=== PATIENT | male | born 1960 | race Caucasian/White ===

== ENCOUNTER 2019-10-18 09:02 | Outpatient (CLI) | payer MEDICARE, BC, SELFPAY ==
[2019-10-18 09:33] LABS: Basophils # 0.1 10^3/uL (0.0-0.1); Basophils % 0.7 %; Eosinophils # 0.3 10^3/uL (0.0-0.8); Eosinophils % 4.2 %; Hematocrit 39.6 % (42.0-52.0); Hemoglobin 14.1 g/dL (11.7-16.6); Lymphocytes # 0.6 10^3/uL (0.8-4.8); Lymphocytes % 7.7 %; Mean Corpuscular HGB Conc 35.6 g/dL (30.0-36.0); Mean Corpuscular Hemoglobin 33.3 pg (28.0-34.0); Mean Corpuscular Volume 93.4 fL (80-94); Mean Platelet Volume 9.1 fL (7.4-10.4); Monocytes # 0.7 10^3/uL (0.2-0.9); Monocytes % 9.8 %; Neutrophils # 5.6 10^3/uL (1.8-7.7); Neutrophils % 75.6 %; Nucleated Red Blood Cells % 0 %; Platelet Count 181 10^3/cmm (130-400); Red Blood Count 4.24 10^6/uL (4.1-5.3); Red Cell Distribution Width 12.2 % (12.1-15.1); White Blood Count 7.4 10^3/uL (4.0-10.0)
[2019-10-18 09:53] LABS: Alanine Aminotransferase 20 U/L (0-41); Albumin Level 4.4 g/dL (3.5-5.2); Alkaline Phosphatase 133 IU/L (40-130); Anion Gap 15.7 (5-19); Aspartate Amino Transferase 19 U/L (0-40); Blood Urea Nitrogen 35 mg/dL (6-20); Calcium 9.7 mg/Dl (8.6-10.0); Carbon Dioxide 23 mmol/L (22-29); Chloride 104 mmol/L (98-107); Globulin 2.3 g/dL (1.3-4.6); Glomerular Filtration Rate 30.8 mL/min (90-130); Glucose 120 mg/dL (74-109); Lactate Dehydrogenase 177 U/L (135-225); Potassium 4.7 mmol/L (3.5-5.1); Sodium 138 mmol/L (136-145); Total Bilirubin 0.5 mg/dL (0.15-1.2); Total Protein 6.7 g/dL (6.6-8.7)
[2019-10-18] MEDS: acetaminophen 325 mg Tablet 650 MG PO (11:13)
[2019-10-18] MEDS: sodium chloride 0.9% 500 ML 999 ML IV (11:58)
--- NOTE | 2019-10-22 13:00 | ONC FU_ITS ---
Dr. Suarez Patient Follow-Up Note Patient: Jl Rivera Unit #: [id number]: 1960 Dicatated By: Charlie Suarez M.D.Date of Visit:Oct 18, 2019 Onc Med Follow-up/Prog Note Chief Complaint: Lymphoma. 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 He was admitted to [facility] on 07/29/2018 with acute renal failure. He had presented with encephalopathy and severe edema. In addition to the acute renal failure, he had moderately severe anemia and mild thrombocytopenia with his baseline platelet count reportedly in the range of 100,000. CT pulmonary angiogram showed axillary and mediastinal lymphadenopathy, moderate sized bilateral pleural effusions, and cardiomegaly. His abdomen/pelvis CT showed marked lymphadenopathy within the abdomen and pelvis and splenomegaly. 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 He also was started on hemodialysis. Left axillary lymph node biopsy on 07/31/2018 showed malignant lymphoma, favoring low-grade follicular lymphoma. The neoplastic cells were noted to be positive for BCL 6, CD10, and CD23. There was weak positivity for BCL 2. The cells were negative for cyclin D1, MUM1, and SOX 11. On 07/31/2018 he began chemotherapy with bendamustine/Rituxan. The bendamustine dosage was reduced by 50% for the renal function. His day 2 bendamustine was held due to an acute drop in his platelet count to 30,000. It subsequently did recover, but there was a delay of close to 3 months prior to starting his second cycle of chemotherapy. I had seen him initially on 11/15/2018. His 3rd cycle of chemotherpy had been scheduled to be given the following week, and he was to have restaging CT scans prior to that treatment. His further evaluation was delayed pending his Medicare eligibility. He then had a restaging PET/CT on 01/08/2019. It showed extensive hypermetabolic lymphadenopathy for the level of the head and neck to the level of the pelvis. There was diffusely metabolic splenomegaly. As he appeared to have had very little response to the bendamustine/Rituxan regimen, I opted to proceed with a course of R-CHOP chemotherapy. His baseline echocardiogram showed estimated left ventricular ejection fraction of 55%. There was grade I/IVdiastolic dysfunction. His other medical illnesses include hypothyroidism, degenerative arthritis, and gout. He has a history of smoking 1 pack of cigarettes daily for 40 years, but he has cut down. INTERIM HISTORY: He began cycle 1 of R-CHOP on 02/23/2019. He was given first cycle prophylaxis with Neulasta. He tolerated it with acceptable toxicity, and he continued with cycle 2 on 03/16/2019 and with cycle 3 on 04/13/2019. During this time he required additional thoracentesis procedures on 03/09, 03/17, and 04/01/2019. A flow cytometry study on his pleural fluid did show a monotypic B-cell population consistent with involvement by malignant lymphoma. Restaging PET/CT on 05/07/2019 showed overall improvement but not complete resolution of the extensive adenopathy. Hypermetabolic splenomegaly appeared to have normalized. He then continued with cycle 4 of R-CHOP on 05/11/2019, with cycle 5 on 06/01/2019, and with cycle 6 on 06/22/2019. Restaging PET/CT on 07/16/2019 showed subcentimeter size lymph nodes in the head and neck bilaterally, FDG negative. Similar improvement was noted in mediastinal, left internal mammary, and bilateral axillary lymph nodes. Portal nodes demonstrated only minimal FDG uptake and scattered retroperitoneal nodes measuring up to 1 cm in size showed FDG activity no greater than that of mediastinal background. A right external iliac lymph node measuring 1.8 x 1.5 cm had mild FDG uptake with SUV 3.4. The left pleural effusion was noted be significantly decreased in volume. Left lower lobe round atelectasis was noted to be FDG negative. In the setting of a low-grade follicular lymphoma with very good partial response to chemotherapy, I recommended that he continue with maintenance rituximab. He returned on 08/18/2019 to begin cycle 1 of 12 planned cycles of treatment at 2-month intervals. He is seen for a followup visit. He has been feeling pretty good generally, though he still gets tired. His ECOG score is 1. He has good appetite. He has gained weight. He has not had fever or night sweats, but he sometimes feels warm at night. He indicates that he is needing to have some dental work done. He does not complain of shortness of breath or cough. He is still smoking 1/2 pack of cigarettes daily. He has not been having chest pain since he stopped dialysis. He has a little bit of heartburn. He has no other GI or complaints. He has pain in his knees. He has numbness/tingling in his fingertips. Medications: Levo-T 1 Tablet (of 50 mcg) Oral daily, LORazepam 0.5 - 2 Tablet (of 1 mg) Oral daily PRN, Nitroglycerin 1 Tablet (of 0.4 mg) Tablet, sublingual Sublingual PRN, Prochlorperazine Maleate 1 Tablet (of 10 mg) Oral q 4 hours, Protonix 1 Tablet (of 20 mg) Tablet, enteric coated Oral daily PRN Allergies: No Known Allergies. Review of Systems: Constitutional - He feels pretty good generally. He does get tired at times, but he is able to do all of his housework. He also walks some throughout the week. His appetite is good and his weight is up almost 15 pounds since his last visit. No fever, chills, hot flashes, or night sweats. ECOG score is 1, ENMT - No sinus congestion/drainage. No mouth sores. No sore throat or difficulty swallowing, Hematologic/Lymphatic - No abnormal bruising or bleeding, Respiratory - No shortness of breath. No cough. No pleuritic pain or hemoptysis, Cardiovascular - No angina pain. No palpitations, Gastrointestinal - No nausea or vomiting. He has some heartburn. No diarrhea or constipation. No blood in the stool or black stools, Genitourinary (M) - No dysuria or hematuria. No urinary frequency. No urgency or incontinence, Musculoskeletal - He gets pain and stiffness in his knees after sitting too long, Integumentary - No skin complications, Neurologic - No headache or dizziness. He has numbness and tingling in his fingertips, Psychiatric - No anxiety. He does occasionally get down sometimes. No insomnia. Vital Signs: Performed on Oct 18, 2019 10:22 Height - 71.00 in Weight - 208.8 lbs (HIGH) BSA - 2.15 sq.m BMI - 29.12 Temperature - 98.4 F Pulse - 90 /min Respiration - 24 /min BP - 165/82 mm(hg) (HIGH) O2 Sat - 100 % Pain - 0 Physical Examination: Constitutional - He looks pretty good generally, Eyes - Sclerae nonicteric. Conjunctivae clear, ENMT - No lesions noted in the oral cavity, Hematologic/Lymphatic - No cervical, clavicular, or axillary adenopathy noted, Respiratory - Lungs still show slightly diminished breath sounds at the left base, Cardiovascular - Heart rhythm is regular. There is a II/ systolic murmur. There is no gallop or rub noted, Abdomen - Soft. Liver is not enlarged. I am not able to palpate the spleen. There is no abdominal mass or ascites noted. There are small inguinal lymph nodes bilaterally, Extremities - No edema, Neurologic - No focal neurologic deficits noted. Lab/Imaging: Test performed on Oct 18, 2019 09:31 Glucose 120 mg/dL BUN 35 mg/dL Creatinine 2.2 mg/dL Cr Clearance (Est) 45.09 mL/min Sodium 138 mmol/L Potassium 4.7 mmol/L Chloride 104 mmol/L CO2 23 mmol/L Calcium 9.7 mg/dL Protein, Total 6.7 g/dL Albumin 4.4 g/dL Globulin 2.3 g/dL Bilirubin, Total 0.5 mg/dL Alkaline Phosphatase 133 IU/L AST (SGOT) 19 IU/L ALT (SGPT) 20 IU/L WBC 7.4 10^9/L RBC 4.24 10^12/L HGB 14.1 g/dL HCT 39.6 % MCV 93.4 fl MCH 33.3 pg MCHC 35.6 g/dL RDW 12.2 % Platelet Count 181 10^9/L MPV 9.1 fL Neutrophils (Gran) 5.6 10^9/L Lymphocytes 0.6 10^9/L Monocytes 0.7 10^9/L Eosinophils 0.3 10^9/L Basophils 0.1 10^9/L Manual Segs 75.6 % Manual Lymphocytes 7.7 % Manual Monocytes 9.8 % Manual Eosinophils 4.2 % Manual Basophils 0.7 % NRBCs 0 /100 WBC Test performed on Oct 18, 2019 09:20 LDH, Total 177 IU/L Impression: 1. Patient with grade 1 follicular lymphoma, stage at least IIIS, diagnosed by left axillary lymph node biopsy on 07/31/2018. 2. His initial treatment included 2 cycles of bendamustine/Rituxan. With the first cycle the bendamustine was administered at a 50% dosage due to renal function and he received day 1 treatment only due to acute thrombocytopenia. Cycle 2 was delayed to 10/21/2018, and the bendamustine dosage remained at 50%. 3. He had presented with acute renal failure due to membranoproliferative glomerulonephritis, confirmed by renal biopsy on 07/30/2018. He has been on hemodialysis. 4. He was anemic at presentation, and he subsequently did require PRBC transfusion. 5. He also had laboratory evidence of hypothyroidism. 6. He has degenerative joint disease related to previous injuries. 7. He has a prior history of gout. He completed 2 cycles of bendamustine/Rituxan, though with significant delay prior to starting cycle 2. His restaging PET/CT on 01/08/2019 still showed diffuse FDG avid lymphadenopathy from the head/neck to the pelvis and diffusely metabolic splenomegaly. On comparison to his pretreatment CT scans, he did not appear to be showing significant response to the bendamustine/Rituxan regimen. As such, I opted to proceed with a course of R-CHOP chemotherapy. He began cycle 1 of R-CHOP on 02/23/2019. He was given first cycle prophylaxis with Neulasta. He tolerated it with acceptable toxicity, and he continued with cycle 2 on 03/16/2019 and with cycle 3 on 04/13/2019. During this time he required additional thoracentesis procedures, and a flow cytometry study on his pleural fluid did show a monotypic B-cell population consistent with involvement by malignant lymphoma. Restaging PET/CT on 05/07/2019 showed overall improvement but not complete resolution of the extensive adenopathy. Hypermetabolic splenomegaly appeared to have normalized. Overall, he appeared to have a very good response to the chemotherapy. He then continued treatment at 3-week intervals. He began his 6th cycle of R-CHOP on 06/22/2019. His restaging PET/CT on 07/16/2019 showed very significant response, though with possible residual involvement in a right external iliac lymph node and with evidence of some residual left pleural effusion. During that time he had significant improvement in his performance status, and he also was able to maintain adequate renal function after stopping dialysis. In the setting of low-grade lymphoma with very good partial response to chemotherapy, he was recommended to continue with maintenance rituximab. He began cycle 1 on 08/18/2019. He has since then continued to show gradual improvement in his clinical status. Plan: He will continue with cycle 2 of maintenance rituximab at 375 mg/m??? by IV infusion. He will be scheduled for a follow-up visit in 2 months. In the meantime, he will be given a prescription for amoxicillin to cover him for his dental work. I also will try and get nicotine patches for him. Signed By: Charlie Suarez M.D. <<Signature on File>>
== END 2019-10-18 09:03 | disposition home or self-care (01) ==
LOC: ONCMED 09:06
PROVIDERS: Visit Provider Internal Medicine Medical Oncology
DX: Z51.12 Encounter for antineoplastic immunotherapy (principal); C82.08 Follicular lymphoma grade I, lymph nodes of multiple sites; E03.9 Hypothyroidism, unspecified; M19.90 Unspecified osteoarthritis, unspecified site; M10.9 Gout, unspecified; F17.210 Nicotine dependence, cigarettes, uncomplicated
CPT/HCPCS: 80053; 83615; 85025; 96367; 96413; 96415; 99214; J1200; J7040; J9312

== ENCOUNTER 2019-11-18 13:03 | Outpatient (CLI) | payer MEDICARE, BC, SELFPAY | END 2019-11-18 13:04 | disposition home or self-care (01) | LOC: ONCMED 13:06 | PROVIDERS: Visit Provider Internal Medicine Medical Oncology | DX: Z45.2 Encounter for adjustment and management of vascular access device (principal) | CPT/HCPCS: 96523 ==

== ENCOUNTER 2019-12-13 13:34 | Outpatient (CLI) | payer MEDICARE, BC, SELFPAY ==
[2019-12-13 14:09] LABS: Basophils # 0.1 10^3/uL (0.0-0.1); Basophils % 1.1 %; Eosinophils # 0.3 10^3/uL (0.0-0.8); Eosinophils % 7.3 %; Hematocrit 37.2 % (42.0-52.0); Hemoglobin 13.2 g/dL (11.7-16.6); Lymphocytes # 0.6 10^3/uL (0.8-4.8); Lymphocytes % 11.9 %; Mean Corpuscular HGB Conc 35.5 g/dL (30.0-36.0); Mean Corpuscular Hemoglobin 32.8 pg (28.0-34.0); Mean Corpuscular Volume 92.3 fL (80-94); Mean Platelet Volume 9.8 fL (7.4-10.4); Monocytes # 0.8 10^3/uL (0.2-0.9); Monocytes % 17.9 %; Neutrophils # 2.8 10^3/uL (1.8-7.7); Neutrophils % 60.3 %; Nucleated Red Blood Cells % 0 %; Platelet Count 182 10^3/cmm (130-400); Red Blood Count 4.03 10^6/uL (4.1-5.3); Red Cell Distribution Width 13.2 % (12.1-15.1); White Blood Count 4.6 10^3/uL (4.0-10.0)
[2019-12-13 14:25] LABS: Alanine Aminotransferase 37 U/L (0-41); Albumin Level 4.2 g/dL (3.5-5.2); Alkaline Phosphatase 143 IU/L (40-130); Anion Gap 17.4 (5-19); Aspartate Amino Transferase 24 U/L (0-40); Blood Urea Nitrogen 35 mg/dL (8-23); Calcium 9.5 mg/dL (8.5-10.5); Carbon Dioxide 21 mmol/L (22-29); Chloride 103 mmol/L (98-107); Free T4 Free Thyroxine 1.01 ng/dL (0.82-1.77); Globulin 2.3 g/dL (1.3-4.6); Glomerular Filtration Rate 34.3 mL/min (90-130); Glucose 100 mg/dL (65-115); Lactate Dehydrogenase 226 U/L (135-225); Osmolality Calculated 281 mOsm/kg (285-295); Potassium 4.4 mmol/L (3.5-5.1); Sodium 137 mmol/L (136-145); Total Bilirubin 0.8 mg/dL (0.15-1.2); Total Protein 6.5 g/dL (6.6-8.7)
--- NOTE | 2019-12-17 15:11 | ONC FU_ITS ---
Dr. Suarez Patient Follow-Up Note Patient: Jl Rivera Unit #: [id number]: 1960 Dicatated By: Charlie Suarez M.D.Date of Visit:Dec 13, 2019 Onc Med Follow-up/Prog Note Chief Complaint: Lymphoma. 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 He was admitted to [facility] on 07/29/2018 with acute renal failure. He had presented with encephalopathy and severe edema. In addition to the acute renal failure, he had moderately severe anemia and mild thrombocytopenia with his baseline platelet count reportedly in the range of 100,000. CT pulmonary angiogram showed axillary and mediastinal lymphadenopathy, moderate sized bilateral pleural effusions, and cardiomegaly. His abdomen/pelvis CT showed marked lymphadenopathy within the abdomen and pelvis and splenomegaly. 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 He also was started on hemodialysis. Left axillary lymph node biopsy on 07/31/2018 showed malignant lymphoma, favoring low-grade follicular lymphoma. The neoplastic cells were noted to be positive for BCL 6, CD10, and CD23. There was weak positivity for BCL 2. The cells were negative for cyclin D1, MUM1, and SOX 11. On 07/31/2018 he began chemotherapy with bendamustine/Rituxan. The bendamustine dosage was reduced by 50% for the renal function. His day 2 bendamustine was held due to an acute drop in his platelet count to 30,000. It subsequently did recover, but there was a delay of close to 3 months prior to starting his second cycle of chemotherapy. I had seen him initially on 11/15/2018. His 3rd cycle of chemotherpy had been scheduled to be given the following week, and he was to have restaging CT scans prior to that treatment. His further evaluation was delayed pending his Medicare eligibility. He then had a restaging PET/CT on 01/08/2019. It showed extensive hypermetabolic lymphadenopathy for the level of the head and neck to the level of the pelvis. There was diffusely metabolic splenomegaly. As he appeared to have had very little response to the bendamustine/Rituxan regimen, I opted to proceed with a course of R-CHOP chemotherapy. His baseline echocardiogram showed estimated left ventricular ejection fraction of 55%. There was grade I/IVdiastolic dysfunction. His other medical illnesses include hypothyroidism, degenerative arthritis, and gout. He has a history of smoking 1 pack of cigarettes daily for 40 years, but he has cut down. INTERIM HISTORY: He began cycle 1 of R-CHOP on 02/23/2019. He was given first cycle prophylaxis with Neulasta. He tolerated it with acceptable toxicity, and he continued with cycle 2 on 03/16/2019 and with cycle 3 on 04/13/2019. During this time he required additional thoracentesis procedures on 03/09, 03/17, and 04/01/2019. A flow cytometry study on his pleural fluid did show a monotypic B-cell population consistent with involvement by malignant lymphoma. Restaging PET/CT on 05/07/2019 showed overall improvement but not complete resolution of the extensive adenopathy. Hypermetabolic splenomegaly appeared to have normalized. He then continued with cycle 4 of R-CHOP on 05/11/2019, with cycle 5 on 06/01/2019, and with cycle 6 on 06/22/2019. Restaging PET/CT on 07/16/2019 showed subcentimeter size lymph nodes in the head and neck bilaterally, FDG negative. Similar improvement was noted in mediastinal, left internal mammary, and bilateral axillary lymph nodes. Portal nodes demonstrated only minimal FDG uptake and scattered retroperitoneal nodes measuring up to 1 cm in size showed FDG activity no greater than that of mediastinal background. A right external iliac lymph node measuring 1.8 x 1.5 cm had mild FDG uptake with SUV 3.4. The left pleural effusion was noted be significantly decreased in volume. Left lower lobe round atelectasis was noted to be FDG negative. In the setting of a low-grade follicular lymphoma with very good partial response to chemotherapy, I recommended that he continue with maintenance rituximab. He then returned on 08/18/2019 to begin cycle 1 of 12 planned cycles of treatment at 2-month intervals. He tolerated it well, and he continued with cycle 2 on 10/18/2019. He is seen for a followup visit. He required him aware of a new lump in the right side of his neck within the past 10 days or so. He has been feeling a little tired. He is still doing light work. ECOG score is 1. He has good appetite. His weight is up another 4 pounds. He has not had fever or night sweats. He has not been having shortness of breath or cough. He has had no further chest pain since he stopped dialysis. He has no GI/ complaints other than rare episodes of heartburn. He has his usual lower back pain. He still has numbness/tingling on the tips of his fingers. Medications: LORazepam 0.5 - 2 Tablet (of 1 mg) Oral daily PRN, Nitroglycerin 1 Tablet (of 0.4 mg) Tablet, sublingual Sublingual PRN Allergies: No Known Allergies. Review of Systems: Constitutional - He still feels a little tired. He is able to do light work. His appetite is good and his weight is up another 4 pounds since his last visit. No fever, chills, hot flashes, or night sweats. ECOG score is 1, ENMT - No sinus congestion/drainage. No mouth sores. No sore throat or difficulty swallowing, Hematologic/Lymphatic - No abnormal bruising or bleeding, Respiratory - No shortness of breath. No cough. No pleuritic pain or hemoptysis, Cardiovascular - No angina pain. No palpitations, Gastrointestinal - No nausea or vomiting. He has just rare heartburn. No diarrhea or constipation. No blood in the stool or black stools, Genitourinary (M) - No dysuria or hematuria. No urinary frequency. No urgency or incontinence, Musculoskeletal - He has his usual lower back pain, Integumentary - No skin complications, Neurologic - No headache or dizziness. He still has numbness/tingling in his fingertips, Psychiatric - No anxiety or depression. He usually sleeps OK. Vital Signs: Performed on Dec 13, 2019 12:57 Height - 71.00 in Weight - 212.0 lbs (HIGH) BSA - 2.16 sq.m BMI - 29.57 Temperature - 98.1 F (LOW) Pulse - 80 /min Respiration - 20 /min BP - 151/82 mm(hg) (HIGH) O2 Sat - 99 % Pain - 5 Physical Examination: Constitutional - He looks pretty good generally, Eyes - Sclerae nonicteric. Conjunctivae clear, ENMT - No lesions noted in the oral cavity, Neck - There is a nodule in the lower medial right neck which I think is a thyroid nodule, Hematologic/Lymphatic - There is no other cervical, clavicular, or axillary adenopathy noted, Respiratory - Lungs sound clear with diminished breath sounds at the left base, Cardiovascular - Heart rhythm is regular. There is a II/ systolic murmur. There is no gallop or rub noted, Abdomen - Soft. Liver is not enlarged. I am not able to palpate the spleen. There is no abdominal mass or ascites noted. There is no inguinal adenopathy noted, Extremities - No edema. Pedal pulses are palpable bilaterally, Neurologic - No focal neurologic deficits noted. Impression: 1. Patient with grade 1 follicular lymphoma, stage at least IIIS, diagnosed by left axillary lymph node biopsy on 07/31/2018. 2. His initial treatment included 2 cycles of bendamustine/Rituxan. With the first cycle the bendamustine was administered at a 50% dosage due to renal function and he received day 1 treatment only due to acute thrombocytopenia. Cycle 2 was delayed to 10/21/2018, and the bendamustine dosage remained at 50%. 3. He had presented with acute renal failure due to membranoproliferative glomerulonephritis, confirmed by renal biopsy on 07/30/2018. He has been on hemodialysis. 4. He was anemic at presentation, and he subsequently did require PRBC transfusion. 5. He also had laboratory evidence of hypothyroidism. 6. He has degenerative joint disease related to previous injuries. 7. He has a prior history of gout. He completed 2 cycles of bendamustine/Rituxan, though with significant delay prior to starting cycle 2. His restaging PET/CT on 01/08/2019 still showed diffuse FDG avid lymphadenopathy from the head/neck to the pelvis and diffusely metabolic splenomegaly. On comparison to his pretreatment CT scans, he did not appear to be showing significant response to the bendamustine/Rituxan regimen. As such, I opted to proceed with a course of R-CHOP chemotherapy. He began cycle 1 of R-CHOP on 02/23/2019. He was given first cycle prophylaxis with Neulasta. He tolerated it with acceptable toxicity, and he continued with cycle 2 on 03/16/2019 and with cycle 3 on 04/13/2019. During this time he required additional thoracentesis procedures, and a flow cytometry study on his pleural fluid did show a monotypic B-cell population consistent with involvement by malignant lymphoma. Restaging PET/CT on 05/07/2019 showed overall improvement but not complete resolution of the extensive adenopathy. Hypermetabolic splenomegaly appeared to have normalized. Overall, he appeared to have a very good response to the chemotherapy. He then continued treatment at 3-week intervals. He began his 6th cycle of R-CHOP on 06/22/2019. His restaging PET/CT on 07/16/2019 showed very significant response, though with possible residual involvement in a right external iliac lymph node and with evidence of some residual left pleural effusion. During that time he had significant improvement in his performance status, and he also was able to maintain adequate renal function after stopping dialysis. In the setting of low-grade lymphoma with very good partial response to chemotherapy, he was recommended to continue with maintenance rituximab. He began cycle 1 on 08/18/2019. He tolerated it well and continue with cycle 2 on 10/18/2019. Overall, he has been showing gradual improvement in his performance status, and his renal function has remained adequate off dialysis. However, he has been recently become aware of a new nodule in the right side of the neck. By exam, this may be of thyroid origin. Plan: He will be scheduled for restaging labs and CT scans. He left further evaluation as indicated. If there has been any significant progression of the lymphoma, I will recommend referral to [facility] for a second opinion evaluation. Signed By: Charlie Suarez M.D. <<Signature on File>>
== END 2019-12-13 13:35 | disposition home or self-care (01) ==
PROVIDERS: Visit Provider Internal Medicine Medical Oncology
DX: C82.08 Follicular lymphoma grade I, lymph nodes of multiple sites (principal); D64.9 Anemia, unspecified; E03.9 Hypothyroidism, unspecified; M19.90 Unspecified osteoarthritis, unspecified site; M10.9 Gout, unspecified; F17.210 Nicotine dependence, cigarettes, uncomplicated; M54.5 Low back pain; Z79.899 Other long term (current) drug therapy; Z92.21 Personal history of antineoplastic chemotherapy
CPT/HCPCS: 36591; 80053; 83615; 84439; 84443; 85025; 99214

== ENCOUNTER 2019-12-19 05:47 | Outpatient (RCR) | payer MEDICARE, BC, SELFPAY ==
--- NOTE | 2019-12-15 09:05 | CT_ITS ---
WS: [id number] CT NECK TECHNIQUE: Noncontrast CT of the neck with coronal and sagittal reformatted images. CLINICAL INFORMATION: LYMPHOMA/?THYROID NODULE COMPARISON: PET/CT July 16, 2019 DLP: 769.[address] scans at [facility] use at least one of these dose optimization techniques: automat ed exposure control; mA and/or kV adjustment per patient size (includes targeted exams where dose is matched to clinical indication); or iterative reconstruction. FINDINGS: Parotid glands are normal in appearance. Normal submandibular glands. Tongue base appears normal. Nor mal parapharyngeal fat. No evidence of supraglottic or glottic mass considering lack of IV contrast. No visualized thyroid nodules. Prominent left submandibular lymph node measuring 11 mm in short axis dimension. Prominent level 2 an d level 3 cervical lymph nodes upper limits of normal but not pathologically enlarged. Shotty appeari ng posterior triangle lymph nodes the largest measuring 7 mm in short axis dimension. Enlarged supraclavicular lymph nodes with partially visualized numerous enlarged lymph nodes at the t horacic inlet and retropectoral. Largest supra clavicular lymph nodes measure approximately 10 mm in short axis dimension. These appear progressed since the prior PET/CT. Prior postoperative changes cervical spine with ACDF C3-C4 and C5-C7. Straightening of the normal cer vical lordosis. Mastoid air cells are well aerated. Paranasal sinuses are well aerated. CT/CT neck wo con [id number] IMPRESSION: 1. Salivary glands are normal in appearance. 2. No evidence of supraglottic or glottic mass considering lack of IV contrast . 3. Enlarged left submandibular lymph node measuring 11 mm. 4. Numerous but normal sized level 2 and level 3 cervical lymph nodes. 5. Numerous and enlarged supraclavicular lymph nodes and partially visualized thoracic inlet and retropectoral lymph nodes. Largest supraclavicular lymph nod es measure approximately 10 mm in short axis dimension. 6. Thyroid gland appears normal. 7. Overall lymph nodes appear progressed since the prior PET/CT.
--- NOTE | 2019-12-15 09:05 | CT_ITS ---
WS: [id number] CT CHEST, ABDOMEN, AND PELVIS TECHNIQUE: Noncontrast CT of the chest, abdomen, and pelvis with coronal and sagittal reformatted shea ges. CLINICAL INFORMATION: LYMPHOMA COMPARISON: PET/CT July 16, [address] chest March 30, [address] abdomen July 29, 2018 DLP: 1852.[address] scans at [facility] use at least one of these dose optimization techniques: automat ed exposure control; mA and/or kV adjustment per patient size (includes targeted exams where dose is matched to clinical indication); or iterative reconstruction. CT CHEST: Mild chronic emphysematous changes. Small left pleural effusion. Round atelectasis left lung base vita suring 5.6 x 2.3 cm is unchanged. Pleural effusion has increased slightly from previous. Extensive progressed thoracic inlet, supra clavicular, internal mammary, left greater than right axil maria antonia lymphadenopathy. This is progressed since the prior PET/CT. No significant hilar or paratracheal lymphadenopathy. 5 mm noncalcified pulmonary nodule in the left upper lobe is stable. Fibrosis right lung base. CT ABDOMEN AND PELVIS: Noncontrast liver is normal. Normal noncontrast spleen. Normal caliber abdominal aorta. Enlarged lymph nodes in the upper abdomen along the celiac axis and abdiaziz hepatis. Enlarged periaorti c and retroperitoneal lymph nodes with surrounding induration. Upper abdominal lymph nodes appear sta ble to slightly improved compared to previous. Periaortic lymph nodes not significantly changed. However, significant overall progression of the iliac chain lymphadenopathy with enlarged pelvic side wall and obturator lymph nodes. These have progressed since the prior examination. Progressed inguina l lymphadenopathy. Renal cortical atrophy. Adrenal glands are normal. Normal caliber abdominal aorta. Incidental fat-con taining umbilical hernia. CT/CT chest abd pel wo con IMPRESSION: 1. Significant interval progression involving the supraclavicular, thoracic in let, internal mammary, and axillary lymphadenopathy. Largest left axillary lymp h node measures 2.5 cm laterally. 2. Stable small left pleural effusion with round atelectasis left lung base. 3. Lymphadenopathy in the upper abdomen, abdiaziz hepatis, and periaortic regions is stable. 4. However there is significant progression of the pelvic and iliac chain lymp hadenopathy as well as the inguinal lymphadenopathy. 5. Stable noncalcified 6 mm nodule left upper lobe.
[2019-12-15] MEDS: iohexol 300 mg/mL 50 mL Btl PO (09:22)
[2019-12-19 09:43] LABS: Basophils # 0.1 10^3/uL (0.0-0.1); Basophils % 1.5 %; Eosinophils # 0.3 10^3/uL (0.0-0.8); Eosinophils % 6.8 %; Hematocrit 37.4 % (42.0-52.0); Hemoglobin 13.5 g/dL (11.7-16.6); Lymphocytes # 0.5 10^3/uL (0.8-4.8); Lymphocytes % 12.8 %; Mean Corpuscular HGB Conc 36.1 g/dL (30.0-36.0); Mean Corpuscular Hemoglobin 33.8 pg (28.0-34.0); Mean Corpuscular Volume 93.7 fL (80-94); Mean Platelet Volume 9.6 fL (7.4-10.4); Monocytes # 0.7 10^3/uL (0.2-0.9); Monocytes % 18.5 %; Neutrophils # 2.3 10^3/uL (1.8-7.7); Neutrophils % 57.1 %; Nucleated Red Blood Cells % 0 %; Platelet Count 192 10^3/cmm (130-400); Red Blood Count 3.99 10^6/uL (4.1-5.3); Red Cell Distribution Width 12.9 % (12.1-15.1)
[2019-12-19 09:48] LABS: Alanine Aminotransferase 34 U/L (0-41); Albumin Level 4.2 g/dL (3.5-5.2); Alkaline Phosphatase 183 IU/L (40-130); Anion Gap 17.8 (5-19); Aspartate Amino Transferase 25 U/L (0-40); Blood Urea Nitrogen 38 mg/dL (8-23); Calcium 9.6 mg/dL (8.5-10.5); Carbon Dioxide 23 mmol/L (22-29); Chloride 103 mmol/L (98-107); Globulin 2.3 g/dL (1.3-4.6); Glomerular Filtration Rate 32.4 mL/min (90-130); Glucose 128 mg/dL (65-115); Lactate Dehydrogenase 216 U/L (135-225); Osmolality Calculated 287 mOsm/kg (285-295); Potassium 4.8 mmol/L (3.5-5.1); Sodium 139 mmol/L (136-145); Total Bilirubin 0.7 mg/dL (0.15-1.2); Total Protein 6.5 g/dL (6.6-8.7)
--- NOTE | 2019-12-19 10:33 | ONC FU_ITS ---
[facility] Patient Note Patient: Jl Rivera Unit #: [id number]: 1960 Dictated By: Gaurav LimDate of Visit: Dec 19, 2019 Onc MED Follow-Up/Prog Note Chief Complaint: Lymphoma. 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 He was admitted to [facility] on 07/29/2018 with acute renal failure. He had presented with encephalopathy and severe edema. In addition to the acute renal failure, he had moderately severe anemia and mild thrombocytopenia with his baseline platelet count reportedly in the range of 100,000. CT pulmonary angiogram showed axillary and mediastinal lymphadenopathy, moderate sized bilateral pleural effusions, and cardiomegaly. His abdomen/pelvis CT showed marked lymphadenopathy within the abdomen and pelvis and splenomegaly. 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 He also was started on hemodialysis. Left axillary lymph node biopsy on 07/31/2018 showed malignant lymphoma, favoring low-grade follicular lymphoma. The neoplastic cells were noted to be positive for BCL 6, CD10, and CD23. There was weak positivity for BCL 2. The cells were negative for cyclin D1, MUM1, and SOX 11. On 07/31/2018 he began chemotherapy with bendamustine/Rituxan. The bendamustine dosage was reduced by 50% for the renal function. His day 2 bendamustine was held due to an acute drop in his platelet count to 30,000. It subsequently did recover, but there was a delay of close to 3 months prior to starting his second cycle of chemotherapy. Dr Suarez had seen him initially on 11/15/2018. His 3rd cycle of chemotherpy had been scheduled to be given the following week, and he was to have restaging CT scans prior to that treatment. His further evaluation was delayed pending his Medicare eligibility. He then had a restaging PET/CT on 01/08/2019. It showed extensive hypermetabolic lymphadenopathy for the level of the head and neck to the level of the pelvis. There was diffusely metabolic splenomegaly. As he appeared to have had very little response to the bendamustine/Rituxan regimen, it was opted to proceed with a course of R-CHOP chemotherapy. His baseline echocardiogram showed estimated left ventricular ejection fraction of 55%. There was grade I/IVdiastolic dysfunction. His other medical illnesses include hypothyroidism, degenerative arthritis, and gout. He has a history of smoking 1 pack of cigarettes daily for 40 years, but he has cut down. INTERIM HISTORY: He began cycle 1 of R-CHOP on 02/23/2019. He was given first cycle prophylaxis with Neulasta. He tolerated it with acceptable toxicity, and he continued with cycle 2 on 03/16/2019 and with cycle 3 on 04/13/2019. During this time he required additional thoracentesis procedures on 03/09, 03/17, and 04/01/2019. A flow cytometry study on his pleural fluid did show a monotypic B-cell population consistent with involvement by malignant lymphoma. Restaging PET/CT on 05/07/2019 showed overall improvement but not complete resolution of the extensive adenopathy. Hypermetabolic splenomegaly appeared to have normalized. He then continued with cycle 4 of R-CHOP on 05/11/2019, with cycle 5 on 06/01/2019, and with cycle 6 on 06/22/2019. Restaging PET/CT on 07/16/2019 showed subcentimeter size lymph nodes in the head and neck bilaterally, FDG negative. Similar improvement was noted in mediastinal, left internal mammary, and bilateral axillary lymph nodes. Portal nodes demonstrated only minimal FDG uptake and scattered retroperitoneal nodes measuring up to 1 cm in size showed FDG activity no greater than that of mediastinal background. A right external iliac lymph node measuring 1.8 x 1.5 cm had mild FDG uptake with SUV 3.4. The left pleural effusion was noted be significantly decreased in volume. Left lower lobe round atelectasis was noted to be FDG negative. In the setting of a low-grade follicular lymphoma with very good partial response to chemotherapy, Dr Suarez recommended that he continue with maintenance rituximab. He then returned on 08/18/2019 to begin cycle 1 of 12 planned cycles of treatment at 2-month intervals. He tolerated it well, and he continued with cycle 2 on 10/18/2019. Followup imaging obtained on 12/15/2019 [address]contrast CTs of the neck chest, abdomen and pelvis. There was a prominent left submandibular lymph node measuring 11 mm in short axis dimension. Prominent level 2 and level 3 cervical lymph nodes upper limits of normal but not pathologically enlarged. Shotty appearing posterior triangle lymph nodes the largest measuring 7 mm in short axis dimension. Enlarged supraclavicular lymph nodes with partially visualized numerous enlarged lymph nodes at the thoracic inlet and retro-pectoral. Largest supraclavicular lymph nodes measures approximately 10 mm in short axis dimension. These appear to have progressed since her prior PET CT from July 16, 2019. Was noted that he did have a small left pleural effusion rounded atelectasis left lung base measuring 5.6 x 2.3 cm is unchanged. Extensive progressed thoracic inlet, supraclavicular, internal mammary, left greater than right axillary lymphadenopathy. This is progressed since the prior PET CT. No significant hilar or paratracheal lymphadenopathy. A 5 mm noncalcified pulmonary nodule in the left upper lobe is stable. The spleen is normal. There were enlarged lymph nodes in the upper abdomen along the celiac axis and abdiaziz hepatis. Enlarged periaortic and retroperitoneal lymph nodes with surrounding induration. Upper abdominal lymph nodes appear to be stable or slightly improved compared to previous. Periaortic lymph nodes are not significantly changed. However significant overall progression of the iliac chain lymphadenopathy enlarged pelvic sidewall and over the lymph nodes. These progressed since the prior exam. Progressive inguinal lymphadenopathy. Mr Rivera is here today for followup. He has no new concerns today. He denies any fever or chills. He has not had a cough. He remains active for him and tolerates it well. He denies any diarrhea or constipation. His numbness in his fingers/toes is the same. He denies any fatigue. He states he is had no hair loss. He denies any brittle nails. We reviewed the above CT findings in detail. His ECOG is 1. Past Medical History: Anemia Degenerative joint disease Gout Hypothyroidism Past Surgical History: Placement of AV fistula for dialysis Placement of left subclavian dialysis catheter Rotator cuff repair bilaterally Left axillary lymph node biopsy and placement of Port-A-Cath venous access device in 2019 Ct renal biopsy in 2018 Cervical spine fusion with vertebral cadaver bone in 2005 Allergies: No Known Allergies. Medications: LORazepam 0.5 - 2 Tablet (of 1 mg) Oral daily PRN Nitroglycerin 1 Tablet (of 0.4 mg) Tablet, sublingual Sublingual PRN Family History: Mr. Rivera's mother is alive. Mr. Rivera's father is . Mr. Rivera has 4 brothers: 4 alive. He has 1 sister who is alive. His mother is still living and in good health at age 81. Father with multiple myeloma at age 80. He also had prostate cancer. The patient's paternal grandfather had prostate cancer as well. Five siblings are in good health. Social History: Mr. Rivera is and he is unemployed. He is a daily smoker who has smoked 0.5 packs/day for 40 years. He drinks occasionally. He has a history of smoking for 40 years, previously in the range of 1 pack of cigarettes daily. He is now smoking < 1/2 pack per day. He has a history of heavy alcohol use in the past. He had quit drinking for a period of 7 years. He now drinks alcohol socially . Review Of Symptoms: Constitutional Denies fevers, chills, night sweats, excessive fatigue or weight loss. Allergic/Immunologic No reactions. Eyes Denies significant visual changes. No diplopia. No amaurosis. ENMT Denies changes in hearing, sore throat, mouth sores, difficulty or changes in swallowing ability, and/or sinus drainage. Endocrine No diabetes, thyroid disease or hormone replacement. Denies hot flashes or night sweats. Hematologic/Lymphatic Denies easy bruising or bleeding. The patient denies any tender or palpable lymph nodes. Respiratory Denies dyspnea on exertion, chest pain, cough or hemoptysis. Denies orthopnea. Cardiovascular Denies anginal chest pain, palpitations or orthopnea. Gastrointestinal Denies nausea, vomiting, diarrhea, GI bleeding, or constipation. Denies change in bowel habits and/or stool color, or early satiety. Genitourinary (M) Denies hematuria, dysuria, increased frequency, urgency, hesitancy or incontinence. Musculoskeletal Denies joint pain, swelling or redness. No decreased range of motion. Integumentary Denies rash. Neurologic Denies headache, blurred vision, and no areas of focal weakness or numbness. Normal gait. No sensory problems. Psychiatric Denies insomnia, depression, claus or mood swings. Vital Signs: Performed on Dec 19, 2019 09:47 Height - 71.00 in Weight - 211.6 lbs (LOW) BSA - 2.16 sq.m BMI - 29.51 Temperature - 98.9 F (HIGH) Pulse - 82 /min Respiration - 16 /min BP - 151/79 mm(hg) (HIGH) O2 Sat - 98 % Pain - 3 Fatigue - 5,1 - No physically strenuous activity, but ambulatory and able to carry out light or sedentary work (e.g. office work, light house work). (ECOG) Physical Examination: Constitutional Alert, oriented, no acute distress. Skin pink, warm and dry. Head Normocephalic; atraumatic. Eyes Conjunctivae and sclerae are clear and without icterus. Pupils are reactive and equal. Neck No jugular venous distension. No palpable adenopathy. Hematologic/Lymphatic No tender or palpable lymph nodes in the cervical or supraclavicular areas. Respiratory Lungs are diminished on the left but clear on the right with no wheezing noted. Cardiovascular Regular rate and rhythm of heart without murmurs,clicks, gallops or rubs. Chest Chest is symmetric without chest wall deformities. Right chest wall venous access device is unremarkable. Breasts Back/Spine Non-tender to palpation. Extremities No visible deformities, no cyanosis, clubbing or edema. Musculoskeletal No tenderness or swelling, normal range of motion without obvious weakness. Integumentary No rashes or lesions. Neurologic No sensory or motor deficits, normal cerebellar function, normal gait. Psychiatric Alert and oriented times three. Coherent speech. Verbalizes understanding of our discussions today. Laboratory:Test performed on Dec 19, 2019 09:12 LDH (Total) 216 U/L Sodium 139 mmol/L Potassium 4.8 mmol/L Chloride 103 mmol/L CO2 23 mmol/L Anion Gap 17.8 BUN 38 mg/dL Creatinine 2.1 mg/dL Cr Clearance (Est) 46.6600 mL/min eGFR 32.4 mL/min Glucose 128 mg/dL Calcium 9.6 mg/dL Protein, Total 6.5 g/dL Albumin 4.2 g/dL Globulin 2.3 g/dL Bilirubin, Total 0.7 mg/dL ALT (SGPT) 34 U/L AST (SGOT) 25 U/L Alkaline Phosphatase 183 IU/L WBC 4.0 10 3/uL RBC 3.99 10 6/uL HGB 13.5 g/dL HCT 37.4 % MCV 93.7 fL MCH 33.8 pg MCHC 36.1 g/dL RDW 12.9 % Platelet Count 192 10 3/cmm MPV 9.6 fL Neutrophils 2.3 10 3/uL Lymphocytes 0.5 10 3/uL Monocytes 0.7 10 3/uL Eosinophils 0.3 10 3/uL Basophils 0.1 10 3/uL Neutrophil % 57.1 % Lymphocyte % 12.8 % Monocyte % 18.5 % Eosinophil % 6.8 % Basophils % 1.5 % Test performed on Dec 13, 2019 13:42 T4, Free 1.01 ng/dL TSH 5.00 uIU/mL Impression: 1. Patient with grade 1 follicular lymphoma, stage at least IIIS, diagnosed by left axillary lymph node biopsy on 07/31/2018. 2. His initial treatment included 2 cycles of bendamustine/Rituxan. With the first cycle the bendamustine was administered at a 50% dosage due to renal function and he received day 1 treatment only due to acute thrombocytopenia. Cycle 2 was delayed to 10/21/2018, and the bendamustine dosage remained at 50%. 3. He had presented with acute renal failure due to membranoproliferative glomerulonephritis, confirmed by renal biopsy on 07/30/2018. He has been on hemodialysis. 4. He was anemic at presentation, and he subsequently did require PRBC transfusion. 5. He also had laboratory evidence of hypothyroidism. 6. He has degenerative joint disease related to previous injuries. 7. He has a prior history of gout. He completed 2 cycles of bendamustine/Rituxan, though with significant delay prior to starting cycle 2. His restaging PET/CT on 01/08/2019 still showed diffuse FDG avid lymphadenopathy from the head/neck to the pelvis and diffusely metabolic splenomegaly. On comparison to his pretreatment CT scans, he did not appear to be showing significant response to the bendamustine/Rituxan regimen. As such, Dr Suarez opted to proceed with a course of R-CHOP chemotherapy. He began cycle 1 of R-CHOP on 02/23/2019. He was given first cycle prophylaxis with Neulasta. He tolerated it with acceptable toxicity, and he continued with cycle 2 on 03/16/2019 and with cycle 3 on 04/13/2019. During this time he required additional thoracentesis procedures, and a flow cytometry study on his pleural fluid did show a monotypic B-cell population consistent with involvement by malignant lymphoma. Restaging PET/CT on 05/07/2019 showed overall improvement but not complete resolution of the extensive adenopathy. Hypermetabolic splenomegaly appeared to have normalized. Overall, he appeared to have a very good response to the chemotherapy. He then continued treatment at 3-week intervals. He began his 6th cycle of R-CHOP on 06/22/2019. His restaging PET/CT on 07/16/2019 showed very significant response, though with possible residual involvement in a right external iliac lymph node and with evidence of some residual left pleural effusion. During that time he had significant improvement in his performance status, and he also was able to maintain adequate renal function after stopping dialysis. In the setting of low-grade lymphoma with very good partial response to chemotherapy, he was recommended to continue with maintenance rituximab. He began cycle 1 on 08/18/2019. He tolerated it well and continue with cycle 2 on 10/18/2019. Overall, he has been showing gradual improvement in his performance status, and his renal function has remained adequate off dialysis. However, he had been become aware of a new nodule in the right side of the neck. By exam, this may be of thyroid origin. Followup imaging obtained on 12/15/2019 [address]s of the neck chest, abdomen and pelvis. There was a prominent left submandibular lymph node measuring 11 mm in short axis dimension. Prominent level 2 and level 3 cervical lymph nodes upper limits of normal but not pathologically enlarged. Shotty appearing posterior triangle lymph nodes the largest measuring 7 mm in short axis dimension. Enlarged supraclavicular lymph nodes with partially visualized numerous enlarged lymph nodes at the thoracic inlet and retro-pectoral. Largest supraclavicular lymph nodes measures approximately 10 mm in short axis dimension. These appear to have progressed since her prior PET CT from July 16, 2019. Was noted that he did have a small left pleural effusion rounded atelectasis left lung base measuring 5.6 x 2.3 cm is unchanged. Extensive progressed thoracic inlet, supraclavicular, internal mammary, left greater than right axillary lymphadenopathy. This is progressed since the prior PET CT. No significant hilar or paratracheal lymphadenopathy. A 5 mm noncalcified pulmonary nodule in the left upper lobe is stable. The spleen is normal. There were enlarged lymph nodes in the upper abdomen along the celiac axis and abdiaziz hepatis. Enlarged periaortic and retroperitoneal lymph nodes with surrounding induration. Upper abdominal lymph nodes appear to be stable or slightly improved compared to previous. Periaortic lymph nodes are not significantly changed. However significant overall progression of the iliac chain lymphadenopathy enlarged pelvic sidewall and over the lymph nodes. These progressed since the prior exam. Progressive inguinal lymphadenopathy. Plan: 1. Stop treatment with planned maintenance Rituxan. 2. Referral to lymphoma specialist at [facility] for progressive disease. 3. Labs from 12/13/2019 and today were reviewed in detail and discussed with Mr Rivera and a copy was given to him. LAbs from 12/19/2019 were WBC 4.0, hemoglobin 13.5, platelets 192,000, ANC is 2300. Creatinine 2.1 total bilirubin 0.7 ALT is 34 AST is 25 alk phos is 183 LDH is normal at 216. His potassium was 4.8 calcium 9.6. 4. We discussed the CT of the neck, chest abdomen and pelvis in detail and copies were given to him. We discussed that there has been widespread lymphadenopathy which shows some progression since the PET CT in July 2019. None of his bulky in the spleen is normal. Dr. Suarez does request that Mr. Rivera consider going to [facility] to the lymphoma specialist for further treatment options. He is agreeable. We will make this referral and have him contact him to set up his visit. He states that they are unable to get him on his cell phone as he has limited coverage at home sometimes to call his brother, Jeremías, at [phone]. 5. I have made Mr. Rivera a 1 month follow-up with CBC CMP LDH and TSH with free T4. His TSH on 12/13/2019 was 5.0. He is currently not taking any thyroid medications. He had stopped it sometime back after he ran out. He is not symptomatic and therefore we will continue to watch him for now. However if he starts feeling any symptoms, which we did review, he was instructed to call us and we will check it and resume his levothyroxine at that time if needed. His Free T4 was normal on . 6. Mr. Rivera was instructed to contact us in the interim should questions or problems arise. Signed By: Gaurav Lim-, AOCNP Charlie Suarez MD <<Signature on File>>
== END 2020-01-03 23:59 | disposition home or self-care (01) ==
LOC: ONCMED 05:47
PROVIDERS: Visit Provider Nurse Practitioner
DX: C82.08 Follicular lymphoma grade I, lymph nodes of multiple sites (principal); E03.9 Hypothyroidism, unspecified; M19.90 Unspecified osteoarthritis, unspecified site; M10.9 Gout, unspecified; F17.210 Nicotine dependence, cigarettes, uncomplicated; G62.0 Drug-induced polyneuropathy; T45.1X5A Adverse effect of antineoplastic and immunosuppressive drugs, initial encounter; Z98.1 Arthrodesis status; F10.21 Alcohol dependence, in remission; Z79.899 Other long term (current) drug therapy
CPT/HCPCS: 36591; 70490; 71250; 74176; 80053; 83615; 85025; 99214; Q9967

== ENCOUNTER 2020-01-10 08:20 | Outpatient (RCR) | payer MEDICARE, BC, SELFPAY | END 2020-02-02 23:59 | disposition home or self-care (01) | LOC: ONCMED 08:20 | PROVIDERS: Visit Provider Internal Medicine Medical Oncology | DX: Z53.9 Procedure and treatment not carried out, unspecified reason (principal) ==

== ENCOUNTER 2020-01-26 07:38 | Day surgery (SDC) | payer MEDICARE, BC, SELFPAY ==
[2020-01-25 15:10] VITALS: BMI 29.5
--- NOTE | 2020-01-26 | US_ITS ---
WS: [id number] ULTRASOUND-GUIDED RIGHT GROIN LYMPH NODE BIOPSY CLINICAL INFORMATION: LYMPHOMA COMPARISON: None. FINDINGS: The procedure including, benefits, and complications were discussed with the patient who agreed to pr oceed. Using sterile technique patient was prepped and draped in the usual sterile fashion. After 1% lidocaine utilizing real-time ultrasound guidance numerous 18-gauge cores were obtained of the enlarg ed right groin lymph node. Initial samples obtained in the transverse plane with fragmented cores. Odom bsequently, longitudinal approach was used with improved core samples and multiple samples obtained. Pathology demonstrates Lymph node, right inguinal area, excision: 1. Follicular Lymphoma, Grade 1-2 of 3 Comment: A panel of IHC stains was performed and results are as follows: Cyclin D1 negative, CD 21 FD C meshworks positive, CD20 positive, CD10 positive, CD5 positive, CD3 positive, BCL6 positive, BCL2 pos itive, MUM1 negative. The Ki 67 stain demonstrated low mitotic activity, from 10% up to 30%. US/US biopsy lymph node [id number] IMPRESSION: 1. Uncomplicated ultrasound-guided right groin lymph node biopsy 2. The pathology demonstrates follicular lymphoma grade 1-2 of 3. See addition al commentary above.
[2020-01-26] MEDS: sodium chloride 0.9% 1,000 ML 30 ML IV (08:05)
[2020-01-26 08:35] LABS: INR 0.92 (0.8-1.2)
[2020-01-26 10:35] VITALS: BP 126/73; PULSE 85; RESP 18; TEMP 36.9; O2SAT 96
[2020-01-26 10:48] VITALS: BP 128/78; PULSE 81; RESP 18; TEMP 36.6; O2SAT 96
[2020-01-26 10:56] VITALS: BP 133/70; PULSE 83; RESP 18; O2SAT 96
[2020-04-04 16:01] LABS: Miscellaneous Test See Scanned Lab Rpt
== END 2020-01-26 11:00 | disposition home or self-care (01) ==
PROVIDERS: Visit Provider Internal Medicine Medical Oncology
DX: C85.90 Non-Hodgkin lymphoma, unspecified, unspecified site (principal)
CPT/HCPCS: 38505; 76942; 85610; 87070; 87176; 87205; 88184; 88185; 88271; 88275; 88305; J1642; J2001; J7030

== ENCOUNTER 2020-02-28 13:47 | Outpatient (RCR) | payer MEDICARE, BC, SELFPAY ==
[2020-02-28 15:53] LABS: Basophils # 0.1 10^3/uL (0.0-0.1); Basophils % 0.9 %; Eosinophils # 0.4 10^3/uL (0.0-0.8); Eosinophils % 4.1 %; Hematocrit 41.6 % (42.0-52.0); Hemoglobin 14.6 g/dL (11.7-16.6); Lymphocytes # 0.5 10^3/uL (0.8-4.8); Lymphocytes % 5.6 %; Mean Corpuscular HGB Conc 35.1 g/dL (30.0-36.0); Mean Corpuscular Hemoglobin 33.3 pg (28.0-34.0); Mean Corpuscular Volume 94.8 fL (80-94); Mean Platelet Volume 9.8 fL (7.4-10.4); Monocytes % 11.1 %; Nucleated Red Blood Cells % 0 %; Platelet Count 157 10^3/cmm (130-400); Red Blood Count 4.39 10^6/uL (4.1-5.3); Red Cell Distribution Width 13.2 % (12.1-15.1); White Blood Count 9.1 10^3/uL (4.0-10.0)
[2020-02-28 16:21] LABS: Alanine Aminotransferase 24 U/L (0-41); Albumin Level 4.4 g/dL (3.5-5.2); Alkaline Phosphatase 132 IU/L (40-130); Anion Gap 16.8 (5-19); Aspartate Amino Transferase 20 U/L (0-40); Blood Urea Nitrogen 33 mg/dL (8-23); Calcium 9.2 mg/dL (8.5-10.5); Carbon Dioxide 22 mmol/L (22-29); Chloride 103 mmol/L (98-107); Globulin 2.1 g/dL (1.3-4.6); Glomerular Filtration Rate 38.7 mL/min (90-130); Glucose 104 mg/dL (65-115); Lactate Dehydrogenase 211 U/L (135-225); Osmolality Calculated 282 mOsm/kg (285-295); Potassium 4.8 mmol/L (3.5-5.1); Sodium 137 mmol/L (136-145); Total Bilirubin 0.6 mg/dL (0.15-1.2); Total Protein 6.5 g/dL (6.6-8.7)
--- NOTE | 2020-03-04 21:14 | ONC FU_ITS ---
[facility] Patient Note Patient: Jl Rivera Unit #: [id number]: 1960 Dictated By: Gaurav LimDate of Visit: February 28, 2020 Onc MED Follow-Up/Prog Note Chief Complaint: Lymphoma. 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 He was admitted to [facility] on 07/29/2018 with acute renal failure. He had presented with encephalopathy and severe edema. In addition to the acute renal failure, he had moderately severe anemia and mild thrombocytopenia with his baseline platelet count reportedly in the range of 100,000. CT pulmonary angiogram showed axillary and mediastinal lymphadenopathy, moderate sized bilateral pleural effusions, and cardiomegaly. His abdomen/pelvis CT showed marked lymphadenopathy within the abdomen and pelvis and splenomegaly. 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 He also was started on hemodialysis. Left axillary lymph node biopsy on 07/31/2018 showed malignant lymphoma, favoring low-grade follicular lymphoma. The neoplastic cells were noted to be positive for BCL 6, CD10, and CD23. There was weak positivity for BCL 2. The cells were negative for cyclin D1, MUM1, and SOX 11. On 07/31/2018 he began chemotherapy with bendamustine/Rituxan. The bendamustine dosage was reduced by 50% for the renal function. His day 2 bendamustine was held due to an acute drop in his platelet count to 30,000. It subsequently did recover, but there was a delay of close to 3 months prior to starting his second cycle of chemotherapy. Dr Suarez had seen him initially on 11/15/2018. His 3rd cycle of chemotherpy had been scheduled to be given the following week, and he was to have restaging CT scans prior to that treatment. His further evaluation was delayed pending his Medicare eligibility. He then had a restaging PET/CT on 01/08/2019. It showed extensive hypermetabolic lymphadenopathy for the level of the head and neck to the level of the pelvis. There was diffusely metabolic splenomegaly. As he appeared to have had very little response to the bendamustine/Rituxan regimen, it was opted to proceed with a course of R-CHOP chemotherapy. His baseline echocardiogram showed estimated left ventricular ejection fraction of 55%. There was grade I/IVdiastolic dysfunction. His other medical illnesses include hypothyroidism, degenerative arthritis, and gout. He has a history of smoking 1 pack of cigarettes daily for 40 years, but he has cut down. INTERIM HISTORY: He began cycle 1 of R-CHOP on 02/23/2019. He was given first cycle prophylaxis with Neulasta. He tolerated it with acceptable toxicity, and he continued with cycle 2 on 03/16/2019 and with cycle 3 on 04/13/2019. During this time he required additional thoracentesis procedures on 03/09, 03/17, and 04/01/2019. A flow cytometry study on his pleural fluid did show a monotypic B-cell population consistent with involvement by malignant lymphoma. Restaging PET/CT on 05/07/2019 showed overall improvement but not complete resolution of the extensive adenopathy. Hypermetabolic splenomegaly appeared to have normalized. He then continued with cycle 4 of R-CHOP on 05/11/2019, with cycle 5 on 06/01/2019, and with cycle 6 on 06/22/2019. Restaging PET/CT on 07/16/2019 showed subcentimeter size lymph nodes in the head and neck bilaterally, FDG negative. Similar improvement was noted in mediastinal, left internal mammary, and bilateral axillary lymph nodes. Portal nodes demonstrated only minimal FDG uptake and scattered retroperitoneal nodes measuring up to 1 cm in size showed FDG activity no greater than that of mediastinal background. A right external iliac lymph node measuring 1.8 x 1.5 cm had mild FDG uptake with SUV 3.4. The left pleural effusion was noted be significantly decreased in volume. Left lower lobe round atelectasis was noted to be FDG negative. In the setting of a low-grade follicular lymphoma with very good partial response to chemotherapy, Dr Suarez recommended that he continue with maintenance rituximab. He then returned on 08/18/2019 to begin cycle 1 of 12 planned cycles of treatment at 2-month intervals. He tolerated it well, and he continued with cycle 2 on 10/18/2019. Followup imaging obtained on 12/15/2019 [address]s of the neck chest, abdomen and pelvis. There was a prominent left submandibular lymph node measuring 11 mm in short axis dimension. Prominent level 2 and level 3 cervical lymph nodes upper limits of normal but not pathologically enlarged. Shotty appearing posterior triangle lymph nodes the largest measuring 7 mm in short axis dimension. Enlarged supraclavicular lymph nodes with partially visualized numerous enlarged lymph nodes at the thoracic inlet and retro-pectoral. Largest supraclavicular lymph nodes measures approximately 10 mm in short axis dimension. These appear to have progressed since her prior PET CT from July 16, 2019. Was noted that he did have a small left pleural effusion rounded atelectasis left lung base measuring 5.6 x 2.3 cm is unchanged. Extensive progressed thoracic inlet, supraclavicular, internal mammary, left greater than right axillary lymphadenopathy. This is progressed since the prior PET CT. No significant hilar or paratracheal lymphadenopathy. A 5 mm noncalcified pulmonary nodule in the left upper lobe is stable. The spleen is normal. There were enlarged lymph nodes in the upper abdomen along the celiac axis and abdiaziz hepatis. Enlarged periaortic and retroperitoneal lymph nodes with surrounding induration. Upper abdominal lymph nodes appear to be stable or slightly improved compared to previous. Periaortic lymph nodes are not significantly changed. However significant overall progression of the iliac chain lymphadenopathy enlarged pelvic sidewall and over the lymph nodes. These progressed since the prior exam. Progressive inguinal lymphadenopathy. PET CT from 01/14/2020 reports recurrent lymphoma from the level of the head and neck to the level of pelvis with sparing of the mediastinum. There is no evidence of extranodal disease. Rounded atelectasis in the left lower lobe with ongoing resolution of left pleural effusion. Cervical nodes were found to be the most prominent in the posterior triangle and bilateral abnormality axillary uptake is most prominent on the left with nodes measuring up to 2.7 cm with SUV of 8.1. A right index deep inguinal node measures 4.6 x 2.5 cm with an SUV of 13.6. There are FDG positive recurrent abdominal nodes in the portal, precaval, retrocaval, bilateral periaortic and preaortic territories. Also FDG positive nodes noted in the pelvis, bilateral common iliac, external iliac, superficial and deep inguinal and femoral nodes. Mr. Rivera was evaluated by Dr. Solo at [facility] in [place]. Given his PET/CT. The recommendation was for him to attempt a trial of idelalsib. Mr Rivera is here today for followup. He has received t he idelalsib and is ready to start treatment. He has no new concerns today. He states he is eating good and his energy is fair at present. He denies any pain. He has had no nausea or vomiting. He denies any diarrhea or constipation. He denies any fever, chills or signs of infection for at least the last 72 hours. His ECOG is 2. Past Medical History: Anemia Degenerative joint disease Gout Hypothyroidism Past Surgical History: Placement of AV fistula for dialysis Placement of left subclavian dialysis catheter Rotator cuff repair bilaterally Left axillary lymph node biopsy and placement of Port-A-Cath venous access device in 2019 Ct renal biopsy in 2018 Cervical spine fusion with vertebral cadaver bone in 2005 Allergies: No Known Allergies. Medications: Idelalisib 1 Tablet (of 150 mg) Oral b.i.d. LORazepam 0.5 - 2 Tablet (of 1 mg) Oral daily PRN Nitroglycerin 1 Tablet (of 0.4 mg) Tablet, sublingual Sublingual PRN Family History: Mr. Rivera's mother is alive. Mr. Rivera's father is . Mr. Rivera has 4 brothers: 4 alive. He has 1 sister who is alive. His mother is still living and in good health at age 81. Father with multiple myeloma at age 80. He also had prostate cancer. The patient's paternal grandfather had prostate cancer as well. Five siblings are in good health. Social History: Mr. Rivera is and he is unemployed. He is a daily smoker who has smoked 0.5 packs/day for 40 years. He drinks occasionally. He has a history of smoking for 40 years, previously in the range of 1 pack of cigarettes daily. He is now smoking < 1/2 pack per day. He has a history of heavy alcohol use in the past. He had quit drinking for a period of 7 years. He now drinks alcohol socially . Review Of Symptoms: Constitutional Denies fevers, chills, night sweats, excessive fatigue or weight loss. Allergic/Immunologic No reactions. Eyes Denies significant visual changes. No diplopia. No amaurosis. ENMT Denies changes in hearing, sore throat, mouth sores, difficulty or changes in swallowing ability, and/or sinus drainage. Endocrine No diabetes, thyroid disease or hormone replacement. Denies hot flashes or night sweats. Hematologic/Lymphatic Denies easy bruising or bleeding. The patient denies any tender or palpable lymph nodes. Respiratory Denies dyspnea on exertion, chest pain, cough or hemoptysis. Denies orthopnea. Cardiovascular Denies anginal chest pain, palpitations or orthopnea. Gastrointestinal Denies nausea, vomiting, diarrhea, GI bleeding, or constipation. Denies change in bowel habits and/or stool color, or early satiety. Genitourinary (M) Denies hematuria, dysuria, increased frequency, urgency, hesitancy or incontinence. Musculoskeletal Denies joint pain, swelling or redness. No decreased range of motion. Integumentary Denies rash. Neurologic Denies headache, blurred vision, and no areas of focal weakness or numbness. Normal gait. No sensory problems. Psychiatric Denies insomnia, depression, claus or mood swings. Vital Signs: Performed on February 28, 2020 15:04 Height - 71.00 in Weight - 215.4 lbs (HIGH) BSA - 2.18 sq.m BMI - 30.04 (HIGH) Temperature - 97.7 F (LOW) Pulse - 83 /min Respiration - 22 /min BP - 140/74 mm(hg) O2 Sat - 98 % Pain - 4,1 - No physically strenuous activity, but ambulatory and able to carry out light or sedentary work (e.g. office work, light house work). (ECOG) Physical Examination: Constitutional Alert, oriented, no acute distress. Skin pink, warm and dry. Head Normocephalic; atraumatic. Eyes Conjunctivae and sclerae are clear and without icterus. Pupils are reactive and equal. ENMT No oral exudates, ulcers, masses, thrush or mucositis. Oropharynx clear. Tongue normal. Neck No jugular venous distension. No palpable adenopathy. Hematologic/Lymphatic No tender or palpable lymph nodes in the cervical or supraclavicular areas. Respiratory Lungs are diminished on the left but clear on the right with no wheezing noted. Cardiovascular Regular rate and rhythm of heart without murmurs,clicks, gallops or rubs. Chest Chest is symmetric without chest wall deformities. Right chest wall venous access device is unremarkable. Breasts Abdomen Non-tender, non-distended, no masses, ascites. No guarding or rebound tenderness. No pulsatile masses. Back/Spine Non-tender to palpation. Extremities No visible deformities, no cyanosis, clubbing or edema. Musculoskeletal No tenderness or swelling, normal range of motion without obvious weakness. Integumentary No rashes or lesions. Neurologic No sensory or motor deficits, normal cerebellar function, normal gait. Psychiatric Alert and oriented times three. Coherent speech. Verbalizes understanding of our discussions today. Laboratory:Test performed on February 28, 2020 15:30 LDH (Total) 211 U/L Sodium 137 mmol/L TSH 3.90 uIU/mL Potassium 4.8 mmol/L Chloride 103 mmol/L CO2 22 mmol/L Anion Gap 16.8 BUN 33 mg/dL Creatinine 1.8 mg/dL Cr Clearance (Est) 60.3100 mL/min eGFR 38.7 mL/min Glucose 104 mg/dL Calcium 9.2 mg/dL Protein, Total 6.5 g/dL Albumin 4.4 g/dL Globulin 2.1 g/dL Bilirubin, Total 0.6 mg/dL ALT (SGPT) 24 U/L AST (SGOT) 20 U/L Alkaline Phosphatase 132 IU/L WBC 9.1 10 3/uL RBC 4.39 10 6/uL HGB 14.6 g/dL HCT 41.6 % MCV 94.8 fL MCH 33.3 pg MCHC 35.1 g/dL RDW 13.2 % Platelet Count 157 10 3/cmm MPV 9.8 fL Neutrophils 7.0 10 3/uL Lymphocytes 0.5 10 3/uL Monocytes 1.0 10 3/uL Eosinophils 0.4 10 3/uL Basophils 0.1 10 3/uL Neutrophil % 77.0 % Lymphocyte % 5.6 % Monocyte % 11.1 % Eosinophil % 4.1 % Basophils % 0.9 % Test performed on Dec 13, 2019 13:42 T4, Free 1.01 ng/dL Test performed on Oct 18, 2019 09:31 Manual Segs 75.6 % Manual Lymphocytes 7.7 % Manual Monocytes 9.8 % Manual Eosinophils 4.2 % Manual Basophils 0.7 % NRBCs 0 /100 WBC Impression: 1. Patient with grade 1 follicular lymphoma, stage at least IIIS, diagnosed by left axillary lymph node biopsy on 07/31/2018. 2. His initial treatment included 2 cycles of bendamustine/Rituxan. With the first cycle the bendamustine was administered at a 50% dosage due to renal function and he received day 1 treatment only due to acute thrombocytopenia. Cycle 2 was delayed to 10/21/2018, and the bendamustine dosage remained at 50%. 3. He had presented with acute renal failure due to membranoproliferative glomerulonephritis, confirmed by renal biopsy on 07/30/2018. He has been on hemodialysis. 4. He was anemic at presentation, and he subsequently did require PRBC transfusion. 5. He also had laboratory evidence of hypothyroidism. 6. He has degenerative joint disease related to previous injuries. 7. He has a prior history of gout. He completed 2 cycles of bendamustine/Rituxan, though with significant delay prior to starting cycle 2. His restaging PET/CT on 01/08/2019 still showed diffuse FDG avid lymphadenopathy from the head/neck to the pelvis and diffusely metabolic splenomegaly. On comparison to his pretreatment CT scans, he did not appear to be showing significant response to the bendamustine/Rituxan regimen. As such, Dr Suarez opted to proceed with a course of R-CHOP chemotherapy. He began cycle 1 of R-CHOP on 02/23/2019. He was given first cycle prophylaxis with Neulasta. He tolerated it with acceptable toxicity, and he continued with cycle 2 on 03/16/2019 and with cycle 3 on 04/13/2019. During this time he required additional thoracentesis procedures, and a flow cytometry study on his pleural fluid did show a monotypic B-cell population consistent with involvement by malignant lymphoma. Restaging PET/CT on 05/07/2019 showed overall improvement but not complete resolution of the extensive adenopathy. Hypermetabolic splenomegaly appeared to have normalized. Overall, he appeared to have a very good response to the chemotherapy. He then continued treatment at 3-week intervals. He began his 6th cycle of R-CHOP on 06/22/2019. His restaging PET/CT on 07/16/2019 showed very significant response, though with possible residual involvement in a right external iliac lymph node and with evidence of some residual left pleural effusion. During that time he had significant improvement in his performance status, and he also was able to maintain adequate renal function after stopping dialysis. In the setting of low-grade lymphoma with very good partial response to chemotherapy, he was recommended to continue with maintenance rituximab. He began cycle 1 on 08/18/2019. He tolerated it well and continue with cycle 2 on 10/18/2019. Overall, he has been showing gradual improvement in his performance status, and his renal function has remained adequate off dialysis. However, he had been become aware of a new nodule in the right side of the neck. By exam, this may be of thyroid origin. Followup imaging obtained on 12/15/2019 [address]s of the neck chest, abdomen and pelvis. There was a prominent left submandibular lymph node measuring 11 mm in short axis dimension. Prominent level 2 and level 3 cervical lymph nodes upper limits of normal but not pathologically enlarged. Shotty appearing posterior triangle lymph nodes the largest measuring 7 mm in short axis dimension. Enlarged supraclavicular lymph nodes with partially visualized numerous enlarged lymph nodes at the thoracic inlet and retro-pectoral. Largest supraclavicular lymph nodes measures approximately 10 mm in short axis dimension. These appear to have progressed since her prior PET CT from July 16, 2019. Was noted that he did have a small left pleural effusion rounded atelectasis left lung base measuring 5.6 x 2.3 cm is unchanged. Extensive progressed thoracic inlet, supraclavicular, internal mammary, left greater than right axillary lymphadenopathy. This is progressed since the prior PET CT. No significant hilar or paratracheal lymphadenopathy. A 5 mm noncalcified pulmonary nodule in the left upper lobe is stable. The spleen is normal. There were enlarged lymph nodes in the upper abdomen along the celiac axis and abdiaziz hepatis. Enlarged periaortic and retroperitoneal lymph nodes with surrounding induration. Upper abdominal lymph nodes appear to be stable or slightly improved compared to previous. Periaortic lymph nodes are not significantly changed. However significant overall progression of the iliac chain lymphadenopathy enlarged pelvic sidewall and over the lymph nodes. These progressed since the prior exam. Progressive inguinal lymphadenopathy. PET CT from 01/14/2020 reports recurrent lymphoma from the level of the head and neck to the level of pelvis with sparing of the mediastinum. There is no evidence of extranodal disease. Rounded atelectasis in the left lower lobe with ongoing resolution of left pleural effusion. Cervical nodes were found to be the most prominent in the posterior triangle and bilateral abnormality axillary uptake is most prominent on the left with nodes measuring up to 2.7 cm with SUV of 8.1. A right index deep inguinal node measures 4.6 x 2.5 cm with an SUV of 13.6. There are FDG positive recurrent abdominal nodes in the portal, precaval, retrocaval, bilateral periaortic and preaortic territories. Also FDG positive nodes noted in the pelvis, bilateral common iliac, external iliac, superficial and deep inguinal and femoral nodes. Mr. Rivera was advised to see a lymphoma specialist and referred to/evaluated by Dr. Solo at [facility] in [place]. Given his PET/CT results, it was recommended that he pursue further treatment. Dr. Solo expressed concerns with utilizing lenalidomide in combination with rituximab given that Mr. Rivera has been rituximab refractory. He was concerned that Mr. Rivera would not get the expected results. Therefore the recommendation was for him to attempt a trial of a PI3 kinase inhibitor- idelalisib. Plan: 1. Start idelalasib 150mg po BID 2. May use Compazine and Ativan prn antiemetics at home as needed. 3. I did request baseline CBC, CMP, LDH & TSH for today. 4. weekly CBC, CMP and followup in 2 weeks for new medication monitoring 5. AVOID GRAPEFRUIT WITH IDELALSIB ([email or web address]). 6. Mr. Rivera was instructed to contact us in the interim should questions or problems arise. Signed By: Gaurav Lim-, AOP Charlie Suarez MD <<Signature on File>>
== END 2020-03-04 23:59 | disposition home or self-care (01) ==
LOC: ONCMED 13:47
PROVIDERS: PCP Internal Medicine Medical Oncology; Visit Provider Nurse Practitioner
DX: C82.08 Follicular lymphoma grade I, lymph nodes of multiple sites (principal); E03.9 Hypothyroidism, unspecified; Z51.81 Encounter for therapeutic drug level monitoring; Z79.899 Other long term (current) drug therapy; N05.5 Unspecified nephritic syndrome with diffuse mesangiocapillary glomerulonephritis; N17.9 Acute kidney failure, unspecified; Z99.2 Dependence on renal dialysis; M19.90 Unspecified osteoarthritis, unspecified site
CPT/HCPCS: 36591; 80053; 83615; 84443; 85025; 99214

== ENCOUNTER 2020-04-03 06:48 | Outpatient (RCR) | payer MEDICARE, BC, SELFPAY ==
[2020-03-06 13:13] LABS: Basophils # 0.1 10^3/uL (0.0-0.1); Basophils % 0.9 %; Eosinophils # 0.3 10^3/uL (0.0-0.8); Eosinophils % 3.5 %; Hemoglobin 14.8 g/dL (11.7-16.6); Lymphocytes % 13.2 %; Mean Corpuscular HGB Conc 35.2 g/dL (30.0-36.0); Mean Corpuscular Hemoglobin 33.8 pg (28.0-34.0); Mean Corpuscular Volume 95.9 fL (80-94); Mean Platelet Volume 9.5 fL (7.4-10.4); Monocytes # 0.7 10^3/uL (0.2-0.9); Monocytes % 8.8 %; Neutrophils # 5.6 10^3/uL (1.8-7.7); Neutrophils % 72.8 %; Nucleated Red Blood Cells % 0 %; Platelet Count 172 10^3/cmm (130-400); Red Blood Count 4.38 10^6/uL (4.1-5.3); Red Cell Distribution Width 13.2 % (12.1-15.1); White Blood Count 7.7 10^3/uL (4.0-10.0)
[2020-03-06 13:48] LABS: Alanine Aminotransferase 18 U/L (0-41); Albumin Level 4.3 g/dL (3.5-5.2); Alkaline Phosphatase 114 IU/L (40-130); Anion Gap 14.7 (5-19); Aspartate Amino Transferase 18 U/L (0-40); Blood Urea Nitrogen 21 mg/dL (8-23); Calcium 9.5 mg/dL (8.5-10.5); Carbon Dioxide 23 mmol/L (22-29); Chloride 104 mmol/L (98-107); Globulin 2.2 g/dL (1.3-4.6); Glomerular Filtration Rate 32.4 mL/min (90-130); Glucose 107 mg/dL (65-115); Osmolality Calculated 281 mOsm/kg (285-295); Potassium 4.7 mmol/L (3.5-5.1); Sodium 137 mmol/L (136-145); Total Bilirubin 0.4 mg/dL (0.15-1.2); Total Protein 6.5 g/dL (6.6-8.7)
[2020-03-13 13:32] LABS: Basophils # 0.1 10^3/uL (0.0-0.1); Basophils % 0.9 %; Eosinophils # 0.3 10^3/uL (0.0-0.8); Eosinophils % 3.8 %; Hematocrit 41.9 % (42.0-52.0); Hemoglobin 14.6 g/dL (11.7-16.6); Lymphocytes # 0.7 10^3/uL (0.8-4.8); Lymphocytes % 11.2 %; Mean Corpuscular HGB Conc 34.8 g/dL (30.0-36.0); Mean Corpuscular Hemoglobin 33.6 pg (28.0-34.0); Mean Corpuscular Volume 96.5 fL (80-94); Mean Platelet Volume 9.5 fL (7.4-10.4); Monocytes # 0.7 10^3/uL (0.2-0.9); Neutrophils # 4.9 10^3/uL (1.8-7.7); Neutrophils % 73.6 %; Nucleated Red Blood Cells % 0 %; Platelet Count 151 10^3/cmm (130-400); Red Blood Count 4.34 10^6/uL (4.1-5.3); Red Cell Distribution Width 13.1 % (12.1-15.1); White Blood Count 6.6 10^3/uL (4.0-10.0)
[2020-03-13 13:55] LABS: Alanine Aminotransferase 17 U/L (0-41); Albumin Level 4.4 g/dL (3.5-5.2); Alkaline Phosphatase 106 IU/L (40-130); Anion Gap 16.7 (5-19); Aspartate Amino Transferase 19 U/L (0-40); Blood Urea Nitrogen 29 mg/dL (8-23); Calcium 9.2 mg/dL (8.5-10.5); Carbon Dioxide 22 mmol/L (22-29); Chloride 104 mmol/L (98-107); Globulin 1.9 g/dL (1.3-4.6); Glomerular Filtration Rate 29.2 mL/min (90-130); Glucose 101 mg/dL (65-115); Lactate Dehydrogenase 186 U/L (135-225); Osmolality Calculated 283 mOsm/kg (285-295); Potassium 4.7 mmol/L (3.5-5.1); Sodium 138 mmol/L (136-145); Thyroid Stimulating Hormone 3.43 uIU/mL (0.27-4.20); Total Bilirubin 0.5 mg/dL (0.15-1.2); Total Protein 6.3 g/dL (6.6-8.7)
--- NOTE | 2020-03-17 15:10 | ONC FU_ITS ---
[facility] Patient Note Patient: Jl Rivera Unit #: [id number]: 1960 Dictated By: Gaurav LimDate of Visit: Mar 13, 2020 Onc MED Follow-Up/Prog Note Chief Complaint: Lymphoma. 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 He was admitted to [facility] on 07/29/2018 with acute renal failure. He had presented with encephalopathy and severe edema. In addition to the acute renal failure, he had moderately severe anemia and mild thrombocytopenia with his baseline platelet count reportedly in the range of 100,000. CT pulmonary angiogram showed axillary and mediastinal lymphadenopathy, moderate sized bilateral pleural effusions, and cardiomegaly. His abdomen/pelvis CT showed marked lymphadenopathy within the abdomen and pelvis and splenomegaly. 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 He also was started on hemodialysis. Left axillary lymph node biopsy on 07/31/2018 showed malignant lymphoma, favoring low-grade follicular lymphoma. The neoplastic cells were noted to be positive for BCL 6, CD10, and CD23. There was weak positivity for BCL 2. The cells were negative for cyclin D1, MUM1, and SOX 11. On 07/31/2018 he began chemotherapy with bendamustine/Rituxan. The bendamustine dosage was reduced by 50% for the renal function. His day 2 bendamustine was held due to an acute drop in his platelet count to 30,000. It subsequently did recover, but there was a delay of close to 3 months prior to starting his second cycle of chemotherapy. Dr Suarez had seen him initially on 11/15/2018. His 3rd cycle of chemotherpy had been scheduled to be given the following week, and he was to have restaging CT scans prior to that treatment. His further evaluation was delayed pending his Medicare eligibility. He then had a restaging PET/CT on 01/08/2019. It showed extensive hypermetabolic lymphadenopathy for the level of the head and neck to the level of the pelvis. There was diffusely metabolic splenomegaly. As he appeared to have had very little response to the bendamustine/Rituxan regimen, it was opted to proceed with a course of R-CHOP chemotherapy. His baseline echocardiogram showed estimated left ventricular ejection fraction of 55%. There was grade I/IVdiastolic dysfunction. His other medical illnesses include hypothyroidism, degenerative arthritis, and gout. He has a history of smoking 1 pack of cigarettes daily for 40 years, but he has cut down. INTERIM HISTORY: He began cycle 1 of R-CHOP on 02/23/2019. He was given first cycle prophylaxis with Neulasta. He tolerated it with acceptable toxicity, and he continued with cycle 2 on 03/16/2019 and with cycle 3 on 04/13/2019. During this time he required additional thoracentesis procedures on 03/09, 03/17, and 04/01/2019. A flow cytometry study on his pleural fluid did show a monotypic B-cell population consistent with involvement by malignant lymphoma. Restaging PET/CT on 05/07/2019 showed overall improvement but not complete resolution of the extensive adenopathy. Hypermetabolic splenomegaly appeared to have normalized. He then continued with cycle 4 of R-CHOP on 05/11/2019, with cycle 5 on 06/01/2019, and with cycle 6 on 06/22/2019. Restaging PET/CT on 07/16/2019 showed subcentimeter size lymph nodes in the head and neck bilaterally, FDG negative. Similar improvement was noted in mediastinal, left internal mammary, and bilateral axillary lymph nodes. Portal nodes demonstrated only minimal FDG uptake and scattered retroperitoneal nodes measuring up to 1 cm in size showed FDG activity no greater than that of mediastinal background. A right external iliac lymph node measuring 1.8 x 1.5 cm had mild FDG uptake with SUV 3.4. The left pleural effusion was noted be significantly decreased in volume. Left lower lobe round atelectasis was noted to be FDG negative. In the setting of a low-grade follicular lymphoma with very good partial response to chemotherapy, Dr Suarez recommended that he continue with maintenance rituximab. He then returned on 08/18/2019 to begin cycle 1 of 12 planned cycles of treatment at 2-month intervals. He tolerated it well, and he continued with cycle 2 on 10/18/2019. Followup imaging obtained on 12/15/2019 [address] CTs of the neck chest, abdomen and pelvis. There was a prominent left submandibular lymph node measuring 11 mm in short axis dimension. Prominent level 2 and level 3 cervical lymph nodes upper limits of normal but not pathologically enlarged. Shotty appearing posterior triangle lymph nodes the largest measuring 7 mm in short axis dimension. Enlarged supraclavicular lymph nodes with partially visualized numerous enlarged lymph nodes at the thoracic inlet and retro-pectoral. Largest supraclavicular lymph nodes measures approximately 10 mm in short axis dimension. These appear to have progressed since her prior PET CT from July 16, 2019. Was noted that he did have a small left pleural effusion rounded atelectasis left lung base measuring 5.6 x 2.3 cm is unchanged. Extensive progressed thoracic inlet, supraclavicular, internal mammary, left greater than right axillary lymphadenopathy. This is progressed since the prior PET CT. No significant hilar or paratracheal lymphadenopathy. A 5 mm noncalcified pulmonary nodule in the left upper lobe is stable. The spleen is normal. There were enlarged lymph nodes in the upper abdomen along the celiac axis and abdiaziz hepatis. Enlarged periaortic and retroperitoneal lymph nodes with surrounding induration. Upper abdominal lymph nodes appear to be stable or slightly improved compared to previous. Periaortic lymph nodes are not significantly changed. However significant overall progression of the iliac chain lymphadenopathy enlarged pelvic sidewall and over the lymph nodes. These progressed since the prior exam. Progressive inguinal lymphadenopathy. PET CT from 01/14/2020 reports recurrent lymphoma from the level of the head and neck to the level of pelvis with sparing of the mediastinum. There is no evidence of extranodal disease. Rounded atelectasis in the left lower lobe with ongoing resolution of left pleural effusion. Cervical nodes were found to be the most prominent in the posterior triangle and bilateral abnormality axillary uptake is most prominent on the left with nodes measuring up to 2.7 cm with SUV of 8.1. A right index deep inguinal node measures 4.6 x 2.5 cm with an SUV of 13.6. There are FDG positive recurrent abdominal nodes in the portal, precaval, retrocaval, bilateral periaortic and preaortic territories. Also FDG positive nodes noted in the pelvis, bilateral common iliac, external iliac, superficial and deep inguinal and femoral nodes. Mr. Rivera was evaluated by Dr. Solo at [facility] in [place]. Given his PET/CT. The recommendation was for him to attempt a trial of idelalsib. Mr Rivera is here today for followup. He started the idelalsib on 02/29/2020. He is tolerating it well thus far. He states he really cannot tell that he is taking it. He has had intermittent insomnia and slight nausea. States the nausea has not been significant. Insomnia states he just cannot go to sleep at times. He has had Lorazepam in the past and this is worked well for him. He denies any fever or chills. He denies any shortness of breath orthopnea. He denies any cough. He denies any chest pain or palpitations. He has had no diarrhea or constipation. He states his bowels are normal. He denies any urinary concerns. He denies any pain. He has had no lower extremity edema. He states his energy is fair. He is able to do all of his ADLs without assistance. His ECOG is 1. Past Medical History: Anemia Degenerative joint disease Gout Hypothyroidism Past Surgical History: Placement of AV fistula for dialysis Placement of left subclavian dialysis catheter Rotator cuff repair bilaterally Left axillary lymph node biopsy and placement of Port-A-Cath venous access device in 2018 Ct renal biopsy in 2018 Cervical spine fusion with vertebral cadaver bone in 2005 Allergies: No Known Allergies. Medications: Idelalisib 1 Tablet (of 150 mg) Oral b.i.d. LORazepam 0.5 - 2 Tablet (of 1 mg) Oral daily PRN Nitroglycerin 1 Tablet (of 0.4 mg) Tablet, sublingual Sublingual PRN Family History: Mr. Rivera's mother is alive. Mr. Rivera's father is . Mr. Rivera has 4 brothers: 4 alive. He has 1 sister who is alive. His mother is still living and in good health at age 81. Father with multiple myeloma at age 80. He also had prostate cancer. The patient's paternal grandfather had prostate cancer as well. Five siblings are in good health. Social History: Mr. Rivera is and he is unemployed. He is a daily smoker who has smoked 0.5 packs/day for 40 years. He drinks occasionally. He has a history of smoking for 40 years, previously in the range of 1 pack of cigarettes daily. He is now smoking < 1/2 pack per day. He has a history of heavy alcohol use in the past. He had quit drinking for a period of 7 years. He now drinks alcohol socially . Review Of Symptoms: Constitutional Denies fevers, chills, night sweats, excessive fatigue or weight loss. Allergic/Immunologic No reactions. Eyes Denies significant visual changes. No diplopia. No amaurosis. ENMT Denies changes in hearing, sore throat, mouth sores, difficulty or changes in swallowing ability, and/or sinus drainage. Endocrine No diabetes, thyroid disease or hormone replacement. Denies hot flashes or night sweats. Hematologic/Lymphatic Denies easy bruising or bleeding. The patient denies any tender or palpable lymph nodes. Respiratory Denies dyspnea on exertion, chest pain, cough or hemoptysis. Denies orthopnea. Cardiovascular Denies anginal chest pain, palpitations or orthopnea. Gastrointestinal Denies nausea, vomiting, diarrhea, GI bleeding, or constipation. Denies change in bowel habits and/or stool color, or early satiety. Genitourinary (M) Denies hematuria, dysuria, increased frequency, urgency, hesitancy or incontinence. Musculoskeletal Denies joint pain, swelling or redness. No decreased range of motion. Integumentary Denies rash. Neurologic Denies headache, blurred vision, and no areas of focal weakness or numbness. Normal gait. No sensory problems. Psychiatric Denies depression, claus or mood swings. Has had some intermittent insomnia. Lorazepam works well when he takes it. Vital Signs: Performed on Mar 13, 2020 14:26 Height - 71.00 in Weight - 217.2 lbs (HIGH) BSA - 2.18 sq.m BMI - 30.29 (HIGH) Temperature - 98.1 F (LOW) Pulse - 81 /min Respiration - 17 /min BP - 128/81 mm(hg) O2 Sat - 98 % Pain - 0,1 - No physically strenuous activity, but ambulatory and able to carry out light or sedentary work (e.g. office work, light house work). (ECOG) Physical Examination: Constitutional Alert, oriented, no acute distress. Skin pink, warm and dry. Head Normocephalic; atraumatic. Eyes Conjunctivae and sclerae are clear and without icterus. Pupils are reactive and equal. Hematologic/Lymphatic No tender or palpable lymph nodes in the cervical or supraclavicular areas. Respiratory Lungs are diminished on the left but clear on the right with no wheezing noted. Cardiovascular Regular rate and rhythm of heart without murmurs,clicks, gallops or rubs. Chest Chest is symmetric without chest wall deformities. Right chest wall venous access device is unremarkable. Abdomen Non-tender, non-distended, no masses, ascites. No guarding or rebound tenderness. No pulsatile masses. Back/Spine Non-tender to palpation. Extremities No visible deformities, no cyanosis, clubbing or edema. Musculoskeletal No tenderness or swelling, normal range of motion without obvious weakness. Integumentary No rashes or lesions. Neurologic No sensory or motor deficits, normal cerebellar function, normal gait. Psychiatric Alert and oriented times three. Coherent speech. Verbalizes understanding of our discussions today. Laboratory:Test performed on Mar 13, 2020 13:10 LDH (Total) 186 U/L Sodium 138 mmol/L TSH 3.43 uIU/mL Potassium 4.7 mmol/L Chloride 104 mmol/L CO2 22 mmol/L Anion Gap 16.7 BUN 29 mg/dL Creatinine 2.3 mg/dL Cr Clearance (Est) 47.60 mL/min eGFR 29.2 mL/min Glucose 101 mg/dL Calcium 9.2 mg/dL Protein, Total 6.3 g/dL Albumin 4.4 g/dL Globulin 1.9 g/dL Bilirubin, Total 0.5 mg/dL ALT (SGPT) 17 U/L AST (SGOT) 19 U/L Alkaline Phosphatase 106 IU/L WBC 6.6 10 3/uL RBC 4.34 10 6/uL HGB 14.6 g/dL HCT 41.9 % MCV 96.5 fL MCH 33.6 pg MCHC 34.8 g/dL RDW 13.1 % Platelet Count 151 10 3/cmm MPV 9.5 fL Neutrophils 4.9 10 3/uL Lymphocytes 0.7 10 3/uL Monocytes 0.7 10 3/uL Eosinophils 0.3 10 3/uL Basophils 0.1 10 3/uL Neutrophil % 73.6 % Lymphocyte % 11.2 % Monocyte % 10.0 % Eosinophil % 3.8 % Basophils % 0.9 % NRBC % 0 % Impression: 1. Patient with grade 1 follicular lymphoma, stage at least IIIS, diagnosed by left axillary lymph node biopsy on 07/31/2018. 2. His initial treatment included 2 cycles of bendamustine/Rituxan. With the first cycle the bendamustine was administered at a 50% dosage due to renal function and he received day 1 treatment only due to acute thrombocytopenia. Cycle 2 was delayed to 10/21/2018, and the bendamustine dosage remained at 50%. 3. He had presented with acute renal failure due to membranoproliferative glomerulonephritis, confirmed by renal biopsy on 07/30/2018. He has been on hemodialysis. 4. He was anemic at presentation, and he subsequently did require PRBC transfusion. 5. He also had laboratory evidence of hypothyroidism. 6. He has degenerative joint disease related to previous injuries. 7. He has a prior history of gout. He completed 2 cycles of bendamustine/Rituxan, though with significant delay prior to starting cycle 2. His restaging PET/CT on 01/08/2019 still showed diffuse FDG avid lymphadenopathy from the head/neck to the pelvis and diffusely metabolic splenomegaly. On comparison to his pretreatment CT scans, he did not appear to be showing significant response to the bendamustine/Rituxan regimen. As such, Dr Suarez opted to proceed with a course of R-CHOP chemotherapy. He began cycle 1 of R-CHOP on 02/23/2019. He was given first cycle prophylaxis with Neulasta. He tolerated it with acceptable toxicity, and he continued with cycle 2 on 03/16/2019 and with cycle 3 on 04/13/2019. During this time he required additional thoracentesis procedures, and a flow cytometry study on his pleural fluid did show a monotypic B-cell population consistent with involvement by malignant lymphoma. Restaging PET/CT on 05/07/2019 showed overall improvement but not complete resolution of the extensive adenopathy. Hypermetabolic splenomegaly appeared to have normalized. Overall, he appeared to have a very good response to the chemotherapy. He then continued treatment at 3-week intervals. He began his 6th cycle of R-CHOP on 06/22/2019. His restaging PET/CT on 07/16/2019 showed very significant response, though with possible residual involvement in a right external iliac lymph node and with evidence of some residual left pleural effusion. During that time he had significant improvement in his performance status, and he also was able to maintain adequate renal function after stopping dialysis. In the setting of low-grade lymphoma with very good partial response to chemotherapy, he was recommended to continue with maintenance rituximab. He began cycle 1 on 08/18/2019. He tolerated it well and continue with cycle 2 on 10/18/2019. Overall, he has been showing gradual improvement in his performance status, and his renal function has remained adequate off dialysis. However, he had been become aware of a new nodule in the right side of the neck. By exam, this may be of thyroid origin. Followup imaging obtained on 12/15/2019 included [address] CTs of the neck chest, abdomen and pelvis. There was a prominent left submandibular lymph node measuring 11 mm in short axis dimension. Prominent level 2 and level 3 cervical lymph nodes upper limits of normal but not pathologically enlarged. Shotty appearing posterior triangle lymph nodes the largest measuring 7 mm in short axis dimension. Enlarged supraclavicular lymph nodes with partially visualized numerous enlarged lymph nodes at the thoracic inlet and retro-pectoral. Largest supraclavicular lymph nodes measures approximately 10 mm in short axis dimension. These appear to have progressed since her prior PET CT from July 16, 2019. Was noted that he did have a small left pleural effusion rounded atelectasis left lung base measuring 5.6 x 2.3 cm is unchanged. Extensive progressed thoracic inlet, supraclavicular, internal mammary, left greater than right axillary lymphadenopathy. This is progressed since the prior PET CT. No significant hilar or paratracheal lymphadenopathy. A 5 mm noncalcified pulmonary nodule in the left upper lobe is stable. The spleen is normal. There were enlarged lymph nodes in the upper abdomen along the celiac axis and abdiaziz hepatis. Enlarged periaortic and retroperitoneal lymph nodes with surrounding induration. Upper abdominal lymph nodes appear to be stable or slightly improved compared to previous. Periaortic lymph nodes are not significantly changed. However significant overall progression of the iliac chain lymphadenopathy enlarged pelvic sidewall and over the lymph nodes. These progressed since the prior exam. Progressive inguinal lymphadenopathy. PET CT from 01/14/2020 reports recurrent lymphoma from the level of the head and neck to the level of pelvis with sparing of the mediastinum. There is no evidence of extranodal disease. Rounded atelectasis in the left lower lobe with ongoing resolution of left pleural effusion. Cervical nodes were found to be the most prominent in the posterior triangle and bilateral abnormality axillary uptake is most prominent on the left with nodes measuring up to 2.7 cm with SUV of 8.1. A right index deep inguinal node measures 4.6 x 2.5 cm with an SUV of 13.6. There are FDG positive recurrent abdominal nodes in the portal, precaval, retrocaval, bilateral periaortic and preaortic territories. Also FDG positive nodes noted in the pelvis, bilateral common iliac, external iliac, superficial and deep inguinal and femoral nodes. Mr. Rivera was advised to see a lymphoma specialist and referred to/evaluated by Dr. Solo at [facility] in [place]. Given his PET/CT results, it was recommended that he pursue further treatment. Dr. Solo expressed concerns with utilizing lenalidomide in combination with rituximab given that Mr. Rivera has been rituximab refractory. He was concerned that Mr. Rivera would not get the expected results. Therefore the recommendation was for him to attempt a trial of a PI3 kinase inhibitor- idelalisib. Mr. Rivera began idelalasib 150 mg p.o. twice daily on February 29, 2020. He is tolerating that well thus far. Plan: 1. Continue idelalasib 150mg po BID-this is day 14. 2. May use Compazine and Ativan prn antiemetics at home as needed. I did request a refill be sent [facility] in [place] on the lorazepam 1 mg tablets. 3. Today's labs reviewed in detail and discussed with Mr. Rivera and a copy was given to him. WBC 6.6, hemoglobin 14.6, platelets 151,000 ANC is 4900. Creatinine 2.3. Potassium 4.7. BUN is 29. His LFTs and LDH are normal. TSH is 3.43. 4. CBC, CMP and followup in 2 weeks for new medication monitoring 5. AVOID GRAPEFRUIT WITH IDELALSIB ([email or web address]). 6. Mr. Rivera was instructed to contact us in the interim should questions or problems arise. Signed By: Gaurav Lim-, [facility] Charlie Suarez MD <<Signature on File>>
[2020-04-03 10:34] LABS: Basophils # 0.1 10^3/uL (0.0-0.1); Basophils % 0.7 %; Eosinophils # 0.3 10^3/uL (0.0-0.8); Eosinophils % 4.2 %; Hematocrit 41.6 % (42.0-52.0); Hemoglobin 14.8 g/dL (11.7-16.6); Lymphocytes # 0.4 10^3/uL (0.8-4.8); Lymphocytes % 5.1 %; Mean Corpuscular HGB Conc 35.6 g/dL (30.0-36.0); Mean Corpuscular Hemoglobin 33.6 pg (28.0-34.0); Mean Corpuscular Volume 94.5 fL (80-94); Monocytes # 1.2 10^3/uL (0.2-0.9); Monocytes % 14.4 %; Neutrophils % 74.6 %; Nucleated Red Blood Cells % 0 %; Platelet Count 117 10^3/cmm (130-400); Red Cell Distribution Width 12.8 % (12.1-15.1); White Blood Count 8.1 10^3/uL (4.0-10.0)
[2020-04-03 10:59] LABS: Albumin Level 4.3 g/dL (3.5-5.2); Alkaline Phosphatase 125 IU/L (40-130); Anion Gap 17.7 (5-19); Blood Urea Nitrogen 38 mg/dL (8-23); Calcium 9.3 mg/dL (8.5-10.5); Carbon Dioxide 22 mmol/L (22-29); Chloride 101 mmol/L (98-107); Globulin 2.2 g/dL (1.3-4.6); Glomerular Filtration Rate 27.8 mL/min (90-130); Glucose 117 mg/dL (65-115); Osmolality Calculated 281 mOsm/kg (285-295); Potassium 4.7 mmol/L (3.5-5.1); Sodium 136 mmol/L (136-145); Thyroid Stimulating Hormone 3.32 uIU/mL (0.27-4.20); Total Bilirubin 1.1 mg/dL (0.15-1.2); Total Protein 6.5 g/dL (6.6-8.7)
[2020-04-03 11:11] LABS: Alanine Aminotransferase 2716 U/L (0-41)
[2020-04-03 11:12] LABS: Aspartate Amino Transferase 1532 U/L (0-40)
[2020-04-03 14:45] LABS: Hepatitis A Antibody IgM Non-Reactive (Nonreactive); Hepatitis B Core AB, Total Non-Reactive (Nonreactive); Hepatitis B Surface AB 3.5 (0-8.5); Hepatitis B Surface Antigen Non-Reactive (Nonreactive)
[2020-04-03 15:39] LABS: Hepatitis C Virus Antibody Reactive (Nonreactive)
--- NOTE | 2020-04-03 19:52 | ONC FU_ITS ---
Dr. Suarez Patient Follow-Up Note Patient: Jl Rivera Unit #: [id number]: 1960 Dicatated By: Charlie Suarez M.D.Date of Visit:Apr 03, 2020 Onc Med Follow-up/Prog Note Chief Complaint: Lymphoma. 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 He was admitted to [facility] on 07/29/2018 with acute renal failure. He had presented with encephalopathy and severe edema. In addition to the acute renal failure, he had moderately severe anemia and mild thrombocytopenia with his baseline platelet count reportedly in the range of 100,000. CT pulmonary angiogram showed axillary and mediastinal lymphadenopathy, moderate sized bilateral pleural effusions, and cardiomegaly. His abdomen/pelvis CT showed marked lymphadenopathy within the abdomen and pelvis and splenomegaly. 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 He also was started on hemodialysis. Left axillary lymph node biopsy on 07/31/2018 showed malignant lymphoma, favoring low-grade follicular lymphoma. The neoplastic cells were noted to be positive for BCL 6, CD10, and CD23. There was weak positivity for BCL 2. The cells were negative for cyclin D1, MUM1, and SOX 11. On 07/31/2018 he began chemotherapy with bendamustine/Rituxan. The bendamustine dosage was reduced by 50% for the renal function. His day 2 bendamustine was held due to an acute drop in his platelet count to 30,000. It subsequently did recover, but there was a delay of close to 3 months prior to starting his second cycle of chemotherapy. I had seen him initially on 11/15/2018. His 3rd cycle of chemotherpy had been scheduled to be given the following week, and he was to have restaging CT scans prior to that treatment. His further evaluation was delayed pending his Medicare eligibility. He then had a restaging PET/CT on 01/08/2019. It showed extensive hypermetabolic lymphadenopathy for the level of the head and neck to the level of the pelvis. There was diffusely metabolic splenomegaly. As he appeared to have had very little response to the bendamustine/Rituxan regimen, I opted to proceed with a course of R-CHOP chemotherapy. His baseline echocardiogram showed estimated left ventricular ejection fraction of 55%. There was grade I/IVdiastolic dysfunction. His other medical illnesses include hypothyroidism, degenerative arthritis, and gout. He has a history of smoking 1 pack of cigarettes daily for 40 years, but he has cut down. INTERIM HISTORY: He began cycle 1 of R-CHOP on 02/23/2019. He was given first cycle prophylaxis with Neulasta. He tolerated it with acceptable toxicity, and he continued with cycle 2 on 03/16/2019 and with cycle 3 on 04/13/2019. During this time he required additional thoracentesis procedures on 03/09, 03/17, and 04/01/2019. A flow cytometry study on his pleural fluid did show a monotypic B-cell population consistent with involvement by malignant lymphoma. Restaging PET/CT on 05/07/2019 showed overall improvement but not complete resolution of the extensive adenopathy. Hypermetabolic splenomegaly appeared to have normalized. He then continued with cycle 4 of R-CHOP on 05/11/2019, with cycle 5 on 06/01/2019, and with cycle 6 on 06/22/2019. Restaging PET/CT on 07/16/2019 showed subcentimeter size lymph nodes in the head and neck bilaterally, FDG negative. Similar improvement was noted in mediastinal, left internal mammary, and bilateral axillary lymph nodes. Portal nodes demonstrated only minimal FDG uptake and scattered retroperitoneal nodes measuring up to 1 cm in size showed FDG activity no greater than that of mediastinal background. A right external iliac lymph node measuring 1.8 x 1.5 cm had mild FDG uptake with SUV 3.4. The left pleural effusion was noted be significantly decreased in volume. Left lower lobe round atelectasis was noted to be FDG negative. In the setting of a low-grade follicular lymphoma with very good partial response to chemotherapy, I recommended that he continue with maintenance rituximab. He then returned on 08/18/2019 to begin cycle 1 of 12 planned cycles of treatment at 2-month intervals. He tolerated it well, and he continued with cycle 2 on 10/18/2019. At his follow-up visit on 12/13/2019 he had become aware of a new nodule on the right side of his neck. I had suspected that it was of thyroid origin. However, his neck CT on 12/15/2019 showed enlarged left submandibular lymph node measuring 11 mm, numerous but normal sized level 2 and level 3 cervical lymph nodes, and numerous and enlarged supraclavicular lymph nodes and retropectoral lymph nodes. The largest supraclavicular lymph node measured [address] scans of the chest, abdomen, and pelvis showed significant interval progression involving supraclavicular, thoracic inlet, internal mammary, and axillary lymphadenopathy. The largest left axillary lymph node measured 2.5 cm. Lymphadenopathy in the upper abdomen, abdiaziz hepatis, and periaortic regions was noted to be stable, but there was significant progression of pelvic and iliac chain lymphadenopathy as well as inguinal lymphadenopathy. A 6 mm noncalcified left upper lobe pulmonary nodule appeared stable. With those findings, he was referred to [facility] for a second opinion evaluation. He was seen there on 01/09/[address] Terell Solo. At his recommendation, Mr. Rivera had a repeat PET/CT on 01/14/2020. It showed multiple areas of abnormal uptake, consistent with recurrent lymphoma, but with the maximum SUV of 13.6 involving a right deep inguinal lymph node measuring 4.6 x 2.5 cm. Based on the degree of SUV activity, he then underwent CT directed core needle biopsy on 01/26/2020. Pathology was again consistent with grade 1-2 follicular lymphoma. In the setting of resistant follicular lymphoma, he was recommended to undergo trial of therapy with a P13 kinase inhibitor. He then began treatment with idelalisib 150 mg twice daily on 02/28/2020. He was seen for a follow-up visit on 03/13/2020 at day 14 of his treatment. He appeared to be tolerating it well. His blood counts were normal, and his liver function tests were also normal. He continued idelalisib 150 mg twice daily. He is seen for a follow-up visit. He has not been feeling as good. He reports having nausea and pain in his upper abdominal area. He has had no vomiting. He has been managing the nausea with ondansetron and lorazepam. He complains that his energy is low, but he is doing some light work. Appetite is not good. He has not had fever or night sweats. He did have chills last night. He has had no mouth sores. He has no shortness of breath, cough, or chest pain. He has occasional heartburn. Bowel and bladder function have been okay. He has generalized joint aching. He also has pain in the right shoulder associated with a torn rotator cuff. He recently has had a headache. He has no focal neurologic symptoms. He had previously reported an eczematous type skin eruption, that has resolved now. Medications: Aleve 1 Tablet (of 220 mg) Oral daily PRN, Idelalisib 1 Tablet (of 150 mg) Oral b.i.d., LORazepam 0.5 - 2 Tablet (of 1 mg) Oral daily PRN, Nitroglycerin 1 Tablet (of 0.4 mg) Tablet, sublingual Sublingual PRN, Ondansetron HCl 1 Tablet (of 4 mg) Oral daily Allergies: No Known Allergies. Review of Systems: Constitutional - His energy is low. He is still able to do some light work. Appetite also is poor. He has not had fever or night sweats, but he did have chills last night. ECOG score is 1, ENMT - No sinus congestion/drainage. No mouth sores. No sore throat or difficulty swallowing, Hematologic/Lymphatic - No abnormal bruising or bleeding, Respiratory - No shortness of breath. No cough. No pleuritic pain or hemoptysis, Cardiovascular - No angina pain. No palpitations, Gastrointestinal - He has been having nausea, but no vomiting. He is having occasional heartburn. He has pain in his upper mid abdominal area. No diarrhea or constipation. No blood in the stool or black stools, Genitourinary (M) - No dysuria or hematuria. No urinary frequency. No urgency or incontinence, Musculoskeletal - He has generalized aching. He has pain in his right shoulder associated with a torn rotator cuff, Integumentary - His skin eruption has improved, Neurologic - He recently has had headache. No dizziness. No numbness or tingling. No other focal neurologic symptoms, Psychiatric - No anxiety or depression. He is sleeping better. Vital Signs: Performed on Apr 03, 2020 11:29 Height - 71.00 in Weight - 214.4 lbs (LOW) BSA - 2.17 sq.m BMI - 29.90 Temperature - 99.8 F (HIGH) Pulse - 110 /min (HIGH) Respiration - 18 /min BP - 149/78 mm(hg) (HIGH) O2 Sat - 97 % Pain - 5 Physical Examination: Constitutional - He does not appear acutely ill, Eyes - Sclerae nonicteric. Conjunctivae clear, ENMT - No lesions noted in the oral cavity, Hematologic/Lymphatic - There are small cervical nodes on the right and a small axillary node on the left, Respiratory - Lungs sound clear, Cardiovascular - Heart rhythm is regular. There is a II/ systolic murmur. There is no gallop or rub noted, Abdomen - Mildly distended Liver is not enlarged or tender. Spleen is not palpable. There is no abdominal mass or ascites noted. There is no inguinal adenopathy noted, Extremities - No edema, Integumentary - No skin eruption, Neurologic - No focal neurologic deficits noted. Lab/Imaging: Test performed on Apr 03, 2020 10:00 Sodium 136 mmol/L TSH 3.32 uIU/mL Potassium 4.7 mmol/L Chloride 101 mmol/L CO2 22 mmol/L Anion Gap 17.7 BUN 38 mg/dL Creatinine 2.4 mg/dL Cr Clearance (Est) 45.02 mL/min eGFR 27.8 mL/min Glucose 117 mg/dL Calcium 9.3 mg/dL Protein, Total 6.5 g/dL Albumin 4.3 g/dL Globulin 2.2 g/dL Bilirubin, Total 1.1 mg/dL ALT (SGPT) 2716 U/L AST (SGOT) 1532 U/L Alkaline Phosphatase 125 IU/L WBC 8.1 10 3/uL RBC 4.40 10 6/uL HGB 14.8 g/dL HCT 41.6 % MCV 94.5 fL MCH 33.6 pg MCHC 35.6 g/dL RDW 12.8 % Platelet Count 117 10 3/cmm MPV 10.0 fL Neutrophils 6.0 10 3/uL Lymphocytes 0.4 10 3/uL Monocytes 1.2 10 3/uL Eosinophils 0.3 10 3/uL Basophils 0.1 10 3/uL Neutrophil % 74.6 % Lymphocyte % 5.1 % Monocyte % 14.4 % Eosinophil % 4.2 % Basophils % 0.7 % NRBC % 0 % Impression: 1. Patient with grade 1 follicular lymphoma, stage at least IIIS, diagnosed by left axillary lymph node biopsy on 07/31/2018. 2. His initial treatment included 2 cycles of bendamustine/Rituxan. With the first cycle the bendamustine was administered at a 50% dosage due to renal function and he received day 1 treatment only due to acute thrombocytopenia. Cycle 2 was delayed to 10/21/2018, and the bendamustine dosage remained at 50%. 3. He had presented with acute renal failure due to membranoproliferative glomerulonephritis, confirmed by renal biopsy on 07/30/2018. He has been on hemodialysis. 4. He was anemic at presentation, and he subsequently did require PRBC transfusion. 5. He also had laboratory evidence of hypothyroidism. 6. He has degenerative joint disease related to previous injuries. 7. He has a prior history of gout. He completed 2 cycles of bendamustine/Rituxan, though with significant delay prior to starting cycle 2. His restaging PET/CT on 01/08/2019 still showed diffuse FDG avid lymphadenopathy from the head/neck to the pelvis and diffusely metabolic splenomegaly. On comparison to his pretreatment CT scans, he did not appear to be showing significant response to the bendamustine/Rituxan regimen. As such, I opted to proceed with a course of R-CHOP chemotherapy. He began cycle 1 of R-CHOP on 02/23/2019. He was given first cycle prophylaxis with Neulasta. He tolerated it with acceptable toxicity, and he continued with cycle 2 on 03/16/2019 and with cycle 3 on 04/13/2019. During this time he required additional thoracentesis procedures, and a flow cytometry study on his pleural fluid did show a monotypic B-cell population consistent with involvement by malignant lymphoma. Restaging PET/CT on 05/07/2019 showed overall improvement but not complete resolution of the extensive adenopathy. Hypermetabolic splenomegaly appeared to have normalized. Overall, he appeared to have a very good response to the chemotherapy. He then continued treatment at 3-week intervals. He began his 6th cycle of R-CHOP on 06/22/2019. His restaging PET/CT on 07/16/2019 showed very significant response, though with possible residual involvement in a right external iliac lymph node and with evidence of some residual left pleural effusion. During that time he had significant improvement in his performance status, and he also was able to maintain adequate renal function after stopping dialysis. In the setting of low-grade lymphoma with very good partial response to chemotherapy, he was recommended to continue with maintenance rituximab. He began cycle 1 on 08/18/2019. He tolerated it well and continue with cycle 2 on 10/18/2019. However, at his follow-up visit on 12/13/2019 he had new adenopathy on the left side of the neck. Restaging CT scans showed disease progression in multiple areas, though not bulky. He was then seen for a second opinion evaluation at [facility] by Dr. Terell Solo. His restaging PET/CT also confirmed progression and multiple areas, but with a maximum SUV of 13.6 involving the right deep inguinal lymph node measuring 4.6 x 2.5 cm. Needle core biopsy of the lymph node again showed grade 1-2 follicular lymphoma. With that finding, he began treatment with idelalisib 150 mg twice daily on 02/28/2020. At his follow-up visit on 03/13/2020 he appeared to be tolerating it well. He had normal blood counts and normal LFTs. He presents now with complaints of nausea and pain in the upper abdominal area. He has had some decline in his activity tolerance. His liver enzymes have become markedly elevated with SGOT 1532/40 U/L and SGPT 2716/41 U/L. Bilirubin is just slightly elevated at 1.1 mg/dL with alkaline phosphatase in normal range at 125 IU/L. This is presumed to be treatment related. Plan: He will stop treatment now. As a precaution, I will check an acute viral hepatitis profile and a PCR for CMV, but this is almost certainly treatment related. He will be scheduled for a follow-up visit in 1 week. In the meantime, he is to call us or report to the emergency room if he develops jaundice and/or worsening symptoms. Signed By: Charlie Suarez M.D. <<Signature on File>>
[2020-04-08 06:50] LABS: CMV DNA By PCR <200 IU/mL; CMV DNA, QN PCR <2.30 Log IU/mL; SOURCE WHOLE BLOOD
== END 2020-04-03 23:59 | disposition home or self-care (01) ==
LOC: ONCMED 06:48
PROVIDERS: Nurse Practitioner; PCP Internal Medicine Medical Oncology; Visit Provider Internal Medicine Medical Oncology
DX: C82.98 Follicular lymphoma, unspecified, lymph nodes of multiple sites (principal); Z11.59 Encounter for screening for other viral diseases; R11.0 Nausea; R10.10 Upper abdominal pain, unspecified; E03.9 Hypothyroidism, unspecified; F17.210 Nicotine dependence, cigarettes, uncomplicated; M19.90 Unspecified osteoarthritis, unspecified site; Z79.899 Other long term (current) drug therapy
CPT/HCPCS: 36591; 80053; 83615; 84443; 85025; 86705; 86706; 86709; 86803; 87340; 87496; 99214

== ENCOUNTER 2020-05-02 06:42 | Outpatient (RCR) | payer MEDICARE, SELFPAY ==
[2020-04-10 10:40] LABS: Basophils # 0.1 10^3/uL (0.0-0.1); Basophils % 1.8 %; Eosinophils # 0.8 10^3/uL (0.0-0.8); Eosinophils % 9.8 %; Hematocrit 42.2 % (42.0-52.0); Hemoglobin 14.5 g/dL (11.7-16.6); Lymphocytes # 0.8 10^3/uL (0.8-4.8); Mean Corpuscular HGB Conc 34.4 g/dL (30.0-36.0); Mean Corpuscular Hemoglobin 32.8 pg (28.0-34.0); Mean Corpuscular Volume 95.5 fL (80-94); Mean Platelet Volume 10.6 fL (7.4-10.4); Monocytes # 1.2 10^3/uL (0.2-0.9); Monocytes % 15.5 %; Neutrophils # 4.7 10^3/uL (1.8-7.7); Neutrophils % 61.5 %; Nucleated Red Blood Cells % 0 %; Platelet Count 149 10^3/cmm (130-400); Red Blood Count 4.42 10^6/uL (4.1-5.3); White Blood Count 7.6 10^3/uL (4.0-10.0)
[2020-04-10 11:01] LABS: Alkaline Phosphatase 217 IU/L (40-130); Anion Gap 15.8 (5-19); Aspartate Amino Transferase 375 U/L (0-40); Blood Urea Nitrogen 31 mg/dL (8-23); Carbon Dioxide 21 mmol/L (22-29); Chloride 105 mmol/L (98-107); Globulin 2.1 g/dL (1.3-4.6); Glomerular Filtration Rate 34.3 mL/min (90-130); Glucose 123 mg/dL (65-115); Osmolality Calculated 283 mOsm/kg (285-295); Potassium 4.8 mmol/L (3.5-5.1); Sodium 137 mmol/L (136-145); Total Bilirubin 1.5 mg/dL (0.15-1.2); Total Protein 6.1 g/dL (6.6-8.7)
[2020-04-10 11:12] LABS: Alanine Aminotransferase 1537 U/L (0-41)
[2020-04-13 17:20] LABS: HEP C RNA Viral Load Quant <1.18 NOT DETECTED Log IU/mL (NOT DETECTED); HEP C RNA Viral Load Quant <15 NOT DETECTED IU/mL (NOT DETECTED)
--- NOTE | 2020-04-15 21:36 | ONC FU_ITS ---
[facility] Patient Note Patient: Jl Rivera Unit #: [id number]: 1960 Dictated By: Gaurav LimDate of Visit: Apr 10, 2020 Onc MED Follow-Up/Prog Note Chief Complaint: Lymphoma. 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 He was admitted to [facility] on 07/29/2018 with acute renal failure. He had presented with encephalopathy and severe edema. In addition to the acute renal failure, he had moderately severe anemia and mild thrombocytopenia with his baseline platelet count reportedly in the range of 100,000. CT pulmonary angiogram showed axillary and mediastinal lymphadenopathy, moderate sized bilateral pleural effusions, and cardiomegaly. His abdomen/pelvis CT showed marked lymphadenopathy within the abdomen and pelvis and splenomegaly. 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 He also was started on hemodialysis. Left axillary lymph node biopsy on 07/31/2018 showed malignant lymphoma, favoring low-grade follicular lymphoma. The neoplastic cells were noted to be positive for BCL 6, CD10, and CD23. There was weak positivity for BCL 2. The cells were negative for cyclin D1, MUM1, and SOX 11. On 07/31/2018 he began chemotherapy with bendamustine/Rituxan. The bendamustine dosage was reduced by 50% for the renal function. His day 2 bendamustine was held due to an acute drop in his platelet count to 30,000. It subsequently did recover, but there was a delay of close to 3 months prior to starting his second cycle of chemotherapy. Dr Suarez had seen him initially on 11/15/2018. His 3rd cycle of chemotherpy had been scheduled to be given the following week, and he was to have restaging CT scans prior to that treatment. His further evaluation was delayed pending his Medicare eligibility. He then had a restaging PET/CT on 01/08/2019. It showed extensive hypermetabolic lymphadenopathy for the level of the head and neck to the level of the pelvis. There was diffusely metabolic splenomegaly. As he appeared to have had very little response to the bendamustine/Rituxan regimen, Dr Suarez opted to proceed with a course of R-CHOP chemotherapy. His baseline echocardiogram showed estimated left ventricular ejection fraction of 55%. There was grade I/IVdiastolic dysfunction. His other medical illnesses include hypothyroidism, degenerative arthritis, and gout. He has a history of smoking 1 pack of cigarettes daily for 40 years, but he has cut down. INTERIM HISTORY: He began cycle 1 of R-CHOP on 02/23/2019. He was given first cycle prophylaxis with Neulasta. He tolerated it with acceptable toxicity, and he continued with cycle 2 on 03/16/2019 and with cycle 3 on 04/13/2019. During this time he required additional thoracentesis procedures on 03/09, 03/17, and 04/01/2019. A flow cytometry study on his pleural fluid did show a monotypic B-cell population consistent with involvement by malignant lymphoma. Restaging PET/CT on 05/07/2019 showed overall improvement but not complete resolution of the extensive adenopathy. Hypermetabolic splenomegaly appeared to have normalized. He then continued with cycle 4 of R-CHOP on 05/11/2019, with cycle 5 on 06/01/2019, and with cycle 6 on 06/22/2019. Restaging PET/CT on 07/16/2019 showed subcentimeter size lymph nodes in the head and neck bilaterally, FDG negative. Similar improvement was noted in mediastinal, left internal mammary, and bilateral axillary lymph nodes. Portal nodes demonstrated only minimal FDG uptake and scattered retroperitoneal nodes measuring up to 1 cm in size showed FDG activity no greater than that of mediastinal background. A right external iliac lymph node measuring 1.8 x 1.5 cm had mild FDG uptake with SUV 3.4. The left pleural effusion was noted be significantly decreased in volume. Left lower lobe round atelectasis was noted to be FDG negative. In the setting of a low-grade follicular lymphoma with very good partial response to chemotherapy, it was recommended that he continue with maintenance rituximab. He then returned on 08/18/2019 to begin cycle 1 of 12 planned cycles of treatment at 2-month intervals. He tolerated it well, and he continued with cycle 2 on 10/18/2019. At his follow-up visit on 12/13/2019 he had become aware of a new nodule on the right side of his neck. Dr Suarez had suspected that it was of thyroid origin. However, his neck CT on 12/15/2019 showed enlarged left submandibular lymph node measuring 11 mm, numerous but normal sized level 2 and level 3 cervical lymph nodes, and numerous and enlarged supraclavicular lymph nodes and retropectoral lymph nodes. The largest supraclavicular lymph node measured [address] scans of the chest, abdomen, and pelvis showed significant interval progression involving supraclavicular, thoracic inlet, internal mammary, and axillary lymphadenopathy. The largest left axillary lymph node measured 2.5 cm. Lymphadenopathy in the upper abdomen, abdiaziz hepatis, and periaortic regions was noted to be stable, but there was significant progression of pelvic and iliac chain lymphadenopathy as well as inguinal lymphadenopathy. A 6 mm noncalcified left upper lobe pulmonary nodule appeared stable. With those findings, he was referred to [facility] for a second opinion evaluation. He was seen there on 01/09/[address] Terell Solo. At his recommendation, Mr. Rivera had a repeat PET/CT on 01/14/2020. It showed multiple areas of abnormal uptake, consistent with recurrent lymphoma, but with the maximum SUV of 13.6 involving a right deep inguinal lymph node measuring 4.6 x 2.5 cm. Based on the degree of SUV activity, he then underwent CT directed core needle biopsy on 01/26/2020. Pathology was again consistent with grade 1-2 follicular lymphoma. In the setting of resistant follicular lymphoma, he was recommended to undergo trial of therapy with a P13 kinase inhibitor. He then began treatment with idelalisib 150 mg twice daily on 02/28/2020. He was seen for a follow-up visit on 03/13/2020 at day 14 of his treatment. He appeared to be tolerating it well. His blood counts were normal, and his liver function tests were also normal. He continued idelalisib 150 mg twice daily. Mr. Rivera presents today for follow-up. His idelalisib is currently on hold due to significantly elevated LFTs. Last week he presented for follow-up with a total bilirubin of 1.1 ALT was 2716 AST was 1532, alk phos 125. TSH 3.32. His oral chemo was placed on hold. Mr Rivera is here today for follow-up of his elevated LFTs. Overall he states he feels good. He states he is eating pretty good and denies any new concerns. He denies any abdominal pain. He denies any diarrhea or constipation. He has had no nausea or vomiting. He denies any vision changes, headaches or discoloration of the sclera. He denies any trouble swallowing. He states overall he feels fine. His ECOG is 1. Past Medical History: Anemia Degenerative joint disease Gout Hypothyroidism Past Surgical History: Placement of AV fistula for dialysis Placement of left subclavian dialysis catheter Rotator cuff repair bilaterally Left axillary lymph node biopsy and placement of Port-A-Cath venous access device in 2018 Ct renal biopsy in 2017 Cervical spine fusion with vertebral cadaver bone in 2005 Allergies: No Known Allergies. Medications: Aleve 1 Tablet (of 220 mg) Oral daily PRN LORazepam 0.5 - 2 Tablet (of 1 mg) Oral daily PRN Nitroglycerin 1 Tablet (of 0.4 mg) Tablet, sublingual Sublingual PRN Ondansetron HCl 1 Tablet (of 4 mg) Oral daily Family History: Mr. Rivera's mother is alive. Mr. Rivera's father is . Mr. Rivera has 4 brothers: 4 alive. He has 1 sister who is alive. His mother is still living and in good health at age 81. Father with multiple myeloma at age 80. He also had prostate cancer. The patient's paternal grandfather had prostate cancer as well. Five siblings are in good health. Social History: Mr. Rivera is and he is unemployed. He is a daily smoker who has smoked 0.5 packs/day for 40 years. He drinks occasionally. Review Of Symptoms: Constitutional Denies fevers, chills, night sweats, excessive fatigue or weight loss. Allergic/Immunologic No reactions. Eyes Denies significant visual changes. No diplopia. No amaurosis. ENMT Denies changes in hearing, sore throat, mouth sores, difficulty or changes in swallowing ability, and/or sinus drainage. Endocrine No diabetes, thyroid disease or hormone replacement. Denies hot flashes or night sweats. Hematologic/Lymphatic Denies easy bruising or bleeding. The patient denies any tender or palpable lymph nodes. Respiratory Denies dyspnea on exertion, chest pain, cough or hemoptysis. Denies orthopnea. Cardiovascular Denies anginal chest pain, palpitations or orthopnea. Gastrointestinal Denies nausea, vomiting, diarrhea, GI bleeding, or constipation. Denies change in bowel habits and/or stool color, or early satiety. Genitourinary (M) Denies hematuria, dysuria, increased frequency, urgency, hesitancy or incontinence. Musculoskeletal Denies joint pain, swelling or redness. No decreased range of motion. Integumentary Denies rash. Neurologic Denies headache, blurred vision, and no areas of focal weakness or numbness. Normal gait. No sensory problems. Psychiatric Denies depression, claus or mood swings. Has had some intermittent insomnia. Lorazepam works well when he takes it. Vital Signs: Performed on Apr 10, 2020 11:13 Height - 71.00 in Weight - 211.2 lbs (LOW) BSA - 2.16 sq.m BMI - 29.46 Temperature - 98.5 F Pulse - 80 /min Respiration - 18 /min BP - 134/74 mm(hg) O2 Sat - 92 % (LOW) Pain - 0,1 - No physically strenuous activity, but ambulatory and able to carry out light or sedentary work (e.g. office work, light house work). (ECOG) Physical Examination: Constitutional Alert, oriented, no acute distress. Skin pink, warm and dry. Head Normocephalic; atraumatic. Eyes Conjunctivae and sclerae are clear and without icterus. Pupils are reactive and equal. Neck No jugular venous distension. No palpable adenopathy. Hematologic/Lymphatic No tender or palpable lymph nodes in the cervical or supraclavicular areas. Respiratory Lungs are clear to auscultation without rhonchi or wheezing. Cardiovascular Regular rate and rhythm of heart without murmurs,clicks, gallops or rubs. Chest Chest is symmetric without chest wall deformities. Right chest wall venous access device is unremarkable. Back/Spine Non-tender to palpation. Extremities No visible deformities, no cyanosis, clubbing or edema. Musculoskeletal No tenderness or swelling, normal range of motion without obvious weakness. Integumentary No rashes or lesions. Neurologic No sensory or motor deficits, normal cerebellar function, normal gait. Psychiatric Alert and oriented times three. Coherent speech. Verbalizes understanding of our discussions today. Laboratory:Test performed on Apr 10, 2020 10:20 Sodium 137 mmol/L Potassium 4.8 mmol/L Chloride 105 mmol/L CO2 21 mmol/L Anion Gap 15.8 BUN 31 mg/dL Creatinine 2.0 mg/dL Cr Clearance (Est) 53.22 mL/min eGFR 34.3 mL/min Glucose 123 mg/dL Calcium 9.0 mg/dL Protein, Total 6.1 g/dL Albumin 4.0 g/dL Globulin 2.1 g/dL Bilirubin, Total 1.5 mg/dL ALT (SGPT) 1537 U/L AST (SGOT) 375 U/L Alkaline Phosphatase 217 IU/L WBC 7.6 10 3/uL RBC 4.42 10 6/uL HGB 14.5 g/dL HCT 42.2 % MCV 95.5 fL MCH 32.8 pg MCHC 34.4 g/dL RDW 13.0 % Platelet Count 149 10 3/cmm MPV 10.6 fL Neutrophils 4.7 10 3/uL Lymphocytes 0.8 10 3/uL Monocytes 1.2 10 3/uL Eosinophils 0.8 10 3/uL Basophils 0.1 10 3/uL Neutrophil % 61.5 % Lymphocyte % 10.0 % Monocyte % 15.5 % Eosinophil % 9.8 % Basophils % 1.8 % NRBC % 0 % Test performed on Apr 03, 2020 10:00 TSH 3.32 uIU/mL Test performed on Mar 13, 2020 13:10 LDH (Total) 186 U/L Test performed on Dec 13, 2019 13:42 T4, Free 1.01 ng/dL Test performed on Oct 18, 2019 09:31 Manual Segs 75.6 % Manual Lymphocytes 7.7 % Manual Monocytes 9.8 % Manual Eosinophils 4.2 % Manual Basophils 0.7 % NRBCs 0 /100 WBC Impression: 1. Patient with grade 1 follicular lymphoma, stage at least IIIS, diagnosed by left axillary lymph node biopsy on 07/31/2018. 2. His initial treatment included 2 cycles of bendamustine/Rituxan. With the first cycle the bendamustine was administered at a 50% dosage due to renal function and he received day 1 treatment only due to acute thrombocytopenia. Cycle 2 was delayed to 10/21/2018, and the bendamustine dosage remained at 50%. 3. He had presented with acute renal failure due to membranoproliferative glomerulonephritis, confirmed by renal biopsy on 07/30/2018. He has been on hemodialysis. 4. He was anemic at presentation, and he subsequently did require PRBC transfusion. 5. He also had laboratory evidence of hypothyroidism. 6. He has degenerative joint disease related to previous injuries. 7. He has a prior history of gout. He completed 2 cycles of bendamustine/Rituxan, though with significant delay prior to starting cycle 2. His restaging PET/CT on 01/08/2019 still showed diffuse FDG avid lymphadenopathy from the head/neck to the pelvis and diffusely metabolic splenomegaly. On comparison to his pretreatment CT scans, he did not appear to be showing significant response to the bendamustine/Rituxan regimen. As such, Dr Suarez opted to proceed with a course of R-CHOP chemotherapy. He began cycle 1 of R-CHOP on 02/23/2019. He was given first cycle prophylaxis with Neulasta. He tolerated it with acceptable toxicity, and he continued with cycle 2 on 03/16/2019 and with cycle 3 on 04/13/2019. During this time he required additional thoracentesis procedures, and a flow cytometry study on his pleural fluid did show a monotypic B-cell population consistent with involvement by malignant lymphoma. Restaging PET/CT on 05/07/2019 showed overall improvement but not complete resolution of the extensive adenopathy. Hypermetabolic splenomegaly appeared to have normalized. Overall, he appeared to have a very good response to the chemotherapy. He then continued treatment at 3-week intervals. He began his 6th cycle of R-CHOP on 06/22/2019. His restaging PET/CT on 07/16/2019 showed very significant response, though with possible residual involvement in a right external iliac lymph node and with evidence of some residual left pleural effusion. During that time he had significant improvement in his performance status, and he also was able to maintain adequate renal function after stopping dialysis. In the setting of low-grade lymphoma with very good partial response to chemotherapy, he was recommended to continue with maintenance rituximab. He began cycle 1 on 08/18/2019. He tolerated it well and continue with cycle 2 on 10/18/2019. However, at his follow-up visit on 12/13/2019 he had new adenopathy on the left side of the neck. Restaging CT scans showed disease progression in multiple areas, though not bulky. He was then seen for a second opinion evaluation at [facility] by Dr. Terell Solo. His restaging PET/CT also confirmed progression and multiple areas, but with a maximum SUV of 13.6 involving the right deep inguinal lymph node measuring 4.6 x 2.5 cm. Needle core biopsy of the lymph node again showed grade 1-2 follicular lymphoma. With that finding, he began treatment with idelalisib 150 mg twice daily on 02/28/2020. At his follow-up visit on 03/13/2020 he appeared to be tolerating it well. He had normal blood counts and normal LFTs. He presents now with complaints of nausea and pain in the upper abdominal area. He has had some decline in his activity tolerance. His liver enzymes have become markedly elevated with SGOT 1532/40 U/L and SGPT 2716/41 U/L. Bilirubin is just slightly elevated at 1.1 mg/dL with alkaline phosphatase in normal range at 125 IU/L. This is presumed to be treatment related. Plan: 1. Continue to hold idelalisib due to significantly elevated LFT's. 2. Supportive care as needed-thus far he has not needed any. 3. Labs from April 10, 2020 were reviewed in detail and discussed with Mr. Rivera and a copy was given to him. WBC 7.6, hemoglobin 14.5, platelets 149,000 ANC is 4700 potassium 4.8 random glucose 123 creatinine 2.0 (improved from last week of 2.4) albumin 4.0 total bilirubin 1.5 ALT 1537 AST 375 alk phos 217. His hepatitis profile from 04/03/2020 reported hep B surface antigen nonreactive; HEPAIGM nonreactive; hep BC total nonreactive; hep C AB reactive and was verified by repeat exam. Mr. Rivera states that he was told in the past that he had had hepatitis C but then again was retested later and told that he did not. At this point we will will investigate further with Hep C PCR analysis. 4. We will plan to see him back in 1 week with CBC CMP and repeat labs. I have asked for a Hep C viral load quantitative PCR and a Hep C genotype. 5. Mr. Rivera was directed to contact us in the interim should questions or problems arise. Signed By: Gaurav Lim-, AOCNP Charlie Suarez MD <<Signature on File>>
[2020-04-17 01:46] LABS: Hepatitis C Genotype RNA NOT DETECTED
[2020-04-18 12:54] LABS: Basophils # 0.1 10^3/uL (0.0-0.1); Basophils % 1.6 %; Eosinophils # 0.5 10^3/uL (0.0-0.8); Eosinophils % 6.4 %; Hematocrit 42.9 % (42.0-52.0); Hemoglobin 14.8 g/dL (11.7-16.6); Lymphocytes # 0.7 10^3/uL (0.8-4.8); Lymphocytes % 8.4 %; Mean Corpuscular HGB Conc 34.5 g/dL (30.0-36.0); Mean Corpuscular Hemoglobin 32.7 pg (28.0-34.0); Mean Corpuscular Volume 94.7 fL (80-94); Mean Platelet Volume 10.2 fL (7.4-10.4); Monocytes % 12.4 %; Neutrophils # 5.64 10^3/uL (1.8-7.7); Neutrophils % 69.8 %; Nucleated Red Blood Cells % 0 %; Platelet Count 152 10^3/cmm (130-400); Red Blood Count 4.53 10^6/uL (4.1-5.3); White Blood Count 8.1 10^3/uL (4.0-10.0)
[2020-04-18 13:21] LABS: Alanine Aminotransferase 183 U/L (0-41); Albumin Level 4.2 g/dL (3.5-5.2); Alkaline Phosphatase 196 IU/L (40-130); Anion Gap 15.4 (5-19); Aspartate Amino Transferase 37 U/L (0-40); Blood Urea Nitrogen 29 mg/dL (8-23); Calcium 9.1 mg/dL (8.5-10.5); Carbon Dioxide 22 mmol/L (22-29); Chloride 102 mmol/L (98-107); Globulin 1.9 g/dL (1.3-4.6); Glomerular Filtration Rate 36.3 mL/min (90-130); Glucose 102 mg/dL (65-115); Osmolality Calculated 277 mOsm/kg (285-295); Potassium 4.4 mmol/L (3.5-5.1); Sodium 135 mmol/L (136-145); Total Bilirubin 0.9 mg/dL (0.15-1.2); Total Protein 6.1 g/dL (6.6-8.7)
--- NOTE | 2020-04-22 11:57 | ONC FU_ITS ---
oTmmy [facility]arias Patient Note Patient: Jl Rivera Unit #: [id number]: 1960 Dictated By: Gaurav LimDate of Visit: Apr 18, 2020 Onc MED Follow-Up/Prog Note Chief Complaint: Lymphoma. 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 He was admitted to [facility] on 07/29/2018 with acute renal failure. He had presented with encephalopathy and severe edema. In addition to the acute renal failure, he had moderately severe anemia and mild thrombocytopenia with his baseline platelet count reportedly in the range of 100,000. CT pulmonary angiogram showed axillary and mediastinal lymphadenopathy, moderate sized bilateral pleural effusions, and cardiomegaly. His abdomen/pelvis CT showed marked lymphadenopathy within the abdomen and pelvis and splenomegaly. 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 He also was started on hemodialysis. Left axillary lymph node biopsy on 07/31/2018 showed malignant lymphoma, favoring low-grade follicular lymphoma. The neoplastic cells were noted to be positive for BCL 6, CD10, and CD23. There was weak positivity for BCL 2. The cells were negative for cyclin D1, MUM1, and SOX 11. On 07/31/2018 he began chemotherapy with bendamustine/Rituxan. The bendamustine dosage was reduced by 50% for the renal function. His day 2 bendamustine was held due to an acute drop in his platelet count to 30,000. It subsequently did recover, but there was a delay of close to 3 months prior to starting his second cycle of chemotherapy. Dr Suarez had seen him initially on 11/15/2018. His 3rd cycle of chemotherpy had been scheduled to be given the following week, and he was to have restaging CT scans prior to that treatment. His further evaluation was delayed pending his Medicare eligibility. He then had a restaging PET/CT on 01/08/2019. It showed extensive hypermetabolic lymphadenopathy for the level of the head and neck to the level of the pelvis. There was diffusely metabolic splenomegaly. As he appeared to have had very little response to the bendamustine/Rituxan regimen, Dr Suarez opted to proceed with a course of R-CHOP chemotherapy. His baseline echocardiogram showed estimated left ventricular ejection fraction of 55%. There was grade I/IVdiastolic dysfunction. His other medical illnesses include hypothyroidism, degenerative arthritis, and gout. He has a history of smoking 1 pack of cigarettes daily for 40 years, but he has cut down. INTERIM HISTORY: He began cycle 1 of R-CHOP on 02/23/2019. He was given first cycle prophylaxis with Neulasta. He tolerated it with acceptable toxicity, and he continued with cycle 2 on 03/16/2019 and with cycle 3 on 04/13/2019. During this time he required additional thoracentesis procedures on 03/09, 03/17, and 04/01/2019. A flow cytometry study on his pleural fluid did show a monotypic B-cell population consistent with involvement by malignant lymphoma. Restaging PET/CT on 05/07/2019 showed overall improvement but not complete resolution of the extensive adenopathy. Hypermetabolic splenomegaly appeared to have normalized. He then continued with cycle 4 of R-CHOP on 05/11/2019, with cycle 5 on 06/01/2019, and with cycle 6 on 06/22/2019. Restaging PET/CT on 07/16/2019 showed subcentimeter size lymph nodes in the head and neck bilaterally, FDG negative. Similar improvement was noted in mediastinal, left internal mammary, and bilateral axillary lymph nodes. Portal nodes demonstrated only minimal FDG uptake and scattered retroperitoneal nodes measuring up to 1 cm in size showed FDG activity no greater than that of mediastinal background. A right external iliac lymph node measuring 1.8 x 1.5 cm had mild FDG uptake with SUV 3.4. The left pleural effusion was noted be significantly decreased in volume. Left lower lobe round atelectasis was noted to be FDG negative. In the setting of a low-grade follicular lymphoma with very good partial response to chemotherapy, it was recommended that he continue with maintenance rituximab. He then returned on 08/18/2019 to begin cycle 1 of 12 planned cycles of treatment at 2-month intervals. He tolerated it well, and he continued with cycle 2 on 10/18/2019. At his follow-up visit on 12/13/2019 he had become aware of a new nodule on the right side of his neck. Dr Suarez had suspected that it was of thyroid origin. However, his neck CT on 12/15/2019 showed enlarged left submandibular lymph node measuring 11 mm, numerous but normal sized level 2 and level 3 cervical lymph nodes, and numerous and enlarged supraclavicular lymph nodes and retropectoral lymph nodes. The largest supraclavicular lymph node measured [address] scans of the chest, abdomen, and pelvis showed significant interval progression involving supraclavicular, thoracic inlet, internal mammary, and axillary lymphadenopathy. The largest left axillary lymph node measured 2.5 cm. Lymphadenopathy in the upper abdomen, abdiaziz hepatis, and periaortic regions was noted to be stable, but there was significant progression of pelvic and iliac chain lymphadenopathy as well as inguinal lymphadenopathy. A 6 mm noncalcified left upper lobe pulmonary nodule appeared stable. With those findings, he was referred to [facility] for a second opinion evaluation. He was seen there on 01/09/[address] Terell Solo. At his recommendation, Mr. Rivera had a repeat PET/CT on 01/14/2020. It showed multiple areas of abnormal uptake, consistent with recurrent lymphoma, but with the maximum SUV of 13.6 involving a right deep inguinal lymph node measuring 4.6 x 2.5 cm. Based on the degree of SUV activity, he then underwent CT directed core needle biopsy on 01/26/2020. Pathology was again consistent with grade 1-2 follicular lymphoma. In the setting of resistant follicular lymphoma, he was recommended to undergo trial of therapy with a P13 kinase inhibitor. He then began treatment with idelalisib 150 mg twice daily on 02/28/2020. He was seen for a follow-up visit on 03/13/2020 at day 14 of his treatment. He appeared to be tolerating it well. His blood counts were normal, and his liver function tests were also normal. He continued idelalisib 150 mg twice daily. Mr. Rivera presents today for follow-up. His idelalisib is currently on hold due to significantly elevated LFTs. Last week he presented for follow-up with a total bilirubin of 1.1 ALT was 2716 AST was 1532, alk phos 125. TSH 3.32. His oral chemo was placed on hold. Mr Rivera is here today for follow-up of his elevated LFTs. Overall he states he feels good. He states he is eating pretty good and denies any new concerns. He denies any abdominal pain. He denies any diarrhea or constipation. He has had no nausea or vomiting. He denies any vision changes, headaches or discoloration of the sclera. He denies any trouble swallowing. He states overall he feels fine. He has increased his activity around the house and has tolerated this well. His ECOG is 1. Past Medical History: Anemia Degenerative joint disease Gout Hypothyroidism Past Surgical History: Placement of AV fistula for dialysis Placement of left subclavian dialysis catheter Rotator cuff repair bilaterally Left axillary lymph node biopsy and placement of Port-A-Cath venous access device in 2019 Ct renal biopsy in 2018 Cervical spine fusion with vertebral cadaver bone in 2005 Allergies: No Known Allergies. Medications: Aleve 1 Tablet (of 220 mg) Oral daily PRN LORazepam 0.5 - 2 Tablet (of 1 mg) Oral daily PRN Nitroglycerin 1 Tablet (of 0.4 mg) Tablet, sublingual Sublingual PRN Ondansetron HCl 1 Tablet (of 4 mg) Oral daily Family History: Mr. Rivera's mother is alive. Mr. Rivera's father is . Mr. Rivera has 4 brothers: 4 alive. He has 1 sister who is alive. His mother is still living and in good health at age 81. Father with multiple myeloma at age 80. He also had prostate cancer. The patient's paternal grandfather had prostate cancer as well. Five siblings are in good health. Social History: Mr. Rivera is and he is unemployed. He is a daily smoker who has smoked 0.5 packs/day for 40 years. He drinks occasionally. Review Of Symptoms: Constitutional Denies fevers, chills, night sweats, excessive fatigue or weight loss. Allergic/Immunologic No reactions. Eyes Denies significant visual changes. No diplopia. No amaurosis. ENMT Denies changes in hearing, sore throat, mouth sores, difficulty or changes in swallowing ability, and/or sinus drainage. Endocrine No diabetes, thyroid disease or hormone replacement. Denies hot flashes or night sweats. Hematologic/Lymphatic Denies easy bruising or bleeding. The patient denies any tender or palpable lymph nodes. Respiratory Denies dyspnea on exertion, chest pain, cough or hemoptysis. Denies orthopnea. Cardiovascular Denies anginal chest pain, palpitations or orthopnea. Gastrointestinal Denies nausea, vomiting, diarrhea, GI bleeding, or constipation. Denies change in bowel habits and/or stool color, or early satiety. Genitourinary (M) Denies hematuria, dysuria, increased frequency, urgency, hesitancy or incontinence. Musculoskeletal Denies joint pain, swelling or redness. No decreased range of motion. Integumentary Denies rash. Neurologic Denies headache, blurred vision, and no areas of focal weakness or numbness. Normal gait. No sensory problems. Psychiatric Denies depression, claus or mood swings. Has had some intermittent insomnia. Lorazepam works well when he takes it. Vital Signs: Performed on Apr 18, 2020 14:36 Height - 71.00 in Weight - 209.8 lbs (LOW) BSA - 2.15 sq.m BMI - 29.26 Temperature - 97.9 F (LOW) Pulse - 80 /min Respiration - 20 /min BP - 111/74 mm(hg) O2 Sat - 96 % Pain - 0,1 - No physically strenuous activity, but ambulatory and able to carry out light or sedentary work (e.g. office work, light house work). (ECOG) Physical Examination: Constitutional Alert, oriented, no acute distress. Skin pink, warm and dry. Head Normocephalic; atraumatic. Eyes Conjunctivae and sclerae are clear and without icterus. Pupils are reactive and equal. Neck No jugular venous distension. No palpable adenopathy. Hematologic/Lymphatic No tender or palpable lymph nodes in the cervical or supraclavicular areas. Respiratory Lungs are clear to auscultation without rhonchi or wheezing. Cardiovascular Regular rate and rhythm of heart without murmurs,clicks, gallops or rubs. Chest Chest is symmetric without chest wall deformities. Right chest wall venous access device is unremarkable. Abdomen Non-tender, non-distended, no masses, ascites. Back/Spine Non-tender to palpation. Extremities No visible deformities, no cyanosis, clubbing or edema. Musculoskeletal No tenderness or swelling, normal range of motion without obvious weakness. Integumentary No rashes or lesions. Neurologic No sensory or motor deficits, normal cerebellar function, normal gait. Psychiatric Alert and oriented times three. Coherent speech. Verbalizes understanding of our discussions today. Laboratory:Test performed on Apr 18, 2020 12:31 Sodium 135 mmol/L Potassium 4.4 mmol/L Chloride 102 mmol/L CO2 22 mmol/L Anion Gap 15.4 BUN 29 mg/dL Creatinine 1.9 mg/dL Cr Clearance (Est) 55.65 mL/min eGFR 36.3 mL/min Glucose 102 mg/dL Calcium 9.1 mg/dL Protein, Total 6.1 g/dL Albumin 4.2 g/dL Globulin 1.9 g/dL Bilirubin, Total 0.9 mg/dL ALT (SGPT) 183 U/L AST (SGOT) 37 U/L Alkaline Phosphatase 196 IU/L WBC 8.1 10 3/uL RBC 4.53 10 6/uL HGB 14.8 g/dL HCT 42.9 % MCV 94.7 fL MCH 32.7 pg MCHC 34.5 g/dL RDW 13.0 % Platelet Count 152 10 3/cmm MPV 10.2 fL Neutrophils 5.64 10 3/uL Lymphocytes 0.7 10 3/uL Monocytes 1.0 10 3/uL Eosinophils 0.5 10 3/uL Basophils 0.1 10 3/uL Neutrophil % 69.8 % Lymphocyte % 8.4 % Monocyte % 12.4 % Eosinophil % 6.4 % Basophils % 1.6 % NRBC % 0 % Test performed on Apr 03, 2020 10:00 TSH 3.32 uIU/mL Test performed on Mar 13, 2020 13:10 LDH (Total) 186 U/L Test performed on Dec 13, 2019 13:42 T4, Free 1.01 ng/dL Impression: 1. Patient with grade 1 follicular lymphoma, stage at least IIIS, diagnosed by left axillary lymph node biopsy on 07/31/2018. 2. His initial treatment included 2 cycles of bendamustine/Rituxan. With the first cycle the bendamustine was administered at a 50% dosage due to renal function and he received day 1 treatment only due to acute thrombocytopenia. Cycle 2 was delayed to 10/21/2018, and the bendamustine dosage remained at 50%. 3. He had presented with acute renal failure due to membranoproliferative glomerulonephritis, confirmed by renal biopsy on 07/30/2018. He has been on hemodialysis. 4. He was anemic at presentation, and he subsequently did require PRBC transfusion. 5. He also had laboratory evidence of hypothyroidism. 6. He has degenerative joint disease related to previous injuries. 7. He has a prior history of gout. He completed 2 cycles of bendamustine/Rituxan, though with significant delay prior to starting cycle 2. His restaging PET/CT on 01/08/2019 still showed diffuse FDG avid lymphadenopathy from the head/neck to the pelvis and diffusely metabolic splenomegaly. On comparison to his pretreatment CT scans, he did not appear to be showing significant response to the bendamustine/Rituxan regimen. As such, Dr Suarez opted to proceed with a course of R-CHOP chemotherapy. He began cycle 1 of R-CHOP on 02/23/2019. He was given first cycle prophylaxis with Neulasta. He tolerated it with acceptable toxicity, and he continued with cycle 2 on 03/16/2019 and with cycle 3 on 04/13/2019. During this time he required additional thoracentesis procedures, and a flow cytometry study on his pleural fluid did show a monotypic B-cell population consistent with involvement by malignant lymphoma. Restaging PET/CT on 05/07/2019 showed overall improvement but not complete resolution of the extensive adenopathy. Hypermetabolic splenomegaly appeared to have normalized. Overall, he appeared to have a very good response to the chemotherapy. He then continued treatment at 3-week intervals. He began his 6th cycle of R-CHOP on 06/22/2019. His restaging PET/CT on 07/16/2019 showed very significant response, though with possible residual involvement in a right external iliac lymph node and with evidence of some residual left pleural effusion. During that time he had significant improvement in his performance status, and he also was able to maintain adequate renal function after stopping dialysis. In the setting of low-grade lymphoma with very good partial response to chemotherapy, he was recommended to continue with maintenance rituximab. He began cycle 1 on 08/18/2019. He tolerated it well and continue with cycle 2 on 10/18/2019. However, at his follow-up visit on 12/13/2019 he had new adenopathy on the left side of the neck. Restaging CT scans showed disease progression in multiple areas, though not bulky. He was then seen for a second opinion evaluation at [facility] by Dr. Terell Solo. His restaging PET/CT also confirmed progression and multiple areas, but with a maximum SUV of 13.6 involving the right deep inguinal lymph node measuring 4.6 x 2.5 cm. Needle core biopsy of the lymph node again showed grade 1-2 follicular lymphoma. With that finding, he began treatment with idelalisib 150 mg twice daily on 02/28/2020. At his follow-up visit on 03/13/2020 he appeared to be tolerating it well. He had normal blood counts and normal LFTs. He presents now with complaints of nausea and pain in the upper abdominal area. He has had some decline in his activity tolerance. His liver enzymes have become markedly elevated with SGOT 1532/40 U/L and SGPT 2716/41 U/L. Bilirubin is just slightly elevated at 1.1 mg/dL with alkaline phosphatase in normal range at 125 IU/L. This is presumed to be treatment related. His LFT's are now recovering well. Plan: 1. Continue to hold idelalisib due to significantly elevated LFT's. The LFT' are recovering well. 2. Supportive care as needed-thus far he has not needed any. 3. Labs from April 18, 2020 were reviewed in detail and discussed with Mr. Rivera and a copy was given to him. WBC 8.1, hemoglobin 14.8, platelets 152,000 ANC is 5600 potassium 4.4 random glucose 102 creatinine 1.9 (improved from 2.4 on April 03, 2020) albumin 4.2 total bilirubin 0.9 ALT 183 (1537 on 04/10/2020) AST37 (375 on 04/10/2020) and alk phos 192 (217 on 04/10/2020). His hepatitis profile from 04/03/2020 reported hep B surface antigen nonreactive; HEPAIGM nonreactive; hep BC total nonreactive; hep C AB reactive and was verified by repeat exam. He did have follow-up hep C RNA quantitative which was reported as less than 15 nondetected and less than 1.18 nondetected on 04/10/2020. 4. We will plan to see him back in 2 weeks with CBC CMP. We will plan on discussing any treatment option at that time. It is noted on the idelaslisib package insert that if the ALT/AST elevates greater than 20 times normal, this warrants permanently discontinuation the drug. Mr. Rivera's ALT on April 03, 2020 was 2716 with normal ranges being 0-41; his AST was 1532 with normal range 0-40. 5. Mr. Rivera was directed to contact us in the interim should questions or problems arise. Signed By: Gaurav Lim-, AOCNP Charlie Suarez MD <<Signature on File>>
[2020-05-02 14:18] LABS: Basophils # 0.1 10^3/uL (0.0-0.1); Eosinophils # 0.5 10^3/uL (0.0-0.8); Eosinophils % 7.3 %; Hematocrit 42.8 % (42.0-52.0); Lymphocytes # 0.6 10^3/uL (0.8-4.8); Lymphocytes % 8.7 %; Mean Corpuscular Hemoglobin 33.2 pg (28.0-34.0); Mean Corpuscular Volume 94.7 fL (80-94); Monocytes # 0.9 10^3/uL (0.2-0.9); Monocytes % 12.9 %; Neutrophils # 4.75 10^3/uL (1.8-7.7); Neutrophils % 69.1 %; Nucleated Red Blood Cells % 0 %; Platelet Count 142 10^3/cmm (130-400); Red Blood Count 4.52 10^6/uL (4.1-5.3); Red Cell Distribution Width 13.3 % (12.1-15.1); White Blood Count 6.9 10^3/uL (4.0-10.0)
[2020-05-02 14:49] LABS: Alanine Aminotransferase 17 U/L (0-41); Albumin Level 4.3 g/dL (3.5-5.2); Alkaline Phosphatase 150 IU/L (40-130); Anion Gap 16.6 (5-19); Aspartate Amino Transferase 19 U/L (0-40); Blood Urea Nitrogen 30 mg/dL (8-23); Calcium 9.4 mg/dL (8.5-10.5); Carbon Dioxide 23 mmol/L (22-29); Chloride 101 mmol/L (98-107); Glomerular Filtration Rate 32.4 mL/min (90-130); Glucose 90 mg/dL (65-115); Lactate Dehydrogenase 255 U/L (135-225); Osmolality Calculated 279 mOsm/kg (285-295); Potassium 4.6 mmol/L (3.5-5.1); Sodium 136 mmol/L (136-145); Thyroid Stimulating Hormone 4.61 uIU/mL (0.27-4.20); Total Bilirubin 1.1 mg/dL (0.15-1.2); Total Protein 6.3 g/dL (6.6-8.7)
--- NOTE | 2020-05-06 17:48 | ONC FU_ITS ---
[facility] Patient Note Patient: Jl Rivera Unit #: [id number]: 1960 Dictated By: Gaurav LimDate of Visit: May 02, 2020 Onc MED Follow-Up/Prog Note Chief Complaint: Lymphoma. 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 He was admitted to [facility] on 07/29/2018 with acute renal failure. He had presented with encephalopathy and severe edema. In addition to the acute renal failure, he had moderately severe anemia and mild thrombocytopenia with his baseline platelet count reportedly in the range of 100,000. CT pulmonary angiogram showed axillary and mediastinal lymphadenopathy, moderate sized bilateral pleural effusions, and cardiomegaly. His abdomen/pelvis CT showed marked lymphadenopathy within the abdomen and pelvis and splenomegaly. 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 He also was started on hemodialysis. Left axillary lymph node biopsy on 07/31/2018 showed malignant lymphoma, favoring low-grade follicular lymphoma. The neoplastic cells were noted to be positive for BCL 6, CD10, and CD23. There was weak positivity for BCL 2. The cells were negative for cyclin D1, MUM1, and SOX 11. On 07/31/2018 he began chemotherapy with bendamustine/Rituxan. The bendamustine dosage was reduced by 50% for the renal function. His day 2 bendamustine was held due to an acute drop in his platelet count to 30,000. It subsequently did recover, but there was a delay of close to 3 months prior to starting his second cycle of chemotherapy. Dr Sparks had seen him initially on 11/15/2018. His 3rd cycle of chemotherpy had been scheduled to be given the following week, and he was to have restaging CT scans prior to that treatment. His further evaluation was delayed pending his Medicare eligibility. He then had a restaging PET/CT on 01/08/2019. It showed extensive hypermetabolic lymphadenopathy for the level of the head and neck to the level of the pelvis. There was diffusely metabolic splenomegaly. As he appeared to have had very little response to the bendamustine/Rituxan regimen, Dr Sparks opted to proceed with a course of R-CHOP chemotherapy. His baseline echocardiogram showed estimated left ventricular ejection fraction of 55%. There was grade I/IVdiastolic dysfunction. His other medical illnesses include hypothyroidism, degenerative arthritis, and gout. He has a history of smoking 1 pack of cigarettes daily for 40 years, but he has cut down. INTERIM HISTORY: He began cycle 1 of R-CHOP on 02/23/2019. He was given first cycle prophylaxis with Neulasta. He tolerated it with acceptable toxicity, and he continued with cycle 2 on 03/16/2019 and with cycle 3 on 04/13/2019. During this time he required additional thoracentesis procedures on 03/09, 03/17, and 04/01/2019. A flow cytometry study on his pleural fluid did show a monotypic B-cell population consistent with involvement by malignant lymphoma. Restaging PET/CT on 05/07/2019 showed overall improvement but not complete resolution of the extensive adenopathy. Hypermetabolic splenomegaly appeared to have normalized. He then continued with cycle 4 of R-CHOP on 05/11/2019, with cycle 5 on 06/01/2019, and with cycle 6 on 06/22/2019. Restaging PET/CT on 07/16/2019 showed subcentimeter size lymph nodes in the head and neck bilaterally, FDG negative. Similar improvement was noted in mediastinal, left internal mammary, and bilateral axillary lymph nodes. Portal nodes demonstrated only minimal FDG uptake and scattered retroperitoneal nodes measuring up to 1 cm in size showed FDG activity no greater than that of mediastinal background. A right external iliac lymph node measuring 1.8 x 1.5 cm had mild FDG uptake with SUV 3.4. The left pleural effusion was noted be significantly decreased in volume. Left lower lobe round atelectasis was noted to be FDG negative. In the setting of a low-grade follicular lymphoma with very good partial response to chemotherapy, it was recommended that he continue with maintenance rituximab. He then returned on 08/18/2019 to begin cycle 1 of 12 planned cycles of treatment at 2-month intervals. He tolerated it well, and he continued with cycle 2 on 10/18/2019. At his follow-up visit on 12/13/2019 he had become aware of a new nodule on the right side of his neck. Dr Sparks had suspected that it was of thyroid origin. However, his neck CT on 12/15/2019 showed enlarged left submandibular lymph node measuring 11 mm, numerous but normal sized level 2 and level 3 cervical lymph nodes, and numerous and enlarged supraclavicular lymph nodes and retropectoral lymph nodes. The largest supraclavicular lymph node measured [address] scans of the chest, abdomen, and pelvis showed significant interval progression involving supraclavicular, thoracic inlet, internal mammary, and axillary lymphadenopathy. The largest left axillary lymph node measured 2.5 cm. Lymphadenopathy in the upper abdomen, abdiaziz hepatis, and periaortic regions was noted to be stable, but there was significant progression of pelvic and iliac chain lymphadenopathy as well as inguinal lymphadenopathy. A 6 mm noncalcified left upper lobe pulmonary nodule appeared stable. With those findings, he was referred to [facility] for a second opinion evaluation. He was seen there on 01/09/[address] Terell Solo. At his recommendation, Mr. Rivera had a repeat PET/CT on 01/14/2020. It showed multiple areas of abnormal uptake, consistent with recurrent lymphoma, but with the maximum SUV of 13.6 involving a right deep inguinal lymph node measuring 4.6 x 2.5 cm. Based on the degree of SUV activity, he then underwent CT directed core needle biopsy on 01/26/2020. Pathology was again consistent with grade 1-2 follicular lymphoma. In the setting of resistant follicular lymphoma, he was recommended to undergo trial of therapy with a P13 kinase inhibitor. He then began treatment with idelalisib 150 mg twice daily on 02/28/2020. He was seen for a follow-up visit on 03/13/2020 at day 14 of his treatment. He appeared to be tolerating it well. His blood counts were normal, and his liver function tests were also normal. He continued idelalisib 150 mg twice daily. Mr. Rivera presents today for follow-up. His idelalisib is currently on hold due to significantly elevated LFTs. Last week he presented for follow-up with a total bilirubin of 1.1 ALT was 2716 AST was 1532, alk phos 125. TSH 3.32. His oral chemo was placed on hold. Mr Rivera is here today for follow-up of his recent elevated LFTs. Overall he states he feels good. He states he is eating pretty good and denies any new concerns. He denies any abdominal pain. He denies any diarrhea or constipation. He has had no nausea or vomiting. He denies any vision changes, headaches or discoloration of the sclera. He denies any trouble swallowing. He states overall he feels fine. He has increased his activity around the house and has tolerated this well. His ECOG is 0. We did discuss Dr Sparks's recommendation of starting another therapy for his follicular lymphoma. The new plan of care will be lenalidomide and obintuzumab if approved by his insurance. Past Medical History: Anemia Degenerative joint disease Gout Hypothyroidism Past Surgical History: Placement of AV fistula for dialysis Placement of left subclavian dialysis catheter Rotator cuff repair bilaterally Left axillary lymph node biopsy and placement of Port-A-Cath venous access device in 2019 Ct renal biopsy in 2018 Cervical spine fusion with vertebral cadaver bone in 2005 Allergies: No Known Allergies. Medications: Family History: Mr. Rivera's mother is alive. Mr. Rivera's father is . Mr. Rivera has 4 brothers: 4 alive. He has 1 sister who is alive. His mother is still living and in good health at age 81. Father with multiple myeloma at age 80. He also had prostate cancer. The patient's paternal grandfather had prostate cancer as well. Five siblings are in good health. Social History: Mr. Rivera is and he is unemployed. He is a daily smoker who has smoked 0.5 packs/day for 40 years. He drinks occasionally. Review Of Symptoms: Constitutional Denies fevers, chills, night sweats, excessive fatigue or weight loss. Allergic/Immunologic No reactions. Eyes Denies significant visual changes. No diplopia. No amaurosis. ENMT Denies changes in hearing, sore throat, mouth sores, difficulty or changes in swallowing ability, and/or sinus drainage. Endocrine No diabetes, thyroid disease or hormone replacement. Denies hot flashes or night sweats. Hematologic/Lymphatic Denies easy bruising or bleeding. The patient denies any tender or palpable lymph nodes. Respiratory Denies dyspnea on exertion, chest pain, cough or hemoptysis. Denies orthopnea. Cardiovascular Denies anginal chest pain, palpitations or orthopnea. Gastrointestinal Denies nausea, vomiting, diarrhea, GI bleeding, or constipation. Denies change in bowel habits and/or stool color, or early satiety. Genitourinary (M) Denies hematuria, dysuria, increased frequency, urgency, hesitancy or incontinence. Musculoskeletal Denies joint pain, swelling or redness. No decreased range of motion. Integumentary Denies rash. Neurologic Denies headache, blurred vision, and no areas of focal weakness or numbness. Normal gait. No sensory problems. Psychiatric Denies depression, claus or mood swings. Has had some intermittent insomnia. Lorazepam works well when he takes it. Vital Signs: Performed on May 02, 2020 15:12 Height - 71.00 in Weight - 209.2 lbs (LOW) BSA - 2.15 sq.m BMI - 29.18 Temperature - 98.4 F Pulse - 84 /min Respiration - 16 /min BP - 101/80 mm(hg) O2 Sat - 98 % Pain - 0,0 - Fully active, able to carry on all predisease activities without restrictions. (ECOG) Physical Examination: Constitutional Alert, oriented, no acute distress. Skin pink, warm and dry. Head Normocephalic; atraumatic. Eyes Conjunctivae and sclerae are clear and without icterus. Pupils are reactive and equal. Neck No jugular venous distension. No palpable adenopathy. Hematologic/Lymphatic No tender or palpable lymph nodes in the cervical or supraclavicular areas. Respiratory Lungs are clear to auscultation without rhonchi or wheezing. Cardiovascular Regular rate and rhythm of heart without murmurs,clicks, gallops or rubs. Chest Chest is symmetric without chest wall deformities. Right chest wall venous access device is unremarkable. Abdomen Non-tender, non-distended, no masses, ascites. Back/Spine Non-tender to palpation. Extremities No visible deformities, no cyanosis, clubbing or edema. Musculoskeletal No tenderness or swelling, normal range of motion without obvious weakness. Integumentary No rashes or lesions. Neurologic No sensory or motor deficits, normal cerebellar function, normal gait. Psychiatric Alert and oriented times three. Coherent speech. Verbalizes understanding of our discussions today. Laboratory:Test performed on May 02, 2020 13:35 LDH (Total) 255 U/L Sodium 136 mmol/L TSH 4.61 uIU/mL Potassium 4.6 mmol/L Chloride 101 mmol/L CO2 23 mmol/L Anion Gap 16.6 BUN 30 mg/dL Creatinine 2.1 mg/dL Cr Clearance (Est) 50.21 mL/min eGFR 32.4 mL/min Glucose 90 mg/dL Calcium 9.4 mg/dL Protein, Total 6.3 g/dL Albumin 4.3 g/dL Globulin 2.0 g/dL Bilirubin, Total 1.1 mg/dL ALT (SGPT) 17 U/L AST (SGOT) 19 U/L Alkaline Phosphatase 150 IU/L WBC 6.9 10 3/uL RBC 4.52 10 6/uL HGB 15.0 g/dL HCT 42.8 % MCV 94.7 fL MCH 33.2 pg MCHC 35.0 g/dL RDW 13.3 % Platelet Count 142 10 3/cmm MPV 10.0 fL Neutrophils 4.75 10 3/uL Lymphocytes 0.6 10 3/uL Monocytes 0.9 10 3/uL Eosinophils 0.5 10 3/uL Basophils 0.1 10 3/uL Neutrophil % 69.1 % Lymphocyte % 8.7 % Monocyte % 12.9 % Eosinophil % 7.3 % Basophils % 1.0 % NRBC % 0 % Test performed on Dec 13, 2019 13:42 T4, Free 1.01 ng/dL Impression: 1. Patient with grade 1 follicular lymphoma, stage at least IIIS, diagnosed by left axillary lymph node biopsy on 07/31/2018. 2. His initial treatment included 2 cycles of bendamustine/Rituxan. With the first cycle the bendamustine was administered at a 50% dosage due to renal function and he received day 1 treatment only due to acute thrombocytopenia. Cycle 2 was delayed to 10/21/2018, and the bendamustine dosage remained at 50%. 3. He had presented with acute renal failure due to membranoproliferative glomerulonephritis, confirmed by renal biopsy on 07/30/2018. He has been on hemodialysis. 4. He was anemic at presentation, and he subsequently did require PRBC transfusion. 5. He also had laboratory evidence of hypothyroidism. 6. He has degenerative joint disease related to previous injuries. 7. He has a prior history of gout. He completed 2 cycles of bendamustine/Rituxan, though with significant delay prior to starting cycle 2. His restaging PET/CT on 01/08/2019 still showed diffuse FDG avid lymphadenopathy from the head/neck to the pelvis and diffusely metabolic splenomegaly. On comparison to his pretreatment CT scans, he did not appear to be showing significant response to the bendamustine/Rituxan regimen. As such, Dr Sparks opted to proceed with a course of R-CHOP chemotherapy. He began cycle 1 of R-CHOP on 02/23/2019. He was given first cycle prophylaxis with Neulasta. He tolerated it with acceptable toxicity, and he continued with cycle 2 on 03/16/2019 and with cycle 3 on 04/13/2019. During this time he required additional thoracentesis procedures, and a flow cytometry study on his pleural fluid did show a monotypic B-cell population consistent with involvement by malignant lymphoma. Restaging PET/CT on 05/07/2019 showed overall improvement but not complete resolution of the extensive adenopathy. Hypermetabolic splenomegaly appeared to have normalized. Overall, he appeared to have a very good response to the chemotherapy. He then continued treatment at 3-week intervals. He began his 6th cycle of R-CHOP on 06/22/2019. His restaging PET/CT on 07/16/2019 showed very significant response, though with possible residual involvement in a right external iliac lymph node and with evidence of some residual left pleural effusion. During that time he had significant improvement in his performance status, and he also was able to maintain adequate renal function after stopping dialysis. In the setting of low-grade lymphoma with very good partial response to chemotherapy, he was recommended to continue with maintenance rituximab. He began cycle 1 on 08/18/2019. He tolerated it well and continue with cycle 2 on 10/18/2019. However, at his follow-up visit on 12/13/2019 he had new adenopathy on the left side of the neck. Restaging CT scans showed disease progression in multiple areas, though not bulky. He was then seen for a second opinion evaluation at [facility] by Dr. Terell Solo. His restaging PET/CT also confirmed progression and multiple areas, but with a maximum SUV of 13.6 involving the right deep inguinal lymph node measuring 4.6 x 2.5 cm. Needle core biopsy of the lymph node again showed grade 1-2 follicular lymphoma. With that finding, he began treatment with idelalisib 150 mg twice daily on 02/28/2020. At his follow-up visit on 03/13/2020 he appeared to be tolerating it well. He had normal blood counts and normal LFTs. He presented with complaints of nausea and pain in the upper abdominal area. He had had some decline in his activity tolerance. His liver enzymes had become markedly elevated with SGOT 1532/40 U/L and SGPT 2716/41 U/L. Bilirubin was just slightly elevated at 1.1 mg/dL with alkaline phosphatase in normal range at 125 IU/L. This is presumed to be treatment related. His LFT's are now recovering well. Plan: 1. Continue to hold idelalisib due to significantly elevated LFT's. The LFT' are recovering well. 2. Supportive care as needed-thus far he has not needed any. 3. Labs from May 02, 2020 were reviewed in detail and discussed with Mr. Rivera and a copy was given to him. WBC 6.9, hemoglobin 15.0, platelets 142,000 ANC is 4800 potassium 4.6 random glucose 90 creatinine 2.1 (improved from 2.4 on April 03, 2020) albumin 4.3 total bilirubin 1.1. ALT 17 (1537 on 04/10/2020) AST 19 (375 on 04/10/2020) and alk phos 150 (217 on 04/10/2020). His hepatitis profile from 04/03/2020 reported hep B surface antigen nonreactive; HEPAIGM nonreactive; hep BC total nonreactive; hep C AB reactive and was verified by repeat exam. He did have follow-up hep C RNA quantitative which was reported as less than 15 nondetected and less than 1.18 nondetected on 04/10/2020. 4. We will plan to see him back in the next 1-2 weeks with CBC CMP. We will plan on changing his treatment plan to lenalidomide and obinutuzumamb pending approval from his insurance. It is noted on the idelaslisib package insert that if the ALT/AST elevates greater than 20 times normal, this warrants permanently discontinuation the drug. Mr. Rivera's ALT on April 03, 2020 was 2716 with normal ranges being 0-41; his AST was 1532 with normal range 0-40. 5. Mr. Rivera was directed to contact us in the interim should questions or problems arise. Signed By: Gaurav Lim-, AOCNP Charlie Sparks MD <<Signature on File>>
== END 2020-05-04 23:59 | disposition home or self-care (01) ==
LOC: ONCMED 06:42
PROVIDERS: Visit Provider Nurse Practitioner
DX: C82.08 Follicular lymphoma grade I, lymph nodes of multiple sites (principal); E03.9 Hypothyroidism, unspecified; R79.89 Other specified abnormal findings of blood chemistry; M19.90 Unspecified osteoarthritis, unspecified site; M10.9 Gout, unspecified; F17.210 Nicotine dependence, cigarettes, uncomplicated; Z79.899 Other long term (current) drug therapy; Z98.1 Arthrodesis status; Z92.25 Personal history of immunosuppression therapy
CPT/HCPCS: 36591; 80053; 83615; 84443; 85025; 87522; 87902; 99214

== ENCOUNTER 2020-07-04 05:34 | Outpatient (RCR) | payer MEDICARE, SELFPAY ==
[2020-06-13 09:31] LABS: Basophils % 0.8 %; Eosinophils # 0.2 10^3/uL (0.0-0.8); Eosinophils % 3.7 %; Lymphocytes # 0.5 10^3/uL (0.8-4.8); Lymphocytes % 9.3 %; Mean Corpuscular HGB Conc 34.9 g/dL (30.0-36.0); Mean Corpuscular Hemoglobin 33.8 pg (28.0-34.0); Mean Corpuscular Volume 96.8 fL (80-94); Mean Platelet Volume 10.1 fL (7.4-10.4); Monocytes # 0.6 10^3/uL (0.2-0.9); Monocytes % 12.3 %; Neutrophils # 3.52 10^3/uL (1.8-7.7); Neutrophils % 72.5 %; Nucleated Red Blood Cells % 0 %; Platelet Count 84 10^3/cmm (130-400); Red Blood Count 4.44 10^6/uL (4.1-5.3); Red Cell Distribution Width 13.2 % (12.1-15.1); White Blood Count 4.9 10^3/uL (4.0-10.0)
[2020-06-13 09:50] LABS: Alanine Aminotransferase 16 U/L (0-41); Alkaline Phosphatase 197 IU/L (40-130); Anion Gap 16.5 (5-19); Aspartate Amino Transferase 23 U/L (0-40); Blood Urea Nitrogen 26 mg/dL (8-23); Calcium 9.3 mg/dL (8.5-10.5); Carbon Dioxide 22 mmol/L (22-29); Chloride 101 mmol/L (98-107); Globulin 2.3 g/dL (1.3-4.6); Glomerular Filtration Rate 34.3 mL/min (90-130); Glucose 112 mg/dL (65-115); Lactate Dehydrogenase 287 U/L (135-225); Osmolality Calculated 278 mOsm/kg (285-295); Potassium 4.5 mmol/L (3.5-5.1); Sodium 135 mmol/L (136-145); Total Bilirubin 0.8 mg/dL (0.15-1.2); Total Protein 6.3 g/dL (6.6-8.7)
[2020-06-20 10:01] LABS: Basophils % 0.6 %; Eosinophils # 0.2 10^3/uL (0.0-0.8); Eosinophils % 3.4 %; Hematocrit 37.5 % (42.0-52.0); Hemoglobin 12.9 g/dL (11.7-16.6); Lymphocytes # 0.8 10^3/uL (0.8-4.8); Lymphocytes % 17.2 %; Mean Corpuscular HGB Conc 34.4 g/dL (30.0-36.0); Mean Corpuscular Hemoglobin 33.2 pg (28.0-34.0); Mean Corpuscular Volume 96.6 fL (80-94); Mean Platelet Volume 13.3 fL (7.4-10.4); Monocytes # 0.4 10^3/uL (0.2-0.9); Monocytes % 8.7 %; Neutrophils # 3.22 10^3/uL (1.8-7.7); Neutrophils % 68.6 %; Nucleated Red Blood Cells % 0 %; Red Blood Count 3.88 10^6/uL (4.1-5.3); Red Cell Distribution Width 13.3 % (12.1-15.1); White Blood Count 4.7 10^3/uL (4.0-10.0)
[2020-06-20 10:22] LABS: Alanine Aminotransferase 15 U/L (0-41); Albumin Level 3.5 g/dL (3.5-5.2); Alkaline Phosphatase 182 IU/L (40-130); Anion Gap 18.2 (5-19); Aspartate Amino Transferase 22 U/L (0-40); Blood Urea Nitrogen 25 mg/dL (8-23); Calcium 9.9 mg/dL (8.5-10.5); Carbon Dioxide 21 mmol/L (22-29); Chloride 101 mmol/L (98-107); Globulin 2.1 g/dL (1.3-4.6); Glomerular Filtration Rate 34.3 mL/min (90-130); Glucose 129 mg/dL (65-115); Osmolality Calculated 281 mOsm/kg (285-295); Potassium 4.2 mmol/L (3.5-5.1); Sodium 136 mmol/L (136-145); Total Bilirubin 1.2 mg/dL (0.15-1.2); Total Protein 5.6 g/dL (6.6-8.7)
[2020-06-20 10:37] LABS: Platelet Count 28 10^3/cmm (130-400); Slide Review Slide Review Perform
--- NOTE | 2020-06-24 17:34 | ONC FU_ITS ---
[facility] Patient Note Patient: Jl Rivera Unit #: [id number]: 1960 Dictated By: Gaurav LimDate of Visit: Jun 20, 2020 Onc MED Follow-Up/Prog Note Chief Complaint: Lymphoma. 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 He was admitted to [facility] on 07/29/2018 with acute renal failure. He had presented with encephalopathy and severe edema. In addition to the acute renal failure, he had moderately severe anemia and mild thrombocytopenia with his baseline platelet count reportedly in the range of 100,000. CT pulmonary angiogram showed axillary and mediastinal lymphadenopathy, moderate sized bilateral pleural effusions, and cardiomegaly. His abdomen/pelvis CT showed marked lymphadenopathy within the abdomen and pelvis and splenomegaly. 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 He also was started on hemodialysis. Left axillary lymph node biopsy on 07/31/2018 showed malignant lymphoma, favoring low-grade follicular lymphoma. The neoplastic cells were noted to be positive for BCL 6, CD10, and CD23. There was weak positivity for BCL 2. The cells were negative for cyclin D1, MUM1, and SOX 11. On 07/31/2018 he began chemotherapy with bendamustine/Rituxan. The bendamustine dosage was reduced by 50% for the renal function. His day 2 bendamustine was held due to an acute drop in his platelet count to 30,000. It subsequently did recover, but there was a delay of close to 3 months prior to starting his second cycle of chemotherapy. Dr Suarez had seen him initially on 11/15/2018. His 3rd cycle of chemotherpy had been scheduled to be given the following week, and he was to have restaging CT scans prior to that treatment. His further evaluation was delayed pending his Medicare eligibility. He then had a restaging PET/CT on 01/08/2019. It showed extensive hypermetabolic lymphadenopathy for the level of the head and neck to the level of the pelvis. There was diffusely metabolic splenomegaly. As he appeared to have had very little response to the bendamustine/Rituxan regimen, Dr Suarez opted to proceed with a course of R-CHOP chemotherapy. His baseline echocardiogram showed estimated left ventricular ejection fraction of 55%. There was grade I/IVdiastolic dysfunction. His other medical illnesses include hypothyroidism, degenerative arthritis, and gout. He has a history of smoking 1 pack of cigarettes daily for 40 years, but he has cut down. INTERIM HISTORY: He began cycle 1 of R-CHOP on 02/23/2019. He was given first cycle prophylaxis with Neulasta. He tolerated it with acceptable toxicity, and he continued with cycle 2 on 03/16/2019 and with cycle 3 on 04/13/2019. During this time he required additional thoracentesis procedures on 03/09, 03/17, and 04/01/2019. A flow cytometry study on his pleural fluid did show a monotypic B-cell population consistent with involvement by malignant lymphoma. Restaging PET/CT on 05/07/2019 showed overall improvement but not complete resolution of the extensive adenopathy. Hypermetabolic splenomegaly appeared to have normalized. He then continued with cycle 4 of R-CHOP on 05/11/2019, with cycle 5 on 06/01/2019, and with cycle 6 on 06/22/2019. Restaging PET/CT on 07/16/2019 showed subcentimeter size lymph nodes in the head and neck bilaterally, FDG negative. Similar improvement was noted in mediastinal, left internal mammary, and bilateral axillary lymph nodes. Portal nodes demonstrated only minimal FDG uptake and scattered retroperitoneal nodes measuring up to 1 cm in size showed FDG activity no greater than that of mediastinal background. A right external iliac lymph node measuring 1.8 x 1.5 cm had mild FDG uptake with SUV 3.4. The left pleural effusion was noted be significantly decreased in volume. Left lower lobe round atelectasis was noted to be FDG negative. In the setting of a low-grade follicular lymphoma with very good partial response to chemotherapy, it was recommended that he continue with maintenance rituximab. He then returned on 08/18/2019 to begin cycle 1 of 12 planned cycles of treatment at 2-month intervals. He tolerated it well, and he continued with cycle 2 on 10/18/2019. At his follow-up visit on 12/13/2019 he had become aware of a new nodule on the right side of his neck. Dr Suarez had suspected that it was of thyroid origin. However, his neck CT on 12/15/2019 showed enlarged left submandibular lymph node measuring 11 mm, numerous but normal sized level 2 and level 3 cervical lymph nodes, and numerous and enlarged supraclavicular lymph nodes and retropectoral lymph nodes. The largest supraclavicular lymph node measured [address] scans of the chest, abdomen, and pelvis showed significant interval progression involving supraclavicular, thoracic inlet, internal mammary, and axillary lymphadenopathy. The largest left axillary lymph node measured 2.5 cm. Lymphadenopathy in the upper abdomen, abdiaziz hepatis, and periaortic regions was noted to be stable, but there was significant progression of pelvic and iliac chain lymphadenopathy as well as inguinal lymphadenopathy. A 6 mm noncalcified left upper lobe pulmonary nodule appeared stable. With those findings, he was referred to [facility] for a second opinion evaluation. He was seen there on 01/09/[address] Terell Solo. At his recommendation, Mr. Rivera had a repeat PET/CT on 01/14/2020. It showed multiple areas of abnormal uptake, consistent with recurrent lymphoma, but with the maximum SUV of 13.6 involving a right deep inguinal lymph node measuring 4.6 x 2.5 cm. Based on the degree of SUV activity, he then underwent CT directed core needle biopsy on 01/26/2020. Pathology was again consistent with grade 1-2 follicular lymphoma. In the setting of resistant follicular lymphoma, he was recommended to undergo trial of therapy with a P13 kinase inhibitor. He then began treatment with idelalisib 150 mg twice daily on 02/28/2020. He was seen for a follow-up visit on 03/13/2020 at day 14 of his treatment. He appeared to be tolerating it well. His blood counts were normal, and his liver function tests were also normal. He continued idelalisib 150 mg twice daily. Mr. Rivera presents today for follow-up. His idelalisib is currently on hold due to significantly elevated LFTs. Last week he presented for follow-up with a total bilirubin of 1.1 ALT was 2716 AST was 1532, alk phos 125. TSH 3.32. His oral chemo was placed on hold. Mr Rivera is here today for consideration of inititation of obintuzumab. He began the lenolidamide 1 week ago. He has developed a skin rash that doesn't look like a rash but the skin is rough feeling and itching . He states it has been on his scalp, shoulder blades and some on his chest. He is using lotion and a type of dandriff shampoo and that is helping some. He denies any other concerns. He states he is eating good. His energy is good. He denies any bruising or bleeding. He denies any fever or chills. He has had no mouth sores, sore throat or difficulty swallowing. He denies any new shortness of breath orthopnea. He denies chest pain or palpitations. He states he has not had nausea or vomiting. He has had no neuropathy symptoms. He denies cough. He denies any lower extremity edema. His ECOG is 1. Past Medical History: Anemia Degenerative joint disease Gout Hypothyroidism Past Surgical History: Placement of AV fistula for dialysis Placement of left subclavian dialysis catheter Rotator cuff repair bilaterally Left axillary lymph node biopsy and placement of Port-A-Cath venous access device in 2019 Ct renal biopsy in 2018 Cervical spine fusion with vertebral cadaver bone in 2005 Allergies: No Known Allergies. Medications: Family History: Mr. Rivera's mother is alive. Mr. Rivera's father is . Mr. Rivera has 4 brothers: 4 alive. He has 1 sister who is alive. His mother is still living and in good health at age 81. Father with multiple myeloma at age 80. He also had prostate cancer. The patient's paternal grandfather had prostate cancer as well. Five siblings are in good health. Social History: Mr. Rivera is and he is unemployed. He is an occasional smoker who has smoked 0.5 packs/day for 40 years. He drinks occasionally. Drinks very rarely. Review Of Symptoms: Constitutional Denies fevers, chills, night sweats, excessive fatigue or weight loss. Allergic/Immunologic No reactions. Eyes Denies significant visual changes. No diplopia. No amaurosis. ENMT Denies changes in hearing, sore throat, mouth sores, difficulty or changes in swallowing ability, and/or sinus drainage. Endocrine No diabetes, thyroid disease or hormone replacement. Denies hot flashes or night sweats. Hematologic/Lymphatic Denies easy bruising or bleeding. The patient denies any tender or palpable lymph nodes. Respiratory Denies dyspnea on exertion, chest pain, cough or hemoptysis. Denies orthopnea. Cardiovascular Denies anginal chest pain, palpitations or orthopnea. Gastrointestinal Denies nausea, vomiting, diarrhea, GI bleeding, or constipation. Denies change in bowel habits and/or stool color, or early satiety. Genitourinary (M) Denies hematuria, dysuria, increased frequency, urgency, hesitancy or incontinence. Musculoskeletal Denies joint pain, swelling or redness. No decreased range of motion. Integumentary Concerns of rash/rough feeling skin???see above Neurologic Denies headache, blurred vision, and no areas of focal weakness or numbness. Normal gait. No sensory problems. Psychiatric Denies depression, claus or mood swings. Has had some intermittent insomnia. Lorazepam works well when he takes it. Vital Signs: Performed on Jun 20, 2020 11:08 Height - 71.00 in Weight - 214.2 lbs (HIGH) BSA - 2.17 sq.m BMI - 29.88 Temperature - 98.7 F Pulse - 110 /min (HIGH) Respiration - 16 /min BP - 130/71 mm(hg) O2 Sat - 98 % Pain - 0,1 - No physically strenuous activity, but ambulatory and able to carry out light or sedentary work (e.g. office work, light house work). (ECOG) Physical Examination: Constitutional Alert, oriented, no acute distress. Skin pink, warm and dry. Head Normocephalic; atraumatic. Eyes Conjunctivae and sclerae are clear and without icterus. Pupils are reactive and equal. Neck No jugular venous distension. No palpable adenopathy. Hematologic/Lymphatic No tender or palpable lymph nodes in the cervical or supraclavicular areas. Respiratory Lungs are clear to auscultation without rhonchi or wheezing. Cardiovascular Regular rate and rhythm of heart without murmurs,clicks, gallops or rubs. Chest Chest is symmetric without chest wall deformities. Right chest wall venous access device is unremarkable. Abdomen Non-tender, non-distended, no masses, ascites. Back/Spine Non-tender to palpation. Extremities No visible deformities, no cyanosis, clubbing or edema. Musculoskeletal No tenderness or swelling, normal range of motion without obvious weakness. Integumentary No rashes or lesions. No actual skin rash noted but evidence of scratching noted Neurologic No sensory or motor deficits, normal cerebellar function, normal gait. Psychiatric Alert and oriented times three. Coherent speech. Verbalizes understanding of our discussions today. Laboratory:Test performed on Jun 20, 2020 09:43 Sodium 136 mmol/L Potassium 4.2 mmol/L Chloride 101 mmol/L CO2 21 mmol/L Anion Gap 18.2 BUN 25 mg/dL Creatinine 2.0 mg/dL Cr Clearance (Est) 53.98 mL/min eGFR 34.3 mL/min Glucose 129 mg/dL Osmolality - Calculated 281 mOsm/kg Calcium 9.9 mg/dL Protein, Total 5.6 g/dL Albumin 3.5 g/dL Globulin 2.1 g/dL Bilirubin, Total 1.2 mg/dL ALT (SGPT) 15 U/L AST (SGOT) 22 U/L Alkaline Phosphatase 182 IU/L WBC 4.7 10 3/uL RBC 3.88 10 6/uL HGB 12.9 g/dL HCT 37.5 % MCV 96.6 fL MCH 33.2 pg MCHC 34.4 g/dL RDW 13.3 % Platelet Count 28 10 3/cmm MPV 13.3 fL Neutrophils 3.22 10 3/uL Lymphocytes 0.8 10 3/uL Monocytes 0.4 10 3/uL Eosinophils 0.2 10 3/uL Basophils 0.0 10 3/uL Neutrophil % 68.6 % Lymphocyte % 17.2 % Monocyte % 8.7 % Eosinophil % 3.4 % Basophils % 0.6 % NRBC % 0 % CBC Slide Review Slide Review Perform SLIDE REVIEW AGREES WITH AUTOMATED RESULTS ST Impression: 1. Patient with grade 1 follicular lymphoma, stage at least IIIS, diagnosed by left axillary lymph node biopsy on 07/31/2018. 2. His initial treatment included 2 cycles of bendamustine/Rituxan. With the first cycle the bendamustine was administered at a 50% dosage due to renal function and he received day 1 treatment only due to acute thrombocytopenia. Cycle 2 was delayed to 10/21/2018, and the bendamustine dosage remained at 50%. 3. He had presented with acute renal failure due to membranoproliferative glomerulonephritis, confirmed by renal biopsy on 07/30/2018. He has been on hemodialysis. 4. He was anemic at presentation, and he subsequently did require PRBC transfusion. 5. He also had laboratory evidence of hypothyroidism. 6. He has degenerative joint disease related to previous injuries. 7. He has a prior history of gout. He completed 2 cycles of bendamustine/Rituxan, though with significant delay prior to starting cycle 2. His restaging PET/CT on 01/08/2019 still showed diffuse FDG avid lymphadenopathy from the head/neck to the pelvis and diffusely metabolic splenomegaly. On comparison to his pretreatment CT scans, he did not appear to be showing significant response to the bendamustine/Rituxan regimen. As such, Dr Suarez opted to proceed with a course of R-CHOP chemotherapy. He began cycle 1 of R-CHOP on 02/23/2019. He was given first cycle prophylaxis with Neulasta. He tolerated it with acceptable toxicity, and he continued with cycle 2 on 03/16/2019 and with cycle 3 on 04/13/2019. During this time he required additional thoracentesis procedures, and a flow cytometry study on his pleural fluid did show a monotypic B-cell population consistent with involvement by malignant lymphoma. Restaging PET/CT on 05/07/2019 showed overall improvement but not complete resolution of the extensive adenopathy. Hypermetabolic splenomegaly appeared to have normalized. Overall, he appeared to have a very good response to the chemotherapy. He then continued treatment at 3-week intervals. He began his 6th cycle of R-CHOP on 06/22/2019. His restaging PET/CT on 07/16/2019 showed very significant response, though with possible residual involvement in a right external iliac lymph node and with evidence of some residual left pleural effusion. During that time he had significant improvement in his performance status, and he also was able to maintain adequate renal function after stopping dialysis. In the setting of low-grade lymphoma with very good partial response to chemotherapy, he was recommended to continue with maintenance rituximab. He began cycle 1 on 08/18/2019. He tolerated it well and continue with cycle 2 on 10/18/2019. However, at his follow-up visit on 12/13/2019 he had new adenopathy on the left side of the neck. Restaging CT scans showed disease progression in multiple areas, though not bulky. He was then seen for a second opinion evaluation at [facility] by Dr. Terell Solo. His restaging PET/CT also confirmed progression and multiple areas, but with a maximum SUV of 13.6 involving the right deep inguinal lymph node measuring 4.6 x 2.5 cm. Needle core biopsy of the lymph node again showed grade 1-2 follicular lymphoma. With that finding, he began treatment with idelalisib 150 mg twice daily on 02/28/2020. At his follow-up visit on 03/13/2020 he appeared to be tolerating it well. He had normal blood counts and normal LFTs. He presented with complaints of nausea and pain in the upper abdominal area. He had had some decline in his activity tolerance. His liver enzymes had become markedly elevated with SGOT 1532/40 U/L and SGPT 2716/41 U/L. Bilirubin was just slightly elevated at 1.1 mg/dL with alkaline phosphatase in normal range at 125 IU/L. This is presumed to be treatment related. The idelalisib has been stopped. His LFTs have recovered. His new treatment plan will consist of obinutuzumab and lenalidomide. He did start the lenalidomide about a week ago. Plan: 1. Stop the lenalidomide- Due to rash and platelet count of 28,000. 2. we will delay the initiation of the obinutuzumab until his blood counts recover. 3. We can send in a Cleverbug Dosepak if he feels he would benefit from that. He states he thinks the lotion is working well. 4. Labs from today were reviewed in detail and discussed with Mr. Rivera and a copy was given to him. WBC 4.7, hemoglobin 12.9, platelets 28,000 ANC is 3220. Random glucose 124 potassium 4.2 creatinine stable at 2.0 LFTs are normal alk phos was 182 which is improved from 197 on June 13, 2020. 5. We will plan to see him back in 2 weeks with CBC CMP. I did offer to recheck labs next week if he feels that he needs them. However if he is not having any bruising or feeling weak or tired we will let him rest next week and does check his labs in 2 weeks. 6. Mr Rivera was instructed to contact us in the interim should questions or problems arise. Signed By: Gaurav Lim-, AOCNP Charlie Suarez MD <<Signature on File>>
[2020-07-04 08:37] LABS: Basophils # 0.1 10^3/uL (0.0-0.1); Basophils % 1.7 %; Eosinophils # 0.3 10^3/uL (0.0-0.8); Eosinophils % 7.6 %; Hematocrit 37.5 % (42.0-52.0); Hemoglobin 13.1 g/dL (11.7-16.6); Lymphocytes # 0.5 10^3/uL (0.8-4.8); Lymphocytes % 13.9 %; Mean Corpuscular HGB Conc 34.9 g/dL (30.0-36.0); Mean Corpuscular Hemoglobin 33.3 pg (28.0-34.0); Mean Corpuscular Volume 95.4 fL (80-94); Mean Platelet Volume 9.6 fL (7.4-10.4); Monocytes # 0.4 10^3/uL (0.2-0.9); Monocytes % 12.2 %; Neutrophils # 2.25 10^3/uL (1.8-7.7); Neutrophils % 63.8 %; Nucleated Red Blood Cells % 0 %; Platelet Count 115 10^3/cmm (130-400); Red Blood Count 3.93 10^6/uL (4.1-5.3); Red Cell Distribution Width 13.6 % (12.1-15.1); White Blood Count 3.5 10^3/uL (4.0-10.0)
[2020-07-04 09:00] LABS: Alanine Aminotransferase 26 U/L (0-41); Albumin Level 4.1 g/dL (3.5-5.2); Alkaline Phosphatase 132 IU/L (40-130); Anion Gap 17.1 (5-19); Aspartate Amino Transferase 26 U/L (0-40); Blood Urea Nitrogen 37 mg/dL (8-23); Calcium 9.2 mg/dL (8.5-10.5); Carbon Dioxide 21 mmol/L (22-29); Chloride 102 mmol/L (98-107); Globulin 2.1 g/dL (1.3-4.6); Glomerular Filtration Rate 38.7 mL/min (90-130); Glucose 118 mg/dL (65-115); Osmolality Calculated 292 mOsm/kg (285-295); Potassium 4.1 mmol/L (3.5-5.1); Sodium 136 mmol/L (136-145); Total Bilirubin 0.8 mg/dL (0.15-1.2); Total Protein 6.2 g/dL (6.6-8.7)
--- NOTE | 2020-07-07 19:46 | ONC FU_ITS ---
Dr. Suarez Patient Follow-Up Note Patient: Jl Rivera Unit #: [id number]: 1960 Dicatated By: Charlie Suarez M.D.Date of Visit:Jul 04, 2020 Onc Med Follow-up/Prog Note Chief Complaint: Lymphoma. 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 He was admitted to [facility] on 07/29/2018 with acute renal failure. He had presented with encephalopathy and severe edema. In addition to the acute renal failure, he had moderately severe anemia and mild thrombocytopenia with his baseline platelet count reportedly in the range of 100,000. CT pulmonary angiogram showed axillary and mediastinal lymphadenopathy, moderate sized bilateral pleural effusions, and cardiomegaly. His abdomen/pelvis CT showed marked lymphadenopathy within the abdomen and pelvis and splenomegaly. 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 He also was started on hemodialysis. Left axillary lymph node biopsy on 07/31/2018 showed malignant lymphoma, favoring low-grade follicular lymphoma. The neoplastic cells were noted to be positive for BCL 6, CD10, and CD23. There was weak positivity for BCL 2. The cells were negative for cyclin D1, MUM1, and SOX 11. On 07/31/2018 he began chemotherapy with bendamustine/Rituxan. The bendamustine dosage was reduced by 50% for the renal function. His day 2 bendamustine was held due to an acute drop in his platelet count to 30,000. It subsequently did recover, but there was a delay of close to 3 months prior to starting his second cycle of chemotherapy. I had seen him initially on 11/15/2018. His 3rd cycle of chemotherpy had been scheduled to be given the following week, and he was to have restaging CT scans prior to that treatment. His further evaluation was delayed pending his Medicare eligibility. He then had a restaging PET/CT on 01/08/2019. It showed extensive hypermetabolic lymphadenopathy for the level of the head and neck to the level of the pelvis. There was diffusely metabolic splenomegaly. As he appeared to have had very little response to the bendamustine/Rituxan regimen, I opted to proceed with a course of R-CHOP chemotherapy. His baseline echocardiogram showed estimated left ventricular ejection fraction of 55%. There was grade I/IVdiastolic dysfunction. He began cycle 1 of R-CHOP on 02/23/2019. He was given first cycle prophylaxis with Neulasta. He tolerated it with acceptable toxicity, and he continued with cycle 2 on 03/16/2019 and with cycle 3 on 04/13/2019. During this time he required additional thoracentesis procedures on 03/09, 03/17, and 04/01/2019. A flow cytometry study on his pleural fluid did show a monotypic B-cell population consistent with involvement by malignant lymphoma. Restaging PET/CT on 05/07/2019 showed overall improvement but not complete resolution of the extensive adenopathy. Hypermetabolic splenomegaly appeared to have normalized. He then continued with cycle 4 of R-CHOP on 05/11/2019, with cycle 5 on 06/01/2019, and with cycle 6 on 06/22/2019. Restaging PET/CT on 07/16/2019 showed subcentimeter size lymph nodes in the head and neck bilaterally, FDG negative. Similar improvement was noted in mediastinal, left internal mammary, and bilateral axillary lymph nodes. Portal nodes demonstrated only minimal FDG uptake and scattered retroperitoneal nodes measuring up to 1 cm in size showed FDG activity no greater than that of mediastinal background. A right external iliac lymph node measuring 1.8 x 1.5 cm had mild FDG uptake with SUV 3.4. The left pleural effusion was noted be significantly decreased in volume. Left lower lobe round atelectasis was noted to be FDG negative. In the setting of a low-grade follicular lymphoma with very good partial response to chemotherapy, I recommended that he continue with maintenance rituximab. He then returned on 08/18/2019 to begin cycle 1 of 12 planned cycles of treatment at 2-month intervals. He tolerated it well, and he continued with cycle 2 on 10/18/2019. At his follow-up visit on 12/13/2019 he had become aware of a new nodule on the right side of his neck. I had suspected that it was of thyroid origin. However, his neck CT on 12/15/2019 showed enlarged left submandibular lymph node measuring 11 mm, numerous but normal sized level 2 and level 3 cervical lymph nodes, and numerous and enlarged supraclavicular lymph nodes and retropectoral lymph nodes. The largest supraclavicular lymph node measured [address] scans of the chest, abdomen, and pelvis showed significant interval progression involving supraclavicular, thoracic inlet, internal mammary, and axillary lymphadenopathy. The largest left axillary lymph node measured 2.5 cm. Lymphadenopathy in the upper abdomen, abdiaziz hepatis, and periaortic regions was noted to be stable, but there was significant progression of pelvic and iliac chain lymphadenopathy as well as inguinal lymphadenopathy. A 6 mm noncalcified left upper lobe pulmonary nodule appeared stable. With those findings, he was referred to [facility] for a second opinion evaluation. He was seen there on 01/09/[address] Terell Solo. At his recommendation, Mr. Rivera had a repeat PET/CT on 01/14/2020. It showed multiple areas of abnormal uptake, consistent with recurrent lymphoma, but with the maximum SUV of 13.6 involving a right deep inguinal lymph node measuring 4.6 x 2.5 cm. Based on the degree of SUV activity, he then underwent CT directed core needle biopsy on 01/26/2020. Pathology was again consistent with grade 1-2 follicular lymphoma. In the setting of resistant follicular lymphoma, he was recommended to undergo trial of therapy with a P13 kinase inhibitor. He then began treatment with idelalisib 150 mg twice daily on 02/28/2020. He was seen for a follow-up visit on 03/13/2020 at day 14 of his treatment. He appeared to be tolerating it well. His blood counts were normal, and his liver function tests were also normal. He continued idelalisib 150 mg twice daily. As of 04/03/2020 the idelalisib was put on hold due to a dramatic increase in his liver enzymes with SGOT increased to 1532 U/L and SGPT 2716 U/L. The bilirubin was just slightly elevated at 1.1 mg/dL. As of 05/02/2020 the SGOT and SGPT were both back to normal. His other medical illnesses include hypothyroidism, degenerative arthritis, and gout. He has a history of smoking 1 pack of cigarettes daily for 40 years, but he has cut down. INTERIM HISTORY: After complete recovery from idelalisib hepatotoxicity, his treatment was transitioned to lenalidomide in combination with obinutuzumab. He began lenalidomide on 06/13/2020 at 20 mg daily. As of 06/20/2020 his treatment was put on hold due to thrombocytopenia, platelet count decreasing to 28,000, and skin rash. He is seen for a follow-up visit. He has been feeling pretty good generally. His skin eruption is completely resolved. Since he has been off the Revlimid he also has had a little energy. He is able to do some light work. ECOG score is 1. Appetite is somewhat inconsistent, but okay. His weight is down 9 pounds, though. He does not have fever. He had one episode of mild night sweating. He said slight soreness in his throat. He has no shortness of breath, cough, or chest pain. He occasionally has heartburn, and he has had some mild constipation. He has no other GI or complaints. He has pain in his right shoulder, attributed to a torn rotator cuff. He has no other joint or bone pain. He has no focal neurologic symptoms. He has had no abnormal bruising or other bleeding manifestations. Medications: Pantoprazole 40 mg daily. Allergies: No Known Allergies. Review of Systems: Constitutional - He has more energy and is feeling better. He is able to do light work. His appetite is good. His weight is down 9 pounds from last visit. No fevers. He has occasional sweating. ECOG score is 1, ENMT - He has a runny nose. No mouth sores. No sore throat or difficulty swallowing, Hematologic/Lymphatic - No abnormal bruising or bleeding, Respiratory - No shortness of breath. No cough. No pleuritic pain or hemoptysis, Cardiovascular - No angina pain. No palpitations, Gastrointestinal - No nausea or vomiting. He is taking pantoprazole for heartburn, which works very well. No diarrhea. He has some constipation. No blood in the stool or black stools, Genitourinary (M) - No dysuria or hematuria. No urinary frequency. No urgency or incontinence, Musculoskeletal - He has right shoulder pain from a torn rotor cuff, Integumentary - No skin complications, Neurologic - No headache or dizziness. No numbness or tingling. No other focal neurologic symptoms, Psychiatric - No anxiety or depression. He is sleeping much better. Vital Signs: Performed on Jul 04, 2020 09:47 Height - 71.00 in Weight - 203.6 lbs (LOW) BSA - 2.12 sq.m BMI - 28.40 Temperature - 97.8 F (LOW) Pulse - 80 /min Respiration - 20 /min BP - 126/80 mm(hg) O2 Sat - 100 % Pain - 0 Physical Examination: Constitutional - He looks pretty good generally, Eyes - Sclerae nonicteric. Conjunctivae clear, ENMT - No lesions noted in the oral cavity, Hematologic/Lymphatic - There are small cervical nodes on the right and there are small axillary node bilaterallly, more prominent on the left, Respiratory - Lungs sound clear, Cardiovascular - Heart rhythm is regular. There is a II/ systolic murmur. There is no gallop or rub noted, Abdomen - Soft. Liver is not enlarged. Spleen is not palpable. There is no abdominal mass or ascites noted. There is no inguinal adenopathy noted, Extremities - No edema, Integumentary - No skin eruption, Neurologic - No focal neurologic deficits noted. Lab/Imaging: Test performed on Jul 04, 2020 08:22 Sodium 136 mmol/L Potassium 4.1 mmol/L Chloride 102 mmol/L CO2 21 mmol/L Anion Gap 17.1 BUN 37 mg/dL Creatinine 1.8 mg/dL Cr Clearance (Est) 57.01 mL/min eGFR 38.7 mL/min Glucose 118 mg/dL Osmolality - Calculated 292 mOsm/kg Calcium 9.2 mg/dL Protein, Total 6.2 g/dL Albumin 4.1 g/dL Globulin 2.1 g/dL Bilirubin, Total 0.8 mg/dL ALT (SGPT) 26 U/L AST (SGOT) 26 U/L Alkaline Phosphatase 132 IU/L WBC 3.5 10 3/uL RBC 3.93 10 6/uL HGB 13.1 g/dL HCT 37.5 % MCV 95.4 fL MCH 33.3 pg MCHC 34.9 g/dL RDW 13.6 % Platelet Count 115 10 3/cmm MPV 9.6 fL Neutrophils 2.25 10 3/uL Lymphocytes 0.5 10 3/uL Monocytes 0.4 10 3/uL Eosinophils 0.3 10 3/uL Basophils 0.1 10 3/uL Neutrophil % 63.8 % Lymphocyte % 13.9 % Monocyte % 12.2 % Eosinophil % 7.6 % Basophils % 1.7 % NRBC % 0 % Impression: 1. Patient with grade 1 follicular lymphoma, stage at least IIIS, diagnosed by left axillary lymph node biopsy on 07/31/2018. 2. His initial treatment included 2 cycles of bendamustine/Rituxan. With the first cycle the bendamustine was administered at a 50% dosage due to renal function and he received day 1 treatment only due to acute thrombocytopenia. Cycle 2 was delayed to 10/21/2018, and the bendamustine dosage remained at 50%. 3. He had presented with acute renal failure due to membranoproliferative glomerulonephritis, confirmed by renal biopsy on 07/30/2018. He has been on hemodialysis. 4. He was anemic at presentation, and he subsequently did require PRBC transfusion. 5. He also had laboratory evidence of hypothyroidism. 6. He has degenerative joint disease related to previous injuries. 7. He has a prior history of gout. He completed 2 cycles of bendamustine/Rituxan, though with significant delay prior to starting cycle 2. His restaging PET/CT on 01/08/2019 still showed diffuse FDG avid lymphadenopathy from the head/neck to the pelvis and diffusely metabolic splenomegaly. On comparison to his pretreatment CT scans, he did not appear to be showing significant response to the bendamustine/Rituxan regimen. As such, I opted to proceed with a course of R-CHOP chemotherapy. He began cycle 1 of R-CHOP on 02/23/2019. He was given first cycle prophylaxis with Neulasta. He tolerated it with acceptable toxicity, and he continued with cycle 2 on 03/16/2019 and with cycle 3 on 04/13/2019. During this time he required additional thoracentesis procedures, and a flow cytometry study on his pleural fluid did show a monotypic B-cell population consistent with involvement by malignant lymphoma. Restaging PET/CT on 05/07/2019 showed overall improvement but not complete resolution of the extensive adenopathy. Hypermetabolic splenomegaly appeared to have normalized. Overall, he appeared to have a very good response to the chemotherapy. He then continued treatment at 3-week intervals. He began his 6th cycle of R-CHOP on 06/22/2019. His restaging PET/CT on 07/16/2019 showed very significant response, though with possible residual involvement in a right external iliac lymph node and with evidence of some residual left pleural effusion. During that time he had significant improvement in his performance status, and he also was able to maintain adequate renal function after stopping dialysis. In the setting of low-grade lymphoma with very good partial response to chemotherapy, he was recommended to continue with maintenance rituximab. He began cycle 1 on 08/18/2019. He tolerated it well and continue with cycle 2 on 10/18/2019. However, at his follow-up visit on 12/13/2019 he had new adenopathy on the left side of the neck. Restaging CT scans showed disease progression in multiple areas, though not bulky. He was then seen for a second opinion evaluation at [facility] by Dr. Terell Solo. His restaging PET/CT also confirmed progression and multiple areas, but with a maximum SUV of 13.6 involving the right deep inguinal lymph node measuring 4.6 x 2.5 cm. Needle core biopsy of the lymph node again showed grade 1-2 follicular lymphoma. With that finding, he began treatment with idelalisib 150 mg twice daily on 02/28/2020. At his follow-up visit on 03/13/2020 he appeared to be tolerating it well. He had normal blood counts and normal LFTs. At his follow-up visit on 04/03/2020 his liver enzymes had become markedly elevated with SGOT 1532/40 U/L and SGPT 2716/41 U/L. Bilirubin was just slightly elevated at 1.1 mg/dL with alkaline phosphatase in normal range at 125 IU/L. This was presumed to be treatment related. The idelalisib was discontinued and by 05/03/2020 the SGOT and SGPT levels were back to normal. His treatment was then transitioned to lenalidomide in combination with obinutuzumab. He began lenalidomide 20 mg daily on 06/13/2020. At his 1 week follow-up his treatment was put on hold due to skin rash and thrombocytopenia, platelet count dropping to 28,000. He does appear to be showing recovery since stopping the treatment. Plan: His treatment will remain on hold. I will recheck a blood count in 1 week and if he is adequately recovered he will restart lenalidomide at 10 mg daily. Signed By: Charlie Suarez M.D. <<Signature on File>>
== END 2020-07-04 23:59 | disposition home or self-care (01) ==
LOC: ONCMED 05:34
PROVIDERS: Nurse Practitioner; Visit Provider Internal Medicine Medical Oncology
DX: C82.08 Follicular lymphoma grade I, lymph nodes of multiple sites (principal); N05.5 Unspecified nephritic syndrome with diffuse mesangiocapillary glomerulonephritis; E03.9 Hypothyroidism, unspecified; M19.90 Unspecified osteoarthritis, unspecified site; M10.9 Gout, unspecified; Z92.21 Personal history of antineoplastic chemotherapy; Z92.3 Personal history of irradiation; Z79.899 Other long term (current) drug therapy
CPT/HCPCS: 36591; 80053; 83615; 85025; 99214

== ENCOUNTER 2020-08-02 05:16 | Outpatient (RCR) | payer MEDICARE, SELFPAY ==
[2020-07-11 10:00] LABS: Basophils % 0.9 %; Eosinophils # 0.2 10^3/uL (0.0-0.8); Eosinophils % 4.6 %; Hemoglobin 13.3 g/dL (11.7-16.6); Lymphocytes # 0.5 10^3/uL (0.8-4.8); Lymphocytes % 10.9 %; Mean Corpuscular Hemoglobin 33.7 pg (28.0-34.0); Mean Corpuscular Volume 96.2 fL (80-94); Mean Platelet Volume 9.5 fL (7.4-10.4); Monocytes # 0.4 10^3/uL (0.2-0.9); Monocytes % 8.8 %; Neutrophils # 3.19 10^3/uL (1.8-7.7); Neutrophils % 74.1 %; Nucleated Red Blood Cells % 0 %; Platelet Count 98 10^3/cmm (130-400); Red Blood Count 3.95 10^6/uL (4.1-5.3); Red Cell Distribution Width 13.7 % (12.1-15.1); White Blood Count 4.3 10^3/uL (4.0-10.0)
[2020-07-23 08:57] LABS: Basophils % 0.6 %; Eosinophils # 0.3 10^3/uL (0.0-0.8); Eosinophils % 7.8 %; Hematocrit 35.5 % (42.0-52.0); Hemoglobin 12.3 g/dL (11.7-16.6); Lymphocytes # 0.6 10^3/uL (0.8-4.8); Lymphocytes % 16.8 %; Mean Corpuscular HGB Conc 34.6 g/dL (30.0-36.0); Mean Corpuscular Hemoglobin 33.6 pg (28.0-34.0); Mean Platelet Volume 11.7 fL (7.4-10.4); Monocytes # 0.4 10^3/uL (0.2-0.9); Monocytes % 11.8 %; Neutrophils # 2.22 10^3/uL (1.8-7.7); Neutrophils % 62.2 %; Nucleated Red Blood Cells % 0 %; Platelet Count 69 10^3/cmm (130-400); Red Blood Count 3.66 10^6/uL (4.1-5.3); Red Cell Distribution Width 14.2 % (12.1-15.1); White Blood Count 3.6 10^3/uL (4.0-10.0)
[2020-07-23 09:36] LABS: Alanine Aminotransferase 20 U/L (0-41); Albumin Level 3.8 g/dL (3.5-5.2); Alkaline Phosphatase 157 IU/L (40-130); Blood Urea Nitrogen 36 mg/dL (8-23); Calcium 10.1 mg/dL (8.5-10.5); Carbon Dioxide 23 mmol/L (22-29); Chloride 101 mmol/L (98-107); Globulin 1.8 g/dL (1.3-4.6); Glomerular Filtration Rate 27.8 mL/min (90-130); Glucose 120 mg/dL (65-115); Osmolality Calculated 292 mOsm/kg (285-295); Sodium 136 mmol/L (136-145); Total Bilirubin 0.8 mg/dL (0.15-1.2); Total Protein 5.6 g/dL (6.6-8.7)
[2020-07-23 09:39] LABS: Anion Gap 16.3 (5-19); Potassium 4.3 mmol/L (3.5-5.1)
[2020-07-23 09:40] LABS: Aspartate Amino Transferase 28 U/L (0-40)
[2020-07-23] MEDS: dexamethasone 20 MG in sodium chloride 0.9% 50 ML 187 MG IV (11:12)
[2020-07-23] MEDS: sodium chloride 0.9% 250 ML 75 ML IV (11:12)
[2020-07-23] MEDS: acetaminophen 325 mg Tablet 650 MG PO (11:14)
[2020-07-23 12:52] LABS: Ferritin 531 ng/mL (30-400); Iron 105 ug/dL (59-158); Thyroid Stimulating Hormone 5.67 uIU/mL (0.27-4.20)
[2020-07-23 13:00] LABS: Percent Saturation 52.2 % (20-50); Total Iron Binding Capacity 201 mcg/dl; Unsaturated Iron Binding 96 ug/dL (112-347)
--- NOTE | 2020-07-23 20:35 | ONC FU_ITS ---
[facility] Patient Note Patient: Jl Rivera Unit #: [id number]: 1960 Dictated By: Gaurav LimDate of Visit: Jul 23, 2020 Onc MED Follow-Up/Prog Note Chief Complaint: Lymphoma. History of Present Illness: Mr. 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 He was admitted to [facility] on 07/29/2018 with acute renal failure. He had presented with encephalopathy and severe edema. In addition to the acute renal failure, he had moderately severe anemia and mild thrombocytopenia with his baseline platelet count reportedly in the range of 100,000. CT pulmonary angiogram showed axillary and mediastinal lymphadenopathy, moderate sized bilateral pleural effusions, and cardiomegaly. His abdomen/pelvis CT showed marked lymphadenopathy within the abdomen and pelvis and splenomegaly. 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 He also was started on hemodialysis. Left axillary lymph node biopsy on 07/31/2018 showed malignant lymphoma, favoring low-grade follicular lymphoma. The neoplastic cells were noted to be positive for BCL 6, CD10, and CD23. There was weak positivity for BCL 2. The cells were negative for cyclin D1, MUM1, and SOX 11. On 07/31/2018 he began chemotherapy with bendamustine/Rituxan. The bendamustine dosage was reduced by 50% for the renal function. His day 2 bendamustine was held due to an acute drop in his platelet count to 30,000. It subsequently did recover, but there was a delay of close to 3 months prior to starting his second cycle of chemotherapy. Dr. Suarez had seen him initially on 11/15/2018. His 3rd cycle of chemotherpy had been scheduled to be given the following week, and he was to have restaging CT scans prior to that treatment. His further evaluation was delayed pending his Medicare eligibility. He then had a restaging PET/CT on 01/08/2019. It showed extensive hypermetabolic lymphadenopathy for the level of the head and neck to the level of the pelvis. There was diffusely metabolic splenomegaly. As he appeared to have had very little response to the bendamustine/Rituxan regimen, It was opted to proceed with a course of R-CHOP chemotherapy. His baseline echocardiogram showed estimated left ventricular ejection fraction of 55%. There was grade I/IVdiastolic dysfunction. He began cycle 1 of R-CHOP on 02/23/2019. He was given first cycle prophylaxis with Neulasta. He tolerated it with acceptable toxicity, and he continued with cycle 2 on 03/16/2019 and with cycle 3 on 04/13/2019. During this time he required additional thoracentesis procedures on 03/09, 03/17, and 04/01/2019. A flow cytometry study on his pleural fluid did show a monotypic B-cell population consistent with involvement by malignant lymphoma. Restaging PET/CT on 05/07/2019 showed overall improvement but not complete resolution of the extensive adenopathy. Hypermetabolic splenomegaly appeared to have normalized. He then continued with cycle 4 of R-CHOP on 05/11/2019, with cycle 5 on 06/01/2019, and with cycle 6 on 06/22/2019. Restaging PET/CT on 07/16/2019 showed subcentimeter size lymph nodes in the head and neck bilaterally, FDG negative. Similar improvement was noted in mediastinal, left internal mammary, and bilateral axillary lymph nodes. Portal nodes demonstrated only minimal FDG uptake and scattered retroperitoneal nodes measuring up to 1 cm in size showed FDG activity no greater than that of mediastinal background. A right external iliac lymph node measuring 1.8 x 1.5 cm had mild FDG uptake with SUV 3.4. The left pleural effusion was noted be significantly decreased in volume. Left lower lobe round atelectasis was noted to be FDG negative. In the setting of a low-grade follicular lymphoma with very good partial response to chemotherapy, Dr. Suarez recommended that he continue with maintenance rituximab. He then returned on 08/18/2019 to begin cycle 1 of 12 planned cycles of treatment at 2-month intervals. He tolerated it well, and he continued with cycle 2 on 10/18/2019. At his follow-up visit on 12/13/2019 he had become aware of a new nodule on the right side of his neck. It was suspected that it was of thyroid origin. However, his neck CT on 12/15/2019 showed enlarged left submandibular lymph node measuring 11 mm, numerous but normal sized level 2 and level 3 cervical lymph nodes, and numerous and enlarged supraclavicular lymph nodes and retropectoral lymph nodes. The largest supraclavicular lymph node measured [address] scans of the chest, abdomen, and pelvis showed significant interval progression involving supraclavicular, thoracic inlet, internal mammary, and axillary lymphadenopathy. The largest left axillary lymph node measured 2.5 cm. Lymphadenopathy in the upper abdomen, abdiaziz hepatis, and periaortic regions was noted to be stable, but there was significant progression of pelvic and iliac chain lymphadenopathy as well as inguinal lymphadenopathy. A 6 mm noncalcified left upper lobe pulmonary nodule appeared stable. With those findings, he was referred to [facility] for a second opinion evaluation. He was seen there on 01/09/[address] Terell Solo. At his recommendation, Mr. Rivera had a repeat PET/CT on 01/14/2020. It showed multiple areas of abnormal uptake, consistent with recurrent lymphoma, but with the maximum SUV of 13.6 involving a right deep inguinal lymph node measuring 4.6 x 2.5 cm. Based on the degree of SUV activity, he then underwent CT directed core needle biopsy on 01/26/2020. Pathology was again consistent with grade 1-2 follicular lymphoma. In the setting of resistant follicular lymphoma, he was recommended to undergo trial of therapy with a P13 kinase inhibitor. He then began treatment with idelalisib 150 mg twice daily on 02/28/2020. He was seen for a follow-up visit on 03/13/2020 at day 14 of his treatment. He appeared to be tolerating it well. His blood counts were normal, and his liver function tests were also normal. He continued idelalisib 150 mg twice daily. As of 04/03/2020 the idelalisib was put on hold due to a dramatic increase in his liver enzymes with SGOT increased to 1532 U/L and SGPT 2716 U/L. The bilirubin was just slightly elevated at 1.1 mg/dL. As of 05/02/2020 the SGOT and SGPT were both back to normal. His other medical illnesses include hypothyroidism, degenerative arthritis, and gout. He has a history of smoking 1 pack of cigarettes daily for 40 years, but he has cut down. INTERIM HISTORY: After complete recovery from idelalisib hepatotoxicity, his treatment was transitioned to lenalidomide in combination with obinutuzumab. He began lenalidomide on 06/13/2020 at 20 mg daily. As of 06/20/2020 his treatment was put on hold due to thrombocytopenia, platelet count decreasing to 28,000, and skin rash. He did resume Revlimid at 10 mg daily on , He has mild rash on his arms, back and waist today. Mr. Rivera is here today for follow-up. He states he feels good better than I have in a long time . He has been very active and that he has been mowing his yard, doing lots of housework,, washing his car, etc. He has been tolerating this well. His only concern today is that he has a mild rash on his upper arms-from his AC space up. He also has this along his back and his belt line. Is noted that is somewhat in the groin area as well. It is a mild, pink, slightly raised rash that has appearance of drug allergy without any wheals. He states it is somewhat itchy but not terrible. He denies any swallowing or breathing problems. He states the rash has better than it has been in some time. He states he knows it is from the Revlimid. He did resume Revlimid 10 mg 7 days ago and the rash has not gotten worse. He denies any fever or chills. He has had no signs or symptoms of infection for at least the last 72 hours. He has had no known Covid exposure or symptoms. States his appetite is good. His energy is good as above. He denies any new shortness of breath or cough. He denies any nausea or vomiting, diarrhea or constipation. He has had no lower extremity edema. He denies any neuropathy symptoms at present. His ECOG is 0. Past Medical History: Anemia Degenerative joint disease Gout Hypothyroidism Past Surgical History: Placement of AV fistula for dialysis Placement of left subclavian dialysis catheter Rotator cuff repair bilaterally Left axillary lymph node biopsy and placement of Port-A-Cath venous access device in 2019 Ct renal biopsy in 2018 Cervical spine fusion with vertebral cadaver bone in 2005 Allergies: No Known Allergies. Medications: Revlimid (10 mg) Capsule Oral Take as Directed Family History: Mr. Rivera's mother is alive. Mr. Rivera's father is . Mr. Rivera has 4 brothers: 4 alive. He has 1 sister who is alive. His mother is still living and in good health at age 81. Father with multiple myeloma at age 80. He also had prostate cancer. The patient's paternal grandfather had prostate cancer as well. Five siblings are in good health. Social History: Mr. Rivera is and he is unemployed. He is an occasional smoker who has smoked 0.5 packs/day for 41 years. He drinks occasionally. Drinks very rarely. Review Of Symptoms: Constitutional Denies fevers, chills, night sweats, excessive fatigue or weight loss. Allergic/Immunologic No reactions. Eyes Denies significant visual changes. No diplopia. No amaurosis. ENMT Denies changes in hearing, sore throat, mouth sores, difficulty or changes in swallowing ability, and/or sinus drainage. Endocrine No diabetes, thyroid disease or hormone replacement. Denies hot flashes or night sweats. Hematologic/Lymphatic Denies easy bruising or bleeding. The patient denies any tender or palpable lymph nodes. Respiratory Denies dyspnea on exertion, chest pain, cough or hemoptysis. Denies orthopnea. Cardiovascular Denies anginal chest pain, palpitations or orthopnea. Gastrointestinal Denies nausea, vomiting, diarrhea, GI bleeding, or constipation. Denies change in bowel habits and/or stool color, or early satiety. Genitourinary (M) Denies hematuria, dysuria, increased frequency, urgency, hesitancy or incontinence. Musculoskeletal Denies joint pain, swelling or redness. No decreased range of motion. Integumentary Concerns of rash/rough feeling skin???see above Neurologic Denies headache, blurred vision, and no areas of focal weakness or numbness. Normal gait. No sensory problems. Psychiatric Denies depression, claus or mood swings. Has had some intermittent insomnia. Lorazepam works well when he takes it. Vital Signs: Performed on Jul 23, 2020 10:19 Height - 71.00 in Weight - 213.8 lbs (HIGH) BSA - 2.17 sq.m BMI - 29.82 Temperature - 98.4 F Pulse - 95 /min Respiration - 18 /min BP - 120/70 mm(hg) O2 Sat - 100 % Pain - 0,0 - Fully active, able to carry on all predisease activities without restrictions. (ECOG) Physical Examination: Constitutional Alert, oriented, no acute distress. Skin pink, warm and dry. Head Normocephalic; atraumatic. Eyes Conjunctivae and sclerae are clear and without icterus. Pupils are reactive and equal. Neck No jugular venous distension. No palpable adenopathy. Hematologic/Lymphatic No tender or palpable lymph nodes in the cervical or supraclavicular areas. Respiratory Lungs are clear to auscultation without rhonchi or wheezing. Cardiovascular Regular rate and rhythm of heart without murmurs,clicks, gallops or rubs. Chest Chest is symmetric without chest wall deformities. Right chest wall venous access device is unremarkable. Abdomen Non-tender, non-distended, no masses, ascites. Back/Spine Non-tender to palpation. Extremities No visible deformities, no cyanosis, clubbing or edema. Musculoskeletal No tenderness or swelling, normal range of motion without obvious weakness. Integumentary see above Neurologic No sensory or motor deficits, normal cerebellar function, normal gait. Psychiatric Alert and oriented times three. Coherent speech. Verbalizes understanding of our discussions today. Laboratory:Test performed on Jul 23, 2020 08:37 Ferritin 531 ng/mL Iron 105 mcg/dL Sodium 136 mmol/L TSH 5.67 uIU/mL Iron Binding Capacity (TIBC) 201 mcg/dl Potassium 4.3 mmol/L % Iron Saturation 52.2 % Chloride 101 mmol/L CO2 23 mmol/L UIBC 96 mcg/dL Anion Gap 16.3 BUN 36 mg/dL Creatinine 2.4 mg/dL Cr Clearance (Est) 44.90 mL/min eGFR 27.8 mL/min Glucose 120 mg/dL Osmolality - Calculated 292 mOsm/kg Calcium 10.1 mg/dL Protein, Total 5.6 g/dL Albumin 3.8 g/dL Globulin 1.8 g/dL Bilirubin, Total 0.8 mg/dL ALT (SGPT) 20 U/L AST (SGOT) 28 U/L Alkaline Phosphatase 157 IU/L WBC 3.6 10 3/uL RBC 3.66 10 6/uL HGB 12.3 g/dL HCT 35.5 % MCV 97.0 fL MCH 33.6 pg MCHC 34.6 g/dL RDW 14.2 % Platelet Count 69 10 3/cmm MPV 11.7 fL Neutrophils 2.22 10 3/uL Lymphocytes 0.6 10 3/uL Monocytes 0.4 10 3/uL Eosinophils 0.3 10 3/uL Basophils 0.0 10 3/uL Neutrophil % 62.2 % Lymphocyte % 16.8 % Monocyte % 11.8 % Eosinophil % 7.8 % Basophils % 0.6 % NRBC % 0 % Test performed on Jun 20, 2020 09:43 CBC Slide Review Slide Review Perform SLIDE REVIEW AGREES WITH AUTOMATED RESULTS ST Test performed on Jun 13, 2020 09:17 LDH (Total) 287 U/L Test performed on Apr 03, 2020 12:30 CMV DNA, PCR (IU/mL) < 200 IU/mL Hepatitis A Ab, IgM Non-Reactive CMV DNA Log10, PCR < 2.30 Log IU/mL Hepatitis B Core Ab, Total Non-Reactive Hepatitis B Surf Antigen Non-Reactive Hepatitis B Surface Ab 3.5 STATUS of IMMUINITY Inconsistent with Immunity 0.0 - 8.5 mIU/mL Consistent with Immunity >8.5 mIU/mL Hepatitis C Ab Reactive Impression: 1. Patient with grade 1 follicular lymphoma, stage at least IIIS, diagnosed by left axillary lymph node biopsy on 07/31/2018. 2. His initial treatment included 2 cycles of bendamustine/Rituxan. With the first cycle the bendamustine was administered at a 50% dosage due to renal function and he received day 1 treatment only due to acute thrombocytopenia. Cycle 2 was delayed to 10/21/2018, and the bendamustine dosage remained at 50%. 3. He had presented with acute renal failure due to membranoproliferative glomerulonephritis, confirmed by renal biopsy on 07/30/2018. He has been on hemodialysis. 4. He was anemic at presentation, and he subsequently did require PRBC transfusion. 5. He also had laboratory evidence of hypothyroidism. 6. He has degenerative joint disease related to previous injuries. 7. He has a prior history of gout. He completed 2 cycles of bendamustine/Rituxan, though with significant delay prior to starting cycle 2. His restaging PET/CT on 01/08/2019 still showed diffuse FDG avid lymphadenopathy from the head/neck to the pelvis and diffusely metabolic splenomegaly. On comparison to his pretreatment CT scans, he did not appear to be showing significant response to the bendamustine/Rituxan regimen. As such, Dr. Suarez opted to proceed with a course of R-CHOP chemotherapy. He began cycle 1 of R-CHOP on 02/23/2019. He was given first cycle prophylaxis with Neulasta. He tolerated it with acceptable toxicity, and he continued with cycle 2 on 03/16/2019 and with cycle 3 on 04/13/2019. During this time he required additional thoracentesis procedures, and a flow cytometry study on his pleural fluid did show a monotypic B-cell population consistent with involvement by malignant lymphoma. Restaging PET/CT on 05/07/2019 showed overall improvement but not complete resolution of the extensive adenopathy. Hypermetabolic splenomegaly appeared to have normalized. Overall, he appeared to have a very good response to the chemotherapy. He then continued treatment at 3-week intervals. He began his 6th cycle of R-CHOP on 06/22/2019. His restaging PET/CT on 07/16/2019 showed very significant response, though with possible residual involvement in a right external iliac lymph node and with evidence of some residual left pleural effusion. During that time he had significant improvement in his performance status, and he also was able to maintain adequate renal function after stopping dialysis. In the setting of low-grade lymphoma with very good partial response to chemotherapy, he was recommended to continue with maintenance rituximab. He began cycle 1 on 08/18/2019. He tolerated it well and continue with cycle 2 on 10/18/2019. However, at his follow-up visit on 12/13/2019 he had new adenopathy on the left side of the neck. Restaging CT scans showed disease progression in multiple areas, though not bulky. He was then seen for a second opinion evaluation at [facility] by Dr. Terell Solo. His restaging PET/CT also confirmed progression and multiple areas, but with a maximum SUV of 13.6 involving the right deep inguinal lymph node measuring 4.6 x 2.5 cm. Needle core biopsy of the lymph node again showed grade 1-2 follicular lymphoma. With that finding, he began treatment with idelalisib 150 mg twice daily on 02/28/2020. At his follow-up visit on 03/13/2020 he appeared to be tolerating it well. He had normal blood counts and normal LFTs. At his follow-up visit on 04/03/2020 his liver enzymes had become markedly elevated with SGOT 1532/40 U/L and SGPT 2716/41 U/L. Bilirubin was just slightly elevated at 1.1 mg/dL with alkaline phosphatase in normal range at 125 IU/L. This was presumed to be treatment related. The idelalisib was discontinued and by 05/03/2020 the SGOT and SGPT levels were back to normal. His treatment was then transitioned to lenalidomide in combination with obinutuzumab. He began lenalidomide 20 mg daily on 06/13/2020. At his 1 week follow-up his treatment was put on hold due to skin rash and thrombocytopenia, platelet count dropping to 28,000. He does appear to be showing recovery since stopping the treatment. He was able to resume the lenalidomide at 10 mg daily on July 16, 2020. He is here today for consideration of starting cycle 1 day 8 and 9 obinutuzumab. He does have a mild rash but states it is nothing severe and mild. He wishes to proceed with treatment as planned. We did discuss at length that continue with treatment may worsen the rash or he may develop other signs of allergic reaction such as anaphylaxis, shortness of breath, trouble swallowing, chest pain, palpitations, nausea/ vomiting/diarrhea amongst others. He states he knows where the hospital is at if he has any problems. Plan: 1. Continue Lenalidomide 10 mg daily. This is day 8. 2. We will proceed with obinutuzumab day 8 and 9. 3. Today's labs were reviewed with Mr. Rivera and Dr. Suarez and discussed in detail with Mr. Rivera. A copy was given to him. WBC is 3.6, hemoglobin 12.3, platelets 69,000 ANC is 2200. Potassium 4.3 random glucose 120 creatinine 2.4 LFTs are normal his alk phos was 157. 4. He is inquiring about his iron as he states has been iron deficient in the past. We will check that today. I have also asked for a follow-up on his TSH from May 02, 2020 at which time it was slightly elevated at 4.61. No medication adjustments were made at that time as he is asymptomatic. 5. We will plan to see him back in 1 week for cycle 1 day 15 and 16 obinutuzumab. He will continue the lenalidomide 21 out of 28 days. 6. Mr. Rivera has been asked to have a CBC CMP prior to his follow-up in 1 week. 7. Mr. Rivera was instructed to contact us in the interim should questions or problems arise especially if his rash worsens. He does have steroids on hand and knows how to take them if the rash worsens. He is also advised to present to the nearest emergency room if he has any trouble swallowing, sudden shortness of breath or other significant changes in his health status. Signed By: Gaurav Lim-, [facility] Charlie Suarez MD <<Signature on File>>
[2020-07-24] MEDS: acetaminophen 325 mg Tablet 650 MG PO (09:00)
[2020-07-24] MEDS: sodium chloride 0.9% 500 ML 999 ML IV (09:08)
[2020-07-24] MEDS: dexamethasone 20 MG in sodium chloride 0.9% 50 ML 187 MG IV (09:08)
[2020-08-02 11:22] LABS: Basophils % 0.8 %; Eosinophils # 0.4 10^3/uL (0.0-0.8); Eosinophils % 8.4 %; Hematocrit 34.9 % (42.0-52.0); Hemoglobin 12.1 g/dL (11.7-16.6); Lymphocytes # 0.8 10^3/uL (0.8-4.8); Lymphocytes % 16.4 %; Mean Corpuscular HGB Conc 34.7 g/dL (30.0-36.0); Mean Platelet Volume 10.8 fL (7.4-10.4); Monocytes # 0.8 10^3/uL (0.2-0.9); Monocytes % 15.6 %; Nucleated Red Blood Cells % 0 %; Platelet Count 112 10^3/cmm (130-400); Red Blood Count 3.56 10^6/uL (4.1-5.3); Red Cell Distribution Width 13.9 % (12.1-15.1)
[2020-08-02 11:46] LABS: Alanine Aminotransferase 21 U/L (0-41); Albumin Level 3.7 g/dL (3.5-5.2); Alkaline Phosphatase 120 IU/L (40-130); Aspartate Amino Transferase 19 U/L (0-40); Blood Urea Nitrogen 40 mg/dL (8-23); Calcium 9.9 mg/dL (8.5-10.5); Carbon Dioxide 23 mmol/L (22-29); Chloride 103 mmol/L (98-107); Globulin 2.3 g/dL (1.3-4.6); Glomerular Filtration Rate 30.7 mL/min (90-130); Glucose 100 mg/dL (65-115); Osmolality Calculated 294 mOsm/kg (285-295); Sodium 137 mmol/L (136-145); Total Bilirubin 0.6 mg/dL (0.15-1.2)
[2020-08-02] MEDS: sodium chloride 0.9% 500 ML 75 ML IV (13:35)
[2020-08-02] MEDS: acetaminophen 325 mg Tablet 650 MG PO (13:35)
[2020-08-02] MEDS: dexamethasone 20 MG in sodium chloride 0.9% 50 ML 187 MG IV (13:40)
[2020-08-02 14:13] LABS: Free T4 Free Thyroxine 1.26 ng/dL (0.82-1.77); T3 Free 2.3 PG/ML (2.0-4.4)
--- NOTE | 2020-08-02 14:57 | ONC FU_ITS ---
[facility] Patient Note Patient: Jl Rivera Unit #: [id number]: 1960 Dictated By: Gaurav LimDate of Visit: Aug 02, 2020 Onc MED Follow-Up/Prog Note Chief Complaint: Lymphoma. History of Present Illness: Mr. 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 He was admitted to [facility] on 07/29/2018 with acute renal failure. He had presented with encephalopathy and severe edema. In addition to the acute renal failure, he had moderately severe anemia and mild thrombocytopenia with his baseline platelet count reportedly in the range of 100,000. CT pulmonary angiogram showed axillary and mediastinal lymphadenopathy, moderate sized bilateral pleural effusions, and cardiomegaly. His abdomen/pelvis CT showed marked lymphadenopathy within the abdomen and pelvis and splenomegaly. 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 He also was started on hemodialysis. Left axillary lymph node biopsy on 07/31/2018 showed malignant lymphoma, favoring low-grade follicular lymphoma. The neoplastic cells were noted to be positive for BCL 6, CD10, and CD23. There was weak positivity for BCL 2. The cells were negative for cyclin D1, MUM1, and SOX 11. On 07/31/2018 he began chemotherapy with bendamustine/Rituxan. The bendamustine dosage was reduced by 50% for the renal function. His day 2 bendamustine was held due to an acute drop in his platelet count to 30,000. It subsequently did recover, but there was a delay of close to 3 months prior to starting his second cycle of chemotherapy. Dr. Suarez had seen him initially on 11/15/2018. His 3rd cycle of chemotherpy had been scheduled to be given the following week, and he was to have restaging CT scans prior to that treatment. His further evaluation was delayed pending his Medicare eligibility. He then had a restaging PET/CT on 01/08/2019. It showed extensive hypermetabolic lymphadenopathy for the level of the head and neck to the level of the pelvis. There was diffusely metabolic splenomegaly. As he appeared to have had very little response to the bendamustine/Rituxan regimen, It was opted to proceed with a course of R-CHOP chemotherapy. His baseline echocardiogram showed estimated left ventricular ejection fraction of 55%. There was grade I/IVdiastolic dysfunction. He began cycle 1 of R-CHOP on 02/23/2019. He was given first cycle prophylaxis with Neulasta. He tolerated it with acceptable toxicity, and he continued with cycle 2 on 03/16/2019 and with cycle 3 on 04/13/2019. During this time he required additional thoracentesis procedures on 03/09, 03/17, and 04/01/2019. A flow cytometry study on his pleural fluid did show a monotypic B-cell population consistent with involvement by malignant lymphoma. Restaging PET/CT on 05/07/2019 showed overall improvement but not complete resolution of the extensive adenopathy. Hypermetabolic splenomegaly appeared to have normalized. He then continued with cycle 4 of R-CHOP on 05/11/2019, with cycle 5 on 06/01/2019, and with cycle 6 on 06/22/2019. Restaging PET/CT on 07/16/2019 showed subcentimeter size lymph nodes in the head and neck bilaterally, FDG negative. Similar improvement was noted in mediastinal, left internal mammary, and bilateral axillary lymph nodes. Portal nodes demonstrated only minimal FDG uptake and scattered retroperitoneal nodes measuring up to 1 cm in size showed FDG activity no greater than that of mediastinal background. A right external iliac lymph node measuring 1.8 x 1.5 cm had mild FDG uptake with SUV 3.4. The left pleural effusion was noted be significantly decreased in volume. Left lower lobe round atelectasis was noted to be FDG negative. In the setting of a low-grade follicular lymphoma with very good partial response to chemotherapy, Dr. Suarez recommended that he continue with maintenance rituximab. He then returned on 08/18/2019 to begin cycle 1 of 12 planned cycles of treatment at 2-month intervals. He tolerated it well, and he continued with cycle 2 on 10/18/2019. At his follow-up visit on 12/13/2019 he had become aware of a new nodule on the right side of his neck. It was suspected that it was of thyroid origin. However, his neck CT on 12/15/2019 showed enlarged left submandibular lymph node measuring 11 mm, numerous but normal sized level 2 and level 3 cervical lymph nodes, and numerous and enlarged supraclavicular lymph nodes and retropectoral lymph nodes. The largest supraclavicular lymph node measured [address] scans of the chest, abdomen, and pelvis showed significant interval progression involving supraclavicular, thoracic inlet, internal mammary, and axillary lymphadenopathy. The largest left axillary lymph node measured 2.5 cm. Lymphadenopathy in the upper abdomen, abdiaziz hepatis, and periaortic regions was noted to be stable, but there was significant progression of pelvic and iliac chain lymphadenopathy as well as inguinal lymphadenopathy. A 6 mm noncalcified left upper lobe pulmonary nodule appeared stable. With those findings, he was referred to [facility] for a second opinion evaluation. He was seen there on 01/09/[address] Terell Solo. At his recommendation, Mr. Rivera had a repeat PET/CT on 01/14/2020. It showed multiple areas of abnormal uptake, consistent with recurrent lymphoma, but with the maximum SUV of 13.6 involving a right deep inguinal lymph node measuring 4.6 x 2.5 cm. Based on the degree of SUV activity, he then underwent CT directed core needle biopsy on 01/26/2020. Pathology was again consistent with grade 1-2 follicular lymphoma. In the setting of resistant follicular lymphoma, he was recommended to undergo trial of therapy with a P13 kinase inhibitor. He then began treatment with idelalisib 150 mg twice daily on 02/28/2020. He was seen for a follow-up visit on 03/13/2020 at day 14 of his treatment. He appeared to be tolerating it well. His blood counts were normal, and his liver function tests were also normal. He continued idelalisib 150 mg twice daily. As of 04/03/2020 the idelalisib was put on hold due to a dramatic increase in his liver enzymes with SGOT increased to 1532 U/L and SGPT 2716 U/L. The bilirubin was just slightly elevated at 1.1 mg/dL. As of 05/02/2020 the SGOT and SGPT were both back to normal. His other medical illnesses include hypothyroidism, degenerative arthritis, and gout. He has a history of smoking 1 pack of cigarettes daily for 40 years, but he has cut down. INTERIM HISTORY: After complete recovery from idelalisib hepatotoxicity, his treatment was transitioned to lenalidomide in combination with obinutuzumab. He began lenalidomide on 06/13/2020 at 20 mg daily. As of 06/20/2020 his treatment was put on hold due to thrombocytopenia, platelet count decreasing to 28,000, and skin rash. He did resume Revlimid at 10 mg daily on , He has mild rash on his arms, back and waist today. Mr. Rivera is here today for follow-up and day 15 Obinutuzumab. He will complete Revlimid 10 mg 21-day cycle on Wednesday August 05, 2020. He states overall he is feeling pretty good. He has had some tingling just a tiny bit in his right first 2 fingers. He states it is burning but he states he also has a history of frostbite. It tends to get worse in the cold weather. He denies any new concerns. He denies any pain. He denies fever or chills. He states he has not had any mouth sores, sore throat or difficulty swallowing. He denies nausea or vomiting. He states he did have some diarrhea for 2 days after the treatment. That has resolved now. He states it started about 2 days after the treatment and lasted for about 2 days. He did not try taking any antidiarrheals at that time. He denies any hematochezia. He states his bowels are normal for him now. He states he has not been drinking as much water as he should have been but can increase that. He remains very active at home. He states overall he feels good. His ECOG is 0. Past Medical History: Anemia Degenerative joint disease Gout Hypothyroidism Past Surgical History: Placement of AV fistula for dialysis Placement of left subclavian dialysis catheter Rotator cuff repair bilaterally Left axillary lymph node biopsy and placement of Port-A-Cath venous access device in 2019 Ct renal biopsy in 2018 Cervical spine fusion with vertebral cadaver bone in 2005 Allergies: No Known Allergies. Medications: Revlimid (10 mg) Capsule Oral Take as Directed Family History: Mr. Rivera's mother is alive. Mr. Rivera's father is . Mr. Rivera has 4 brothers: 4 alive. He has 1 sister who is alive. His mother is still living and in good health at age 81. Father with multiple myeloma at age 80. He also had prostate cancer. The patient's paternal grandfather had prostate cancer as well. Five siblings are in good health. Social History: Mr. Rivera is and he is unemployed. He is an occasional smoker who has smoked 0.5 packs/day for 41 years. He drinks occasionally. Drinks very rarely. Review Of Symptoms: Constitutional Denies fevers, chills, night sweats, excessive fatigue or weight loss. Allergic/Immunologic No reactions. Eyes Denies significant visual changes. No diplopia. No amaurosis. ENMT Denies changes in hearing, sore throat, mouth sores, difficulty or changes in swallowing ability, and/or sinus drainage. Endocrine No diabetes, thyroid disease or hormone replacement. Denies hot flashes or night sweats. Hematologic/Lymphatic Denies easy bruising or bleeding. The patient denies any tender or palpable lymph nodes. Respiratory Denies dyspnea on exertion, chest pain, cough or hemoptysis. Denies orthopnea. Cardiovascular Denies anginal chest pain, palpitations or orthopnea. Gastrointestinal Denies nausea, vomiting, diarrhea, GI bleeding, or constipation. Denies change in bowel habits and/or stool color, or early satiety. Genitourinary (M) Denies hematuria, dysuria, increased frequency, urgency, hesitancy or incontinence. Musculoskeletal Denies joint pain, swelling or redness. No decreased range of motion. Integumentary Concerns of rash/rough feeling skin???see above Neurologic Denies headache, blurred vision, and no areas of focal weakness or numbness. Normal gait. A tiny bit of tingling in my first 2 fingers on my right hand. It is not dramatic and is not getting worse . Psychiatric Denies depression, claus or mood swings. Has had some intermittent insomnia. Lorazepam works well when he takes it. Vital Signs: Performed on Aug 02, 2020 12:35 Height - 71.00 in Weight - 205.6 lbs (LOW) BSA - 2.13 sq.m BMI - 28.68 Temperature - 97.8 F (LOW) Pulse - 74 /min Respiration - 18 /min BP - 111/58 mm(hg) O2 Sat - 98 % Pain - 0,0 - Fully active, able to carry on all predisease activities without restrictions. (ECOG) Physical Examination: Constitutional Alert, oriented, no acute distress. Skin pink, warm and dry. Head Normocephalic; atraumatic. Eyes Conjunctivae and sclerae are clear and without icterus. Pupils are reactive and equal. Neck No jugular venous distension. No palpable adenopathy. Hematologic/Lymphatic No tender or palpable lymph nodes in the cervical or supraclavicular areas. Respiratory Lungs are clear to auscultation without rhonchi or wheezing. Cardiovascular Regular rate and rhythm of heart without murmurs,clicks, gallops or rubs. Chest Chest is symmetric without chest wall deformities. Right chest wall venous access device is unremarkable. Breasts Abdomen Non-tender, non-distended, no masses, ascites. Back/Spine Non-tender to palpation. Extremities No visible deformities, no cyanosis, clubbing or edema. Musculoskeletal No tenderness or swelling, normal range of motion without obvious weakness. Integumentary see above Neurologic No sensory or motor deficits, normal cerebellar function, normal gait. Psychiatric Alert and oriented times three. Coherent speech. Verbalizes understanding of our discussions today. Laboratory:Test performed on Aug 02, 2020 11:14 Sodium 137 mmol/L T3, Free 2.3 PG/ML T4, Free 1.26 ng/dL Potassium 4.0 mmol/L Chloride 103 mmol/L CO2 23 mmol/L Anion Gap 15.0 BUN 40 mg/dL Creatinine 2.2 mg/dL Cr Clearance (Est) 47.10 mL/min eGFR 30.7 mL/min Glucose 100 mg/dL Osmolality - Calculated 294 mOsm/kg Calcium 9.9 mg/dL Protein, Total 6.0 g/dL Albumin 3.7 g/dL Globulin 2.3 g/dL Bilirubin, Total 0.6 mg/dL ALT (SGPT) 21 U/L AST (SGOT) 19 U/L Alkaline Phosphatase 120 IU/L WBC 5.0 10 3/uL RBC 3.56 10 6/uL HGB 12.1 g/dL HCT 34.9 % MCV 98.0 fL MCH 34.0 pg MCHC 34.7 g/dL RDW 13.9 % Platelet Count 112 10 3/cmm MPV 10.8 fL Neutrophils 2.90 10 3/uL Lymphocytes 0.8 10 3/uL Monocytes 0.8 10 3/uL Eosinophils 0.4 10 3/uL Basophils 0.0 10 3/uL Neutrophil % 58.0 % Lymphocyte % 16.4 % Monocyte % 15.6 % Eosinophil % 8.4 % Basophils % 0.8 % NRBC % 0 % Test performed on Jul 23, 2020 08:37 Ferritin 531 ng/mL Iron 105 mcg/dL TSH 5.67 uIU/mL Iron Binding Capacity (TIBC) 201 mcg/dl % Iron Saturation 52.2 % UIBC 96 mcg/dL Test performed on Jun 20, 2020 09:43 CBC Slide Review Slide Review Perform SLIDE REVIEW AGREES WITH AUTOMATED RESULTS ST Test performed on Jun 13, 2020 09:17 LDH (Total) 287 U/L Test performed on Apr 03, 2020 12:30 CMV DNA, PCR (IU/mL) < 200 IU/mL Hepatitis A Ab, IgM Non-Reactive CMV DNA Log10, PCR < 2.30 Log IU/mL Hepatitis B Core Ab, Total Non-Reactive Hepatitis B Surf Antigen Non-Reactive Hepatitis B Surface Ab 3.5 STATUS of IMMUINITY Inconsistent with Immunity 0.0 - 8.5 mIU/mL Consistent with Immunity >8.5 mIU/mL Hepatitis C Ab Reactive Impression: 1. Patient with grade 1 follicular lymphoma, stage at least IIIS, diagnosed by left axillary lymph node biopsy on 07/31/2018. 2. His initial treatment included 2 cycles of bendamustine/Rituxan. With the first cycle the bendamustine was administered at a 50% dosage due to renal function and he received day 1 treatment only due to acute thrombocytopenia. Cycle 2 was delayed to 10/21/2018, and the bendamustine dosage remained at 50%. 3. He had presented with acute renal failure due to membranoproliferative glomerulonephritis, confirmed by renal biopsy on 07/30/2018. He has been on hemodialysis. 4. He was anemic at presentation, and he subsequently did require PRBC transfusion. 5. He also had laboratory evidence of hypothyroidism. 6. He has degenerative joint disease related to previous injuries. 7. He has a prior history of gout. He completed 2 cycles of bendamustine/Rituxan, though with significant delay prior to starting cycle 2. His restaging PET/CT on 01/08/2019 still showed diffuse FDG avid lymphadenopathy from the head/neck to the pelvis and diffusely metabolic splenomegaly. On comparison to his pretreatment CT scans, he did not appear to be showing significant response to the bendamustine/Rituxan regimen. As such, Dr. Suarez opted to proceed with a course of R-CHOP chemotherapy. He began cycle 1 of R-CHOP on 02/23/2019. He was given first cycle prophylaxis with Neulasta. He tolerated it with acceptable toxicity, and he continued with cycle 2 on 03/16/2019 and with cycle 3 on 04/13/2019. During this time he required additional thoracentesis procedures, and a flow cytometry study on his pleural fluid did show a monotypic B-cell population consistent with involvement by malignant lymphoma. Restaging PET/CT on 05/07/2019 showed overall improvement but not complete resolution of the extensive adenopathy. Hypermetabolic splenomegaly appeared to have normalized. Overall, he appeared to have a very good response to the chemotherapy. He then continued treatment at 3-week intervals. He began his 6th cycle of R-CHOP on 06/22/2019. His restaging PET/CT on 07/16/2019 showed very significant response, though with possible residual involvement in a right external iliac lymph node and with evidence of some residual left pleural effusion. During that time he had significant improvement in his performance status, and he also was able to maintain adequate renal function after stopping dialysis. In the setting of low-grade lymphoma with very good partial response to chemotherapy, he was recommended to continue with maintenance rituximab. He began cycle 1 on 08/18/2019. He tolerated it well and continue with cycle 2 on 10/18/2019. However, at his follow-up visit on 12/13/2019 he had new adenopathy on the left side of the neck. Restaging CT scans showed disease progression in multiple areas, though not bulky. He was then seen for a second opinion evaluation at [facility] by Dr. Terell Solo. His restaging PET/CT also confirmed progression and multiple areas, but with a maximum SUV of 13.6 involving the right deep inguinal lymph node measuring 4.6 x 2.5 cm. Needle core biopsy of the lymph node again showed grade 1-2 follicular lymphoma. With that finding, he began treatment with idelalisib 150 mg twice daily on 02/28/2020. At his follow-up visit on 03/13/2020 he appeared to be tolerating it well. He had normal blood counts and normal LFTs. At his follow-up visit on 04/03/2020 his liver enzymes had become markedly elevated with SGOT 1532/40 U/L and SGPT 2716/41 U/L. Bilirubin was just slightly elevated at 1.1 mg/dL with alkaline phosphatase in normal range at 125 IU/L. This was presumed to be treatment related. The idelalisib was discontinued and by 05/03/2020 the SGOT and SGPT levels were back to normal. His treatment was then transitioned to lenalidomide in combination with obinutuzumab. He began lenalidomide 20 mg daily on 06/13/2020. At his 1 week follow-up his treatment was put on hold due to skin rash and thrombocytopenia, platelet count dropping to 28,000. He does appear to be showing recovery since stopping the treatment. He was able to resume the lenalidomide at 10 mg daily on July 16, 2020. He began this regimen on 07/16/2020 and had cycle 1 day 8 and 9 obinutuzumab starting on 07/23/2020. He is tolerating it well thus far. Plan: 1. Continue Lenalidomide 10 mg daily (21/28 days of each cycle. This is day 15-he states he will complete his 21 days of Lenalidomide on Thursday, August 05, 2020. He will then be off for 7 days.. 2. We will proceed with obinutuzumab day 15. 3. Today's labs were reviewed with Mr. Rievra and discussed in detail with Mr. Rivera. A copy was given to him. WBC is 5.0, hemoglobin 12.1, platelets 112,000 ANC is 2900. Potassium 4.0 random glucose 100 creatinine 2.2 LFTs are normal his alk phos was 120. 4. Mr. Rivera's TSH reported at 5.67 on July 23, 2020. This is slightly elevated with the normal range being 0.27-4.20. He states he is not taking any thyroid medication currently. I did request a free T4 3 and free T4 both of which were normal. I have opted not to put him back on any thyroid medication at this point but will continue to monitor it. He is having some fatigue but it is not impacting his quality of life or performance status at this time. 5. We will plan to see him back in 1 week for cycle 1 day 15 obinutuzumab. He will continue the lenalidomide 21 out of 28 day-Next week will be his off week as he will have completed 21 days. 6. Mr. Rivera has been asked to have a CBC CMP prior to his treatment in 1 week. 7. We will plan for follow-up in 2 weeks with CBC CMP repeat LDH for lymphoma monitoring. He will be due for cycle 2 obinutuzumab and lenalidomide. Obinutuzumab will be on day 1 lenalidomide will resume at 10 mg daily on day 2 through day 22. 8. Mr. Rivera was instructed to contact us in the interim should questions or problems arise especially if his rash worsens. He does have steroids on hand and knows how to take them if the rash worsens. He is also advised to present to the nearest emergency room if he has any trouble swallowing, sudden shortness of breath or other significant changes in his health status. 9. Mr. Rivera was reminded that he can try Imodium or Kaopectate or blackberry juice as needed for diarrhea and at that is not working to call and we can get him some Lomotil and supportive care-hydration, antiemetics as needed. Addendum: Mr. Mascorros free T3 and free T4 from today are both normal. I did not alter or adjust any thyroid medications. He states is not taking any at this point. We will just monitor him for now. Signed By: Gaurav Lim-FELIX, AOAMANDAP Charlie Suarez MD <<Signature on File>>
== END 2020-08-04 23:59 | disposition home or self-care (01) ==
LOC: ONCMED 05:16
PROVIDERS: Visit Provider Nurse Practitioner
DX: Z51.12 Encounter for antineoplastic immunotherapy (principal); C82.08 Follicular lymphoma grade I, lymph nodes of multiple sites; R94.6 Abnormal results of thyroid function studies; E03.9 Hypothyroidism, unspecified; M19.90 Unspecified osteoarthritis, unspecified site; Z51.81 Encounter for therapeutic drug level monitoring; Z79.899 Other long term (current) drug therapy; Z86.2 Personal history of diseases of the blood and blood-forming organs and certain disorders involving the immune mechanism
CPT/HCPCS: 36591; 80053; 82728; 83540; 83550; 84439; 84443; 84481; 85025; 96367; 96413; 96415; 99214; J1100; J1200; J7040; J7050; J9301

== ENCOUNTER 2020-08-29 05:45 | Outpatient (RCR) | payer MEDICARE, SELFPAY ==
[2020-08-09 11:26] LABS: Basophils # 0.1 10^3/uL (0.0-0.1); Basophils % 1.2 %; Eosinophils # 0.3 10^3/uL (0.0-0.8); Eosinophils % 5.2 %; Hematocrit 39.8 % (42.0-52.0); Hemoglobin 14.1 g/dL (11.7-16.6); Lymphocytes # 1.2 10^3/uL (0.8-4.8); Lymphocytes % 19.7 %; Mean Corpuscular HGB Conc 35.4 g/dL (30.0-36.0); Mean Corpuscular Hemoglobin 33.3 pg (28.0-34.0); Mean Corpuscular Volume 93.9 fL (80-94); Mean Platelet Volume 9.9 fL (7.4-10.4); Monocytes # 0.8 10^3/uL (0.2-0.9); Monocytes % 12.6 %; Neutrophils # 3.59 10^3/uL (1.8-7.7); Neutrophils % 60.5 %; Nucleated Red Blood Cells % 0 %; Platelet Count 149 10^3/cmm (130-400); Red Blood Count 4.24 10^6/uL (4.1-5.3); Red Cell Distribution Width 13.4 % (12.1-15.1); White Blood Count 5.9 10^3/uL (4.0-10.0)
[2020-08-09 11:49] LABS: Alanine Aminotransferase 24 U/L (0-41); Albumin Level 4.3 g/dL (3.5-5.2); Alkaline Phosphatase 151 IU/L (40-130); Anion Gap 19.1 (5-19); Aspartate Amino Transferase 23 U/L (0-40); Blood Urea Nitrogen 42 mg/dL (8-23); Calcium 10.6 mg/dL (8.5-10.5); Carbon Dioxide 22 mmol/L (22-29); Chloride 103 mmol/L (98-107); Globulin 2.2 g/dL (1.3-4.6); Glomerular Filtration Rate 24.2 mL/min (90-130); Glucose 86 mg/dL (65-115); Osmolality Calculated 300 mOsm/kg (285-295); Potassium 4.1 mmol/L (3.5-5.1); Sodium 140 mmol/L (136-145); Total Protein 6.5 g/dL (6.6-8.7)
[2020-08-09] MEDS: acetaminophen 325 mg Tablet 650 MG PO (12:32)
[2020-08-09] MEDS: dexamethasone 20 MG in sodium chloride 0.9% 50 ML 187 MG IV (12:41)
[2020-08-16 10:25] LABS: Basophils # 0.2 10^3/uL (0.0-0.1); Basophils % 2.6 %; Eosinophils # 0.4 10^3/uL (0.0-0.8); Eosinophils % 5.9 %; Hematocrit 39.9 % (42.0-52.0); Lymphocytes # 1.1 10^3/uL (0.8-4.8); Lymphocytes % 16.4 %; Mean Corpuscular HGB Conc 35.1 g/dL (30.0-36.0); Mean Corpuscular Hemoglobin 33.3 pg (28.0-34.0); Monocytes # 0.8 10^3/uL (0.2-0.9); Neutrophils # 3.94 10^3/uL (1.8-7.7); Neutrophils % 61.2 %; Nucleated Red Blood Cells % 0 %; Platelet Count 111 10^3/cmm (130-400); Red Cell Distribution Width 13.8 % (12.1-15.1); White Blood Count 6.5 10^3/uL (4.0-10.0)
[2020-08-16 10:42] LABS: Alanine Aminotransferase 16 U/L (0-41); Albumin Level 4.3 g/dL (3.5-5.2); Alkaline Phosphatase 130 IU/L (40-130); Aspartate Amino Transferase 15 U/L (0-40); Blood Urea Nitrogen 33 mg/dL (8-23); Calcium 9.1 mg/dL (8.5-10.5); Carbon Dioxide 22 mmol/L (22-29); Chloride 105 mmol/L (98-107); Glomerular Filtration Rate 41.3 mL/min (90-130); Glucose 107 mg/dL (65-115); Lactate Dehydrogenase 170 U/L (135-225); Osmolality Calculated 294 mOsm/kg (285-295); Sodium 138 mmol/L (136-145); Total Bilirubin 0.6 mg/dL (0.15-1.2); Total Protein 6.3 g/dL (6.6-8.7)
[2020-08-16] MEDS: sodium chloride 0.9% 500 ML 999 ML IV (11:45)
[2020-08-16] MEDS: acetaminophen 325 mg Tablet 650 MG PO (11:47)
[2020-08-16] MEDS: dexamethasone 20 MG in sodium chloride 0.9% 50 ML 187 MG IV (11:50)
[2020-08-23 14:26] LABS: Basophils # 0.1 10^3/uL (0.0-0.1); Basophils % 1.3 %; Eosinophils # 0.8 10^3/uL (0.0-0.8); Eosinophils % 13.6 %; Hematocrit 37.8 % (42.0-52.0); Hemoglobin 13.2 g/dL (11.7-16.6); Lymphocytes # 0.7 10^3/uL (0.8-4.8); Lymphocytes % 10.9 %; Mean Corpuscular HGB Conc 34.9 g/dL (30.0-36.0); Mean Corpuscular Hemoglobin 32.9 pg (28.0-34.0); Mean Corpuscular Volume 94.3 fL (80-94); Mean Platelet Volume 11.7 fL (7.4-10.4); Monocytes # 0.5 10^3/uL (0.2-0.9); Monocytes % 7.8 %; Neutrophils # 3.96 10^3/uL (1.8-7.7); Neutrophils % 64.3 %; Nucleated Red Blood Cells % 0 %; Platelet Count 69 10^3/cmm (130-400); Red Blood Count 4.01 10^6/uL (4.1-5.3); Red Cell Distribution Width 14.8 % (12.1-15.1); White Blood Count 6.2 10^3/uL (4.0-10.0)
[2020-08-23 15:07] LABS: Alanine Aminotransferase 25 U/L (0-41); Albumin Level 4.1 g/dL (3.5-5.2); Alkaline Phosphatase 118 IU/L (40-130); Anion Gap 15.8 (5-19); Aspartate Amino Transferase 22 U/L (0-40); Blood Urea Nitrogen 28 mg/dL (8-23); Carbon Dioxide 21 mmol/L (22-29); Chloride 103 mmol/L (98-107); Glomerular Filtration Rate 44.3 mL/min (90-130); Glucose 93 mg/dL (65-115); Osmolality Calculated 287 mOsm/kg (285-295); Potassium 3.8 mmol/L (3.5-5.1); Sodium 136 mmol/L (136-145); Total Bilirubin 0.9 mg/dL (0.15-1.2); Total Protein 6.1 g/dL (6.6-8.7)
[2020-08-23 17:09] LABS: Slide Review Slide Review Perform
--- NOTE | 2020-08-24 10:19 | ONC FU_ITS ---
[facility] Patient Note Patient: Jl Rivera Unit #: [id number]: 1960 Dictated By: Gaurav LimDate of Visit: Aug 16, 2020 Onc MED Follow-Up/Prog Note Chief Complaint: Lymphoma. History of Present Illness: Mr. 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 He was admitted to [facility] on 07/29/2018 with acute renal failure. He had presented with encephalopathy and severe edema. In addition to the acute renal failure, he had moderately severe anemia and mild thrombocytopenia with his baseline platelet count reportedly in the range of 100,000. CT pulmonary angiogram showed axillary and mediastinal lymphadenopathy, moderate sized bilateral pleural effusions, and cardiomegaly. His abdomen/pelvis CT showed marked lymphadenopathy within the abdomen and pelvis and splenomegaly. 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 He also was started on hemodialysis. Left axillary lymph node biopsy on 07/31/2018 showed malignant lymphoma, favoring low-grade follicular lymphoma. The neoplastic cells were noted to be positive for BCL 6, CD10, and CD23. There was weak positivity for BCL 2. The cells were negative for cyclin D1, MUM1, and SOX 11. On 07/31/2018 he began chemotherapy with bendamustine/Rituxan. The bendamustine dosage was reduced by 50% for the renal function. His day 2 bendamustine was held due to an acute drop in his platelet count to 30,000. It subsequently did recover, but there was a delay of close to 3 months prior to starting his second cycle of chemotherapy. Dr. Suarez had seen him initially on 11/15/2018. His 3rd cycle of chemotherpy had been scheduled to be given the following week, and he was to have restaging CT scans prior to that treatment. His further evaluation was delayed pending his Medicare eligibility. He then had a restaging PET/CT on 01/08/2019. It showed extensive hypermetabolic lymphadenopathy for the level of the head and neck to the level of the pelvis. There was diffusely metabolic splenomegaly. As he appeared to have had very little response to the bendamustine/Rituxan regimen, It was opted to proceed with a course of R-CHOP chemotherapy. His baseline echocardiogram showed estimated left ventricular ejection fraction of 55%. There was grade I/IVdiastolic dysfunction. He began cycle 1 of R-CHOP on 02/23/2019. He was given first cycle prophylaxis with Neulasta. He tolerated it with acceptable toxicity, and he continued with cycle 2 on 03/16/2019 and with cycle 3 on 04/13/2019. During this time he required additional thoracentesis procedures on 03/09, 03/17, and 04/01/2019. A flow cytometry study on his pleural fluid did show a monotypic B-cell population consistent with involvement by malignant lymphoma. Restaging PET/CT on 05/07/2019 showed overall improvement but not complete resolution of the extensive adenopathy. Hypermetabolic splenomegaly appeared to have normalized. He then continued with cycle 4 of R-CHOP on 05/11/2019, with cycle 5 on 06/01/2019, and with cycle 6 on 06/22/2019. Restaging PET/CT on 07/16/2019 showed subcentimeter size lymph nodes in the head and neck bilaterally, FDG negative. Similar improvement was noted in mediastinal, left internal mammary, and bilateral axillary lymph nodes. Portal nodes demonstrated only minimal FDG uptake and scattered retroperitoneal nodes measuring up to 1 cm in size showed FDG activity no greater than that of mediastinal background. A right external iliac lymph node measuring 1.8 x 1.5 cm had mild FDG uptake with SUV 3.4. The left pleural effusion was noted be significantly decreased in volume. Left lower lobe round atelectasis was noted to be FDG negative. In the setting of a low-grade follicular lymphoma with very good partial response to chemotherapy, Dr. Suarez recommended that he continue with maintenance rituximab. He then returned on 08/18/2019 to begin cycle 1 of 12 planned cycles of treatment at 2-month intervals. He tolerated it well, and he continued with cycle 2 on 10/18/2019. At his follow-up visit on 12/13/2019 he had become aware of a new nodule on the right side of his neck. It was suspected that it was of thyroid origin. However, his neck CT on 12/15/2019 showed enlarged left submandibular lymph node measuring 11 mm, numerous but normal sized level 2 and level 3 cervical lymph nodes, and numerous and enlarged supraclavicular lymph nodes and retropectoral lymph nodes. The largest supraclavicular lymph node measured [address] scans of the chest, abdomen, and pelvis showed significant interval progression involving supraclavicular, thoracic inlet, internal mammary, and axillary lymphadenopathy. The largest left axillary lymph node measured 2.5 cm. Lymphadenopathy in the upper abdomen, abdiaziz hepatis, and periaortic regions was noted to be stable, but there was significant progression of pelvic and iliac chain lymphadenopathy as well as inguinal lymphadenopathy. A 6 mm noncalcified left upper lobe pulmonary nodule appeared stable. With those findings, he was referred to [facility] for a second opinion evaluation. He was seen there on 01/09/[address] Terell Solo. At his recommendation, Mr. Rivera had a repeat PET/CT on 01/14/2020. It showed multiple areas of abnormal uptake, consistent with recurrent lymphoma, but with the maximum SUV of 13.6 involving a right deep inguinal lymph node measuring 4.6 x 2.5 cm. Based on the degree of SUV activity, he then underwent CT directed core needle biopsy on 01/26/2020. Pathology was again consistent with grade 1-2 follicular lymphoma. In the setting of resistant follicular lymphoma, he was recommended to undergo trial of therapy with a P13 kinase inhibitor. He then began treatment with idelalisib 150 mg twice daily on 02/28/2020. He was seen for a follow-up visit on 03/13/2020 at day 14 of his treatment. He appeared to be tolerating it well. His blood counts were normal, and his liver function tests were also normal. He continued idelalisib 150 mg twice daily. As of 04/03/2020 the idelalisib was put on hold due to a dramatic increase in his liver enzymes with SGOT increased to 1532 U/L and SGPT 2716 U/L. The bilirubin was just slightly elevated at 1.1 mg/dL. As of 05/02/2020 the SGOT and SGPT were both back to normal. His other medical illnesses include hypothyroidism, degenerative arthritis, and gout. He has a history of smoking 1 pack of cigarettes daily for 40 years, but he has cut down. INTERIM HISTORY: After complete recovery from idelalisib hepatotoxicity, his treatment was transitioned to lenalidomide in combination with obinutuzumab. He began lenalidomide on 06/13/2020 at 20 mg daily. As of 06/20/2020 his treatment was put on hold due to thrombocytopenia, platelet count decreasing to 28,000, and skin rash. He did resume Revlimid at 10 mg daily on , He has mild rash on his arms, back and waist today. Mr. Rivera is here today for follow-up and cycle 2 day 1 Obinutuzumab. He will completed Revlimid 10 mg 21-day cycle on Wednesday August 05, 2020. He resumed his Revlimid on 08/13/2020. He denies any new concerns today. He states that he has a good appetite. His energy is fair. He denies nausea or vomiting. He denies any peripheral neuropathy. He denies diarrhea or constipation. He states his bladder is normal for him. He denies mouth sores, sore throat or difficulty swallowing. He remains very active at home. He states overall he feels good. His ECOG is 0. Past Medical History: Anemia Degenerative joint disease Gout Hypothyroidism Past Surgical History: Placement of AV fistula for dialysis Placement of left subclavian dialysis catheter Rotator cuff repair bilaterally Left axillary lymph node biopsy and placement of Port-A-Cath venous access device in 2019 Ct renal biopsy in 2018 Cervical spine fusion with vertebral cadaver bone in 2005 Allergies: No Known Allergies. Medications: Revlimid (10 mg) Capsule Oral Take as Directed Family History: Mr. Rivera's mother is alive. Mr. Rivera's father is . Mr. Rivera has 4 brothers: 4 alive. He has 1 sister who is alive. His mother is still living and in good health at age 81. Father with multiple myeloma at age 80. He also had prostate cancer. The patient's paternal grandfather had prostate cancer as well. Five siblings are in good health. Social History: Mr. Rviera is and he is unemployed. He is an occasional smoker who has smoked 0.5 packs/day for 41 years. He drinks occasionally. Drinks very rarely. Review Of Symptoms: Vital Signs: Performed on Aug 16, 2020 10:06 Height - 71.00 in Weight - 202.6 lbs (LOW) BSA - 2.12 sq.m BMI - 28.26 Temperature - 97.6 F (LOW) Pulse - 69 /min Respiration - 20 /min BP - 137/75 mm(hg) O2 Sat - 100 % Pain - 0,1 - No physically strenuous activity, but ambulatory and able to carry out light or sedentary work (e.g. office work, light house work). (ECOG) Physical Examination: Constitutional Alert, oriented, no acute distress. Skin pink, warm and dry. Head Normocephalic; atraumatic. Eyes Conjunctivae and sclerae are clear and without icterus. Pupils are reactive and equal. Neck No jugular venous distension. No palpable adenopathy. Hematologic/Lymphatic No tender or palpable lymph nodes in the cervical or supraclavicular areas. Respiratory Lungs are clear to auscultation without rhonchi or wheezing. Cardiovascular Regular rate and rhythm of heart without murmurs,clicks, gallops or rubs. Chest Chest is symmetric without chest wall deformities. Right chest wall venous access device is unremarkable. Abdomen Non-tender, non-distended, no masses, ascites. Back/Spine Non-tender to palpation. Extremities No visible deformities, no cyanosis, clubbing or edema. Musculoskeletal No tenderness or swelling, normal range of motion without obvious weakness. Integumentary see above Neurologic No sensory or motor deficits, normal cerebellar function, normal gait. Psychiatric Alert and oriented times three. Coherent speech. Verbalizes understanding of our discussions today. Laboratory:Test performed on Aug 16, 2020 10:10 LDH (Total) 170 U/L Sodium 138 mmol/L Potassium 4.0 mmol/L Chloride 105 mmol/L CO2 22 mmol/L Anion Gap 15.0 BUN 33 mg/dL Creatinine 1.7 mg/dL Cr Clearance (Est) 60.0700 mL/min eGFR 41.3 mL/min Glucose 107 mg/dL Osmolality - Calculated 294 mOsm/kg Calcium 9.1 mg/dL Protein, Total 6.3 g/dL Albumin 4.3 g/dL Globulin 2.0 g/dL Bilirubin, Total 0.6 mg/dL ALT (SGPT) 16 U/L AST (SGOT) 15 U/L Alkaline Phosphatase 130 IU/L WBC 6.5 10 3/uL RBC 4.20 10 6/uL HGB 14.0 g/dL HCT 39.9 % MCV 95.0 fL MCH 33.3 pg MCHC 35.1 g/dL RDW 13.8 % Platelet Count 111 10 3/cmm MPV 10.0 fL Neutrophils 3.94 10 3/uL Lymphocytes 1.1 10 3/uL Monocytes 0.8 10 3/uL Eosinophils 0.4 10 3/uL Basophils 0.2 10 3/uL Neutrophil % 61.2 % Lymphocyte % 16.4 % Monocyte % 13.0 % Eosinophil % 5.9 % Basophils % 2.6 % NRBC % 0 % Test performed on Aug 02, 2020 11:14 T3, Free 2.3 PG/ML T4, Free 1.26 ng/dL Test performed on Jul 23, 2020 08:37 Ferritin 531 ng/mL Iron 105 mcg/dL TSH 5.67 uIU/mL Iron Binding Capacity (TIBC) 201 mcg/dl % Iron Saturation 52.2 % UIBC 96 mcg/dL Impression: 1. Patient with grade 1 follicular lymphoma, stage at least IIIS, diagnosed by left axillary lymph node biopsy on 07/31/2018. 2. His initial treatment included 2 cycles of bendamustine/Rituxan. With the first cycle the bendamustine was administered at a 50% dosage due to renal function and he received day 1 treatment only due to acute thrombocytopenia. Cycle 2 was delayed to 10/21/2018, and the bendamustine dosage remained at 50%. 3. He had presented with acute renal failure due to membranoproliferative glomerulonephritis, confirmed by renal biopsy on 07/30/2018. He has been on hemodialysis. 4. He was anemic at presentation, and he subsequently did require PRBC transfusion. 5. He also had laboratory evidence of hypothyroidism. 6. He has degenerative joint disease related to previous injuries. 7. He has a prior history of gout. He completed 2 cycles of bendamustine/Rituxan, though with significant delay prior to starting cycle 2. His restaging PET/CT on 01/08/2019 still showed diffuse FDG avid lymphadenopathy from the head/neck to the pelvis and diffusely metabolic splenomegaly. On comparison to his pretreatment CT scans, he did not appear to be showing significant response to the bendamustine/Rituxan regimen. As such, Dr. Suarez opted to proceed with a course of R-CHOP chemotherapy. He began cycle 1 of R-CHOP on 02/23/2019. He was given first cycle prophylaxis with Neulasta. He tolerated it with acceptable toxicity, and he continued with cycle 2 on 03/16/2019 and with cycle 3 on 04/13/2019. During this time he required additional thoracentesis procedures, and a flow cytometry study on his pleural fluid did show a monotypic B-cell population consistent with involvement by malignant lymphoma. Restaging PET/CT on 05/07/2019 showed overall improvement but not complete resolution of the extensive adenopathy. Hypermetabolic splenomegaly appeared to have normalized. Overall, he appeared to have a very good response to the chemotherapy. He then continued treatment at 3-week intervals. He began his 6th cycle of R-CHOP on 06/22/2019. His restaging PET/CT on 07/16/2019 showed very significant response, though with possible residual involvement in a right external iliac lymph node and with evidence of some residual left pleural effusion. During that time he had significant improvement in his performance status, and he also was able to maintain adequate renal function after stopping dialysis. In the setting of low-grade lymphoma with very good partial response to chemotherapy, he was recommended to continue with maintenance rituximab. He began cycle 1 on 08/18/2019. He tolerated it well and continue with cycle 2 on 10/18/2019. However, at his follow-up visit on 12/13/2019 he had new adenopathy on the left side of the neck. Restaging CT scans showed disease progression in multiple areas, though not bulky. He was then seen for a second opinion evaluation at [facility] by Dr. Terell Solo. His restaging PET/CT also confirmed progression and multiple areas, but with a maximum SUV of 13.6 involving the right deep inguinal lymph node measuring 4.6 x 2.5 cm. Needle core biopsy of the lymph node again showed grade 1-2 follicular lymphoma. With that finding, he began treatment with idelalisib 150 mg twice daily on 02/28/2020. At his follow-up visit on 03/13/2020 he appeared to be tolerating it well. He had normal blood counts and normal LFTs. At his follow-up visit on 04/03/2020 his liver enzymes had become markedly elevated with SGOT 1532/40 U/L and SGPT 2716/41 U/L. Bilirubin was just slightly elevated at 1.1 mg/dL with alkaline phosphatase in normal range at 125 IU/L. This was presumed to be treatment related. The idelalisib was discontinued and by 05/03/2020 the SGOT and SGPT levels were back to normal. His treatment was then transitioned to lenalidomide in combination with obinutuzumab. He began lenalidomide 20 mg daily on 06/13/2020. At his 1 week follow-up his treatment was put on hold due to skin rash and thrombocytopenia, platelet count dropping to 28,000. He does appear to be showing recovery since stopping the treatment. He was able to resume the lenalidomide at 10 mg daily on July 16, 2020. He began this regimen on 07/16/2020 and had cycle 1 day 8 and 9 obinutuzumab starting on 07/23/2020. He is tolerating it well thus far. He completed his first cycle on August 09, 2020. Plan: 1. Continue Lenalidomide 10 mg daily (21/28 days of each cycle. He will start it tomorrow on day 2 of his cycle per regimen protocol.. 2. We will proceed with obinutuzumab cycle 2day 1. 3. Today's labs were reviewed with Mr. Rivera and discussed in detail with Mr. Rivera. A copy was given to him. WBC 6.5, hemoglobin 14, platelets 111,000, ANC is 3940. Potassium 4.0 creatinine greatly improved at 1.7 LFTs are normal alk phos is 130 LDH is 170. 4. Mr. Rivera's TSH reported at 5.67 on July 23, 2020. This is slightly elevated with the normal range being 0.27-4.20. He states he is not taking any thyroid medication currently. I did request a free T4 3 and free T4 both of which were normal. I have opted not to put him back on any thyroid medication at this point but will continue to monitor it. He is having some fatigue but it is not impacting his quality of life or performance status at this time. 5. We will plan to see him back in 1 week for cycle 1 day 8 obinutuzumab. He will continue the lenalidomide 21 out of 28 days. 6. Mr. Rivera has been asked to have a CBC CMP prior to his treatment in 1 week. 7. We will plan for follow-up in 4 weeks with CBC CMP repeat LDH for lymphoma monitoring. He will be due for cycle 3 obinutuzumab and lenalidomide. Obinutuzumab will be on day 1 lenalidomide will resume at 10 mg daily on day 2 through day 22. 8. Mr. Rivera was instructed to contact us in the interim should questions or problems arise especially if his rash worsens. He does have steroids on hand and knows how to take them if the rash worsens. He is also advised to present to the nearest emergency room if he has any trouble swallowing, sudden shortness of breath or other significant changes in his health status. Signed By: Gaurav Lim-, AOCNP Charlie Suarez MD <<Signature on File>>
[2020-08-29 13:31] LABS: Basophils # 0.1 10^3/uL (0.0-0.1); Basophils % 0.6 %; Eosinophils # 0.8 10^3/uL (0.0-0.8); Eosinophils % 8.8 %; Hemoglobin 14.2 g/dL (11.7-16.6); Lymphocytes # 1.1 10^3/uL (0.8-4.8); Lymphocytes % 12.1 %; Mean Corpuscular HGB Conc 35.5 g/dL (30.0-36.0); Mean Corpuscular Hemoglobin 33.6 pg (28.0-34.0); Mean Corpuscular Volume 94.8 fL (80-94); Monocytes # 1.3 10^3/uL (0.2-0.9); Monocytes % 14.5 %; Neutrophils # 5.58 10^3/uL (1.8-7.7); Neutrophils % 62.8 %; Nucleated Red Blood Cells % 0 %; Platelet Count 101 10^3/cmm (130-400); Red Blood Count 4.22 10^6/uL (4.1-5.3); Red Cell Distribution Width 14.6 % (12.1-15.1); White Blood Count 8.9 10^3/uL (4.0-10.0)
[2020-08-29 13:58] LABS: Alanine Aminotransferase 20 U/L (0-41); Albumin Level 4.6 g/dL (3.5-5.2); Alkaline Phosphatase 121 IU/L (40-130); Anion Gap 15.6 (5-19); Aspartate Amino Transferase 14 U/L (0-40); Blood Urea Nitrogen 37 mg/dL (8-23); Calcium 9.3 mg/dL (8.5-10.5); Carbon Dioxide 22 mmol/L (22-29); Chloride 104 mmol/L (98-107); Globulin 1.9 g/dL (1.3-4.6); Glomerular Filtration Rate 36.3 mL/min (90-130); Glucose 83 mg/dL (65-115); Osmolality Calculated 294 mOsm/kg (285-295); Potassium 3.6 mmol/L (3.5-5.1); Sodium 138 mmol/L (136-145); Total Protein 6.5 g/dL (6.6-8.7)
== END 2020-09-03 23:59 | disposition home or self-care (01) ==
LOC: ONCMED 05:45
PROVIDERS: Visit Provider Nurse Practitioner
DX: Z51.12 Encounter for antineoplastic immunotherapy (principal); C82.18 Follicular lymphoma grade II, lymph nodes of multiple sites; R53.83 Other fatigue; N05.5 Unspecified nephritic syndrome with diffuse mesangiocapillary glomerulonephritis; Z51.81 Encounter for therapeutic drug level monitoring; Z79.899 Other long term (current) drug therapy
CPT/HCPCS: 36591; 80053; 83615; 85025; 96367; 96413; 96415; 99214; J1100; J1200; J7040; J7050; J9301

== ENCOUNTER 2020-10-03 05:37 | Outpatient (RCR) | payer MEDICARE, SELFPAY ==
[2020-09-06 13:42] LABS: Basophils # 0.1 10^3/uL (0.0-0.1); Basophils % 1.2 %; Eosinophils # 0.7 10^3/uL (0.0-0.8); Eosinophils % 18.4 %; Hematocrit 36.5 % (42.0-52.0); Hemoglobin 13.3 g/dL (11.7-16.6); Lymphocytes # 0.8 10^3/uL (0.8-4.8); Lymphocytes % 19.4 %; Mean Corpuscular HGB Conc 36.4 g/dL (30.0-36.0); Mean Corpuscular Volume 93.4 fL (80-94); Mean Platelet Volume 10.4 fL (7.4-10.4); Monocytes # 0.8 10^3/uL (0.2-0.9); Monocytes % 18.7 %; Neutrophils # 1.66 10^3/uL (1.8-7.7); Neutrophils % 41.3 %; Nucleated Red Blood Cells % 0 %; Platelet Count 92 10^3/cmm (130-400); Red Blood Count 3.91 10^6/uL (4.1-5.3); Red Cell Distribution Width 15.1 % (12.1-15.1)
[2020-09-06 14:10] LABS: Alanine Aminotransferase 22 U/L (0-41); Albumin Level 4.2 g/dL (3.5-5.2); Alkaline Phosphatase 105 IU/L (40-130); Anion Gap 14.8 (5-19); Aspartate Amino Transferase 14 U/L (0-40); Blood Urea Nitrogen 36 mg/dL (8-23); Calcium 8.7 mg/dL (8.5-10.5); Carbon Dioxide 24 mmol/L (22-29); Chloride 101 mmol/L (98-107); Globulin 1.8 g/dL (1.3-4.6); Glomerular Filtration Rate 38.7 mL/min (90-130); Glucose 88 mg/dL (65-115); Osmolality Calculated 290 mOsm/kg (285-295); Potassium 3.8 mmol/L (3.5-5.1); Sodium 136 mmol/L (136-145); Total Bilirubin 1.2 mg/dL (0.15-1.2)
[2020-09-13 09:11] LABS: Basophils # 0.1 10^3/uL (0.0-0.1); Basophils % 1.9 %; Eosinophils # 0.2 10^3/uL (0.0-0.8); Eosinophils % 7.6 %; Hematocrit 37.4 % (42.0-52.0); Hemoglobin 13.3 g/dL (11.7-16.6); Lymphocytes # 0.8 10^3/uL (0.8-4.8); Lymphocytes % 26.3 %; Mean Corpuscular HGB Conc 35.6 g/dL (30.0-36.0); Mean Corpuscular Hemoglobin 34.3 pg (28.0-34.0); Mean Corpuscular Volume 96.4 fL (80-94); Mean Platelet Volume 9.6 fL (7.4-10.4); Monocytes # 0.7 10^3/uL (0.2-0.9); Monocytes % 22.2 %; Neutrophils # 1.29 10^3/uL (1.8-7.7); Neutrophils % 40.7 %; Nucleated Red Blood Cells % 0 %; Platelet Count 104 10^3/cmm (130-400); Red Blood Count 3.88 10^6/uL (4.1-5.3); Red Cell Distribution Width 15.8 % (12.1-15.1); White Blood Count 3.2 10^3/uL (4.0-10.0)
[2020-09-13 09:33] LABS: Alanine Aminotransferase 15 U/L (0-41); Albumin Level 4.2 g/dL (3.5-5.2); Alkaline Phosphatase 109 IU/L (40-130); Anion Gap 14.1 (5-19); Aspartate Amino Transferase 14 U/L (0-40); Blood Urea Nitrogen 34 mg/dL (8-23); Calcium 9.1 mg/dL (8.5-10.5); Carbon Dioxide 22 mmol/L (22-29); Chloride 104 mmol/L (98-107); Globulin 2.2 g/dL (1.3-4.6); Glomerular Filtration Rate 34.3 mL/min (90-130); Glucose 98 mg/dL (65-115); Lactate Dehydrogenase 183 U/L (135-225); Osmolality Calculated 290 mOsm/kg (285-295); Potassium 4.1 mmol/L (3.5-5.1); Sodium 136 mmol/L (136-145); Total Bilirubin 1.2 mg/dL (0.15-1.2); Total Protein 6.4 g/dL (6.6-8.7)
[2020-09-13] MEDS: diphenhydrAMINE 50 mg/mL SDV 1mL IV (10:35)
[2020-09-13] MEDS: dexamethasone 20 MG in sodium chloride 0.9% 50 ML 187 MG IV (10:39)
[2020-09-13] MEDS: acetaminophen 325 mg Tablet 650 MG PO (10:40)
[2020-09-13] MEDS: sodium chloride 0.9% 500 ML 999 ML IV (11:15)
--- NOTE | 2020-09-13 12:42 | ONC FU_ITS ---
Dr. Suarez Patient Follow-Up Note Patient: Jl Rivera Unit #: [id number]: 1960 Dicatated By: Charlie Suarez M.D.Date of Visit:Sep 13, 2020 Onc Med Follow-up/Prog Note Chief Complaint: Lymphoma. 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 He was admitted to [facility] on 07/29/2018 with acute renal failure. He had presented with encephalopathy and severe edema. In addition to the acute renal failure, he had moderately severe anemia and mild thrombocytopenia with his baseline platelet count reportedly in the range of 100,000. CT pulmonary angiogram showed axillary and mediastinal lymphadenopathy, moderate sized bilateral pleural effusions, and cardiomegaly. His abdomen/pelvis CT showed marked lymphadenopathy within the abdomen and pelvis and splenomegaly. 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 He also was started on hemodialysis. Left axillary lymph node biopsy on 07/31/2018 showed malignant lymphoma, favoring low-grade follicular lymphoma. The neoplastic cells were noted to be positive for BCL 6, CD10, and CD23. There was weak positivity for BCL 2. The cells were negative for cyclin D1, MUM1, and SOX 11. On 07/31/2018 he began chemotherapy with bendamustine/Rituxan. The bendamustine dosage was reduced by 50% for the renal function. His day 2 bendamustine was held due to an acute drop in his platelet count to 30,000. It subsequently did recover, but there was a delay of close to 3 months prior to starting his second cycle of chemotherapy. I had seen him initially on 11/15/2018. His 3rd cycle of chemotherpy had been scheduled to be given the following week, and he was to have restaging CT scans prior to that treatment. His further evaluation was delayed pending his Medicare eligibility. He then had a restaging PET/CT on 01/08/2019. It showed extensive hypermetabolic lymphadenopathy for the level of the head and neck to the level of the pelvis. There was diffusely metabolic splenomegaly. As he appeared to have had very little response to the bendamustine/Rituxan regimen, I opted to proceed with a course of R-CHOP chemotherapy. His baseline echocardiogram showed estimated left ventricular ejection fraction of 55%. There was grade I/IVdiastolic dysfunction. He began cycle 1 of R-CHOP on 02/23/2019. He was given first cycle prophylaxis with Neulasta. He tolerated it with acceptable toxicity, and he continued with cycle 2 on 03/16/2019 and with cycle 3 on 04/13/2019. During this time he required additional thoracentesis procedures on 03/09, 03/17, and 04/01/2019. A flow cytometry study on his pleural fluid did show a monotypic B-cell population consistent with involvement by malignant lymphoma. Restaging PET/CT on 05/07/2019 showed overall improvement but not complete resolution of the extensive adenopathy. Hypermetabolic splenomegaly appeared to have normalized. He then continued with cycle 4 of R-CHOP on 05/11/2019, with cycle 5 on 06/01/2019, and with cycle 6 on 06/22/2019. Restaging PET/CT on 07/16/2019 showed subcentimeter size lymph nodes in the head and neck bilaterally, FDG negative. Similar improvement was noted in mediastinal, left internal mammary, and bilateral axillary lymph nodes. Portal nodes demonstrated only minimal FDG uptake and scattered retroperitoneal nodes measuring up to 1 cm in size showed FDG activity no greater than that of mediastinal background. A right external iliac lymph node measuring 1.8 x 1.5 cm had mild FDG uptake with SUV 3.4. The left pleural effusion was noted be significantly decreased in volume. Left lower lobe round atelectasis was noted to be FDG negative. In the setting of a low-grade follicular lymphoma with very good partial response to chemotherapy, I recommended that he continue with maintenance rituximab. He then returned on 08/18/2019 to begin cycle 1 of 12 planned cycles of treatment at 2-month intervals. He tolerated it well, and he continued with cycle 2 on 10/18/2019. At his follow-up visit on 12/13/2019 he had become aware of a new nodule on the right side of his neck. I had suspected that it was of thyroid origin. However, his neck CT on 12/15/2019 showed enlarged left submandibular lymph node measuring 11 mm, numerous but normal sized level 2 and level 3 cervical lymph nodes, and numerous and enlarged supraclavicular lymph nodes and retropectoral lymph nodes. The largest supraclavicular lymph node measured [address] scans of the chest, abdomen, and pelvis showed significant interval progression involving supraclavicular, thoracic inlet, internal mammary, and axillary lymphadenopathy. The largest left axillary lymph node measured 2.5 cm. Lymphadenopathy in the upper abdomen, abdiaziz hepatis, and periaortic regions was noted to be stable, but there was significant progression of pelvic and iliac chain lymphadenopathy as well as inguinal lymphadenopathy. A 6 mm noncalcified left upper lobe pulmonary nodule appeared stable. With those findings, he was referred to [facility] for a second opinion evaluation. He was seen there on 01/09/[address] Terell Solo. At his recommendation, Mr. Rivera had a repeat PET/CT on 01/14/2020. It showed multiple areas of abnormal uptake, consistent with recurrent lymphoma, but with the maximum SUV of 13.6 involving a right deep inguinal lymph node measuring 4.6 x 2.5 cm. Based on the degree of SUV activity, he then underwent CT directed core needle biopsy on 01/26/2020. Pathology was again consistent with grade 1-2 follicular lymphoma. In the setting of resistant follicular lymphoma, he was recommended to undergo trial of therapy with a P13 kinase inhibitor. He then began treatment with idelalisib 150 mg twice daily on 02/28/2020. He was seen for a follow-up visit on 03/13/2020 at day 14 of his treatment. He appeared to be tolerating it well. His blood counts were normal, and his liver function tests were also normal. He continued idelalisib 150 mg twice daily. As of 04/03/2020 the idelalisib was put on hold due to a dramatic increase in his liver enzymes with SGOT increased to 1532 U/L and SGPT 2716 U/L. The bilirubin was just slightly elevated at 1.1 mg/dL. As of 05/02/2020 the SGOT and SGPT were both back to normal. His other medical illnesses include hypothyroidism, degenerative arthritis, and gout. He has a history of smoking 1 pack of cigarettes daily for 40 years, but he has cut down. INTERIM HISTORY: After complete recovery from idelalisib hepatotoxicity, his treatment was transitioned to lenalidomide in combination with obinutuzumab. He began lenalidomide on 06/13/2020 at 20 mg daily. As of 06/20/2020 his treatment was put on hold due to thrombocytopenia, platelet count decreasing to 28,000, and skin rash. He recovered uneventfully and he then restarted the lenalidomide with the dosage reduced to 10 mg daily on a /-day schedule. He continued to have mild to moderately severe thrombocytopenia, but he otherwise tolerated it well at the reduced dosage. He then began cycle 1 of obinutuzumab on 07/23/2020. It was administered weekly for the 1st cycle. He tolerated well and continued with cycle 2 on 08/16/2020. He is seen for a follow-up visit. He has been feeling good generally. He says his energy is not too bad. He is able to do light work. ECOG score is 1. He has good appetite. He has no fever or night sweats. He says his nose runs a little bit. He has had no mouth sores. He has no shortness of breath, cough, or chest pain. He has no GI/ complaints other than occasional heartburn. He has pain in his right shoulder associated with a rotator cuff injury. He sometimes has back pain. He has just occasional headache. He has numbness in his right index finger, particularly with cold exposure. He has no other focal neurologic symptoms. Medications: Revlimid (10 mg) Capsule Oral Take as Directed Allergies: No Known Allergies. Review of Systems: Constitutional - He has more energy and is feeling better. He is able to do light work. His appetite is good. His weight is down 11 pounds from last visit. No fevers. He has occasional sweating. ECOG score is 1, ENMT - His nose runs a little bit. No mouth sores. No sore throat or difficulty swallowing, Hematologic/Lymphatic - No abnormal bruising or bleeding, Respiratory - No shortness of breath. No cough. No pleuritic pain or hemoptysis, Cardiovascular - No angina pain. No palpitations, Gastrointestinal - No nausea or vomiting. He has some heartburn/acid reflux pain in the upper chest. No diarrhea or constipation. No blood in the stool or black stools, Genitourinary (M) - No dysuria or hematuria. No urinary frequency. No urgency or incontinence, Musculoskeletal - Has some pain in the right shoulder and he sometimes has back pain, Integumentary - No skin rash, Neurologic - He occasionally has headache. No dizziness. He has numbness in his right index finger, mainly with cold exposure. No other focal neurologic symptoms, Psychiatric - No anxiety or depression. He has been sleeping better. Vital Signs: Performed on Sep 13, 2020 09:42 Height - 71.00 in Weight - 206.6 lbs (HIGH) BSA - 2.14 sq.m BMI - 28.82 Temperature - 97.9 F (LOW) Pulse - 87 /min Respiration - 20 /min BP - 147/87 mm(hg) (HIGH) O2 Sat - 100 % Pain - 0 Physical Examination: Constitutional - He looks pretty good generally, Eyes - Sclerae nonicteric. Conjunctivae clear, ENMT - No lesions noted in the oral cavity, Hematologic/Lymphatic - There is a soft node palpable in the left axilla. I do not feel any cervical or clavicular adenopathy, Respiratory - Lungs sound clear, Cardiovascular - Heart rhythm is regular. There is a II/ systolic murmur. There is no gallop or rub noted, Abdomen - Soft. Liver is not enlarged. Spleen is not palpable. There is no abdominal mass or ascites noted. There is no inguinal adenopathy noted, Extremities - No edema, Neurologic - No focal neurologic deficits noted. Lab/Imaging: Test performed on Sep 13, 2020 08:56 LDH (Total) 183 U/L Sodium 136 mmol/L Potassium 4.1 mmol/L Chloride 104 mmol/L CO2 22 mmol/L Anion Gap 14.1 BUN 34 mg/dL Creatinine 2.0 mg/dL Cr Clearance (Est) 52.06 mL/min eGFR 34.3 mL/min Glucose 98 mg/dL Osmolality - Calculated 290 mOsm/kg Calcium 9.1 mg/dL Protein, Total 6.4 g/dL Albumin 4.2 g/dL Globulin 2.2 g/dL Bilirubin, Total 1.2 mg/dL ALT (SGPT) 15 U/L AST (SGOT) 14 U/L Alkaline Phosphatase 109 IU/L WBC 3.2 10 3/uL RBC 3.88 10 6/uL HGB 13.3 g/dL HCT 37.4 % MCV 96.4 fL MCH 34.3 pg MCHC 35.6 g/dL RDW 15.8 % Platelet Count 104 10 3/cmm MPV 9.6 fL Neutrophils 1.29 10 3/uL Lymphocytes 0.8 10 3/uL Monocytes 0.7 10 3/uL Eosinophils 0.2 10 3/uL Basophils 0.1 10 3/uL Neutrophil % 40.7 % Lymphocyte % 26.3 % Monocyte % 22.2 % Eosinophil % 7.6 % Basophils % 1.9 % NRBC % 0 % Impression: 1. Patient with grade 1 follicular lymphoma, stage at least IIIS, diagnosed by left axillary lymph node biopsy on 07/31/2018. 2. His initial treatment included 2 cycles of bendamustine/Rituxan. With the first cycle the bendamustine was administered at a 50% dosage due to renal function and he received day 1 treatment only due to acute thrombocytopenia. Cycle 2 was delayed to 10/21/2018, and the bendamustine dosage remained at 50%. 3. He had presented with acute renal failure due to membranoproliferative glomerulonephritis, confirmed by renal biopsy on 07/30/2018. He has been on hemodialysis. 4. He was anemic at presentation, and he subsequently did require PRBC transfusion. 5. He also had laboratory evidence of hypothyroidism. 6. He has degenerative joint disease related to previous injuries. 7. He has a prior history of gout. He completed 2 cycles of bendamustine/Rituxan, though with significant delay prior to starting cycle 2. His restaging PET/CT on 01/08/2019 still showed diffuse FDG avid lymphadenopathy from the head/neck to the pelvis and diffusely metabolic splenomegaly. On comparison to his pretreatment CT scans, he did not appear to be showing significant response to the bendamustine/Rituxan regimen. As such, I opted to proceed with a course of R-CHOP chemotherapy. He began cycle 1 of R-CHOP on 02/23/2019. He was given first cycle prophylaxis with Neulasta. He tolerated it with acceptable toxicity, and he continued with cycle 2 on 03/16/2019 and with cycle 3 on 04/13/2019. During this time he required additional thoracentesis procedures, and a flow cytometry study on his pleural fluid did show a monotypic B-cell population consistent with involvement by malignant lymphoma. Restaging PET/CT on 05/07/2019 showed overall improvement but not complete resolution of the extensive adenopathy. Hypermetabolic splenomegaly appeared to have normalized. Overall, he appeared to have a very good response to the chemotherapy. He then continued treatment at 3-week intervals. He began his 6th cycle of R-CHOP on 06/22/2019. His restaging PET/CT on 07/16/2019 showed very significant response, though with possible residual involvement in a right external iliac lymph node and with evidence of some residual left pleural effusion. During that time he had significant improvement in his performance status, and he also was able to maintain adequate renal function after stopping dialysis. In the setting of low-grade lymphoma with very good partial response to chemotherapy, he was recommended to continue with maintenance rituximab. He began cycle 1 on 08/18/2019. He tolerated it well and continue with cycle 2 on 10/18/2019. However, at his follow-up visit on 12/13/2019 he had new adenopathy on the left side of the neck. Restaging CT scans showed disease progression in multiple areas, though not bulky. He was then seen for a second opinion evaluation at [facility] by Dr. Terell Solo. His restaging PET/CT also confirmed progression and multiple areas, but with a maximum SUV of 13.6 involving the right deep inguinal lymph node measuring 4.6 x 2.5 cm. Needle core biopsy of the lymph node again showed grade 1-2 follicular lymphoma. With that finding, he began treatment with idelalisib 150 mg twice daily on 02/28/2020. At his follow-up visit on 03/13/2020 he appeared to be tolerating it well. He had normal blood counts and normal LFTs. At his follow-up visit on 04/03/2020 his liver enzymes had become markedly elevated with SGOT 1532/40 U/L and SGPT 2716/41 U/L. Bilirubin was just slightly elevated at 1.1 mg/dL with alkaline phosphatase in normal range at 125 IU/L. This was presumed to be treatment related. The idelalisib was discontinued and by 05/03/2020 the SGOT and SGPT levels were back to normal. His treatment was then transitioned to lenalidomide in combination with obinutuzumab. He began lenalidomide 20 mg daily on 06/13/2020. At his 1 week follow-up his treatment was put on hold due to skin rash and thrombocytopenia, platelet count dropping to 28,000. He recovered uneventfully and he then restarted the lenalidomide with the dosage reduced to 10 mg daily on a 21/28-day schedule. He tolerated it well and he then began obinutuzumab on 07/23/2020, administered weekly with the 1st cycle. He tolerated it well and he continued with cycle 2 on 07/23/2020. At this point he continues to have mild thrombocytopenia and neutropenia, but he is tolerating the treatment with acceptable toxicity, and he does appear to be showing evidence of response by clinical evaluation. Plan: He will continue with cycle 3 of obinutuzumab at 1000 mg by IV infusion and he will continue lenalidomide 10 mg daily on a 21/28-day schedule. He is reminded to take aspirin prophylaxis with the lenalidomide. I will continue to monitor his blood counts weekly. He will be scheduled for a follow-up visit in 4 weeks. Signed By: Charlie Suarez M.D. <<Signature on File>>
[2020-09-19 15:24] LABS: Basophils # 0.1 10^3/uL (0.0-0.1); Basophils % 2.7 %; Eosinophils # 0.2 10^3/uL (0.0-0.8); Eosinophils % 8.2 %; Hematocrit 35.2 % (42.0-52.0); Hemoglobin 12.7 g/dL (11.7-16.6); Lymphocytes # 0.6 10^3/uL (0.8-4.8); Lymphocytes % 24.2 %; Mean Corpuscular HGB Conc 36.1 g/dL (30.0-36.0); Mean Corpuscular Hemoglobin 34.4 pg (28.0-34.0); Mean Corpuscular Volume 95.4 fL (80-94); Mean Platelet Volume 11.1 fL (7.4-10.4); Monocytes # 0.6 10^3/uL (0.2-0.9); Monocytes % 21.5 %; Neutrophils % 39.1 %; Nucleated Red Blood Cells % 0 %; Platelet Count 73 10^3/cmm (130-400); Red Blood Count 3.69 10^6/uL (4.1-5.3); White Blood Count 2.6 10^3/uL (4.0-10.0)
[2020-09-25 10:21] LABS: Basophils # 0.1 10^3/uL (0.0-0.1); Eosinophils # 0.3 10^3/uL (0.0-0.8); Eosinophils % 8.2 %; Hematocrit 35.5 % (42.0-52.0); Hemoglobin 12.5 g/dL (11.7-16.6); Lymphocytes # 0.7 10^3/uL (0.8-4.8); Lymphocytes % 20.7 %; Mean Corpuscular HGB Conc 35.2 g/dL (30.0-36.0); Mean Corpuscular Hemoglobin 33.9 pg (28.0-34.0); Mean Corpuscular Volume 96.2 fL (80-94); Monocytes # 0.6 10^3/uL (0.2-0.9); Neutrophils # 1.76 10^3/uL (1.8-7.7); Neutrophils % 50.1 %; Nucleated Red Blood Cells % 0 %; Platelet Count 95 10^3/cmm (130-400); Red Blood Count 3.69 10^6/uL (4.1-5.3); Red Cell Distribution Width 15.9 % (12.1-15.1); White Blood Count 3.5 10^3/uL (4.0-10.0)
[2020-10-02 10:44] LABS: Basophils # 0.1 10^3/uL (0.0-0.1); Basophils % 1.6 %; Eosinophils # 0.5 10^3/uL (0.0-0.8); Eosinophils % 12.2 %; Hematocrit 36.8 % (42.0-52.0); Hemoglobin 13.1 g/dL (11.7-16.6); Lymphocytes # 0.7 10^3/uL (0.8-4.8); Lymphocytes % 17.6 %; Mean Corpuscular HGB Conc 35.6 g/dL (30.0-36.0); Mean Corpuscular Hemoglobin 34.6 pg (28.0-34.0); Mean Corpuscular Volume 97.1 fL (80-94); Mean Platelet Volume 10.8 fL (7.4-10.4); Monocytes # 0.6 10^3/uL (0.2-0.9); Monocytes % 15.4 %; Neutrophils # 1.91 10^3/uL (1.8-7.7); Neutrophils % 50.8 %; Nucleated Red Blood Cells % 0 %; Platelet Count 94 10^3/cmm (130-400); Red Blood Count 3.79 10^6/uL (4.1-5.3); Red Cell Distribution Width 15.9 % (12.1-15.1); White Blood Count 3.8 10^3/uL (4.0-10.0)
== END 2020-10-04 23:59 | disposition home or self-care (01) ==
LOC: ONCMED 05:37
PROVIDERS: Nurse Practitioner; Visit Provider Internal Medicine Medical Oncology
DX: Z51.12 Encounter for antineoplastic immunotherapy (principal); C82.08 Follicular lymphoma grade I, lymph nodes of multiple sites; D70.1 Agranulocytosis secondary to cancer chemotherapy; D69.59 Other secondary thrombocytopenia; T45.1X5A Adverse effect of antineoplastic and immunosuppressive drugs, initial encounter; N05.5 Unspecified nephritic syndrome with diffuse mesangiocapillary glomerulonephritis; Z51.81 Encounter for therapeutic drug level monitoring; Z79.899 Other long term (current) drug therapy; Z79.82 Long term (current) use of aspirin; Z99.2 Dependence on renal dialysis
CPT/HCPCS: 36415; 36591; 80053; 83615; 85025; 96367; 96375; 96413; 96415; 99214; J1100; J1200; J7040; J9301

== ENCOUNTER 2020-11-01 05:36 | Outpatient (RCR) | payer MEDICARE, SELFPAY ==
[2020-10-11 08:37] LABS: Basophils # 0.1 10^3/uL (0.0-0.1); Basophils % 2.2 %; Eosinophils # 0.3 10^3/uL (0.0-0.8); Eosinophils % 10.4 %; Hematocrit 35.5 % (42.0-52.0); Hemoglobin 12.7 g/dL (11.7-16.6); Lymphocytes # 0.8 10^3/uL (0.8-4.8); Lymphocytes % 29.3 %; Mean Corpuscular HGB Conc 35.8 g/dL (30.0-36.0); Mean Corpuscular Volume 97.8 fL (80-94); Mean Platelet Volume 10.1 fL (7.4-10.4); Monocytes # 0.6 10^3/uL (0.2-0.9); Monocytes % 20.7 %; Nucleated Red Blood Cells % 0 %; Platelet Count 118 10^3/cmm (130-400); Red Blood Count 3.63 10^6/uL (4.1-5.3); Red Cell Distribution Width 15.5 % (12.1-15.1); White Blood Count 2.7 10^3/uL (4.0-10.0)
[2020-10-11 09:12] LABS: Alanine Aminotransferase 22 U/L (0-41); Albumin Level 4.2 g/dL (3.5-5.2); Alkaline Phosphatase 116 IU/L (40-130); Anion Gap 14.3 (5-19); Aspartate Amino Transferase 19 U/L (0-40); Blood Urea Nitrogen 30 mg/dL (8-23); Calcium 9.3 mg/dL (8.5-10.5); Carbon Dioxide 22 mmol/L (22-29); Chloride 105 mmol/L (98-107); Glomerular Filtration Rate 29.2 mL/min (90-130); Glucose 97 mg/dL (65-115); Lactate Dehydrogenase 205 U/L (135-225); Osmolality Calculated 290 mOsm/kg (285-295); Potassium 4.3 mmol/L (3.5-5.1); Sodium 137 mmol/L (136-145); Total Bilirubin 1.1 mg/dL (0.15-1.2); Total Protein 6.2 g/dL (6.6-8.7)
[2020-10-11 10:12] LABS: Neutrophils # 0.89 10^3/uL (1.8-7.7); Slide Review Slide Review Perform
--- NOTE | 2020-10-15 20:30 | ONC FU_ITS ---
[facility] Patient Note Patient: Jl Rivera Unit #: [id number]: [id number] Dictated By: Gaurav LimDate of Visit: Oct 11, 2020 Onc MED Follow-Up/Prog Note Chief Complaint: Lymphoma. 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 He was admitted to [facility] on 07/29/2018 with acute renal failure. He had presented with encephalopathy and severe edema. In addition to the acute renal failure, he had moderately severe anemia and mild thrombocytopenia with his baseline platelet count reportedly in the range of 100,000. CT pulmonary angiogram showed axillary and mediastinal lymphadenopathy, moderate sized bilateral pleural effusions, and cardiomegaly. His abdomen/pelvis CT showed marked lymphadenopathy within the abdomen and pelvis and splenomegaly. 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 He also was started on hemodialysis. Left axillary lymph node biopsy on 07/31/2018 showed malignant lymphoma, favoring low-grade follicular lymphoma. The neoplastic cells were noted to be positive for BCL 6, CD10, and CD23. There was weak positivity for BCL 2. The cells were negative for cyclin D1, MUM1, and SOX 11. On 07/31/2018 he began chemotherapy with bendamustine/Rituxan. The bendamustine dosage was reduced by 50% for the renal function. His day 2 bendamustine was held due to an acute drop in his platelet count to 30,000. It subsequently did recover, but there was a delay of close to 3 months prior to starting his second cycle of chemotherapy. Dr Suarez had seen him initially on 11/15/2018. His 3rd cycle of chemotherpy had been scheduled to be given the following week, and he was to have restaging CT scans prior to that treatment. His further evaluation was delayed pending his Medicare eligibility. He then had a restaging PET/CT on 01/08/2019. It showed extensive hypermetabolic lymphadenopathy for the level of the head and neck to the level of the pelvis. There was diffusely metabolic splenomegaly. As he appeared to have had very little response to the bendamustine/Rituxan regimen, Dr Suarez opted to proceed with a course of R-CHOP chemotherapy. His baseline echocardiogram showed estimated left ventricular ejection fraction of 55%. There was grade I/IVdiastolic dysfunction. He began cycle 1 of R-CHOP on 02/23/2019. He was given first cycle prophylaxis with Neulasta. He tolerated it with acceptable toxicity, and he continued with cycle 2 on 03/16/2019 and with cycle 3 on 04/13/2019. During this time he required additional thoracentesis procedures on 03/09, 03/17, and 04/01/2019. A flow cytometry study on his pleural fluid did show a monotypic B-cell population consistent with involvement by malignant lymphoma. Restaging PET/CT on 05/07/2019 showed overall improvement but not complete resolution of the extensive adenopathy. Hypermetabolic splenomegaly appeared to have normalized. He then continued with cycle 4 of R-CHOP on 05/11/2019, with cycle 5 on 06/01/2019, and with cycle 6 on 06/22/2019. Restaging PET/CT on 07/16/2019 showed subcentimeter size lymph nodes in the head and neck bilaterally, FDG negative. Similar improvement was noted in mediastinal, left internal mammary, and bilateral axillary lymph nodes. Portal nodes demonstrated only minimal FDG uptake and scattered retroperitoneal nodes measuring up to 1 cm in size showed FDG activity no greater than that of mediastinal background. A right external iliac lymph node measuring 1.8 x 1.5 cm had mild FDG uptake with SUV 3.4. The left pleural effusion was noted be significantly decreased in volume. Left lower lobe round atelectasis was noted to be FDG negative. In the setting of a low-grade follicular lymphoma with very good partial response to chemotherapy, Dr Suarez recommended that he continue with maintenance rituximab. He then returned on 08/18/2019 to begin cycle 1 of 12 planned cycles of treatment at 2-month intervals. He tolerated it well, and he continued with cycle 2 on 10/18/2019. At his follow-up visit on 12/13/2019 he had become aware of a new nodule on the right side of his neck. It was suspected that it was of thyroid origin. However, his neck CT on 12/15/2019 showed enlarged left submandibular lymph node measuring 11 mm, numerous but normal sized level 2 and level 3 cervical lymph nodes, and numerous and enlarged supraclavicular lymph nodes and retropectoral lymph nodes. The largest supraclavicular lymph node measured [address] scans of the chest, abdomen, and pelvis showed significant interval progression involving supraclavicular, thoracic inlet, internal mammary, and axillary lymphadenopathy. The largest left axillary lymph node measured 2.5 cm. Lymphadenopathy in the upper abdomen, abdiaziz hepatis, and periaortic regions was noted to be stable, but there was significant progression of pelvic and iliac chain lymphadenopathy as well as inguinal lymphadenopathy. A 6 mm noncalcified left upper lobe pulmonary nodule appeared stable. With those findings, he was referred to [facility] for a second opinion evaluation. He was seen there on 01/09/[address] Terell Solo. At his recommendation, Mr. Rivera had a repeat PET/CT on 01/14/2020. It showed multiple areas of abnormal uptake, consistent with recurrent lymphoma, but with the maximum SUV of 13.6 involving a right deep inguinal lymph node measuring 4.6 x 2.5 cm. Based on the degree of SUV activity, he then underwent CT directed core needle biopsy on 01/26/2020. Pathology was again consistent with grade 1-2 follicular lymphoma. In the setting of resistant follicular lymphoma, he was recommended to undergo trial of therapy with a P13 kinase inhibitor. He then began treatment with idelalisib 150 mg twice daily on 02/28/2020. He was seen for a follow-up visit on 03/13/2020 at day 14 of his treatment. He appeared to be tolerating it well. His blood counts were normal, and his liver function tests were also normal. He continued idelalisib 150 mg twice daily. As of 04/03/2020 the idelalisib was put on hold due to a dramatic increase in his liver enzymes with SGOT increased to 1532 U/L and SGPT 2716 U/L. The bilirubin was just slightly elevated at 1.1 mg/dL. As of 05/02/2020 the SGOT and SGPT were both back to normal. His other medical illnesses include hypothyroidism, degenerative arthritis, and gout. He has a history of smoking 1 pack of cigarettes daily for 40 years, but he has cut down. INTERIM HISTORY: After complete recovery from idelalisib hepatotoxicity, his treatment was transitioned to lenalidomide in combination with obinutuzumab. He began lenalidomide on 06/13/2020 at 20 mg daily. As of 06/20/2020 his treatment was put on hold due to thrombocytopenia, platelet count decreasing to 28,000, and skin rash. He recovered uneventfully and he then restarted the lenalidomide with the dosage reduced to 10 mg daily on a 21/28-day schedule. He continued to have mild to moderately severe thrombocytopenia, but he otherwise tolerated it well at the reduced dosage. He then began cycle 1 of obinutuzumab on 07/23/2020. It was administered weekly for the 1st cycle. He tolerated well and continued with cycle 2 on 08/16/2020. Mr. Rivera is here today for follow-up. He is due for cycle 4-day 1 Gazyva. He is also on lenalidomide 10 mg daily. He has no new concerns today. He denies any fever or chills. He denies any appetite changes. He states his energy is about the same for him. He has been off the Revlimid for 3 to 4 days as he ran out . He states he was unable to call to get refills as he has had transportation issues and did not want to get out and walk to the area he gets service on his cell phone. He denies any new pain. He states he is eating good. He is sleeping better with relaxation techniques. He states the trazodone really did not do much for him. He denies any lower extremity edema or shortness of breath. He states his bowels and bladder are normal for him. His ECOG is 1. Past Medical History: Anemia Degenerative joint disease Gout Hypothyroidism Past Surgical History: Placement of AV fistula for dialysis Placement of left subclavian dialysis catheter Rotator cuff repair bilaterally Left axillary lymph node biopsy and placement of Port-A-Cath venous access device in 2019 Ct renal biopsy in 2018 Cervical spine fusion with vertebral cadaver bone in 2005 Allergies: No Known Allergies. Medications: Revlimid (10 mg) Capsule Oral Take as Directed Family History: Mr. Rivera's mother is alive. Mr. Rivera's father is . Mr. Rivera has 4 brothers: 4 alive. He has 1 sister who is alive. His mother is still living and in good health at age 81. Father with multiple myeloma at age 80. He also had prostate cancer. The patient's paternal grandfather had prostate cancer as well. Five siblings are in good health. Social History: Mr. Rivera is and he is unemployed. He is an occasional smoker who has smoked 0.5 packs/day for 41 years. He drinks occasionally. Drinks very rarely. Review Of Symptoms: Constitutional Denies fevers, chills, night sweats, excessive fatigue or weight loss. Allergic/Immunologic No reactions. Eyes Denies significant visual changes. No diplopia. No amaurosis. ENMT Denies changes in hearing, sore throat, mouth sores, difficulty or changes in swallowing ability, and/or sinus drainage. Hematologic/Lymphatic Denies easy bruising or bleeding. The patient denies any tender or palpable lymph nodes. Respiratory Denies dyspnea on exertion, chest pain, cough or hemoptysis. Denies orthopnea. Cardiovascular Denies anginal chest pain, palpitations or orthopnea. Gastrointestinal Denies nausea, vomiting, diarrhea, GI bleeding, or constipation. Denies change in bowel habits and/or stool color, or early satiety. Genitourinary (M) Denies hematuria, dysuria, increased frequency, urgency, hesitancy or incontinence. Musculoskeletal Denies joint pain, swelling or redness. No decreased range of motion. Integumentary Concerns of rash/rough feeling skin???see above Neurologic Denies headache, blurred vision, and no areas of focal weakness or numbness. Normal gait. No sensory problems. Psychiatric Denies depression, claus or mood swings. Has had some intermittent insomnia. Trazadone really didn't help much but he is trying relaxation techniques and this is helping presently. He states he is sleeping better overall. Vital Signs: Performed on Oct 11, 2020 09:06 Height - 71.00 in Weight - 214 lbs (HIGH) BSA - 2.17 sq.m BMI - 29.85 Temperature - 97.7 F (LOW) Pulse - 77 /min Respiration - 18 /min BP - 137/77 mm(hg) O2 Sat - 99 % Pain - 0 Fatigue - 0,1 - No physically strenuous activity, but ambulatory and able to carry out light or sedentary work (e.g. office work, light house work). (ECOG) Physical Examination: Constitutional Alert, oriented, no acute distress. Skin pink, warm and dry. Head Normocephalic; atraumatic. Eyes Conjunctivae and sclerae are clear and without icterus. Pupils are reactive and equal. Neck No jugular venous distension. No palpable adenopathy. Hematologic/Lymphatic No tender or palpable lymph nodes in the cervical or supraclavicular areas. Respiratory Lungs are clear to auscultation without rhonchi or wheezing. Cardiovascular Regular rate and rhythm of heart without murmurs,clicks, gallops or rubs. Abdomen Non-tender, non-distended, no masses, ascites. Back/Spine Non-tender to palpation. Extremities No visible deformities, no cyanosis, clubbing or edema. Slight greyish discoloration on left arm at dialysis fistula site, not red or warm. Musculoskeletal No tenderness or swelling, normal range of motion without obvious weakness. Neurologic No sensory or motor deficits, normal cerebellar function, normal gait. Psychiatric Alert and oriented times three. Coherent speech. Verbalizes understanding of our discussions today. Laboratory:Test performed on Oct 11, 2020 08:20 LDH (Total) 205 U/L Sodium 137 mmol/L Potassium 4.3 mmol/L Chloride 105 mmol/L CO2 22 mmol/L Anion Gap 14.3 BUN 30 mg/dL Creatinine 2.3 mg/dL Cr Clearance (Est) 46.8900 mL/min eGFR 29.2 mL/min Glucose 97 mg/dL Osmolality - Calculated 290 mOsm/kg Calcium 9.3 mg/dL Protein, Total 6.2 g/dL Albumin 4.2 g/dL Globulin 2.0 g/dL Bilirubin, Total 1.1 mg/dL ALT (SGPT) 22 U/L AST (SGOT) 19 U/L Alkaline Phosphatase 116 IU/L WBC 2.7 10 3/uL RBC 3.63 10 6/uL HGB 12.7 g/dL HCT 35.5 % MCV 97.8 fL MCH 35.0 pg MCHC 35.8 g/dL RDW 15.5 % Platelet Count 118 10 3/cmm MPV 10.1 fL Neutrophils 0.89 10 3/uL Lymphocytes 0.8 10 3/uL Monocytes 0.6 10 3/uL Eosinophils 0.3 10 3/uL Basophils 0.1 10 3/uL Neutrophil % 33.0 % Lymphocyte % 29.3 % Monocyte % 20.7 % Eosinophil % 10.4 % Basophils % 2.2 % NRBC % 0 % CBC Slide Review Slide Review Perform SLIDE REVIEW AGREES WITH AUTOMATED RESULTS ST Test performed on Aug 02, 2020 11:14 T3, Free 2.3 PG/ML T4, Free 1.26 ng/dL Test performed on Jul 23, 2020 08:37 Ferritin 531 ng/mL Iron 105 mcg/dL TSH 5.67 uIU/mL Iron Binding Capacity (TIBC) 201 mcg/dl % Iron Saturation 52.2 % UIBC 96 mcg/dL Impression: 1. Patient with grade 1 follicular lymphoma, stage at least IIIS, diagnosed by left axillary lymph node biopsy on 07/31/2018. 2. His initial treatment included 2 cycles of bendamustine/Rituxan. With the first cycle the bendamustine was administered at a 50% dosage due to renal function and he received day 1 treatment only due to acute thrombocytopenia. Cycle 2 was delayed to 10/21/2018, and the bendamustine dosage remained at 50%. 3. He had presented with acute renal failure due to membranoproliferative glomerulonephritis, confirmed by renal biopsy on 07/30/2018. He has been on hemodialysis. 4. He was anemic at presentation, and he subsequently did require PRBC transfusion. 5. He also had laboratory evidence of hypothyroidism. 6. He has degenerative joint disease related to previous injuries. 7. He has a prior history of gout. He completed 2 cycles of bendamustine/Rituxan, though with significant delay prior to starting cycle 2. His restaging PET/CT on 01/08/2019 still showed diffuse FDG avid lymphadenopathy from the head/neck to the pelvis and diffusely metabolic splenomegaly. On comparison to his pretreatment CT scans, he did not appear to be showing significant response to the bendamustine/Rituxan regimen. As such, Dr. Suarez opted to proceed with a course of R-CHOP chemotherapy. He began cycle 1 of R-CHOP on 02/23/2019. He was given first cycle prophylaxis with Neulasta. He tolerated it with acceptable toxicity, and he continued with cycle 2 on 03/16/2019 and with cycle 3 on 04/13/2019. During this time he required additional thoracentesis procedures, and a flow cytometry study on his pleural fluid did show a monotypic B-cell population consistent with involvement by malignant lymphoma. Restaging PET/CT on 05/07/2019 showed overall improvement but not complete resolution of the extensive adenopathy. Hypermetabolic splenomegaly appeared to have normalized. Overall, he appeared to have a very good response to the chemotherapy. He then continued treatment at 3-week intervals. He began his 6th cycle of R-CHOP on 06/22/2019. His restaging PET/CT on 07/16/2019 showed very significant response, though with possible residual involvement in a right external iliac lymph node and with evidence of some residual left pleural effusion. During that time he had significant improvement in his performance status, and he also was able to maintain adequate renal function after stopping dialysis. In the setting of low-grade lymphoma with very good partial response to chemotherapy, he was recommended to continue with maintenance rituximab. He began cycle 1 on 08/18/2019. He tolerated it well and continue with cycle 2 on 10/18/2019. However, at his follow-up visit on 12/13/2019 he had new adenopathy on the left side of the neck. Restaging CT scans showed disease progression in multiple areas, though not bulky. He was then seen for a second opinion evaluation at [facility] by Dr. Terell Solo. His restaging PET/CT also confirmed progression and multiple areas, but with a maximum SUV of 13.6 involving the right deep inguinal lymph node measuring 4.6 x 2.5 cm. Needle core biopsy of the lymph node again showed grade 1-2 follicular lymphoma. With that finding, he began treatment with idelalisib 150 mg twice daily on 02/28/2020. At his follow-up visit on 03/13/2020 he appeared to be tolerating it well. He had normal blood counts and normal LFTs. At his follow-up visit on 04/03/2020 his liver enzymes had become markedly elevated with SGOT 1532/40 U/L and SGPT 2716/41 U/L. Bilirubin was just slightly elevated at 1.1 mg/dL with alkaline phosphatase in normal range at 125 IU/L. This was presumed to be treatment related. The idelalisib was discontinued and by 05/03/2020 the SGOT and SGPT levels were back to normal. His treatment was then transitioned to lenalidomide in combination with obinutuzumab. He began lenalidomide 20 mg daily on 06/13/2020. At his 1 week follow-up his treatment was put on hold due to skin rash and thrombocytopenia, platelet count dropping to 28,000. He does appear to be showing recovery since stopping the treatment. He was able to resume the lenalidomide at 10 mg daily on July 16, 2020. He began this regimen on 07/16/2020 and had cycle 1 day 8 and 9 obinutuzumab starting on 07/23/2020. He is tolerating it well thus far. He completed his first cycle on August 09, 2020. Plan: PROBLEMS ADDRESSED TODAY 1. FOLLICULAR LYMPHOMA A. We will hold planned cycle of obinutuzumab as well as lenalidomide 10 mg due to an ANC of 890. B. Neutropenic precautions were discussed. C. Today's labs were reviewed in detail discussed with Mr. Rivera and a copy was given to him. WBC 2.7, hemoglobin 12.7, platelets 118,000 ANC is 890. His creatinine is slightly elevated for him at 2.3. He states he has not been pushing the water like I have been . Potassium is 4.3 LFTs are normal LDH is 205. D. We will plan to check weekly CBC and plan to see him back in 2 weeks with CBC, CMP and LDH in hopes of resuming his treatment plan. E. Mr. Rivera was instructed to contact us in the interim should questions or problems arise. Signed By: Gaurav Lim-, CNP Charlie Suarez MD <<Signature on File>>
[2020-10-18 11:58] LABS: Basophils # 0.1 10^3/uL (0.0-0.1); Basophils % 3.6 %; Eosinophils # 0.2 10^3/uL (0.0-0.8); Eosinophils % 5.3 %; Hematocrit 38.3 % (42.0-52.0); Hemoglobin 13.8 g/dL (11.7-16.6); Lymphocytes % 27.4 %; Mean Corpuscular Hemoglobin 35.7 pg (28.0-34.0); Mean Platelet Volume 9.6 fL (7.4-10.4); Monocytes # 0.8 10^3/uL (0.2-0.9); Monocytes % 21.2 %; Neutrophils # 1.47 10^3/uL (1.8-7.7); Neutrophils % 41.1 %; Nucleated Red Blood Cells % 0 %; Platelet Count 147 10^3/cmm (130-400); Red Blood Count 3.87 10^6/uL (4.1-5.3); Red Cell Distribution Width 15.8 % (12.1-15.1); White Blood Count 3.6 10^3/uL (4.0-10.0)
[2020-10-18 12:27] LABS: Alanine Aminotransferase 18 U/L (0-41); Albumin Level 4.3 g/dL (3.5-5.2); Alkaline Phosphatase 104 IU/L (40-130); Anion Gap 12.1 (5-19); Aspartate Amino Transferase 21 U/L (0-40); Blood Urea Nitrogen 24 mg/dL (8-23); Calcium 9.1 mg/dL (8.5-10.5); Carbon Dioxide 24 mmol/L (22-29); Chloride 103 mmol/L (98-107); Globulin 2.1 g/dL (1.3-4.6); Glomerular Filtration Rate 41.3 mL/min (90-130); Glucose 95 mg/dL (65-115); Osmolality Calculated 284 mOsm/kg (285-295); Potassium 4.1 mmol/L (3.5-5.1); Sodium 135 mmol/L (136-145); Total Bilirubin 1.1 mg/dL (0.15-1.2); Total Protein 6.4 g/dL (6.6-8.7)
[2020-10-25 09:37] LABS: Basophils # 0.1 10^3/uL (0.0-0.1); Basophils % 2.3 %; Eosinophils # 0.3 10^3/uL (0.0-0.8); Eosinophils % 8.7 %; Hematocrit 39.7 % (42.0-52.0); Hemoglobin 14.2 g/dL (11.7-16.6); Lymphocytes # 0.6 10^3/uL (0.8-4.8); Lymphocytes % 17.2 %; Mean Corpuscular HGB Conc 35.8 g/dL (30.0-36.0); Mean Corpuscular Hemoglobin 35.2 pg (28.0-34.0); Mean Corpuscular Volume 98.5 fL (80-94); Mean Platelet Volume 10.5 fL (7.4-10.4); Monocytes # 0.5 10^3/uL (0.2-0.9); Monocytes % 14.2 %; Neutrophils # 1.69 10^3/uL (1.8-7.7); Neutrophils % 49.2 %; Nucleated Red Blood Cells % 0 %; Platelet Count 127 10^3/cmm (130-400); Red Blood Count 4.03 10^6/uL (4.1-5.3); Red Cell Distribution Width 14.8 % (12.1-15.1); White Blood Count 3.4 10^3/uL (4.0-10.0)
[2020-10-25 09:58] LABS: Alanine Aminotransferase 18 U/L (0-41); Albumin Level 4.2 g/dL (3.5-5.2); Alkaline Phosphatase 117 IU/L (40-130); Anion Gap 13.3 (5-19); Aspartate Amino Transferase 21 U/L (0-40); Blood Urea Nitrogen 31 mg/dL (8-23); Calcium 9.2 mg/dL (8.5-10.5); Carbon Dioxide 25 mmol/L (22-29); Chloride 103 mmol/L (98-107); Globulin 2.2 g/dL (1.3-4.6); Glomerular Filtration Rate 38.7 mL/min (90-130); Glucose 104 mg/dL (65-115); Lactate Dehydrogenase 237 U/L (135-225); Osmolality Calculated 291 mOsm/kg (285-295); Potassium 4.3 mmol/L (3.5-5.1); Sodium 137 mmol/L (136-145); Total Bilirubin 1.1 mg/dL (0.15-1.2); Total Protein 6.4 g/dL (6.6-8.7)
[2020-10-25 10:20] LABS: Slide Review Slide Review Perform
[2020-10-25] MEDS: acetaminophen 325 mg Tablet 650 MG PO (11:55)
[2020-10-25] MEDS: sodium chloride 0.9% (100 ml) 100 ML 75 ML (11:55)
[2020-10-25] MEDS: sodium chloride 0.9% 500 ML 999 ML IV (11:55)
[2020-10-25] MEDS: diphenhydrAMINE 50 mg/mL SDV 1mL IV (11:55)
[2020-10-25] MEDS: dexamethasone 20 MG in sodium chloride 0.9% 50 ML 187 MG IV (12:30)
--- NOTE | 2020-10-26 10:10 | ONC FU_ITS ---
Tommy Farias Patient Note Patient: Jl Rivera Unit #: [id number]: [id number] Dictated By: Gaurav LimDate of Visit: Oct 25, 2020 Onc MED Follow-Up/Prog Note Chief Complaint: Lymphoma. 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 He was admitted to [facility] on 07/29/2018 with acute renal failure. He had presented with encephalopathy and severe edema. In addition to the acute renal failure, he had moderately severe anemia and mild thrombocytopenia with his baseline platelet count reportedly in the range of 100,000. CT pulmonary angiogram showed axillary and mediastinal lymphadenopathy, moderate sized bilateral pleural effusions, and cardiomegaly. His abdomen/pelvis CT showed marked lymphadenopathy within the abdomen and pelvis and splenomegaly. 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 He also was started on hemodialysis. Left axillary lymph node biopsy on 07/31/2018 showed malignant lymphoma, favoring low-grade follicular lymphoma. The neoplastic cells were noted to be positive for BCL 6, CD10, and CD23. There was weak positivity for BCL 2. The cells were negative for cyclin D1, MUM1, and SOX 11. On 07/31/2018 he began chemotherapy with bendamustine/Rituxan. The bendamustine dosage was reduced by 50% for the renal function. His day 2 bendamustine was held due to an acute drop in his platelet count to 30,000. It subsequently did recover, but there was a delay of close to 3 months prior to starting his second cycle of chemotherapy. Dr Suarez had seen him initially on 11/15/2018. His 3rd cycle of chemotherpy had been scheduled to be given the following week, and he was to have restaging CT scans prior to that treatment. His further evaluation was delayed pending his Medicare eligibility. He then had a restaging PET/CT on 01/08/2019. It showed extensive hypermetabolic lymphadenopathy for the level of the head and neck to the level of the pelvis. There was diffusely metabolic splenomegaly. As he appeared to have had very little response to the bendamustine/Rituxan regimen, Dr Suarez opted to proceed with a course of R-CHOP chemotherapy. His baseline echocardiogram showed estimated left ventricular ejection fraction of 55%. There was grade I/IVdiastolic dysfunction. He began cycle 1 of R-CHOP on 02/23/2019. He was given first cycle prophylaxis with Neulasta. He tolerated it with acceptable toxicity, and he continued with cycle 2 on 03/16/2019 and with cycle 3 on 04/13/2019. During this time he required additional thoracentesis procedures on 03/09, 03/17, and 04/01/2019. A flow cytometry study on his pleural fluid did show a monotypic B-cell population consistent with involvement by malignant lymphoma. Restaging PET/CT on 05/07/2019 showed overall improvement but not complete resolution of the extensive adenopathy. Hypermetabolic splenomegaly appeared to have normalized. He then continued with cycle 4 of R-CHOP on 05/11/2019, with cycle 5 on 06/01/2019, and with cycle 6 on 06/22/2019. Restaging PET/CT on 07/16/2019 showed subcentimeter size lymph nodes in the head and neck bilaterally, FDG negative. Similar improvement was noted in mediastinal, left internal mammary, and bilateral axillary lymph nodes. Portal nodes demonstrated only minimal FDG uptake and scattered retroperitoneal nodes measuring up to 1 cm in size showed FDG activity no greater than that of mediastinal background. A right external iliac lymph node measuring 1.8 x 1.5 cm had mild FDG uptake with SUV 3.4. The left pleural effusion was noted be significantly decreased in volume. Left lower lobe round atelectasis was noted to be FDG negative. In the setting of a low-grade follicular lymphoma with very good partial response to chemotherapy, Dr Suarez recommended that he continue with maintenance rituximab. He then returned on 08/18/2019 to begin cycle 1 of 12 planned cycles of treatment at 2-month intervals. He tolerated it well, and he continued with cycle 2 on 10/18/2019. At his follow-up visit on 12/13/2019 he had become aware of a new nodule on the right side of his neck. It was suspected that it was of thyroid origin. However, his neck CT on 12/15/2019 showed enlarged left submandibular lymph node measuring 11 mm, numerous but normal sized level 2 and level 3 cervical lymph nodes, and numerous and enlarged supraclavicular lymph nodes and retropectoral lymph nodes. The largest supraclavicular lymph node measured [address] scans of the chest, abdomen, and pelvis showed significant interval progression involving supraclavicular, thoracic inlet, internal mammary, and axillary lymphadenopathy. The largest left axillary lymph node measured 2.5 cm. Lymphadenopathy in the upper abdomen, abdiaziz hepatis, and periaortic regions was noted to be stable, but there was significant progression of pelvic and iliac chain lymphadenopathy as well as inguinal lymphadenopathy. A 6 mm noncalcified left upper lobe pulmonary nodule appeared stable. With those findings, he was referred to [facility] for a second opinion evaluation. He was seen there on 01/09/[address] Terell Solo. At his recommendation, Mr. Rivera had a repeat PET/CT on 01/14/2020. It showed multiple areas of abnormal uptake, consistent with recurrent lymphoma, but with the maximum SUV of 13.6 involving a right deep inguinal lymph node measuring 4.6 x 2.5 cm. Based on the degree of SUV activity, he then underwent CT directed core needle biopsy on 01/26/2020. Pathology was again consistent with grade 1-2 follicular lymphoma. In the setting of resistant follicular lymphoma, he was recommended to undergo trial of therapy with a P13 kinase inhibitor. He then began treatment with idelalisib 150 mg twice daily on 02/28/2020. He was seen for a follow-up visit on 03/13/2020 at day 14 of his treatment. He appeared to be tolerating it well. His blood counts were normal, and his liver function tests were also normal. He continued idelalisib 150 mg twice daily. As of 04/03/2020 the idelalisib was put on hold due to a dramatic increase in his liver enzymes with SGOT increased to 1532 U/L and SGPT 2716 U/L. The bilirubin was just slightly elevated at 1.1 mg/dL. As of 05/02/2020 the SGOT and SGPT were both back to normal. His other medical illnesses include hypothyroidism, degenerative arthritis, and gout. He has a history of smoking 1 pack of cigarettes daily for 40 years, but he has cut down. INTERIM HISTORY: After complete recovery from idelalisib hepatotoxicity, his treatment was transitioned to lenalidomide in combination with obinutuzumab. He began lenalidomide on 06/13/2020 at 20 mg daily. As of 06/20/2020 his treatment was put on hold due to thrombocytopenia, platelet count decreasing to 28,000, and skin rash. He recovered uneventfully and he then restarted the lenalidomide with the dosage reduced to 10 mg daily on a 21/28-day schedule. He continued to have mild to moderately severe thrombocytopenia, but he otherwise tolerated it well at the reduced dosage. He then began cycle 1 of obinutuzumab on 07/23/2020. It was administered weekly for the 1st cycle. He tolerated well and continued with cycle 2 on 08/16/2020. Mr. Rivera is here today for follow-up. He is due for cycle 4-day 1 Gazyva. He has also been on lenalidomide 10 mg daily. His treatment has been delayed on resuming his treatment due to neutropenia and thrombocytopenia. His last Gazyva administration was on 09/13/2021. He has no new concerns today. He has tolerated the neutropenia/thrombocytopenia well without complications. He denies any fever or chills. He has had no known COVID exposure or pending COVID test. He states he is eating good and his energy is normal for him. He is active around his home. He denies any concerns today. His ECOG is 0. Past Medical History: Anemia Degenerative joint disease Gout Hypothyroidism Past Surgical History: Placement of AV fistula for dialysis Placement of left subclavian dialysis catheter Rotator cuff repair bilaterally Left axillary lymph node biopsy and placement of Port-A-Cath venous access device in 2019 Ct renal biopsy in 2018 Cervical spine fusion with vertebral cadaver bone in 2005 Allergies: No Known Allergies. Medications: Revlimid (10 mg) Capsule Oral Take as Directed Family History: Mr. Rivera's mother is alive. Mr. Rivera's father is . Mr. Rivera has 4 brothers: 4 alive. He has 1 sister who is alive. His mother is still living and in good health at age 81. Father with multiple myeloma at age 80. He also had prostate cancer. The patient's paternal grandfather had prostate cancer as well. Five siblings are in good health. Social History: Mr. Rivera is and he is unemployed. He is an occasional smoker who has smoked 0.5 packs/day for 41 years. He drinks occasionally. Drinks very rarely. Review Of Symptoms: Constitutional Denies fevers, chills, night sweats, excessive fatigue or weight loss. Allergic/Immunologic No reactions. Eyes Denies significant visual changes. No diplopia. No amaurosis. ENMT Denies changes in hearing, sore throat, mouth sores, difficulty or changes in swallowing ability, and/or sinus drainage. Endocrine No diabetes, thyroid disease or hormone replacement. Denies hot flashes or night sweats. Hematologic/Lymphatic Denies easy bruising or bleeding. The patient denies any tender or palpable lymph nodes. Respiratory Denies dyspnea on exertion, chest pain, cough or hemoptysis. Denies orthopnea. Cardiovascular Denies anginal chest pain, palpitations or orthopnea. Gastrointestinal Denies nausea, vomiting, diarrhea, GI bleeding, or constipation. Denies change in bowel habits and/or stool color, or early satiety. Genitourinary (M) Denies hematuria, dysuria, increased frequency, urgency, hesitancy or incontinence. Musculoskeletal Denies joint pain, swelling or redness. No decreased range of motion. Integumentary Concerns of rash/rough feeling skin???see above Neurologic Denies headache, blurred vision, and no areas of focal weakness or numbness. Normal gait. No sensory problems. Psychiatric Denies depression, claus or mood swings. Has had some intermittent insomnia. Trazadone really didn't help much but he is trying relaxation techniques and this is helping presently. He states he is sleeping better overall. Vital Signs: Performed on Oct 25, 2020 10:38 Height - 71.00 in Weight - 211.2 lbs (LOW) BSA - 2.16 sq.m BMI - 29.46 Temperature - 97.6 F (LOW) Pulse - 79 /min Respiration - 18 /min BP - 138/82 mm(hg) O2 Sat - 98 % Pain - 3 Fatigue - 2,0 - Fully active, able to carry on all predisease activities without restrictions. (ECOG) Physical Examination: Constitutional Alert, oriented, no acute distress. Skin pink, warm and dry. Head Normocephalic; atraumatic. Eyes Conjunctivae and sclerae are clear and without icterus. Pupils are reactive and equal. Neck No jugular venous distension. No palpable adenopathy. Hematologic/Lymphatic No tender or palpable lymph nodes in the cervical or supraclavicular areas. Respiratory Lungs are clear to auscultation without rhonchi or wheezing. Cardiovascular Regular rate and rhythm of heart without murmurs,clicks, gallops or rubs. Chest Chest is symmetric without chest wall deformities. Right chest wall venous access device is unremarkable. Breasts Abdomen Non-tender, non-distended, no masses, ascites. Back/Spine Non-tender to palpation. Extremities No visible deformities, no cyanosis, clubbing or edema. Slight greyish discoloration on left arm at dialysis fistula site, not red or warm. Musculoskeletal No tenderness or swelling, normal range of motion without obvious weakness. Integumentary see above Neurologic No sensory or motor deficits, normal cerebellar function, normal gait. Psychiatric Alert and oriented times three. Coherent speech. Verbalizes understanding of our discussions today. Laboratory:Test performed on Oct 25, 2020 09:10 LDH (Total) 237 U/L Sodium 137 mmol/L Potassium 4.3 mmol/L Chloride 103 mmol/L CO2 25 mmol/L Anion Gap 13.3 BUN 31 mg/dL Creatinine 1.8 mg/dL Cr Clearance (Est) 59.1400 mL/min eGFR 38.7 mL/min Glucose 104 mg/dL Osmolality - Calculated 291 mOsm/kg Calcium 9.2 mg/dL Protein, Total 6.4 g/dL Albumin 4.2 g/dL Globulin 2.2 g/dL Bilirubin, Total 1.1 mg/dL ALT (SGPT) 18 U/L AST (SGOT) 21 U/L Alkaline Phosphatase 117 IU/L WBC 3.4 10 3/uL RBC 4.03 10 6/uL HGB 14.2 g/dL HCT 39.7 % MCV 98.5 fL MCH 35.2 pg MCHC 35.8 g/dL RDW 14.8 % Platelet Count 127 10 3/cmm MPV 10.5 fL Neutrophils 1.69 10 3/uL Lymphocytes 0.6 10 3/uL Monocytes 0.5 10 3/uL Eosinophils 0.3 10 3/uL Basophils 0.1 10 3/uL Neutrophil % 49.2 % Lymphocyte % 17.2 % Monocyte % 14.2 % Eosinophil % 8.7 % Basophils % 2.3 % NRBC % 0 % CBC Slide Review Slide Review Perform SLIDE REVIEW AGREES WITH AUTOMATED RESULTS ST Test performed on Aug 02, 2020 11:14 T3, Free 2.3 PG/ML T4, Free 1.26 ng/dL Test performed on Jul 23, 2020 08:37 Ferritin 531 ng/mL Iron 105 mcg/dL TSH 5.67 uIU/mL Iron Binding Capacity (TIBC) 201 mcg/dl % Iron Saturation 52.2 % UIBC 96 mcg/dL Impression: 1. Patient with grade 1 follicular lymphoma, stage at least IIIS, diagnosed by left axillary lymph node biopsy on 07/31/2018. 2. His initial treatment included 2 cycles of bendamustine/Rituxan. With the first cycle the bendamustine was administered at a 50% dosage due to renal function and he received day 1 treatment only due to acute thrombocytopenia. Cycle 2 was delayed to 10/21/2018, and the bendamustine dosage remained at 50%. 3. He had presented with acute renal failure due to membranoproliferative glomerulonephritis, confirmed by renal biopsy on 07/30/2018. He has been on hemodialysis. 4. He was anemic at presentation, and he subsequently did require PRBC transfusion. 5. He also had laboratory evidence of hypothyroidism. 6. He has degenerative joint disease related to previous injuries. 7. He has a prior history of gout. He completed 2 cycles of bendamustine/Rituxan, though with significant delay prior to starting cycle 2. His restaging PET/CT on 01/08/2019 still showed diffuse FDG avid lymphadenopathy from the head/neck to the pelvis and diffusely metabolic splenomegaly. On comparison to his pretreatment CT scans, he did not appear to be showing significant response to the bendamustine/Rituxan regimen. As such, Dr. Suarez opted to proceed with a course of R-CHOP chemotherapy. He began cycle 1 of R-CHOP on 02/23/2019. He was given first cycle prophylaxis with Neulasta. He tolerated it with acceptable toxicity, and he continued with cycle 2 on 03/16/2019 and with cycle 3 on 04/13/2019. During this time he required additional thoracentesis procedures, and a flow cytometry study on his pleural fluid did show a monotypic B-cell population consistent with involvement by malignant lymphoma. Restaging PET/CT on 05/07/2019 showed overall improvement but not complete resolution of the extensive adenopathy. Hypermetabolic splenomegaly appeared to have normalized. Overall, he appeared to have a very good response to the chemotherapy. He then continued treatment at 3-week intervals. He began his 6th cycle of R-CHOP on 06/22/2019. His restaging PET/CT on 07/16/2019 showed very significant response, though with possible residual involvement in a right external iliac lymph node and with evidence of some residual left pleural effusion. During that time he had significant improvement in his performance status, and he also was able to maintain adequate renal function after stopping dialysis. In the setting of low-grade lymphoma with very good partial response to chemotherapy, he was recommended to continue with maintenance rituximab. He began cycle 1 on 08/18/2019. He tolerated it well and continue with cycle 2 on 10/18/2019. However, at his follow-up visit on 12/13/2019 he had new adenopathy on the left side of the neck. Restaging CT scans showed disease progression in multiple areas, though not bulky. He was then seen for a second opinion evaluation at [facility] by Dr. Terell Solo. His restaging PET/CT also confirmed progression and multiple areas, but with a maximum SUV of 13.6 involving the right deep inguinal lymph node measuring 4.6 x 2.5 cm. Needle core biopsy of the lymph node again showed grade 1-2 follicular lymphoma. With that finding, he began treatment with idelalisib 150 mg twice daily on 02/28/2020. At his follow-up visit on 03/13/2020 he appeared to be tolerating it well. He had normal blood counts and normal LFTs. At his follow-up visit on 04/03/2020 his liver enzymes had become markedly elevated with SGOT 1532/40 U/L and SGPT 2716/41 U/L. Bilirubin was just slightly elevated at 1.1 mg/dL with alkaline phosphatase in normal range at 125 IU/L. This was presumed to be treatment related. The idelalisib was discontinued and by 05/03/2020 the SGOT and SGPT levels were back to normal. His treatment was then transitioned to lenalidomide in combination with obinutuzumab. He began lenalidomide 20 mg daily on 06/13/2020. At his 1 week follow-up his treatment was put on hold due to skin rash and thrombocytopenia, platelet count dropping to 28,000. He does appear to be showing recovery since stopping the treatment. He was able to resume the lenalidomide at 10 mg daily on July 16, 2020. He began this regimen on 07/16/2020 and had cycle 1 day 8 and 9 obinutuzumab starting on 07/23/2020. He is tolerating it well thus far. He completed his first cycle on August 09, 2020. Mr Rivera has continued with Gazyva and lenalidomide. He has had delay from 09/13/2020 to 10/25/2020 due to low blood counts. Plan: PROBLEMS ADDRESSED TODAY 1. FOLLICULAR LYMPHOMA A. Proceed with cycle 4 obinutuzumab but will dose reduce lenalidomide to 5 mg. He has not yet received the new dosing on the lenalidomide but was instructed to start it when he receives it. B. Continue Tylenol, dexamethasone and Benadryl premeds as these are working well. C. Today's labs were reviewed in detail discussed with Mr. Rivera and a copy was given to him. WBC 3.4, hemoglobin 14.2, platelets 127,000. ANC is 1700. His creatinine is 1.8. Potassium is 4.3 LFTs are normal LDH is 237. D. We will plan to check weekly CBC and plan to see him back in 4 weeks with CBC, CMP and LDH with intent to proceed with cycle 5. E. Mr. Rivera was instructed to contact us in the interim should questions or problems arise. Signed By: Gaurav Lim-, AOAMANDAP Charlie Suarez MD <<Signature on File>>
--- NOTE | 2020-10-26 11:09 | ONC FU_ITS ---
Tommy Farias Patient Note Patient: Jl Rivera Unit #: [id number]: [id number] Dictated By: Gaurav LimDate of Visit: Oct 26, 2020 Onc MED Follow-Up/Prog Note ADDENDUM TO 10/25/2020 OFFICE NOTE Mr Rivera will proceed with lenalidomide 10 mg every other day until he receives the reduced dose of 5 mg. He was required to reapply to the patient assistance program and that application is pending at this time. Jl is aware to continue the lenalidomide at 10 mg overy other day then once he receives the new strength to go to taking 5 mg daily until he reaches the total of the 21day lenalidomide plan. His plan is that he receive Gazyva day 1 and lenalidomide starting day 2 through 22. Signed By: Gaurav Lim-, AODOC Suarez <<Signature on File>>
[2020-11-01 10:36] LABS: Basophils % 0.9 %; Eosinophils # 0.5 10^3/uL (0.0-0.8); Eosinophils % 11.6 %; Hematocrit 39.7 % (42.0-52.0); Hemoglobin 14.3 g/dL (11.7-16.6); Lymphocytes # 0.6 10^3/uL (0.8-4.8); Lymphocytes % 12.2 %; Mean Corpuscular Hemoglobin 35.7 pg (28.0-34.0); Mean Platelet Volume 11.6 fL (7.4-10.4); Monocytes # 0.6 10^3/uL (0.2-0.9); Monocytes % 12.7 %; Neutrophils # 2.67 10^3/uL (1.8-7.7); Neutrophils % 59.3 %; Nucleated Red Blood Cells % 0 %; Platelet Count 71 10^3/cmm (130-400); Red Blood Count 4.01 10^6/uL (4.1-5.3); Red Cell Distribution Width 14.4 % (12.1-15.1); White Blood Count 4.5 10^3/uL (4.0-10.0)
[2020-11-01 11:12] LABS: Alanine Aminotransferase 23 U/L (0-41); Albumin Level 3.9 g/dL (3.5-5.2); Alkaline Phosphatase 106 IU/L (40-130); Anion Gap 13.4 (5-19); Aspartate Amino Transferase 20 U/L (0-40); Blood Urea Nitrogen 34 mg/dL (8-23); Calcium 9.2 mg/dL (8.5-10.5); Carbon Dioxide 24 mmol/L (22-29); Chloride 104 mmol/L (98-107); Globulin 2.3 g/dL (1.3-4.6); Glomerular Filtration Rate 41.3 mL/min (90-130); Glucose 97 mg/dL (65-115); Osmolality Calculated 292 mOsm/kg (285-295); Potassium 4.4 mmol/L (3.5-5.1); Sodium 137 mmol/L (136-145); Total Bilirubin 0.8 mg/dL (0.15-1.2); Total Protein 6.2 g/dL (6.6-8.7)
== END 2020-11-04 23:59 | disposition home or self-care (01) ==
LOC: ONCMED 05:36
PROVIDERS: Internal Medicine Medical Oncology; Visit Provider Nurse Practitioner
DX: Z51.11 Encounter for antineoplastic chemotherapy (principal); C82.08 Follicular lymphoma grade I, lymph nodes of multiple sites; D69.6 Thrombocytopenia, unspecified; N05.5 Unspecified nephritic syndrome with diffuse mesangiocapillary glomerulonephritis; N17.9 Acute kidney failure, unspecified; Z99.2 Dependence on renal dialysis; E03.9 Hypothyroidism, unspecified; M19.90 Unspecified osteoarthritis, unspecified site; M10.9 Gout, unspecified; Z79.899 Other long term (current) drug therapy
CPT/HCPCS: 36591; 80053; 83615; 85025; 96367; 96413; 96415; 99215; J1100; J1200; J7040; J7050; J9301

== ENCOUNTER 2020-11-27 05:25 | Outpatient (RCR) | payer MEDICARE, SELFPAY ==
[2020-11-08 10:34] LABS: Basophils # 0.1 10^3/uL (0.0-0.1); Basophils % 1.3 %; Eosinophils # 0.6 10^3/uL (0.0-0.8); Eosinophils % 10.5 %; Hematocrit 41.1 % (42.0-52.0); Hemoglobin 14.7 g/dL (11.7-16.6); Lymphocytes # 0.6 10^3/uL (0.8-4.8); Lymphocytes % 10.8 %; Mean Corpuscular HGB Conc 35.8 g/dL (30.0-36.0); Mean Corpuscular Hemoglobin 35.5 pg (28.0-34.0); Mean Corpuscular Volume 99.3 fL (80-94); Mean Platelet Volume 10.7 fL (7.4-10.4); Monocytes # 0.8 10^3/uL (0.2-0.9); Neutrophils # 3.65 10^3/uL (1.8-7.7); Neutrophils % 61.5 %; Nucleated Red Blood Cells % 0 %; Platelet Count 89 10^3/cmm (130-400); Red Blood Count 4.14 10^6/uL (4.1-5.3); Red Cell Distribution Width 13.6 % (12.1-15.1); White Blood Count 5.9 10^3/uL (4.0-10.0)
[2020-11-08 10:57] LABS: Alanine Aminotransferase 18 U/L (0-41); Albumin Level 4.3 g/dL (3.5-5.2); Alkaline Phosphatase 110 IU/L (40-130); Aspartate Amino Transferase 18 U/L (0-40); Blood Urea Nitrogen 35 mg/dL (8-23); Calcium 9.4 mg/dL (8.5-10.5); Carbon Dioxide 23 mmol/L (22-29); Chloride 102 mmol/L (98-107); Globulin 2.2 g/dL (1.3-4.6); Glomerular Filtration Rate 41.3 mL/min (90-130); Glucose 98 mg/dL (65-115); Lactate Dehydrogenase 236 U/L (135-225); Osmolality Calculated 286 mOsm/kg (285-295); Sodium 134 mmol/L (136-145); Total Bilirubin 0.9 mg/dL (0.15-1.2); Total Protein 6.5 g/dL (6.6-8.7)
[2020-11-27 08:44] LABS: Basophils # 0.1 10^3/uL (0.0-0.1); Basophils % 2.1 %; Eosinophils # 0.5 10^3/uL (0.0-0.8); Hematocrit 40.1 % (42.0-52.0); Hemoglobin 14.2 g/dL (11.7-16.6); Lymphocytes # 0.5 10^3/uL (0.8-4.8); Mean Corpuscular HGB Conc 35.4 g/dL (30.0-36.0); Mean Corpuscular Hemoglobin 35.1 pg (28.0-34.0); Mean Corpuscular Volume 99.3 fL (80-94); Mean Platelet Volume 9.7 fL (7.4-10.4); Monocytes # 0.8 10^3/uL (0.2-0.9); Monocytes % 20.9 %; Neutrophils # 1.64 10^3/uL (1.8-7.7); Neutrophils % 43.4 %; Nucleated Red Blood Cells % 0 %; Platelet Count 160 10^3/cmm (130-400); Red Blood Count 4.04 10^6/uL (4.1-5.3); Red Cell Distribution Width 13.1 % (12.1-15.1); White Blood Count 3.8 10^3/uL (4.0-10.0)
[2020-11-27 09:02] LABS: Alanine Aminotransferase 14 U/L (0-41); Alkaline Phosphatase 100 IU/L (40-130); Aspartate Amino Transferase 16 U/L (0-40); Blood Urea Nitrogen 33 mg/dL (8-23); Calcium 9.2 mg/dL (8.5-10.5); Carbon Dioxide 24 mmol/L (22-29); Chloride 106 mmol/L (98-107); Globulin 2.1 g/dL (1.3-4.6); Glomerular Filtration Rate 34.1 mL/min (90-130); Glucose 92 mg/dL (65-115); Lactate Dehydrogenase 180 U/L (135-225); Osmolality Calculated 295 mOsm/kg (285-295); Sodium 139 mmol/L (136-145); Total Bilirubin 0.4 mg/dL (0.15-1.2); Total Protein 6.1 g/dL (6.6-8.7)
[2020-11-27 09:29] LABS: Slide Review Slide Review Perform
--- NOTE | 2020-11-27 11:57 | ONC FU_ITS ---
[facility] Patient Note Patient: Jl Rivera Unit #: [id number]: [id number] Dictated By: Gaurav LimDate of Visit: Nov 27, 2020 Onc MED Follow-Up/Prog Note Chief Complaint: Follicular Lymphoma. 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 He was admitted to [facility] on 07/29/2018 with acute renal failure. He had presented with encephalopathy and severe edema. In addition to the acute renal failure, he had moderately severe anemia and mild thrombocytopenia with his baseline platelet count reportedly in the range of 100,000. CT pulmonary angiogram showed axillary and mediastinal lymphadenopathy, moderate sized bilateral pleural effusions, and cardiomegaly. His abdomen/pelvis CT showed marked lymphadenopathy within the abdomen and pelvis and splenomegaly. 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 He also was started on hemodialysis. Left axillary lymph node biopsy on 07/31/2018 showed malignant lymphoma, favoring low-grade follicular lymphoma. The neoplastic cells were noted to be positive for BCL 6, CD10, and CD23. There was weak positivity for BCL 2. The cells were negative for cyclin D1, MUM1, and SOX 11. On 07/31/2018 he began chemotherapy with bendamustine/Rituxan. The bendamustine dosage was reduced by 50% for the renal function. His day 2 bendamustine was held due to an acute drop in his platelet count to 30,000. It subsequently did recover, but there was a delay of close to 3 months prior to starting his second cycle of chemotherapy. Dr Suarez had seen him initially on 11/15/2018. His 3rd cycle of chemotherpy had been scheduled to be given the following week, and he was to have restaging CT scans prior to that treatment. His further evaluation was delayed pending his Medicare eligibility. He then had a restaging PET/CT on 01/08/2019. It showed extensive hypermetabolic lymphadenopathy for the level of the head and neck to the level of the pelvis. There was diffusely metabolic splenomegaly. As he appeared to have had very little response to the bendamustine/Rituxan regimen, Dr Suarez opted to proceed with a course of R-CHOP chemotherapy. His baseline echocardiogram showed estimated left ventricular ejection fraction of 55%. There was grade I/IVdiastolic dysfunction. He began cycle 1 of R-CHOP on 02/23/2019. He was given first cycle prophylaxis with Neulasta. He tolerated it with acceptable toxicity, and he continued with cycle 2 on 03/16/2019 and with cycle 3 on 04/13/2019. During this time he required additional thoracentesis procedures on 03/09, 03/17, and 04/01/2019. A flow cytometry study on his pleural fluid did show a monotypic B-cell population consistent with involvement by malignant lymphoma. Restaging PET/CT on 05/07/2019 showed overall improvement but not complete resolution of the extensive adenopathy. Hypermetabolic splenomegaly appeared to have normalized. He then continued with cycle 4 of R-CHOP on 05/11/2019, with cycle 5 on 06/01/2019, and with cycle 6 on 06/22/2019. Restaging PET/CT on 07/16/2019 showed subcentimeter size lymph nodes in the head and neck bilaterally, FDG negative. Similar improvement was noted in mediastinal, left internal mammary, and bilateral axillary lymph nodes. Portal nodes demonstrated only minimal FDG uptake and scattered retroperitoneal nodes measuring up to 1 cm in size showed FDG activity no greater than that of mediastinal background. A right external iliac lymph node measuring 1.8 x 1.5 cm had mild FDG uptake with SUV 3.4. The left pleural effusion was noted be significantly decreased in volume. Left lower lobe round atelectasis was noted to be FDG negative. In the setting of a low-grade follicular lymphoma with very good partial response to chemotherapy, Dr Suarez recommended that he continue with maintenance rituximab. He then returned on 08/18/2019 to begin cycle 1 of 12 planned cycles of treatment at 2-month intervals. He tolerated it well, and he continued with cycle 2 on 10/18/2019. At his follow-up visit on 12/13/2019 he had become aware of a new nodule on the right side of his neck. It was suspected that it was of thyroid origin. However, his neck CT on 12/15/2019 showed enlarged left submandibular lymph node measuring 11 mm, numerous but normal sized level 2 and level 3 cervical lymph nodes, and numerous and enlarged supraclavicular lymph nodes and retropectoral lymph nodes. The largest supraclavicular lymph node measured [address] scans of the chest, abdomen, and pelvis showed significant interval progression involving supraclavicular, thoracic inlet, internal mammary, and axillary lymphadenopathy. The largest left axillary lymph node measured 2.5 cm. Lymphadenopathy in the upper abdomen, abdiaziz hepatis, and periaortic regions was noted to be stable, but there was significant progression of pelvic and iliac chain lymphadenopathy as well as inguinal lymphadenopathy. A 6 mm noncalcified left upper lobe pulmonary nodule appeared stable. With those findings, he was referred to [facility] for a second opinion evaluation. He was seen there on 01/09/[address] Terell Solo. At his recommendation, Mr. Rivera had a repeat PET/CT on 01/14/2020. It showed multiple areas of abnormal uptake, consistent with recurrent lymphoma, but with the maximum SUV of 13.6 involving a right deep inguinal lymph node measuring 4.6 x 2.5 cm. Based on the degree of SUV activity, he then underwent CT directed core needle biopsy on 01/26/2020. Pathology was again consistent with grade 1-2 follicular lymphoma. In the setting of resistant follicular lymphoma, he was recommended to undergo trial of therapy with a P13 kinase inhibitor. He then began treatment with idelalisib 150 mg twice daily on 02/28/2020. He was seen for a follow-up visit on 03/13/2020 at day 14 of his treatment. He appeared to be tolerating it well. His blood counts were normal, and his liver function tests were also normal. He continued idelalisib 150 mg twice daily. As of 04/03/2020 the idelalisib was put on hold due to a dramatic increase in his liver enzymes with SGOT increased to 1532 U/L and SGPT 2716 U/L. The bilirubin was just slightly elevated at 1.1 mg/dL. As of 05/02/2020 the SGOT and SGPT were both back to normal. His other medical illnesses include hypothyroidism, degenerative arthritis, and gout. He has a history of smoking 1 pack of cigarettes daily for 40 years, but he has cut down. INTERIM HISTORY: After complete recovery from idelalisib hepatotoxicity, his treatment was transitioned to lenalidomide in combination with obinutuzumab. He began lenalidomide on 06/13/2020 at 20 mg daily. As of 06/20/2020 his treatment was put on hold due to thrombocytopenia, platelet count decreasing to 28,000, and skin rash. He recovered uneventfully and he then restarted the lenalidomide with the dosage reduced to 10 mg daily on a 21/28-day schedule. He continued to have mild to moderately severe thrombocytopenia, but he otherwise tolerated it well at the reduced dosage. He then began cycle 1 of obinutuzumab on 07/23/2020. It was administered weekly for the 1st cycle. He tolerated well and continued with cycle 2 on 08/16/2020. Mr. Rivera is here today for follow-up. He is due for cycle 5-day 1 Gazyva. He has also been on lenalidomide 5 mg daily (dose reduced 10/25/2020 due to blood counts). His treatment has been delayed due to neutropenia and thrombocytopenia. His last Gazyva administration was on 10/25/2020. He stopped his Revlimid early on 11/23/2020 due to an abcess in his left ear. He states he has had problems with that for the last few days but it started draining today. He describbes it as a yellowish thick drainage. He denies any fever or chills. He states prior to it started draining it really hurt and the pain actually radiated down to his jaw. He did start Levaquin (that he had on hand)last week and thought that that it is helping. He denies any mouth sores, sore throat or difficulty swallowing. He has no other new concerns today. He has had no known COVID exposure or pending COVID test. He states he is eating good and his energy is normal for him. He is active around his home. His ECOG is 0. Past Medical History: Anemia Degenerative joint disease Gout Hypothyroidism Past Surgical History: Placement of AV fistula for dialysis Placement of left subclavian dialysis catheter Rotator cuff repair bilaterally Left axillary lymph node biopsy and placement of Port-A-Cath venous access device in 2019 Ct renal biopsy in 2018 Cervical spine fusion with vertebral cadaver bone in 2005 Allergies: No Known Allergies. Medications: Levaquin 1 Tablet (of 500 mg) Oral daily Revlimid (10 mg) Capsule Oral Take as Directed Family History: Mr. Rivera's mother is alive. Mr. Rivera's father is . Mr. Rivera has 4 brothers: 4 alive. He has 1 sister who is alive. His mother is still living and in good health at age 81. Father with multiple myeloma at age 80. He also had prostate cancer. The patient's paternal grandfather had prostate cancer as well. Five siblings are in good health. Social History: Mr. Rivera is and he is unemployed. He is an occasional smoker who has smoked 0.5 packs/day for 41 years. He drinks occasionally. Drinks very rarely. Review Of Symptoms: Constitutional Denies fevers, chills, night sweats, excessive fatigue or weight loss. Allergic/Immunologic No reactions. Eyes Denies significant visual changes. No diplopia. No amaurosis. ENMT Left ear pain-draining Endocrine Denies hot flashes or night sweats. Hematologic/Lymphatic Denies easy bruising or bleeding. The patient denies any tender or palpable lymph nodes. Respiratory Denies dyspnea on exertion, chest pain, cough or hemoptysis. Denies orthopnea. Cardiovascular Denies anginal chest pain, palpitations or orthopnea. Gastrointestinal Denies nausea, vomiting, diarrhea, GI bleeding, or constipation. Denies change in bowel habits and/or stool color, or early satiety. Genitourinary (M) Denies hematuria, dysuria, increased frequency, urgency, hesitancy or incontinence. Musculoskeletal Denies joint pain, swelling or redness. No decreased range of motion. Integumentary Concerns of rash/rough feeling skin???see above Neurologic Denies headache, blurred vision, and no areas of focal weakness or numbness. Normal gait. No sensory problems. Vital Signs: Performed on Nov 27, 2020 09:24 Height - 71.00 in Weight - 214.6 lbs (HIGH) BSA - 2.17 sq.m BMI - 29.93 Temperature - 97.7 F (LOW) Pulse - 58 /min (LOW) Respiration - 18 /min BP - 151/92 mm(hg) (HIGH) O2 Sat - 99 % Pain - 0,1 - No physically strenuous activity, but ambulatory and able to carry out light or sedentary work (e.g. office work, light house work). (ECOG) Physical Examination: Constitutional Alert, oriented, no acute distress. Skin pink, warm and dry. Head Normocephalic; atraumatic. Eyes Conjunctivae and sclerae are clear and without icterus. Pupils are reactive and equal. ENMT Left inner ear with yellowish discolored exudate and bright red canal with draining lesion inside of ear noted. Neck No jugular venous distension. No palpable adenopathy. Chest Chest is symmetric without chest wall deformities. Right chest wall venous access device is unremarkable. Abdomen Non-tender, non-distended, no masses, ascites. Back/Spine Non-tender to palpation. Extremities No visible deformities, no cyanosis, clubbing or edema. Musculoskeletal No tenderness or swelling, normal range of motion without obvious weakness. Neurologic No sensory or motor deficits, normal cerebellar function, normal gait. Psychiatric Alert and oriented times three. Coherent speech. Verbalizes understanding of our discussions today. Laboratory:Test performed on Nov 27, 2020 08:20 LDH (Total) 180 U/L Sodium 139 mmol/L Potassium 4.0 mmol/L Chloride 106 mmol/L CO2 24 mmol/L Anion Gap 13.0 BUN 33 mg/dL Creatinine 2.0 mg/dL Cr Clearance (Est) 53.40 mL/min eGFR 34.1 mL/min Glucose 92 mg/dL Osmolality - Calculated 295 mOsm/kg Calcium 9.2 mg/dL Protein, Total 6.1 g/dL Albumin 4.0 g/dL Globulin 2.1 g/dL Bilirubin, Total 0.4 mg/dL ALT (SGPT) 14 U/L AST (SGOT) 16 U/L Alkaline Phosphatase 100 IU/L WBC 3.8 10 3/uL RBC 4.04 10 6/uL HGB 14.2 g/dL HCT 40.1 % MCV 99.3 fL MCH 35.1 pg MCHC 35.4 g/dL RDW 13.1 % Platelet Count 160 10 3/cmm MPV 9.7 fL Neutrophils 1.64 10 3/uL Lymphocytes 0.5 10 3/uL Monocytes 0.8 10 3/uL Eosinophils 0.5 10 3/uL Basophils 0.1 10 3/uL Neutrophil % 43.4 % Lymphocyte % 14.0 % Monocyte % 20.9 % Eosinophil % 14.0 % Basophils % 2.1 % NRBC % 0 % CBC Slide Review Slide Review Perform SLIDE REVIEW AGREES WITH AUTOMATED RESULTS. HYPERSEGMENTATION OBSERVED IN SEVERAL NEUTROPHILS Test performed on Aug 02, 2020 11:14 T3, Free 2.3 PG/ML T4, Free 1.26 ng/dL Test performed on Jul 23, 2020 08:37 Ferritin 531 ng/mL Iron 105 mcg/dL TSH 5.67 uIU/mL Iron Binding Capacity (TIBC) 201 mcg/dl % Iron Saturation 52.2 % UIBC 96 mcg/dL Impression: 1. Patient with grade 1 follicular lymphoma, stage at least IIIS, diagnosed by left axillary lymph node biopsy on 07/31/2018. 2. His initial treatment included 2 cycles of bendamustine/Rituxan. With the first cycle the bendamustine was administered at a 50% dosage due to renal function and he received day 1 treatment only due to acute thrombocytopenia. Cycle 2 was delayed to 10/21/2018, and the bendamustine dosage remained at 50%. 3. He had presented with acute renal failure due to membranoproliferative glomerulonephritis, confirmed by renal biopsy on 07/30/2018. He has been on hemodialysis. 4. He was anemic at presentation, and he subsequently did require PRBC transfusion. 5. He also had laboratory evidence of hypothyroidism. 6. He has degenerative joint disease related to previous injuries. 7. He has a prior history of gout. He completed 2 cycles of bendamustine/Rituxan, though with significant delay prior to starting cycle 2. His restaging PET/CT on 01/08/2019 still showed diffuse FDG avid lymphadenopathy from the head/neck to the pelvis and diffusely metabolic splenomegaly. On comparison to his pretreatment CT scans, he did not appear to be showing significant response to the bendamustine/Rituxan regimen. As such, Dr. Suarez opted to proceed with a course of R-CHOP chemotherapy. He began cycle 1 of R-CHOP on 02/23/2019. He was given first cycle prophylaxis with Neulasta. He tolerated it with acceptable toxicity, and he continued with cycle 2 on 03/16/2019 and with cycle 3 on 04/13/2019. During this time he required additional thoracentesis procedures, and a flow cytometry study on his pleural fluid did show a monotypic B-cell population consistent with involvement by malignant lymphoma. Restaging PET/CT on 05/07/2019 showed overall improvement but not complete resolution of the extensive adenopathy. Hypermetabolic splenomegaly appeared to have normalized. Overall, he appeared to have a very good response to the chemotherapy. He then continued treatment at 3-week intervals. He began his 6th cycle of R-CHOP on 06/22/2019. His restaging PET/CT on 07/16/2019 showed very significant response, though with possible residual involvement in a right external iliac lymph node and with evidence of some residual left pleural effusion. During that time he had significant improvement in his performance status, and he also was able to maintain adequate renal function after stopping dialysis. In the setting of low-grade lymphoma with very good partial response to chemotherapy, he was recommended to continue with maintenance rituximab. He began cycle 1 on 08/18/2019. He tolerated it well and continue with cycle 2 on 10/18/2019. However, at his follow-up visit on 12/13/2019 he had new adenopathy on the left side of the neck. Restaging CT scans showed disease progression in multiple areas, though not bulky. He was then seen for a second opinion evaluation at [facility] by Dr. Terell Solo. His restaging PET/CT also confirmed progression and multiple areas, but with a maximum SUV of 13.6 involving the right deep inguinal lymph node measuring 4.6 x 2.5 cm. Needle core biopsy of the lymph node again showed grade 1-2 follicular lymphoma. With that finding, he began treatment with idelalisib 150 mg twice daily on 02/28/2020. At his follow-up visit on 03/13/2020 he appeared to be tolerating it well. He had normal blood counts and normal LFTs. At his follow-up visit on 04/03/2020 his liver enzymes had become markedly elevated with SGOT 1532/40 U/L and SGPT 2716/41 U/L. Bilirubin was just slightly elevated at 1.1 mg/dL with alkaline phosphatase in normal range at 125 IU/L. This was presumed to be treatment related. The idelalisib was discontinued and by 05/03/2020 the SGOT and SGPT levels were back to normal. His treatment was then transitioned to lenalidomide in combination with obinutuzumab. He began lenalidomide 20 mg daily on 06/13/2020. At his 1 week follow-up his treatment was put on hold due to skin rash and thrombocytopenia, platelet count dropping to 28,000. He does appear to be showing recovery since stopping the treatment. He was able to resume the lenalidomide at 10 mg daily on July 16, 2020. He began this regimen on 07/16/2020 and had cycle 1 day 8 and 9 obinutuzumab starting on 07/23/2020. He is tolerating it well thus far. He completed his first cycle on August 09, 2020. Mr Rivera has continued with Gazyva and lenalidomide. He has had delay from 09/13/2020 to 10/25/2020 due to low blood counts. His last treatment was on 10/25/2020. He stopped his Revlimid on 11/23/2020 a few days early due to abcess in the left inner ear. Plan: PROBLEMS ADDRESSED TODAY 1. FOLLICULAR LYMPHOMA A. Hold cycle 5 obinutuzumab and lenalidomide to 5 mg due to inavailability of obinutuzumab due to shipping delays from pharmaceutical supplier and Left inner ear abcess. B. Today's labs were reviewed in detail discussed with Mr. Rivera and a copy was given to him. WBC 3.8, hemoglobin 14.2, platelets 160,000. ANC is 1640. His creatinine is 2.0. Potassium is 4.0 LFTs are normal LDH is 180. 2. Left inner ear abcess A. Levaquin 500 mg po daily x 7 days-prescription sent to [facility] for 340b plan. B. Hold Revlimid until followup next week. 3. Followup Plan A. We will plan to see him back in 1 week with CBC, CMP with the intent to proceed with cycle 5. B. Mr. Rivera was instructed to contact us in the interim should questions or problems arise. Signed By: Gaurav Lim-, AODOC Suarez MD <<Signature on File>>
== END 2020-12-02 23:59 | disposition home or self-care (01) ==
LOC: ONCMED 05:25
PROVIDERS: Visit Provider Nurse Practitioner
DX: C82.08 Follicular lymphoma grade I, lymph nodes of multiple sites (principal); N05.5 Unspecified nephritic syndrome with diffuse mesangiocapillary glomerulonephritis; N17.9 Acute kidney failure, unspecified; Z99.2 Dependence on renal dialysis; D64.9 Anemia, unspecified; E03.9 Hypothyroidism, unspecified; M19.90 Unspecified osteoarthritis, unspecified site; M10.9 Gout, unspecified; Z79.899 Other long term (current) drug therapy
CPT/HCPCS: 36591; 80053; 83615; 85025; 99214

== ENCOUNTER 2020-12-27 05:37 | Outpatient (RCR) | payer MEDICARE, MEDICAID, SELFPAY ==
[2020-12-06 08:40] LABS: Basophils # 0.1 10^3/uL (0.0-0.1); Basophils % 2.5 %; Eosinophils # 0.6 10^3/uL (0.0-0.8); Eosinophils % 11.3 %; Hemoglobin 14.9 g/dL (11.7-16.6); Lymphocytes # 0.5 10^3/uL (0.8-4.8); Lymphocytes % 10.1 %; Mean Corpuscular HGB Conc 35.5 g/dL (30.0-36.0); Mean Corpuscular Hemoglobin 35.6 pg (28.0-34.0); Mean Corpuscular Volume 100.2 fL (80-94); Mean Platelet Volume 10.4 fL (7.4-10.4); Monocytes # 0.7 10^3/uL (0.2-0.9); Monocytes % 13.8 %; Neutrophils # 2.74 10^3/uL (1.8-7.7); Neutrophils % 56.3 %; Nucleated Red Blood Cells % 0 %; Platelet Count 144 10^3/cmm (130-400); Red Blood Count 4.19 10^6/uL (4.1-5.3); Red Cell Distribution Width 13.4 % (12.1-15.1); White Blood Count 4.9 10^3/uL (4.0-10.0)
[2020-12-06 08:48] LABS: Alanine Aminotransferase 16 U/L (0-41); Albumin Level 4.3 g/dL (3.5-5.2); Alkaline Phosphatase 104 IU/L (40-130); Anion Gap 12.2 (5-19); Aspartate Amino Transferase 21 U/L (0-40); Blood Urea Nitrogen 25 mg/dL (8-23); Calcium 9.2 mg/dL (8.5-10.5); Carbon Dioxide 24 mmol/L (22-29); Chloride 104 mmol/L (98-107); Globulin 2.3 g/dL (1.3-4.6); Glomerular Filtration Rate 41.2 mL/min (90-130); Glucose 104 mg/dL (65-115); Osmolality Calculated 287 mOsm/kg (285-295); Potassium 4.2 mmol/L (3.5-5.1); Sodium 136 mmol/L (136-145); Total Bilirubin 0.8 mg/dL (0.15-1.2); Total Protein 6.6 g/dL (6.6-8.7)
[2020-12-06 09:10] LABS: Slide Review Slide Review Perform
[2020-12-06] MEDS: diphenhydrAMINE 50 mg/mL SDV 1mL IV (10:18)
[2020-12-06] MEDS: sodium chloride 0.9% (100 ml) 100 ML 400 ML (10:18)
[2020-12-06] MEDS: acetaminophen 325 mg Tablet 650 MG PO (10:20)
[2020-12-06] MEDS: sodium chloride 0.9% 500 ML 999 ML IV (10:40)
[2020-12-06] MEDS: dexamethasone 20 MG in sodium chloride 0.9% 50 ML 187 MG IV (10:40)
--- NOTE | 2020-12-12 09:22 | ONC FU_ITS ---
[facility] Patient Note Patient: Jl Rivera Unit #: [id number]: [id number] Dictated By: Gaurav LimDate of Visit: Dec 06, 2020 Onc MED Follow-Up/Prog Note Chief Complaint: Lymphoma. 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 He was admitted to [facility] on 07/29/2018 with acute renal failure. He had presented with encephalopathy and severe edema. In addition to the acute renal failure, he had moderately severe anemia and mild thrombocytopenia with his baseline platelet count reportedly in the range of 100,000. CT pulmonary angiogram showed axillary and mediastinal lymphadenopathy, moderate sized bilateral pleural effusions, and cardiomegaly. His abdomen/pelvis CT showed marked lymphadenopathy within the abdomen and pelvis and splenomegaly. 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 He also was started on hemodialysis. Left axillary lymph node biopsy on 07/31/2018 showed malignant lymphoma, favoring low-grade follicular lymphoma. The neoplastic cells were noted to be positive for BCL 6, CD10, and CD23. There was weak positivity for BCL 2. The cells were negative for cyclin D1, MUM1, and SOX 11. On 07/31/2018 he began chemotherapy with bendamustine/Rituxan. The bendamustine dosage was reduced by 50% for the renal function. His day 2 bendamustine was held due to an acute drop in his platelet count to 30,000. It subsequently did recover, but there was a delay of close to 3 months prior to starting his second cycle of chemotherapy. Dr Suarez had seen him initially on 11/15/2018. His 3rd cycle of chemotherpy had been scheduled to be given the following week, and he was to have restaging CT scans prior to that treatment. His further evaluation was delayed pending his Medicare eligibility. He then had a restaging PET/CT on 01/08/2019. It showed extensive hypermetabolic lymphadenopathy for the level of the head and neck to the level of the pelvis. There was diffusely metabolic splenomegaly. As he appeared to have had very little response to the bendamustine/Rituxan regimen, Dr Suarez opted to proceed with a course of R-CHOP chemotherapy. His baseline echocardiogram showed estimated left ventricular ejection fraction of 55%. There was grade I/IVdiastolic dysfunction. He began cycle 1 of R-CHOP on 02/23/2019. He was given first cycle prophylaxis with Neulasta. He tolerated it with acceptable toxicity, and he continued with cycle 2 on 03/16/2019 and with cycle 3 on 04/13/2019. During this time he required additional thoracentesis procedures on 03/09, 03/17, and 04/01/2019. A flow cytometry study on his pleural fluid did show a monotypic B-cell population consistent with involvement by malignant lymphoma. Restaging PET/CT on 05/07/2019 showed overall improvement but not complete resolution of the extensive adenopathy. Hypermetabolic splenomegaly appeared to have normalized. He then continued with cycle 4 of R-CHOP on 05/11/2019, with cycle 5 on 06/01/2019, and with cycle 6 on 06/22/2019. Restaging PET/CT on 07/16/2019 showed subcentimeter size lymph nodes in the head and neck bilaterally, FDG negative. Similar improvement was noted in mediastinal, left internal mammary, and bilateral axillary lymph nodes. Portal nodes demonstrated only minimal FDG uptake and scattered retroperitoneal nodes measuring up to 1 cm in size showed FDG activity no greater than that of mediastinal background. A right external iliac lymph node measuring 1.8 x 1.5 cm had mild FDG uptake with SUV 3.4. The left pleural effusion was noted be significantly decreased in volume. Left lower lobe round atelectasis was noted to be FDG negative. In the setting of a low-grade follicular lymphoma with very good partial response to chemotherapy, Dr Suarez recommended that he continue with maintenance rituximab. He then returned on 08/18/2019 to begin cycle 1 of 12 planned cycles of treatment at 2-month intervals. He tolerated it well, and he continued with cycle 2 on 10/18/2019. At his follow-up visit on 12/13/2019 he had become aware of a new nodule on the right side of his neck. It was suspected that it was of thyroid origin. However, his neck CT on 12/15/2019 showed enlarged left submandibular lymph node measuring 11 mm, numerous but normal sized level 2 and level 3 cervical lymph nodes, and numerous and enlarged supraclavicular lymph nodes and retropectoral lymph nodes. The largest supraclavicular lymph node measured [address] scans of the chest, abdomen, and pelvis showed significant interval progression involving supraclavicular, thoracic inlet, internal mammary, and axillary lymphadenopathy. The largest left axillary lymph node measured 2.5 cm. Lymphadenopathy in the upper abdomen, abdiaziz hepatis, and periaortic regions was noted to be stable, but there was significant progression of pelvic and iliac chain lymphadenopathy as well as inguinal lymphadenopathy. A 6 mm noncalcified left upper lobe pulmonary nodule appeared stable. With those findings, he was referred to [facility] for a second opinion evaluation. He was seen there on 01/09/[address] Terell Solo. At his recommendation, Mr. Rivera had a repeat PET/CT on 01/14/2020. It showed multiple areas of abnormal uptake, consistent with recurrent lymphoma, but with the maximum SUV of 13.6 involving a right deep inguinal lymph node measuring 4.6 x 2.5 cm. Based on the degree of SUV activity, he then underwent CT directed core needle biopsy on 01/26/2020. Pathology was again consistent with grade 1-2 follicular lymphoma. In the setting of resistant follicular lymphoma, he was recommended to undergo trial of therapy with a P13 kinase inhibitor. He then began treatment with idelalisib 150 mg twice daily on 02/28/2020. He was seen for a follow-up visit on 03/13/2020 at day 14 of his treatment. He appeared to be tolerating it well. His blood counts were normal, and his liver function tests were also normal. He continued idelalisib 150 mg twice daily. As of 04/03/2020 the idelalisib was put on hold due to a dramatic increase in his liver enzymes with SGOT increased to 1532 U/L and SGPT 2716 U/L. The bilirubin was just slightly elevated at 1.1 mg/dL. As of 05/02/2020 the SGOT and SGPT were both back to normal. His other medical illnesses include hypothyroidism, degenerative arthritis, and gout. He has a history of smoking 1 pack of cigarettes daily for 40 years, but he has cut down. INTERIM HISTORY: After complete recovery from idelalisib hepatotoxicity, his treatment was transitioned to lenalidomide in combination with obinutuzumab. He began lenalidomide on 06/13/2020 at 20 mg daily. As of 06/20/2020 his treatment was put on hold due to thrombocytopenia, platelet count decreasing to 28,000, and skin rash. He recovered uneventfully and he then restarted the lenalidomide with the dosage reduced to 10 mg daily on a 21/28-day schedule. He continued to have mild to moderately severe thrombocytopenia, but he otherwise tolerated it well at the reduced dosage. He then began cycle 1 of obinutuzumab on 07/23/2020. It was administered weekly for the 1st cycle. He tolerated well and continued with cycle 2 on 08/16/2020. Mr. Rivera is here today for follow-up. He is due for cycle 5-day 1 Gazyva. He has also been on lenalidomide 5 mg daily (dose reduced 10/25/2020 due to blood counts). His treatment has been delayed due to neutropenia and thrombocytopenia. His last Gazyva administration was on 10/25/2020. He stopped his Revlimid early on 11/23/2020 due to an abcess in his left ear. Mr. Rivera is here today for follow-up. He has no concerns today. He states he feels pretty good. He denies any fever or chills. He has had no mouth sores, sore throat or difficulty swallowing. He states he has been a little bit more draggy over the last week or so but states I think I am just being lazy . He states his appetite is good. His bowels and bladder are normal for him. He denies any neuropathy. He does have the lenalidomide 5 mg tablets now. He has no new concerns today. His ECOG is 0. He states his left ear has stopped draining and is healed . He denies any pain with it. Past Medical History: Anemia Degenerative joint disease Gout Hypothyroidism Past Surgical History: Placement of AV fistula for dialysis Placement of left subclavian dialysis catheter Rotator cuff repair bilaterally Left axillary lymph node biopsy and placement of Port-A-Cath venous access device in 2019 Ct renal biopsy in 2018 Cervical spine fusion with vertebral cadaver bone in 2005 Allergies: No Known Allergies. Medications: Revlimid (10 mg) Capsule Oral Take as Directed Family History: Mr. Rivera's mother is alive. Mr. Rivera's father is . Mr. Rivera has 4 brothers: 4 alive. He has 1 sister who is alive. His mother is still living and in good health at age 81. Father with multiple myeloma at age 80. He also had prostate cancer. The patient's paternal grandfather had prostate cancer as well. Five siblings are in good health. Social History: Mr. Rivera is and he is unemployed. He is an occasional smoker who has smoked 0.5 packs/day for 41 years. Drinks very rarely. Review Of Symptoms: Constitutional Denies fevers, chills, night sweats, excessive fatigue or weight loss. Allergic/Immunologic No reactions. Eyes Denies significant visual changes. No diplopia. No amaurosis. ENMT Left ear much better. Endocrine Denies hot flashes or night sweats. Hematologic/Lymphatic Denies easy bruising or bleeding. The patient denies any tender or palpable lymph nodes. Respiratory Denies dyspnea on exertion, chest pain, cough or hemoptysis. Denies orthopnea. Cardiovascular Denies anginal chest pain, palpitations or orthopnea. Gastrointestinal Denies nausea, vomiting, diarrhea, GI bleeding, or constipation. Denies change in bowel habits and/or stool color, or early satiety. Genitourinary (M) Denies hematuria, dysuria, increased frequency, urgency, hesitancy or incontinence. Musculoskeletal Denies joint pain, swelling or redness. No decreased range of motion. Integumentary Concerns of rash/rough feeling skin???see above Neurologic Denies headache, blurred vision, and no areas of focal weakness or numbness. Normal gait. No sensory problems. Psychiatric Denies depression, claus or mood swings. Has had some intermittent insomnia. Trazadone really didn't help much but he is trying relaxation techniques and this is helping presently. He states he is sleeping better overall. Vital Signs: Performed on Dec 06, 2020 14:42 Height - 71.00 in Temperature - 96.9 F (LOW) Pulse - 92 /min Respiration - 18 /min BP - 156/99 mm(hg) (HIGH) O2 Sat - 98 % Performed on Dec 06, 2020 09:10 Height - 71.00 in Weight - 214 lbs (LOW) BSA - 2.17 sq.m BMI - 29.85 Temperature - 97.3 F (LOW) Pulse - 56 /min (LOW) Respiration - 18 /min BP - 142/92 mm(hg) (HIGH) O2 Sat - 99 % Pain - 0 Fatigue - 0,0 - Fully active, able to carry on all predisease activities without restrictions. (ECOG) Physical Examination: Constitutional Alert, oriented, no acute distress. Skin pink, warm and dry. Head Normocephalic; atraumatic. Eyes Conjunctivae and sclerae are clear and without icterus. Pupils are reactive and equal. ENMT Left inner ear with mild redness but no exudate. Neck No jugular venous distension. No palpable adenopathy. Hematologic/Lymphatic No tender or palpable lymph nodes in the cervical or supraclavicular areas. Respiratory Lungs are clear to auscultation without rhonchi or wheezing. Cardiovascular Regular rate and rhythm of heart without murmurs,clicks, gallops or rubs. Chest Chest is symmetric without chest wall deformities. Right chest wall venous access device is unremarkable. Abdomen Non-tender, non-distended, no masses, ascites. Back/Spine Non-tender to palpation. Extremities No visible deformities, no cyanosis, clubbing or edema. Musculoskeletal No tenderness or swelling, normal range of motion without obvious weakness. Integumentary see above Neurologic No sensory or motor deficits, normal cerebellar function, normal gait. Psychiatric Alert and oriented times three. Coherent speech. Verbalizes understanding of our discussions today. Laboratory:Test performed on Dec 06, 2020 08:16 Sodium 136 mmol/L Potassium 4.2 mmol/L Chloride 104 mmol/L CO2 24 mmol/L Anion Gap 12.2 BUN 25 mg/dL Creatinine 1.7 mg/dL Cr Clearance (Est) 62.65 mL/min eGFR 41.2 mL/min Glucose 104 mg/dL Osmolality - Calculated 287 mOsm/kg Calcium 9.2 mg/dL Protein, Total 6.6 g/dL Albumin 4.3 g/dL Globulin 2.3 g/dL Bilirubin, Total 0.8 mg/dL ALT (SGPT) 16 U/L AST (SGOT) 21 U/L Alkaline Phosphatase 104 IU/L WBC 4.9 10 3/uL RBC 4.19 10 6/uL HGB 14.9 g/dL HCT 42.0 % MCV 100.2 fL MCH 35.6 pg MCHC 35.5 g/dL RDW 13.4 % Platelet Count 144 10 3/cmm MPV 10.4 fL Neutrophils 2.74 10 3/uL Lymphocytes 0.5 10 3/uL Monocytes 0.7 10 3/uL Eosinophils 0.6 10 3/uL Basophils 0.1 10 3/uL Neutrophil % 56.3 % Lymphocyte % 10.1 % Monocyte % 13.8 % Eosinophil % 11.3 % Basophils % 2.5 % NRBC % 0 % CBC Slide Review Slide Review Perform SLIDE REVIEW AGREES WITH AUTOMATED RESULTS ST Test performed on Nov 27, 2020 08:20 LDH (Total) 180 U/L Test performed on Aug 02, 2020 11:14 T3, Free 2.3 PG/ML T4, Free 1.26 ng/dL Test performed on Jul 23, 2020 08:37 Ferritin 531 ng/mL Iron 105 mcg/dL TSH 5.67 uIU/mL Iron Binding Capacity (TIBC) 201 mcg/dl % Iron Saturation 52.2 % UIBC 96 mcg/dL Impression: 1. Patient with grade 1 follicular lymphoma, stage at least IIIS, diagnosed by left axillary lymph node biopsy on 07/31/2018. 2. His initial treatment included 2 cycles of bendamustine/Rituxan. With the first cycle the bendamustine was administered at a 50% dosage due to renal function and he received day 1 treatment only due to acute thrombocytopenia. Cycle 2 was delayed to 10/21/2018, and the bendamustine dosage remained at 50%. 3. He had presented with acute renal failure due to membranoproliferative glomerulonephritis, confirmed by renal biopsy on 07/30/2018. He has been on hemodialysis. 4. He was anemic at presentation, and he subsequently did require PRBC transfusion. 5. He also had laboratory evidence of hypothyroidism. 6. He has degenerative joint disease related to previous injuries. 7. He has a prior history of gout. He completed 2 cycles of bendamustine/Rituxan, though with significant delay prior to starting cycle 2. His restaging PET/CT on 01/08/2019 still showed diffuse FDG avid lymphadenopathy from the head/neck to the pelvis and diffusely metabolic splenomegaly. On comparison to his pretreatment CT scans, he did not appear to be showing significant response to the bendamustine/Rituxan regimen. As such, Dr. Suarez opted to proceed with a course of R-CHOP chemotherapy. He began cycle 1 of R-CHOP on 02/23/2019. He was given first cycle prophylaxis with Neulasta. He tolerated it with acceptable toxicity, and he continued with cycle 2 on 03/16/2019 and with cycle 3 on 04/13/2019. During this time he required additional thoracentesis procedures, and a flow cytometry study on his pleural fluid did show a monotypic B-cell population consistent with involvement by malignant lymphoma. Restaging PET/CT on 05/07/2019 showed overall improvement but not complete resolution of the extensive adenopathy. Hypermetabolic splenomegaly appeared to have normalized. Overall, he appeared to have a very good response to the chemotherapy. He then continued treatment at 3-week intervals. He began his 6th cycle of R-CHOP on 06/22/2019. His restaging PET/CT on 07/16/2019 showed very significant response, though with possible residual involvement in a right external iliac lymph node and with evidence of some residual left pleural effusion. During that time he had significant improvement in his performance status, and he also was able to maintain adequate renal function after stopping dialysis. In the setting of low-grade lymphoma with very good partial response to chemotherapy, he was recommended to continue with maintenance rituximab. He began cycle 1 on 08/18/2019. He tolerated it well and continue with cycle 2 on 10/18/2019. However, at his follow-up visit on 12/13/2019 he had new adenopathy on the left side of the neck. Restaging CT scans showed disease progression in multiple areas, though not bulky. He was then seen for a second opinion evaluation at [facility] by Dr. Terell Solo. His restaging PET/CT also confirmed progression and multiple areas, but with a maximum SUV of 13.6 involving the right deep inguinal lymph node measuring 4.6 x 2.5 cm. Needle core biopsy of the lymph node again showed grade 1-2 follicular lymphoma. With that finding, he began treatment with idelalisib 150 mg twice daily on 02/28/2020. At his follow-up visit on 03/13/2020 he appeared to be tolerating it well. He had normal blood counts and normal LFTs. At his follow-up visit on 04/03/2020 his liver enzymes had become markedly elevated with SGOT 1532/40 U/L and SGPT 2716/41 U/L. Bilirubin was just slightly elevated at 1.1 mg/dL with alkaline phosphatase in normal range at 125 IU/L. This was presumed to be treatment related. The idelalisib was discontinued and by 05/03/2020 the SGOT and SGPT levels were back to normal. His treatment was then transitioned to lenalidomide in combination with obinutuzumab. He began lenalidomide 20 mg daily on 06/13/2020. At his 1 week follow-up his treatment was put on hold due to skin rash and thrombocytopenia, platelet count dropping to 28,000. He does appear to be showing recovery since stopping the treatment. He was able to resume the lenalidomide at 10 mg daily on July 16, 2020. He began this regimen on 07/16/2020 and had cycle 1 day 8 and 9 obinutuzumab starting on 07/23/2020. He is tolerating it well thus far. He completed his first cycle on August 09, 2020. Mr Rivera has continued with Gazyva and lenalidomide. He has had delay from 09/13/2020 to 10/25/2020 due to low blood counts. His last treatment was on 10/25/2020. He stopped his Revlimid on 11/23/2020 a few days early due to abcess in the left inner ear. Plan: PROBLEMS ADDRESSED TODAY 1. FOLLICULAR LYMPHOMA A. Proceed with cycle 5 day 1 obinutuzumab-28 day cycle B Proceed with cycle 5 day 1 lenalidomide 5 mg days 1-21 and off 7. C. Today's labs were reviewed in detail discussed with Mr. Rivera and a copy was given to him. WBC 4.9, hemoglobin 14.9, platelets 144,000 ANC is 2740 potassium 4.2 random glucose 104 creatinine improved at 1.7 LFTs are normal. His weight is stable at 214. D. I did request a TSH for blood in lab add on to evaluate his concerns of being draggy/fatigued. E. His blood pressure was noted to be elevated here in the clinic today at 156/99. He states he is just wound up from being here. He states his blood pressure has been running normal at home. He will monitor it and try to remember to bring recordings with him at his next follow-up. 2. Left inner ear abcess-dramatically improved A. Refill for Levaquin 500 mg po daily x 7 days-prescription sent to [facility] for 340b plan, in the event it flares after treatment today. 3. Followup Plan A. We will plan to see him back in 4 weeks with CBC, CMP, LDH with the intent to proceed with cycle 6. B. We will plan on weekly interim counts via port C. Mr. Rivera was instructed to contact us in the interim should questions or problems arise. Signed By: Gaurav Lim-, AOCNP Charlie Suarez MD <<Signature on File>>
[2020-12-13 10:37] LABS: Basophils # 0.1 10^3/uL (0.0-0.1); Basophils % 0.9 %; Eosinophils # 1.2 10^3/uL (0.0-0.8); Eosinophils % 17.4 %; Hematocrit 42.1 % (42.0-52.0); Lymphocytes # 0.4 10^3/uL (0.8-4.8); Lymphocytes % 6.7 %; Mean Corpuscular HGB Conc 35.6 g/dL (30.0-36.0); Mean Corpuscular Hemoglobin 35.4 pg (28.0-34.0); Mean Corpuscular Volume 99.3 fL (80-94); Mean Platelet Volume 10.9 fL (7.4-10.4); Monocytes # 0.9 10^3/uL (0.2-0.9); Monocytes % 12.9 %; Neutrophils # 3.75 10^3/uL (1.8-7.7); Neutrophils % 56.7 %; Nucleated Red Blood Cells % 0 %; Platelet Count 93 10^3/cmm (130-400); Red Blood Count 4.24 10^6/uL (4.1-5.3); Red Cell Distribution Width 13.1 % (12.1-15.1); White Blood Count 6.6 10^3/uL (4.0-10.0)
[2020-12-13 11:20] LABS: Slide Review Slide Review Perform
[2020-12-20 10:36] LABS: Basophils # 0.1 10^3/uL (0.0-0.1); Basophils % 0.6 %; Eosinophils % 12.5 %; Hematocrit 42.6 % (42.0-52.0); Hemoglobin 14.9 g/dL (11.7-16.6); Lymphocytes # 0.6 10^3/uL (0.8-4.8); Lymphocytes % 7.7 %; Mean Corpuscular Hemoglobin 35.1 pg (28.0-34.0); Mean Corpuscular Volume 100.2 fL (80-94); Mean Platelet Volume 10.6 fL (7.4-10.4); Monocytes # 1.3 10^3/uL (0.2-0.9); Monocytes % 17.1 %; Neutrophils # 4.52 10^3/uL (1.8-7.7); Neutrophils % 58.2 %; Nucleated Red Blood Cells % 0 %; Platelet Count 118 10^3/cmm (130-400); Red Blood Count 4.25 10^6/uL (4.1-5.3); Red Cell Distribution Width 13.1 % (12.1-15.1); White Blood Count 7.8 10^3/uL (4.0-10.0)
[2020-12-20 10:57] LABS: Alanine Aminotransferase 18 U/L (0-41); Alkaline Phosphatase 130 IU/L (40-130); Anion Gap 13.5 (5-19); Aspartate Amino Transferase 16 U/L (0-40); Blood Urea Nitrogen 40 mg/dL (8-23); Calcium 9.1 mg/dL (8.5-10.5); Carbon Dioxide 26 mmol/L (22-29); Chloride 102 mmol/L (98-107); Globulin 2.1 g/dL (1.3-4.6); Glomerular Filtration Rate 38.6 mL/min (90-130); Glucose 104 mg/dL (65-115); Osmolality Calculated 296 mOsm/kg (285-295); Potassium 3.5 mmol/L (3.5-5.1); Sodium 138 mmol/L (136-145); Total Bilirubin 0.5 mg/dL (0.15-1.2); Total Protein 6.1 g/dL (6.6-8.7)
[2020-12-27 10:43] LABS: Basophils % 0.8 %; Eosinophils # 0.5 10^3/uL (0.0-0.8); Eosinophils % 10.9 %; Hematocrit 39.1 % (42.0-52.0); Hemoglobin 13.9 g/dL (11.7-16.6); Lymphocytes # 0.5 10^3/uL (0.8-4.8); Lymphocytes % 9.1 %; Mean Corpuscular HGB Conc 35.5 g/dL (30.0-36.0); Mean Corpuscular Hemoglobin 35.4 pg (28.0-34.0); Mean Corpuscular Volume 99.5 fL (80-94); Mean Platelet Volume 10.7 fL (7.4-10.4); Monocytes # 0.9 10^3/uL (0.2-0.9); Monocytes % 17.5 %; Neutrophils # 2.89 10^3/uL (1.8-7.7); Neutrophils % 58.1 %; Nucleated Red Blood Cells % 0 %; Platelet Count 111 10^3/cmm (130-400); Red Blood Count 3.93 10^6/uL (4.1-5.3); Red Cell Distribution Width 13.3 % (12.1-15.1)
[2020-12-27 11:15] LABS: Alanine Aminotransferase 21 U/L (0-41); Alkaline Phosphatase 94 IU/L (40-130); Anion Gap 13.8 (5-19); Aspartate Amino Transferase 19 U/L (0-40); Blood Urea Nitrogen 30 mg/dL (8-23); Calcium 8.4 mg/dL (8.5-10.5); Carbon Dioxide 24 mmol/L (22-29); Chloride 103 mmol/L (98-107); Globulin 2.1 g/dL (1.3-4.6); Glomerular Filtration Rate 38.6 mL/min (90-130); Glucose 88 mg/dL (65-115); Osmolality Calculated 290 mOsm/kg (285-295); Potassium 3.8 mmol/L (3.5-5.1); Sodium 137 mmol/L (136-145); Total Bilirubin 1.1 mg/dL (0.15-1.2); Total Protein 6.1 g/dL (6.6-8.7)
== END 2021-01-02 23:59 | disposition home or self-care (01) ==
LOC: ONCMED 05:37
PROVIDERS: Visit Provider Nurse Practitioner
DX: Z51.11 Encounter for antineoplastic chemotherapy (principal); C82.08 Follicular lymphoma grade I, lymph nodes of multiple sites; N05.5 Unspecified nephritic syndrome with diffuse mesangiocapillary glomerulonephritis; N17.9 Acute kidney failure, unspecified; E03.9 Hypothyroidism, unspecified; M19.90 Unspecified osteoarthritis, unspecified site; M10.9 Gout, unspecified; Z79.899 Other long term (current) drug therapy
CPT/HCPCS: 36591; 80053; 85025; 96367; 96413; 96415; 99214; J1100; J1200; J7040; J7050; J9301

== ENCOUNTER 2021-01-29 13:00 | Outpatient (RCR) | payer MEDICARE, MEDICAID, SELFPAY ==
[2021-01-03 09:52] LABS: Basophils # 0.1 10^3/uL (0.0-0.1); Basophils % 1.6 %; Eosinophils # 0.7 10^3/uL (0.0-0.8); Eosinophils % 13.9 %; Hematocrit 41.7 % (42.0-52.0); Hemoglobin 14.8 g/dL (11.7-16.6); Lymphocytes # 0.5 10^3/uL (0.8-4.8); Lymphocytes % 9.4 %; Mean Corpuscular HGB Conc 35.5 g/dL (30.0-36.0); Mean Corpuscular Hemoglobin 35.4 pg (28.0-34.0); Mean Corpuscular Volume 99.8 fL (80-94); Mean Platelet Volume 10.6 fL (7.4-10.4); Monocytes # 0.9 10^3/uL (0.2-0.9); Monocytes % 17.7 %; Neutrophils % 51.1 %; Nucleated Red Blood Cells % 0 %; Platelet Count 144 10^3/cmm (130-400); Red Blood Count 4.18 10^6/uL (4.1-5.3); Red Cell Distribution Width 13.3 % (12.1-15.1); White Blood Count 5.1 10^3/uL (4.0-10.0)
[2021-01-03 10:04] LABS: Alanine Aminotransferase 17 U/L (0-41); Albumin Level 4.2 g/dL (3.5-5.2); Alkaline Phosphatase 104 IU/L (40-130); Anion Gap 13.7 (5-19); Aspartate Amino Transferase 15 U/L (0-40); Blood Urea Nitrogen 30 mg/dL (8-23); Calcium 9.1 mg/dL (8.5-10.5); Carbon Dioxide 25 mmol/L (22-29); Chloride 102 mmol/L (98-107); Globulin 2.3 g/dL (1.3-4.6); Glomerular Filtration Rate 38.6 mL/min (90-130); Glucose 93 mg/dL (65-115); Osmolality Calculated 290 mOsm/kg (285-295); Potassium 3.7 mmol/L (3.5-5.1); Sodium 137 mmol/L (136-145); Total Bilirubin 0.8 mg/dL (0.15-1.2); Total Protein 6.5 g/dL (6.6-8.7)
[2021-01-03 10:33] LABS: Slide Review Slide Review Perform
[2021-01-03] MEDS: diphenhydrAMINE 50 mg/mL SDV 1mL 25 MG IV (11:38)
[2021-01-03] MEDS: sodium chloride 0.9% 250 ML 75 ML IV (11:38)
[2021-01-03] MEDS: acetaminophen 325 mg Tablet 650 MG PO (11:38)
[2021-01-03] MEDS: dexamethasone 20 MG in sodium chloride 0.9% 50 ML 187 MG IV (11:42)
--- NOTE | 2021-01-03 18:17 | ONC FU_ITS ---
Dr. Suarez Patient Follow-Up Note Patient: Jl Rivera Unit #: [id number]: 1960 Dicatated By: Charlie Suarez M.D.Date of Visit:Jan 03, 2021 Onc Med Follow-up/Prog Note Chief Complaint: Lymphoma. 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 He was admitted to [facility] on 07/29/2018 with acute renal failure. He had presented with encephalopathy and severe edema. In addition to the acute renal failure, he had moderately severe anemia and mild thrombocytopenia with his baseline platelet count reportedly in the range of 100,000. CT pulmonary angiogram showed axillary and mediastinal lymphadenopathy, moderate sized bilateral pleural effusions, and cardiomegaly. His abdomen/pelvis CT showed marked lymphadenopathy within the abdomen and pelvis and splenomegaly. 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 He also was started on hemodialysis. Left axillary lymph node biopsy on 07/31/2018 showed malignant lymphoma, favoring low-grade follicular lymphoma. The neoplastic cells were noted to be positive for BCL 6, CD10, and CD23. There was weak positivity for BCL 2. The cells were negative for cyclin D1, MUM1, and SOX 11. On 07/31/2018 he began chemotherapy with bendamustine/Rituxan. The bendamustine dosage was reduced by 50% for the renal function. His day 2 bendamustine was held due to an acute drop in his platelet count to 30,000. It subsequently did recover, but there was a delay of close to 3 months prior to starting his second cycle of chemotherapy. I had seen him initially on 11/15/2018. His 3rd cycle of chemotherpy had been scheduled to be given the following week, and he was to have restaging CT scans prior to that treatment. His further evaluation was delayed pending his Medicare eligibility. He then had a restaging PET/CT on 01/08/2019. It showed extensive hypermetabolic lymphadenopathy for the level of the head and neck to the level of the pelvis. There was diffusely metabolic splenomegaly. As he appeared to have had very little response to the bendamustine/Rituxan regimen, I opted to proceed with a course of R-CHOP chemotherapy. His baseline echocardiogram showed estimated left ventricular ejection fraction of 55%. There was grade I/IVdiastolic dysfunction. He began cycle 1 of R-CHOP on 02/23/2019. He was given first cycle prophylaxis with Neulasta. He tolerated it with acceptable toxicity, and he continued with cycle 2 on 03/16/2019 and with cycle 3 on 04/13/2019. During this time he required additional thoracentesis procedures on 03/09, 03/17, and 04/01/2019. A flow cytometry study on his pleural fluid did show a monotypic B-cell population consistent with involvement by malignant lymphoma. Restaging PET/CT on 05/07/2019 showed overall improvement but not complete resolution of the extensive adenopathy. Hypermetabolic splenomegaly appeared to have normalized. He then continued with cycle 4 of R-CHOP on 05/11/2019, with cycle 5 on 06/01/2019, and with cycle 6 on 06/22/2019. Restaging PET/CT on 07/16/2019 showed subcentimeter size lymph nodes in the head and neck bilaterally, FDG negative. Similar improvement was noted in mediastinal, left internal mammary, and bilateral axillary lymph nodes. Portal nodes demonstrated only minimal FDG uptake and scattered retroperitoneal nodes measuring up to 1 cm in size showed FDG activity no greater than that of mediastinal background. A right external iliac lymph node measuring 1.8 x 1.5 cm had mild FDG uptake with SUV 3.4. The left pleural effusion was noted be significantly decreased in volume. Left lower lobe round atelectasis was noted to be FDG negative. In the setting of a low-grade follicular lymphoma with very good partial response to chemotherapy, I recommended that he continue with maintenance rituximab. He then returned on 08/18/2019 to begin cycle 1 of 12 planned cycles of treatment at 2-month intervals. He tolerated it well, and he continued with cycle 2 on 10/18/2019. At his follow-up visit on 12/13/2019 he had become aware of a new nodule on the right side of his neck. I had suspected that it was of thyroid origin. However, his neck CT on 12/15/2019 showed enlarged left submandibular lymph node measuring 11 mm, numerous but normal sized level 2 and level 3 cervical lymph nodes, and numerous and enlarged supraclavicular lymph nodes and retropectoral lymph nodes. The largest supraclavicular lymph node measured [address] scans of the chest, abdomen, and pelvis showed significant interval progression involving supraclavicular, thoracic inlet, internal mammary, and axillary lymphadenopathy. The largest left axillary lymph node measured 2.5 cm. Lymphadenopathy in the upper abdomen, abdiaziz hepatis, and periaortic regions was noted to be stable, but there was significant progression of pelvic and iliac chain lymphadenopathy as well as inguinal lymphadenopathy. A 6 mm noncalcified left upper lobe pulmonary nodule appeared stable. With those findings, he was referred to [facility] for a second opinion evaluation. He was seen there on 01/09/[address] Terell Solo. At his recommendation, Mr. Rivera had a repeat PET/CT on 01/14/2020. It showed multiple areas of abnormal uptake, consistent with recurrent lymphoma, but with the maximum SUV of 13.6 involving a right deep inguinal lymph node measuring 4.6 x 2.5 cm. Based on the degree of SUV activity, he then underwent CT directed core needle biopsy on 01/26/2020. Pathology was again consistent with grade 1-2 follicular lymphoma. In the setting of resistant follicular lymphoma, he was recommended to undergo trial of therapy with a P13 kinase inhibitor. He then began treatment with idelalisib 150 mg twice daily on 02/28/2020. He was seen for a follow-up visit on 03/13/2020 at day 14 of his treatment. He appeared to be tolerating it well. His blood counts were normal, and his liver function tests were also normal. He continued idelalisib 150 mg twice daily. As of 04/03/2020 the idelalisib was put on hold due to a dramatic increase in his liver enzymes with SGOT increased to 1532 U/L and SGPT 2716 U/L. The bilirubin was just slightly elevated at 1.1 mg/dL. As of 05/02/2020 the SGOT and SGPT were both back to normal. His other medical illnesses include hypothyroidism, degenerative arthritis, and gout. He has a history of smoking 1 pack of cigarettes daily for 40 years, but he has cut down. INTERIM HISTORY: After complete recovery from idelalisib hepatotoxicity, his treatment was transitioned to lenalidomide in combination with obinutuzumab. He began lenalidomide on 06/13/2020 at 20 mg daily. As of 06/20/2020 his treatment was put on hold due to thrombocytopenia, platelet count decreasing to 28,000, and skin rash. He recovered uneventfully and he then restarted the lenalidomide with the dosage reduced to 10 mg daily on a 21/28-day schedule. He continued to have mild to moderately severe thrombocytopenia, but he otherwise tolerated it well at the reduced dosage. He then began cycle 1 of obinutuzumab on 07/23/2020. It was administered weekly for the 1st cycle. He tolerated it with no adverse effects, and he then continued with monthly cycles. During follow-up he did require a further dose reduction in the lenalidomide to 5 mg daily on a 21/28-day schedule. He was then able to tolerate the treatment well. He continue with his 5th cycle on 12/06/2020. He has treatment subsequently was interrupted for treatment of a sinus infection. He is seen for a follow-up visit. He has been feeling pretty good generally. He reports having constipation for 1 to 2 days after his IV infusions. He has been having no other adverse effects with it. He has pretty good energy. His ECOG score is 1. He has good appetite. He has no fever or night sweats. His sinus/ear infection is better now. He has had no mouth sores. He has no shortness of breath, cough, or chest pain. He also reports having occasional heartburn. He has no other GI or complaints. He has a rotator cuff injury in the right shoulder. He has no other joint or bone pain. He has just occasional headaches. He is having some slight numbness in the tips of his fingers. He has no other focal neurologic symptoms. Medications: Revlimid (10 mg) Capsule Oral Take as Directed Allergies: No Known Allergies. Vital Signs: Performed on Jan 03, 2021 10:59 Height - 71.00 in Weight - 215 lbs (HIGH) BSA - 2.17 sq.m BMI - 29.99 Temperature - 97.6 F (LOW) Pulse - 76 /min Respiration - 18 /min BP - 128/79 mm(hg) O2 Sat - 99 % Pain - 0 Fatigue - 0 Physical Examination: Constitutional - He looks pretty good generally, Eyes - Sclerae nonicteric. Conjunctivae clear, ENMT - No lesions noted in the oral cavity, Hematologic/Lymphatic - No cervical, clavicular, or axillary adenopathy noted, Respiratory - Lungs sound clear, Cardiovascular - Heart rhythm is regular. There is a II/ systolic murmur. There is no gallop or rub noted, Abdomen - Mildly distended but soft. Liver is not enlarged. Spleen is not palpable. There is no abdominal mass or ascites noted. There is no inguinal adenopathy noted, Extremities - No edema, Neurologic - No focal neurologic deficits noted. Lab/Imaging: Test performed on Jan 03, 2021 09:17 Sodium 137 mmol/L Potassium 3.7 mmol/L Chloride 102 mmol/L CO2 25 mmol/L Anion Gap 13.7 BUN 30 mg/dL Creatinine 1.8 mg/dL Cr Clearance (Est) 59.45 mL/min eGFR 38.6 mL/min Glucose 93 mg/dL Osmolality - Calculated 290 mOsm/kg Calcium 9.1 mg/dL Protein, Total 6.5 g/dL Albumin 4.2 g/dL Globulin 2.3 g/dL Bilirubin, Total 0.8 mg/dL ALT (SGPT) 17 U/L AST (SGOT) 15 U/L Alkaline Phosphatase 104 IU/L WBC 5.1 10 3/uL RBC 4.18 10 6/uL HGB 14.8 g/dL HCT 41.7 % MCV 99.8 fL MCH 35.4 pg MCHC 35.5 g/dL RDW 13.3 % Platelet Count 144 10 3/cmm MPV 10.6 fL Neutrophils 2.60 10 3/uL Lymphocytes 0.5 10 3/uL Monocytes 0.9 10 3/uL Eosinophils 0.7 10 3/uL Basophils 0.1 10 3/uL Neutrophil % 51.1 % Lymphocyte % 9.4 % Monocyte % 17.7 % Eosinophil % 13.9 % Basophils % 1.6 % NRBC % 0 % CBC Slide Review Slide Review Perform SLIDE REIVEW AGREES WITH AUTOMATED RESULTS Problem List: 1. Grade 1 follicular lymphoma, stage at least IIIS, diagnosed by left axillary lymph node biopsy on 07/31/2018. 2. He had presented with acute renal failure due to membranoproliferative glomerulonephritis, confirmed by renal biopsy on 07/30/2018. He required temporary hemodialysis. He now has stage III chronic kidney disease. 4. He was anemic at presentation, and he subsequently did require PRBC transfusion. 5. He also had laboratory evidence of hypothyroidism. 6. He has degenerative joint disease related to previous injuries. 7. He has a prior history of gout. Problems Addressed with this Encounter and Plan: 1. Patient with grade 1 follicular lymphoma, stage at least IIIS, diagnosed by left axillary lymph node biopsy on 07/31/2018. His initial treatment included 2 cycles of bendamustine/Rituxan. His restaging PET/CT on 01/08/2019 still showed diffuse FDG avid lymphadenopathy from the head/neck to the pelvis and diffusely metabolic splenomegaly. On comparison to his pretreatment CT scans, he did not appear to be showing significant response to the bendamustine/Rituxan regimen. As such, I opted to proceed with a course of R-CHOP chemotherapy. He completed 6 cycles R-CHOP from 02/23/2019 thru 06/22/2020. His restaging PET/CT on 07/16/2019 showed very significant response, though with possible residual involvement in a right external iliac lymph node and with evidence of some residual left pleural effusion. During that time he had significant improvement in his performance status, and he also was able to maintain adequate renal function after stopping dialysis. In August 2019 he began maintenance rituximab at 2-month intervals. As of his follow-up visit on 12/13/2019 there is new adenopathy in the left side of the neck. Restaging CT scans show disease progression in multiple areas, though it was not bulky. He was then seen for a second opinion evaluation at [facility] by Dr. Terell Solo. His restaging PET/CT also confirmed progression and multiple areas, but with a maximum SUV of 13.6 involving the right deep inguinal lymph node measuring 4.6 x 2.5 cm. Needle core biopsy of the lymph node again showed grade 1-2 follicular lymphoma. With that finding, he began treatment with idelalisib 150 mg twice daily on 02/28/2020. At his follow-up visit on 03/13/2020 he appeared to be tolerating it well. He had normal blood counts and normal LFTs. At his follow-up visit on 04/03/2020 his liver enzymes had become markedly elevated with SGOT 1532/40 U/L and SGPT 2716/41 U/L. Bilirubin was just slightly elevated at 1.1 mg/dL with alkaline phosphatase in normal range at 125 IU/L. This was presumed to be treatment related. The idelalisib was discontinued and by 05/03/2020 the SGOT and SGPT levels were back to normal. His treatment was then transitioned to lenalidomide in combination with obinutuzumab. He began lenalidomide 20 mg daily on 06/13/2020. At his 1 week follow-up his treatment was put on hold due to skin rash and thrombocytopenia, platelet count dropping to 28,000. He recovered uneventfully and he then restarted the lenalidomide with the dosage reduced to 10 mg daily on a 21/28-day schedule. He tolerated it well and he then began obinutuzumab on 07/23/2020, administered weekly with the 1st cycle. He tolerated it well and he then continued treatment monthly. During subsequent follow-up he required a further dose reduction in the lenalidomide to 5 mg daily on a 21/28-day schedule. He began his 5th cycle on 12/06/2020. His treatment was interrupted by a sinus/ear infection, requiring antibiotic therapy. He has had uneventful recovery. Overall, he appears to be doing well clinically. He will continue with cycle 6 of obinutuzumab at 1000 mg by IV infusion and he will continue lenalidomide 5 mg daily on a 21/28-day schedule. He will be scheduled for a follow-up visit in 4 weeks. He will have restaging CT scans prior to that visit. His further treatment will be adjusted according to those findings. 2, He had presented with acute renal failure due to membranoproliferative glomerulonephritis, confirmed by renal biopsy on 07/30/2018. He was temporarily on hemodialysis. He has residual stage III chronic kidney disease. His renal function at this point remained stable. Signed By: Charlie Suarez M.D. <<Signature on File>>
--- NOTE | 2021-01-29 11:35 | CT_ITS ---
WS: [id number] Exam: CT chest abd pel wo con Date/Time of Exam: 01/29/2021 11:35 AM Reason For Exam: FOLLICULAR LYMPHOMA DLP: 2727.[address] scans at [facility] use at least one of these dose optimization techniques: automat ed exposure control; mA and/or kV adjustment per patient size (includes targeted exams where dose is matched to clinical indication); or iterative reconstruction. Comparison 12/15/2019. CT scan of the chest without contrast. 6 mm of pulmonary nodule in the upper lobe of the left lung unchanged. There is atelectasis in the l eft lower lobe with small pleural effusion unchanged. The airway is patent. There are several scatter ed micronodules in the right lung which are too small to characterize. Small area of fibrous scarring in the medial aspect of the right lower lobe. This is stable. Bilateral axillary and subpectoral lym phadenopathy which has worsened since the previous study. Multiple enlarged nodes in the left neck. T hese are also larger. Subcentimeter mediastinal lymph nodes. Coronary artery calcifications. No peric ardial effusion. Normal thyroid tissue. The thoracic aorta is normal in caliber. CT/CT chest abd pel wo con IMPRESSION: 1. Bilateral axillary and subpectoral lymphadenopathy which shows progression s jas previous study. The nodes are larger. There are also larger nodes in the l eft neck than noted previously. 2. Stable 6 mm soft tissue nodule in the upper lobe of the left lung. There are also scattered micronodules in the right lung which are too small to character ize. 3. Stable round atelectasis in the left lower lobe and small left pleural effus ion unchanged CT scan of the abdomen and pelvis without contrast. Comparison 12/15/2019. Progressive retroperitoneal lymph node enlargement. Lymphadenopathy the jada h epatis is stable in appearance. The liver, stomach and pancreas are unremarkabl e. The abdominal aorta is normal in caliber. Nodular left adrenal gland. Normal right adrenal gland. The kidneys are unremarkable. Small bowel loops are not d ilated. Moderate amount retained stool in the colon. Normal appendix visualized . Increasing lymphadenopathy along the right and left pelvic sidewalls. Nodes a re larger than noted previously. Bilateral inguinal lymph nodes appear slightly smaller. The urinary bladder is intact but there is some extrinsic deformity o f the right and left bladder carrillo secondary to lymphadenopathy. No ascites. Sm all fat filled inguinal hernias. No destructive bone lesions are seen. Tiny fat filled periumbilical hernia. IMPRESSION: 1. Retroperitoneal and bilateral iliac chain lymphadenopathy demonstrating prog ression since the last exam. Jada hepatis lymphadenopathy stable. Bilateral in guinal lymphadenopathy demonstrating improvement. No other change.
[2021-01-29] MEDS: iohexol 300 mg/mL 50 mL Btl PO (11:49)
== END 2021-02-01 23:59 | disposition home or self-care (01) ==
LOC: ONCMED 13:00
PROVIDERS: Visit Provider Internal Medicine Medical Oncology
DX: Z51.11 Encounter for antineoplastic chemotherapy (principal); C82.08 Follicular lymphoma grade I, lymph nodes of multiple sites; N05.5 Unspecified nephritic syndrome with diffuse mesangiocapillary glomerulonephritis; N17.9 Acute kidney failure, unspecified; Z99.2 Dependence on renal dialysis; N18.9 Chronic kidney disease, unspecified; E03.9 Hypothyroidism, unspecified; M19.90 Unspecified osteoarthritis, unspecified site; M10.9 Gout, unspecified; Z79.899 Other long term (current) drug therapy
CPT/HCPCS: 71250; 74176; 80053; 85025; 96367; 96375; 96413; 96415; 99214; J1100; J1200; J7050; J9301; Q9967

== ENCOUNTER 2021-02-07 06:11 | Outpatient (RCR) | payer MEDICARE, MEDICAID, SELFPAY ==
[2021-02-07 14:49] LABS: Basophils # 0.1 10^3/uL (0.0-0.1); Basophils % 3.1 %; Eosinophils # 0.5 10^3/uL (0.0-0.8); Eosinophils % 11.9 %; Hematocrit 41.6 % (42.0-52.0); Hemoglobin 14.9 g/dL (11.7-16.6); Lymphocytes # 0.4 10^3/uL (0.8-4.8); Lymphocytes % 9.7 %; Mean Corpuscular HGB Conc 35.8 g/dL (30.0-36.0); Mean Corpuscular Hemoglobin 35.3 pg (28.0-34.0); Mean Corpuscular Volume 98.6 fL (80-94); Mean Platelet Volume 10.3 fL (7.4-10.4); Monocytes # 0.6 10^3/uL (0.2-0.9); Monocytes % 14.4 %; Neutrophils # 2.48 10^3/uL (1.8-7.7); Neutrophils % 55.7 %; Nucleated Red Blood Cells % 0 %; Platelet Count 132 10^3/cmm (130-400); Red Blood Count 4.22 10^6/uL (4.1-5.3); Red Cell Distribution Width 14.1 % (12.1-15.1); White Blood Count 4.5 10^3/uL (4.0-10.0)
[2021-02-07 15:33] LABS: Alanine Aminotransferase 19 U/L (0-41); Albumin Level 4.2 g/dL (3.5-5.2); Alkaline Phosphatase 95 IU/L (40-130); Aspartate Amino Transferase 21 U/L (0-40); Blood Urea Nitrogen 32 mg/dL (8-23); Calcium 8.6 mg/dL (8.5-10.5); Carbon Dioxide 24 mmol/L (22-29); Chloride 105 mmol/L (98-107); Globulin 1.8 g/dL (1.3-4.6); Glomerular Filtration Rate 36.2 mL/min (90-130); Glucose 127 mg/dL (65-115); Lactate Dehydrogenase 218 U/L (135-225); Osmolality Calculated 296 mOsm/kg (285-295); Sodium 139 mmol/L (136-145); Total Bilirubin 0.9 mg/dL (0.15-1.2)
[2021-02-07 16:21] LABS: Slide Review Slide Review Perform
--- NOTE | 2021-02-07 16:28 | ONC FU_ITS ---
Dr. Suarez Patient Follow-Up Note Patient: Jl Rivera Unit #: [id number]: 1960 Dicatated By: Charlie Suarez M.D.Date of Visit:February 07, 2021 Onc Med Follow-up/Prog Note Chief Complaint: Lymphoma. 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 He was admitted to [facility] on 07/29/2018 with acute renal failure. He had presented with encephalopathy and severe edema. In addition to the acute renal failure, he had moderately severe anemia and mild thrombocytopenia with his baseline platelet count reportedly in the range of 100,000. CT pulmonary angiogram showed axillary and mediastinal lymphadenopathy, moderate sized bilateral pleural effusions, and cardiomegaly. His abdomen/pelvis CT showed marked lymphadenopathy within the abdomen and pelvis and splenomegaly. 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 He also was started on hemodialysis. Left axillary lymph node biopsy on 07/31/2018 showed malignant lymphoma, favoring low-grade follicular lymphoma. The neoplastic cells were noted to be positive for BCL 6, CD10, and CD23. There was weak positivity for BCL 2. The cells were negative for cyclin D1, MUM1, and SOX 11. On 07/31/2018 he began chemotherapy with bendamustine/Rituxan. The bendamustine dosage was reduced by 50% for the renal function. His day 2 bendamustine was held due to an acute drop in his platelet count to 30,000. It subsequently did recover, but there was a delay of close to 3 months prior to starting his second cycle of chemotherapy. I had seen him initially on 11/15/2018. His 3rd cycle of chemotherpy had been scheduled to be given the following week, and he was to have restaging CT scans prior to that treatment. His further evaluation was delayed pending his Medicare eligibility. He then had a restaging PET/CT on 01/08/2019. It showed extensive hypermetabolic lymphadenopathy for the level of the head and neck to the level of the pelvis. There was diffusely metabolic splenomegaly. As he appeared to have had very little response to the bendamustine/Rituxan regimen, I opted to proceed with a course of R-CHOP chemotherapy. His baseline echocardiogram showed estimated left ventricular ejection fraction of 55%. There was grade I/IVdiastolic dysfunction. He began cycle 1 of R-CHOP on 02/23/2019. He was given first cycle prophylaxis with Neulasta. He tolerated it with acceptable toxicity, and he continued with cycle 2 on 03/16/2019 and with cycle 3 on 04/13/2019. During this time he required additional thoracentesis procedures on 03/09, 03/17, and 04/01/2019. A flow cytometry study on his pleural fluid did show a monotypic B-cell population consistent with involvement by malignant lymphoma. Restaging PET/CT on 05/07/2019 showed overall improvement but not complete resolution of the extensive adenopathy. Hypermetabolic splenomegaly appeared to have normalized. He then continued with cycle 4 of R-CHOP on 05/11/2019, with cycle 5 on 06/01/2019, and with cycle 6 on 06/22/2019. Restaging PET/CT on 07/16/2019 showed subcentimeter size lymph nodes in the head and neck bilaterally, FDG negative. Similar improvement was noted in mediastinal, left internal mammary, and bilateral axillary lymph nodes. Portal nodes demonstrated only minimal FDG uptake and scattered retroperitoneal nodes measuring up to 1 cm in size showed FDG activity no greater than that of mediastinal background. A right external iliac lymph node measuring 1.8 x 1.5 cm had mild FDG uptake with SUV 3.4. The left pleural effusion was noted be significantly decreased in volume. Left lower lobe round atelectasis was noted to be FDG negative. In the setting of a low-grade follicular lymphoma with very good partial response to chemotherapy, I recommended that he continue with maintenance rituximab. He then returned on 08/18/2019 to begin cycle 1 of 12 planned cycles of treatment at 2-month intervals. He tolerated it well, and he continued with cycle 2 on 10/18/2019. At his follow-up visit on 12/13/2019 he had become aware of a new nodule on the right side of his neck. I had suspected that it was of thyroid origin. However, his neck CT on 12/15/2019 showed enlarged left submandibular lymph node measuring 11 mm, numerous but normal sized level 2 and level 3 cervical lymph nodes, and numerous and enlarged supraclavicular lymph nodes and retropectoral lymph nodes. The largest supraclavicular lymph node measured [address] scans of the chest, abdomen, and pelvis showed significant interval progression involving supraclavicular, thoracic inlet, internal mammary, and axillary lymphadenopathy. The largest left axillary lymph node measured 2.5 cm. Lymphadenopathy in the upper abdomen, abdiaziz hepatis, and periaortic regions was noted to be stable, but there was significant progression of pelvic and iliac chain lymphadenopathy as well as inguinal lymphadenopathy. A 6 mm noncalcified left upper lobe pulmonary nodule appeared stable. With those findings, he was referred to [facility] for a second opinion evaluation. He was seen there on 01/09/[address] Terell Solo. At his recommendation, Mr. Rivera had a repeat PET/CT on 01/14/2020. It showed multiple areas of abnormal uptake, consistent with recurrent lymphoma, but with the maximum SUV of 13.6 involving a right deep inguinal lymph node measuring 4.6 x 2.5 cm. Based on the degree of SUV activity, he then underwent CT directed core needle biopsy on 01/26/2020. Pathology was again consistent with grade 1-2 follicular lymphoma. In the setting of resistant follicular lymphoma, he was recommended to undergo trial of therapy with a P13 kinase inhibitor. He then began treatment with idelalisib 150 mg twice daily on 02/28/2020. He was seen for a follow-up visit on 03/13/2020 at day 14 of his treatment. He appeared to be tolerating it well. His blood counts were normal, and his liver function tests were also normal. He continued idelalisib 150 mg twice daily. As of 04/03/2020 the idelalisib was put on hold due to a dramatic increase in his liver enzymes with SGOT increased to 1532 U/L and SGPT 2716 U/L. The bilirubin was just slightly elevated at 1.1 mg/dL. As of 05/02/2020 the SGOT and SGPT were both back to normal. His other medical illnesses include hypothyroidism, degenerative arthritis, and gout. He has a history of smoking 1 pack of cigarettes daily for 40 years, but he has cut down. INTERIM HISTORY: After complete recovery from idelalisib hepatotoxicity, his treatment was transitioned to lenalidomide in combination with obinutuzumab. He began lenalidomide on 06/13/2020 at 20 mg daily. As of 06/20/2020 his treatment was put on hold due to thrombocytopenia, platelet count decreasing to 28,000, and due to skin rash. He recovered uneventfully and he then restarted the lenalidomide with the dosage reduced to 10 mg daily on a 21/28-day schedule. He continued to have mild to moderately severe thrombocytopenia, but he otherwise tolerated it well at the reduced dosage. He then began cycle 1 of obinutuzumab on 07/23/2020. It was administered weekly for the 1st cycle. He tolerated it with no adverse effects, and he then continued with monthly cycles. During follow-up he did require a further dose reduction in the lenalidomide to 5 mg daily on a 21/28-day schedule, but he was then able to tolerate it well. He continued with his 5th cycle on 12/06/2020 with cycle 6 on 01/03/2021. Restaging CT scans on 01/29/2021 show 6 mm left upper lobe pulmonary nodule which is unchanged. Small left pleural effusion with left lower lobe atelectasis also appeared unchanged. Bilateral axillary and subpectoral lymphadenopathy was noted to have worsened. Multiple enlarged nodes in the left neck also appeared larger. Mediastinal lymph nodes were noted be subcentimeter in size. Also noted was progressive enlargement of retroperitoneal and bilateral iliac chain lymphadenopathy, though measurements were not reported. Abdiaziz hepatis lymphadenopathy was noted to be stable. Overall, there was evidence of disease progression in multiple areas, though not bulky. He is seen for a follow-up visit. He has been feeling good generally. He has pretty good energy. He is able to do light work. ECOG score is 1. He has good appetite. He has no fever or night sweats. He has some shortness of breath, but his breathing also is pretty good. He does not complain of cough and he has not been having chest pain. He currently has no GI or complaints. Recently has started having some pain in the back of his neck with associated headache. He thinks he may have a pulled muscle. He has no other joint or bone pain. He had an episode of lightheadedness yesterday which lasted about 5 minutes. He has numbness/tingling in his hands with cold exposure, but that has not been bothering him now with the warmer weather. Medications: Revlimid (10 mg) Capsule Oral Take as Directed Allergies: No Known Allergies. Vital Signs: Performed on February 07, 2021 15:25 Height - 71.00 in Weight - 221.2 lbs (HIGH) BSA - 2.20 sq.m BMI - 30.85 (HIGH) Temperature - 98.6 F Pulse - 98 /min Respiration - 18 /min BP - 173/102 mm(hg) (HIGH) O2 Sat - 96 % Pain - 5 Fatigue - 3 Physical Examination: Constitutional - He looks pretty good generally, Eyes - Sclerae nonicteric. Conjunctivae clear, ENMT - No lesions noted in the oral cavity, Hematologic/Lymphatic - No cervical or clavicular adenopathy noted. There are small axillary nodes palpable bilaterally, Respiratory - Lungs sound clear, Cardiovascular - Heart rhythm is regular. There is a II/ systolic murmur. There is no gallop or rub noted, Abdomen - Mildly distended but soft. Liver is not enlarged. Spleen is not palpable. There is no abdominal mass or ascites noted. There is no inguinal adenopathy noted, Extremities - No edema, Neurologic - No focal neurologic deficits noted. Lab/Imaging: CBC shows hemoglobin 14.9 g, white blood cell count 4500, and platelet count 132,000. Comprehensive metabolic profile shows elevated BUN and creatinine at 32 and 1.9 mg/dL. Bilirubin and liver enzymes are normal. LDH is normal at 218 U/L. Problem List: 1. Grade 1 follicular lymphoma, stage at least IIIS, diagnosed by left axillary lymph node biopsy on 07/31/2018. 2. He had presented with acute renal failure due to membranoproliferative glomerulonephritis, confirmed by renal biopsy on 07/30/2018. He required temporary hemodialysis. He now has stage III chronic kidney disease. 4. He was anemic at presentation, and he subsequently did require PRBC transfusion. 5. He also had laboratory evidence of hypothyroidism. 6. He has degenerative joint disease related to previous injuries. 7. He has a prior history of gout. Problems Addressed with this Encounter and Plan: 1. Patient with grade 1 follicular lymphoma, stage at least IIIS, diagnosed by left axillary lymph node biopsy on 07/31/2018. His initial treatment included 2 cycles of bendamustine/Rituxan. His restaging PET/CT on 01/08/2019 still showed diffuse FDG avid lymphadenopathy from the head/neck to the pelvis and diffusely metabolic splenomegaly. On comparison to his pretreatment CT scans, he did not appear to be showing significant response to the bendamustine/Rituxan regimen. He then completed 6 cycles R-CHOP from 02/23/2019 thru 06/22/2020. His restaging PET/CT on 07/16/2019 showed very significant response, though with possible residual involvement in a right external iliac lymph node and with evidence of some residual left pleural effusion. During that time he had significant improvement in his performance status, and he also was able to maintain adequate renal function after stopping dialysis. In August 2019 he began maintenance rituximab at 2-month intervals. As of his follow-up visit on 12/13/2019 there was new adenopathy in the left side of the neck. Restaging CT scans showed disease progression in multiple areas, though it was not bulky. He was then seen for a second opinion evaluation at [facility] by Dr. Terell Solo. His restaging PET/CT also confirmed progression and multiple areas, but with a maximum SUV of 13.6 involving the right deep inguinal lymph node measuring 4.6 x 2.5 cm. Needle core biopsy of the lymph node again showed grade 1-2 follicular lymphoma. With that finding, he began treatment with idelalisib 150 mg twice daily on 02/28/2020. At his follow-up visit on 03/13/2020 he appeared to be tolerating it well. He had normal blood counts and normal LFTs. At his follow-up visit on 04/03/2020 his liver enzymes had become markedly elevated with SGOT 1532/40 U/L and SGPT 2716/41 U/L. Bilirubin was just slightly elevated at 1.1 mg/dL with alkaline phosphatase in normal range at 125 IU/L. This was presumed to be treatment related. The idelalisib was discontinued and by 05/03/2020 the SGOT and SGPT levels were back to normal. His treatment was then transitioned to lenalidomide in combination with obinutuzumab. He began lenalidomide 20 mg daily on 06/13/2020. At his 1 week follow-up his treatment was put on hold due to skin rash and thrombocytopenia, platelet count dropping to 28,000. He recovered uneventfully and he then restarted the lenalidomide with the dosage reduced to 10 mg daily on a 21/28-day schedule. He tolerated it well and he then began obinutuzumab on 07/23/2020, administered weekly with the 1st cycle. He tolerated it well and he then continued treatment monthly. During subsequent follow-up he required a further dose reduction in the lenalidomide to 5 mg daily on a 21/28-day schedule, but he was then able to tolerate it with acceptable toxicity. He has now completed 6 cycles of treatment. His overall clinical status appears stable, but his restaging CT scans are showing evidence of disease progression and multiple areas, though not bulky. I have had an opportunity to confer with Dr. Akbar regarding his further management, and we are in agreement that it may be best now to proceed with CAR-T therapy. To that end, he will be scheduled to see Dr. John Rahman at [facility]. 2. He had presented with acute renal failure due to membranoproliferative glomerulonephritis, confirmed by renal biopsy on 07/30/2018. He was temporarily on hemodialysis. He has residual stage III chronic kidney disease. His renal function has remained stable. Signed By: Charlie Suarez M.D. <<Signature on File>>
== END 2021-03-04 23:59 | disposition home or self-care (01) ==
LOC: ONCMED 06:11
PROVIDERS: Visit Provider Internal Medicine Medical Oncology
DX: C82.08 Follicular lymphoma grade I, lymph nodes of multiple sites (principal); N05.5 Unspecified nephritic syndrome with diffuse mesangiocapillary glomerulonephritis; N17.9 Acute kidney failure, unspecified; N18.30 Chronic kidney disease, stage 3 unspecified; Z99.2 Dependence on renal dialysis; D64.9 Anemia, unspecified; E03.9 Hypothyroidism, unspecified; M19.90 Unspecified osteoarthritis, unspecified site; M10.9 Gout, unspecified; Z79.899 Other long term (current) drug therapy; Z92.21 Personal history of antineoplastic chemotherapy
CPT/HCPCS: 36591; 80053; 83615; 85025; 99214

== ENCOUNTER 2021-03-19 05:45 | Outpatient (RCR) | payer MEDICARE, MEDICAID, SELFPAY ==
[2021-03-15] MEDS: sodium chloride 0.9% 1,000 ML 999 ML IV (11:20)
[2021-03-15 13:24] LABS: Blood Urea Nitrogen 39 mg/dL (8-23); Carbon Dioxide 22 mmol/L (22-29); Chloride 108 mmol/L (98-107); Glomerular Filtration Rate 41.2 mL/min (90-130); Glucose 93 mg/dL (65-115); Osmolality Calculated 295 mOsm/kg (285-295); Sodium 138 mmol/L (136-145)
[2021-03-18] MEDS: sodium chloride 0.9% 1,000 ML 999 ML IV (10:11)
[2021-03-18 12:12] LABS: Anion Gap 12.8 (5-19); Blood Urea Nitrogen 23 mg/dL (8-23); Calcium 8.5 mg/dL (8.5-10.5); Carbon Dioxide 22 mmol/L (22-29); Chloride 109 mmol/L (98-107); Glomerular Filtration Rate 41.2 mL/min (90-130); Glucose 106 mg/dL (65-115); Osmolality Calculated 294 mOsm/kg (285-295); Potassium 3.8 mmol/L (3.5-5.1); Sodium 140 mmol/L (136-145)
[2021-03-19] MEDS: sodium chloride 0.9% 1,000 ML 999 ML IV (10:15)
[2021-03-19 12:17] LABS: Blood Urea Nitrogen 23 mg/dL (8-23); Calcium 7.8 mg/dL (8.5-10.5); Carbon Dioxide 22 mmol/L (22-29); Chloride 109 mmol/L (98-107); Glomerular Filtration Rate 44.2 mL/min (90-130); Glucose 98 mg/dL (65-115); Osmolality Calculated 294 mOsm/kg (285-295); Sodium 140 mmol/L (136-145)
== END 2021-04-03 23:59 | disposition home or self-care (01) ==
LOC: ONCMED 05:45
PROVIDERS: Nurse Practitioner Acute Care; Visit Provider Internal Medicine Medical Oncology
DX: C82.08 Follicular lymphoma grade I, lymph nodes of multiple sites (principal); Z79.899 Other long term (current) drug therapy
CPT/HCPCS: 80048; 96360; J7030

== ENCOUNTER 2021-04-12 06:08 | Outpatient (RCR) | payer MEDICARE, MEDICAID, SELFPAY ==
[2021-04-12] MEDS: sodium chloride 0.9% 1,000 ML 999 ML IV (10:10)
[2021-04-12 11:51] LABS: Basophils % 0.6 %; Eosinophils # 0.1 10^3/uL (0.0-0.8); Eosinophils % 0.9 %; Hematocrit 39.6 % (42.0-52.0); Hemoglobin 13.7 g/dL (11.7-16.6); Lymphocytes # 0.2 10^3/uL (0.8-4.8); Lymphocytes % 2.8 %; Mean Corpuscular HGB Conc 34.6 g/dL (30.0-36.0); Mean Corpuscular Hemoglobin 35.5 pg (28.0-34.0); Mean Corpuscular Volume 102.6 fL (80-94); Mean Platelet Volume 10.2 fL (7.4-10.4); Monocytes # 0.9 10^3/uL (0.2-0.9); Monocytes % 13.4 %; Neutrophils % 71.2 %; Nucleated Red Blood Cells % 0 %; Platelet Count 117 10^3/cmm (130-400); Red Blood Count 3.86 10^6/uL (4.1-5.3); Red Cell Distribution Width 13.7 % (12.1-15.1)
[2021-04-12 12:15] LABS: Alanine Aminotransferase 19 U/L (0-41); Albumin Level 3.8 g/dL (3.5-5.2); Alkaline Phosphatase 85 IU/L (40-130); Aspartate Amino Transferase 16 U/L (0-40); Blood Urea Nitrogen 36 mg/dL (8-23); Carbon Dioxide 23 mmol/L (22-29); Chloride 106 mmol/L (98-107); Globulin 1.5 g/dL (1.3-4.6); Glomerular Filtration Rate 51.5 mL/min (90-130); Glucose 96 mg/dL (65-115); Lactate Dehydrogenase 267 U/L (135-225); Osmolality Calculated 296 mOsm/kg (285-295); Sodium 139 mmol/L (136-145); Total Bilirubin 0.7 mg/dL (0.15-1.2); Total Protein 5.3 g/dL (6.6-8.7)
[2021-04-12 12:22] LABS: Slide Review Slide Review Perform
== END 2021-05-04 23:59 | disposition home or self-care (01) ==
LOC: ONCMED 06:08
PROVIDERS: Internal Medicine Medical Oncology; Visit Provider Internal Medicine Medical Oncology
DX: C82.08 Follicular lymphoma grade I, lymph nodes of multiple sites (principal); D64.9 Anemia, unspecified; R79.89 Other specified abnormal findings of blood chemistry; Z79.899 Other long term (current) drug therapy
CPT/HCPCS: 36415; 80053; 83615; 85025; 96360; J7030

== ENCOUNTER 2022-03-04 09:00 | Oncology outpatient (recurring) (ONCR) | payer MEDICARE, MEDICAID, SELFPAY ==
[2022-02-11 08:25] LABS: Basophils % 0.7 %; Eosinophils # 0.1 10^3/uL (0.0-0.8); Eosinophils % 4.1 %; Hematocrit 20.9 % (42.0-52.0); Hemoglobin 7.8 g/dL (11.7-16.6); Lymphocytes # 0.2 10^3/uL (0.8-4.8); Lymphocytes % 11.6 %; Mean Corpuscular HGB Conc 37.3 g/dL (30.0-36.0); Mean Corpuscular Hemoglobin 40.2 pg (28.0-34.0); Mean Corpuscular Volume 107.7 fl (80-94); Mean Platelet Volume 11.9 fL (7.4-10.4); Monocytes # 0.4 10^3/uL (0.2-0.9); Monocytes % 23.8 %; Neutrophils % 44.2 %; Nucleated Red Blood Cells % 0 %; Red Blood Count 1.94 10^6/uL (4.1-5.3); Red Cell Distribution Width 15.3 % (12.1-15.1); White Blood Count 1.5 10^3/uL (4.0-10.0)
[2022-02-11 08:44] LABS: Alanine Aminotransferase 15 U/L (0-41); Albumin Level 4.4 g/dL (3.5-5.2); Alkaline Phosphatase 127 IU/L (40-130); Anion Gap 17.2 (5-19); Aspartate Amino Transferase 20 U/L (0-40); Blood Urea Nitrogen 33 mg/dL (8-23); Calcium 9.2 mg/dL (8.5-10.5); Carbon Dioxide 20 mmol/L (22-29); Chloride 104 mmol/L (98-107); Globulin 1.8 g/dL (1.3-4.6); Glomerular Filtration Rate 38.4 mL/min (90-130); Glucose 99 mg/dL (65-115); Osmolality Calculated 291 mOsm/kg (285-295); Potassium 4.2 mmol/L (3.5-5.1); Sodium 137 mmol/L (136-145); Total Bilirubin 1.2 mg/dL (0.15-1.2); Total Protein 6.2 g/dL (6.6-8.7)
[2022-02-11 08:56] LABS: Neutrophils # 0.65 10^3/uL (1.8-7.7); Platelet Count 22 10^3/cmm (130-400); Slide Review Slide Review Perform
[2022-02-11 10:10] VITALS: BP 147/88; PULSE 106; RESP 18; TEMP 36.5; O2SAT 98
[2022-02-12] VITALS (7 sets, daily range): BP systolic 104–118; BP diastolic 66–74; PULSE 78–81; RESP 18; TEMP 36.4–36.9; O2SAT 94–97
[2022-02-12] MEDS: sodium chloride 0.9% 100 mL Bag 50 ML IV (08:37)
[2022-02-12] MEDS: acetaminophen 325 mg Tablet 650 MG PO (08:39)
[2022-02-12] MEDS: diphenhydrAMINE 25 mg Capsule PO (08:40)
[2022-02-12] MEDS: FUROsemide 10 mg/mL SDV 2mL 40 MG IV (08:41)
[2022-02-12] MEDS: FUROsemide 10 mg/mL SDV 4mL 40 MG IVP (11:00)
[2022-02-12] MEDS: sodium chloride 0.9% (100 ml) 100 ML 75 ML (13:40)
[2022-02-13 08:25] VITALS: BP 127/80; PULSE 90; RESP 16; TEMP 36.4; O2SAT 97
[2022-02-13] MEDS: romiplostim 250 mcg SDV 950 MCG SUBCUT (09:27)
[2022-02-17 14:14] LABS: Basophils % 0.4 %; Eosinophils % 1.5 %; Hematocrit 26.9 % (42.0-52.0); Hemoglobin 9.4 g/dL (11.7-16.6); Lymphocytes # 0.2 10^3/uL (0.8-4.8); Lymphocytes % 7.8 %; Mean Corpuscular HGB Conc 34.9 g/dL (30.0-36.0); Mean Corpuscular Hemoglobin 36.3 pg (28.0-34.0); Mean Corpuscular Volume 103.9 fl (80-94); Mean Platelet Volume 12.5 fL (7.4-10.4); Monocytes # 0.4 10^3/uL (0.2-0.9); Monocytes % 15.9 %; Neutrophils # 1.61 10^3/uL (1.8-7.7); Neutrophils % 59.6 %; Nucleated Red Blood Cells % 0.7 %; Red Blood Count 2.59 10^6/uL (4.1-5.3); Red Cell Distribution Width 19.9 % (12.1-15.1); White Blood Count 2.7 10^3/uL (4.0-10.0)
[2022-02-17 14:34] LABS: Alanine Aminotransferase 17 U/L (0-41); Albumin Level 4.2 g/dL (3.5-5.2); Alkaline Phosphatase 132 IU/L (40-130); Anion Gap 15.5 (5-19); Aspartate Amino Transferase 20 U/L (0-40); Blood Urea Nitrogen 37 mg/dL (8-23); Calcium 8.4 mg/dL (8.5-10.5); Carbon Dioxide 21 mmol/L (22-29); Chloride 105 mmol/L (98-107); Globulin 1.8 g/dL (1.3-4.6); Glomerular Filtration Rate 47.4 mL/min (90-130); Glucose 91 mg/dL (65-115); Osmolality Calculated 292 mOsm/kg (285-295); Potassium 4.5 mmol/L (3.5-5.1); Sodium 137 mmol/L (136-145); Total Bilirubin 0.9 mg/dL (0.15-1.2)
[2022-02-17 14:52] LABS: Slide Review Slide Review Perform
[2022-02-17 14:55] LABS: Platelet Count 22 10^3/cmm (130-400)
[2022-02-19 11:05] LABS: Basophils % 0.9 %; Eosinophils # 0.1 10^3/uL (0.0-0.8); Eosinophils % 2.1 %; Hematocrit 27.3 % (42.0-52.0); Hemoglobin 9.5 g/dL (11.7-16.6); Lymphocytes # 0.2 10^3/uL (0.8-4.8); Lymphocytes % 6.4 %; Mean Corpuscular HGB Conc 34.8 g/dL (30.0-36.0); Mean Corpuscular Volume 103.4 fl (80-94); Mean Platelet Volume 11.7 fL (7.4-10.4); Monocytes # 0.3 10^3/uL (0.2-0.9); Monocytes % 13.3 %; Neutrophils # 1.43 10^3/uL (1.8-7.7); Neutrophils % 61.4 %; Nucleated Red Blood Cells % 0.9 %; Red Blood Count 2.64 10^6/uL (4.1-5.3); Red Cell Distribution Width 19.2 % (12.1-15.1); White Blood Count 2.3 10^3/uL (4.0-10.0)
[2022-02-19] MEDS: romiplostim 250 mcg SDV 950 MCG SUBCUT (11:42)
[2022-02-19 11:45] LABS: Platelet Count 22 10^3/cmm (130-400)
[2022-02-19 11:46] LABS: Slide Review Slide Review Perform
[2022-02-24 14:08] LABS: Hematocrit 25.8 % (42.0-52.0); Hemoglobin 9.1 g/dL (11.7-16.6); Mean Corpuscular HGB Conc 35.3 g/dL (30.0-36.0); Mean Corpuscular Hemoglobin 37.3 pg (28.0-34.0); Mean Corpuscular Volume 105.7 fl (80-94); Mean Platelet Volume 11.1 fL (7.4-10.4); Platelet Count 31 10^3/cmm (130-400); Red Blood Count 2.44 10^6/uL (4.1-5.3); White Blood Count 2.6 10^3/uL (4.0-10.0)
[2022-02-24 14:33] LABS: Alanine Aminotransferase 26 U/L (0-41); Albumin Level 4.4 g/dL (3.5-5.2); Alkaline Phosphatase 122 IU/L (40-130); Anion Gap 15.2 (5-19); Aspartate Amino Transferase 25 U/L (0-40); Blood Urea Nitrogen 20 mg/dL (8-23); Calcium 9.1 mg/dL (8.5-10.5); Carbon Dioxide 21 mmol/L (22-29); Chloride 105 mmol/L (98-107); Glomerular Filtration Rate 47.4 mL/min (90-130); Glucose 98 mg/dL (65-115); Osmolality Calculated 287 mOsm/kg (285-295); Potassium 4.2 mmol/L (3.5-5.1); Sodium 137 mmol/L (136-145); Total Bilirubin 1.1 mg/dL (0.15-1.2); Total Protein 6.4 g/dL (6.6-8.7)
[2022-02-24 14:53] LABS: Slide Review Slide Review Perform
[2022-02-24 14:55] LABS: Absolute Eosinophils 0.1 10^3/cmm (0.0-0.7); Absolute Segmented Neutrophil 1.9 10/cmm (1.6-7.1); Band Neutrophils Absolute 0.1 10^3/cmm (0.0-1.2); Eosinophils 5 %; Lymphocytes 4 %; Lymphocytes Absolute 0.3 10^3/cmm (1.2-3.4); Monocytes Absolute 0.1 10^3/cmm (0.1-0.6); Segmented Neutrophils 73 %; Total Cells Counted 100 (0-100)
[2022-02-24 14:56] LABS: Platelet Estimate Decreased (Normal)
[2022-02-26 09:40] VITALS: BMI 29.0
[2022-02-26] MEDS: romiplostim 250 mcg SDV 950 MCG SUBCUT (10:33)
[2022-02-26 10:40] VITALS: BP 116/78; PULSE 80; RESP 18; TEMP 36.4; O2SAT 99
[2022-03-04 09:12] VITALS: BP 127/65; PULSE 114; RESP 18; TEMP 35.8; O2SAT 96
[2022-03-04 09:32] LABS: Eosinophils % 1.5 %; Hematocrit 23.3 % (42.0-52.0); Hemoglobin 8.3 g/dL (11.7-16.6); Lymphocytes # 0.2 10^3/uL (0.8-4.8); Lymphocytes % 11.1 %; Mean Corpuscular HGB Conc 35.6 g/dL (30.0-36.0); Mean Corpuscular Hemoglobin 37.4 pg (28.0-34.0); Mean Platelet Volume 11.7 fL (7.4-10.4); Monocytes # 0.4 10^3/uL (0.2-0.9); Monocytes % 31.1 %; Neutrophils % 52.6 %; Nucleated Red Blood Cells % 1.5 %; Platelet Count 32 10^3/cmm (130-400); Red Blood Count 2.22 10^6/uL (4.1-5.3); Red Cell Distribution Width 21.7 % (12.1-15.1); White Blood Count 1.4 10^3/uL (4.0-10.0)
[2022-03-04 09:45] LABS: Neutrophils # 0.71 10^3/uL (1.8-7.7)
[2022-03-04 09:56] LABS: Alanine Aminotransferase 42 U/L (0-41); Albumin Level 4.5 g/dL (3.5-5.2); Alkaline Phosphatase 118 IU/L (40-130); Anion Gap 17.2 (5-19); Aspartate Amino Transferase 38 U/L (0-40); Blood Urea Nitrogen 31 mg/dL (8-23); Calcium 8.5 mg/dL (8.5-10.5); Carbon Dioxide 20 mmol/L (22-29); Chloride 103 mmol/L (98-107); Globulin 1.8 g/dL (1.3-4.6); Glomerular Filtration Rate 32.2 mL/min (90-130); Glucose 103 mg/dL (65-115); Osmolality Calculated 289 mOsm/kg (285-295); Potassium 4.2 mmol/L (3.5-5.1); Sodium 136 mmol/L (136-145); Total Bilirubin 1.2 mg/dL (0.15-1.2); Total Protein 6.3 g/dL (6.6-8.7)
--- NOTE | 2022-03-04 10:27 | PC.NURSE ---
patient given education on s/s of infection, pt states he is currently taking antibiotics, and it is to return tomorrow for another Neupogen injection. Patient reports that he will be going to [facility] Thursday for another dose of IVIG.
== END 2022-03-04 23:59 | disposition home or self-care (01) ==
PROVIDERS: Internal Medicine Medical Oncology; Nurse Practitioner; Visit Provider Internal Medicine Medical Oncology
DX: D69.59 Other secondary thrombocytopenia (principal); T45.1X5A Adverse effect of antineoplastic and immunosuppressive drugs, initial encounter
CPT/HCPCS: 36430; 36591; 80053; 85007; 85025; 86850; 86900; 86920; 96372; 96375; 96377; J1940; J2796; P9040; Q5101

== ENCOUNTER 2022-03-05 10:26 | Oncology outpatient (recurring) (ONCR) | payer MEDICARE, MEDICAID, SELFPAY ==
[2022-03-05] MEDS: romiplostim 250 mcg SDV 950 MCG SUBCUT (12:23)
[2022-03-05 15:52] VITALS: BP 112/74; PULSE 66; RESP 16; TEMP 36.3; O2SAT 97
== END 2022-03-12 11:18 | disposition home or self-care (01) ==
LOC: ONCMED 10:27
PROVIDERS: Visit Provider Internal Medicine Medical Oncology
DX: C82.08 Follicular lymphoma grade I, lymph nodes of multiple sites (principal); D64.9 Anemia, unspecified; Z79.899 Other long term (current) drug therapy
CPT/HCPCS: 96372; 96401; J2796; Q5101

== ENCOUNTER 2022-03-20 11:00 | Oncology outpatient (recurring) (ONCR) | payer MEDICARE, MEDICAID, SELFPAY ==
[2022-03-18 13:24] LABS: Basophils % 0.6 %; Eosinophils # 0.1 10^3/uL (0.0-0.8); Eosinophils % 1.5 %; Hematocrit 25.7 % (42.0-52.0); Hemoglobin 8.8 g/dL (11.7-16.6); Lymphocytes # 0.2 10^3/uL (0.8-4.8); Lymphocytes % 6.6 %; Mean Corpuscular HGB Conc 34.2 g/dL (30.0-36.0); Mean Corpuscular Hemoglobin 36.4 pg (28.0-34.0); Mean Corpuscular Volume 106.2 fl (80-94); Mean Platelet Volume 12.6 fL (7.4-10.4); Monocytes # 0.5 10^3/uL (0.2-0.9); Monocytes % 14.2 %; Neutrophils # 2.34 10^3/uL (1.8-7.7); Neutrophils % 70.8 %; Nucleated Red Blood Cells % 0 %; Platelet Count 47 10^3/cmm (130-400); Positive C 1; Positive M 1; Red Blood Count 2.42 10^6/uL (4.1-5.3); Red Cell Distribution Width 22.7 % (12.1-15.1); White Blood Count 3.3 10^3/uL (4.0-10.0)
[2022-03-18 13:41] LABS: Alanine Aminotransferase 16 U/L (0-41); Albumin Level 4.4 g/dL (3.5-5.2); Alkaline Phosphatase 110 IU/L (40-130); Anion Gap 16.6 (5-19); Aspartate Amino Transferase 21 U/L (0-40); Blood Urea Nitrogen 34 mg/dL (8-23); Calcium 8.7 mg/dL (8.5-10.5); Carbon Dioxide 22 mmol/L (22-29); Chloride 104 mmol/L (98-107); Globulin 2.3 g/dL (1.3-4.6); Glucose 94 mg/dL (65-115); Osmolality Calculated 293 mOsm/kg (285-295); Potassium 4.6 mmol/L (3.5-5.1); Sodium 138 mmol/L (136-145); Total Bilirubin 1.1 mg/dL (0.15-1.2); Total Protein 6.7 g/dL (6.6-8.7)
[2022-03-18 14:03] LABS: Slide Review Slide Review Perform
[2022-03-20] MEDS: romiplostim 250 mcg SDV 950 MCG SUBCUT (13:12)
[2022-03-20 13:15] VITALS: BP 131/74; PULSE 76; RESP 18; TEMP 36.5; O2SAT 99
== END 2022-03-21 09:55 | disposition home or self-care (01) ==
PROVIDERS: Internal Medicine Medical Oncology; Visit Provider Internal Medicine Medical Oncology
DX: D61.810 Antineoplastic chemotherapy induced pancytopenia (principal)
CPT/HCPCS: 80053; 85025; 96372; J2796

== ENCOUNTER 2022-04-23 13:30 | Oncology outpatient (recurring) (ONCR) | payer MEDICARE, MEDICAID, SELFPAY ==
[2022-04-04 10:52] LABS: Eosinophils # 0.1 10^3/uL (0.0-0.8); Eosinophils % 3.4 %; Hematocrit 28.2 % (42.0-52.0); Hemoglobin 9.7 g/dL (11.7-16.6); Lymphocytes # 0.2 10^3/uL (0.8-4.8); Lymphocytes % 4.7 %; Mean Corpuscular HGB Conc 34.4 g/dL (30.0-36.0); Mean Corpuscular Hemoglobin 37.2 pg (28.0-34.0); Mean Platelet Volume 11.4 fL (7.4-10.4); Monocytes # 0.5 10^3/uL (0.2-0.9); Monocytes % 14.2 %; Neutrophils # 2.81 10^3/uL (1.8-7.7); Neutrophils % 73.8 %; Nucleated Red Blood Cells % 0.5 %; Platelet Count 86 10^3/cmm (130-400); Red Blood Count 2.61 10^6/uL (4.1-5.3); Red Cell Distribution Width 20.1 % (12.1-15.1); White Blood Count 3.8 10^3/uL (4.0-10.0)
[2022-04-04 11:11] LABS: Alanine Aminotransferase 17 U/L (0-41); Albumin Level 4.2 g/dL (3.5-5.2); Alkaline Phosphatase 144 IU/L (40-130); Anion Gap 16.4 (5-19); Aspartate Amino Transferase 24 U/L (0-40); Blood Urea Nitrogen 37 mg/dL (8-23); Calcium 8.4 mg/dL (8.5-10.5); Carbon Dioxide 23 mmol/L (22-29); Chloride 106 mmol/L (98-107); Globulin 2.5 g/dL (1.3-4.6); Glucose 113 mg/dL (65-115); Osmolality Calculated 301 mOsm/kg (285-295); Potassium 4.4 mmol/L (3.5-5.1); Sodium 141 mmol/L (136-145); Total Bilirubin 1.1 mg/dL (0.15-1.2); Total Protein 6.7 g/dL (6.6-8.7)
[2022-04-08 14:15] LABS: Basophils % 0.8 %; Eosinophils # 0.2 10^3/uL (0.0-0.8); Eosinophils % 4.6 %; Hematocrit 29.1 % (42.0-52.0); Hemoglobin 10.2 g/dL (11.7-16.6); Lymphocytes # 0.3 10^3/uL (0.8-4.8); Lymphocytes % 5.2 %; Mean Corpuscular HGB Conc 35.1 g/dL (30.0-36.0); Mean Corpuscular Hemoglobin 37.6 pg (28.0-34.0); Mean Corpuscular Volume 107.4 fl (80-94); Mean Platelet Volume 10.8 fL (7.4-10.4); Monocytes # 0.5 10^3/uL (0.2-0.9); Monocytes % 10.4 %; Neutrophils # 3.69 10^3/uL (1.8-7.7); Neutrophils % 77.1 %; Nucleated Red Blood Cells % 0.4 %; Platelet Count 93 10^3/cmm (130-400); Red Blood Count 2.71 10^6/uL (4.1-5.3); Red Cell Distribution Width 19.7 % (12.1-15.1); White Blood Count 4.8 10^3/uL (4.0-10.0)
[2022-04-08 14:37] LABS: Alanine Aminotransferase 22 U/L (0-41); Albumin Level 4.5 g/dL (3.5-5.2); Alkaline Phosphatase 103 IU/L (40-130); Anion Gap 17.6 (5-19); Aspartate Amino Transferase 27 U/L (0-40); Blood Urea Nitrogen 27 mg/dL (8-23); Calcium 8.9 mg/dL (8.5-10.5); Carbon Dioxide 24 mmol/L (22-29); Chloride 99 mmol/L (98-107); Globulin 2.3 g/dL (1.3-4.6); Glucose 105 mg/dL (65-115); Osmolality Calculated 287 mOsm/kg (285-295); Potassium 4.6 mmol/L (3.5-5.1); Sodium 136 mmol/L (136-145); Total Protein 6.8 g/dL (6.6-8.7)
[2022-04-09 10:10] VITALS: BMI 29.5
[2022-04-09] MEDS: romiplostim 250 mcg SDV 950 MCG SUBCUT (11:39)
[2022-04-09 11:46] VITALS: BP 143/88; PULSE 86; RESP 18; TEMP 36.8; O2SAT 99
[2022-04-21 14:13] LABS: Basophils # 0.1 10^3/uL (0.0-0.1); Eosinophils # 0.1 10^3/uL (0.0-0.8); Eosinophils % 2.7 %; Hematocrit 33.3 % (42.0-52.0); Hemoglobin 11.5 g/dL (11.7-16.6); Lymphocytes # 0.3 10^3/uL (0.8-4.8); Mean Corpuscular HGB Conc 34.5 g/dL (30.0-36.0); Mean Corpuscular Volume 109.9 fl (80-94); Mean Platelet Volume 10.8 fL (7.4-10.4); Monocytes # 0.5 10^3/uL (0.2-0.9); Monocytes % 8.7 %; Neutrophils # 4.19 10^3/uL (1.8-7.7); Neutrophils % 80.5 %; Nucleated Red Blood Cells % 0 %; Platelet Count 89 10^3/cmm (130-400); Red Blood Count 3.03 10^6/uL (4.1-5.3); Red Cell Distribution Width 17.6 % (12.1-15.1); White Blood Count 5.2 10^3/uL (4.0-10.0)
[2022-04-21 14:34] LABS: Alanine Aminotransferase 26 U/L (0-41); Albumin Level 4.5 g/dL (3.5-5.2); Alkaline Phosphatase 117 IU/L (40-130); Anion Gap 14.9 (5-19); Aspartate Amino Transferase 32 U/L (0-40); Blood Urea Nitrogen 33 mg/dL (8-23); Calcium 9.1 mg/dL (8.5-10.5); Carbon Dioxide 24 mmol/L (22-29); Chloride 104 mmol/L (98-107); Globulin 1.9 g/dL (1.3-4.6); Glucose 95 mg/dL (65-115); Osmolality Calculated 293 mOsm/kg (285-295); Potassium 4.9 mmol/L (3.5-5.1); Sodium 138 mmol/L (136-145); Total Bilirubin 0.9 mg/dL (0.15-1.2); Total Protein 6.4 g/dL (6.6-8.7)
[2022-04-23 13:53] VITALS: BP 153/83; PULSE 102; RESP 16; TEMP 36.8; O2SAT 98
[2022-04-23] MEDS: romiplostim 250 mcg SDV 950 MCG SUBCUT (14:21)
== END 2022-04-24 09:36 | disposition home or self-care (01) ==
PROVIDERS: Nurse Practitioner; Visit Provider Internal Medicine Medical Oncology
DX: Z79.899 Other long term (current) drug therapy (principal)
CPT/HCPCS: 36591; 80053; 85025; 96372; J2796; Q5101

== ENCOUNTER 2022-04-30 13:08 | Oncology outpatient (recurring) (ONCR) | payer MEDICARE, MEDICAID, SELFPAY ==
[2022-04-28 13:49] LABS: Basophils % 0.8 %; Eosinophils # 0.2 10^3/uL (0.0-0.8); Eosinophils % 4.3 %; Hematocrit 32.3 % (42.0-52.0); Hemoglobin 11.3 g/dL (11.7-16.6); Lymphocytes # 0.3 10^3/uL (0.8-4.8); Lymphocytes % 6.4 %; Mean Corpuscular Hemoglobin 38.4 pg (28.0-34.0); Mean Corpuscular Volume 109.9 fl (80-94); Mean Platelet Volume 10.4 fL (7.4-10.4); Monocytes # 0.6 10^3/uL (0.2-0.9); Monocytes % 15.5 %; Neutrophils # 2.75 10^3/uL (1.8-7.7); Neutrophils % 69.9 %; Nucleated Red Blood Cells % 0 %; Platelet Count 83 10^3/cmm (130-400); Red Blood Count 2.94 10^6/uL (4.1-5.3); Red Cell Distribution Width 16.7 % (12.1-15.1); White Blood Count 3.9 10^3/uL (4.0-10.0)
[2022-04-28 14:26] LABS: Alanine Aminotransferase 22 U/L (0-41); Albumin Level 4.6 g/dL (3.5-5.2); Alkaline Phosphatase 107 IU/L (40-130); Anion Gap 15.4 (5-19); Aspartate Amino Transferase 22 U/L (0-40); Blood Urea Nitrogen 35 mg/dL (8-23); Calcium 9.2 mg/dL (8.5-10.5); Carbon Dioxide 26 mmol/L (22-29); Chloride 103 mmol/L (98-107); Globulin 1.9 g/dL (1.3-4.6); Glucose 92 mg/dL (65-115); Osmolality Calculated 298 mOsm/kg (285-295); Potassium 4.4 mmol/L (3.5-5.1); Sodium 140 mmol/L (136-145); Total Bilirubin 1.3 mg/dL (0.15-1.2); Total Protein 6.5 g/dL (6.6-8.7)
[2022-04-30 13:41] VITALS: BMI 29.9
[2022-04-30] MEDS: romiplostim 250 mcg SDV 950 MCG SUBCUT (14:01)
[2022-04-30 14:08] VITALS: BP 143/83; PULSE 79; RESP 18; TEMP 36.4; O2SAT 99
== END 2022-05-04 23:59 | disposition home or self-care (01) ==
PROVIDERS: Visit Provider Internal Medicine Medical Oncology
DX: D69.59 Other secondary thrombocytopenia (principal); T45.1X5A Adverse effect of antineoplastic and immunosuppressive drugs, initial encounter; Z53.9 Procedure and treatment not carried out, unspecified reason
CPT/HCPCS: 36591; 80053; 85025; 96372; J2796

== ENCOUNTER 2022-06-04 13:30 | Oncology outpatient (recurring) (ONCR) | payer MEDICARE, MEDICAID, SELFPAY ==
[2022-05-26 13:31] LABS: Basophils % 0.6 %; Eosinophils # 0.2 10^3/uL (0.0-0.8); Hematocrit 34.4 % (42.0-52.0); Hemoglobin 12.2 g/dL (11.7-16.6); Lymphocytes # 0.4 10^3/uL (0.8-4.8); Lymphocytes % 7.4 %; Mean Corpuscular HGB Conc 35.5 g/dL (30.0-36.0); Mean Corpuscular Hemoglobin 37.5 pg (28.0-34.0); Mean Corpuscular Volume 105.8 fl (80-94); Monocytes # 0.8 10^3/uL (0.2-0.9); Monocytes % 15.5 %; Neutrophils # 3.56 10^3/uL (1.8-7.7); Neutrophils % 71.5 %; Nucleated Red Blood Cells % 0 %; Platelet Count 74 10^3/cmm (130-400); Red Blood Count 3.25 10^6/uL (4.1-5.3); Red Cell Distribution Width 13.8 % (12.1-15.1)
[2022-05-26 14:09] LABS: Alanine Aminotransferase 28 U/L (0-41); Albumin Level 4.4 g/dL (3.5-5.2); Alkaline Phosphatase 122 U/L (40-130); Anion Gap 15.2 (5-19); Aspartate Amino Transferase 28 U/L (0-40); Blood Urea Nitrogen 25 mg/dL (8-23); Carbon Dioxide 26 mmol/L (22-29); Chloride 98 mmol/L (98-107); Globulin 2.3 g/dL (1.3-4.6); Glucose 105 mg/dL (65-115); Osmolality Calculated 285 mOsm/kg (285-295); Potassium 4.2 mmol/L (3.5-5.1); Sodium 135 mmol/L (136-145); Total Protein 6.7 g/dL (6.6-8.7)
--- NOTE | 2022-05-26 14:49 | PC.NURSE ---
left message for patient to come in on thursday for nplate injecction. pt added to schedule for 1 pm thursday.
[2022-05-28 12:56] VITALS: BMI 30.6
[2022-05-28] MEDS: romiplostim 250 mcg SDV 950 MCG SUBCUT (13:24)
[2022-05-28 13:29] VITALS: BP 143/81; PULSE 75; RESP 18; TEMP 36.2; O2SAT 99
[2022-06-02 13:32] LABS: Basophils % 0.7 %; Eosinophils # 0.1 10^3/uL (0.0-0.8); Eosinophils % 1.8 %; Hematocrit 32.7 % (42.0-52.0); Hemoglobin 11.7 g/dL (11.7-16.6); Lymphocytes # 0.3 10^3/uL (0.8-4.8); Lymphocytes % 6.9 %; Mean Corpuscular HGB Conc 35.8 g/dL (30.0-36.0); Mean Corpuscular Hemoglobin 37.7 pg (28.0-34.0); Mean Corpuscular Volume 105.5 fl (80-94); Mean Platelet Volume 11.1 fL (7.4-10.4); Monocytes # 0.8 10^3/uL (0.2-0.9); Monocytes % 17.2 %; Neutrophils # 3.13 10^3/uL (1.8-7.7); Neutrophils % 71.6 %; Nucleated Red Blood Cells % 0 %; Platelet Count 62 10^3/cmm (130-400); White Blood Count 4.4 10^3/uL (4.0-10.0)
[2022-06-02 13:53] LABS: Alanine Aminotransferase 48 U/L (0-41); Albumin Level 4.3 g/dL (3.5-5.2); Alkaline Phosphatase 130 U/L (40-130); Anion Gap 14.5 (5-19); Aspartate Amino Transferase 29 U/L (0-40); Blood Urea Nitrogen 28 mg/dL (8-23); Calcium 8.9 mg/dL (8.5-10.5); Carbon Dioxide 26 mmol/L (22-29); Chloride 103 mmol/L (98-107); Globulin 2.1 g/dL (1.3-4.6); Glucose 104 mg/dL (65-115); Osmolality Calculated 294 mOsm/kg (285-295); Potassium 4.5 mmol/L (3.5-5.1); Sodium 139 mmol/L (136-145); Total Bilirubin 1.2 mg/dL (0.15-1.2); Total Protein 6.4 g/dL (6.6-8.7)
[2022-06-04] MEDS: romiplostim 250 mcg SDV 950 MCG SUBCUT (13:57)
== END 2022-06-04 23:59 | disposition home or self-care (01) ==
PROVIDERS: Visit Provider Internal Medicine Medical Oncology
DX: Z79.899 Other long term (current) drug therapy (principal); C82.08 Follicular lymphoma grade I, lymph nodes of multiple sites; D69.59 Other secondary thrombocytopenia
CPT/HCPCS: 36591; 80053; 85025; 96372; J2796

== ENCOUNTER 2022-06-18 13:00 | Oncology outpatient (recurring) (ONCR) | payer MEDICARE, MEDICAID, SELFPAY ==
[2022-06-10 15:39] LABS: Alanine Aminotransferase 56 U/L (0-41); Albumin Level 4.5 g/dL (3.5-5.2); Alkaline Phosphatase 121 U/L (40-130); Anion Gap 11.7 (5-19); Aspartate Amino Transferase 29 U/L (0-40); Blood Urea Nitrogen 26 mg/dL (8-23); Calcium 8.7 mg/dL (8.5-10.5); Carbon Dioxide 24 mmol/L (22-29); Chloride 108 mmol/L (98-107); Globulin 1.9 g/dL (1.3-4.6); Glomerular Filtration Rate 51.4 mL/min (90-130); Glucose 85 mg/dL (65-115); Osmolality Calculated 292 mOsm/kg (285-295); Potassium 4.7 mmol/L (3.5-5.1); Sodium 139 mmol/L (136-145); Total Bilirubin 0.8 mg/dL (0.15-1.2); Total Protein 6.4 g/dL (6.6-8.7)
[2022-06-10 15:43] LABS: Basophils % 0.7 %; Eosinophils # 0.1 10^3/uL (0.0-0.8); Eosinophils % 1.8 %; Hematocrit 32.4 % (42.0-52.0); Hemoglobin 11.3 g/dL (11.7-16.6); Lymphocytes # 0.3 10^3/uL (0.8-4.8); Lymphocytes % 6.2 %; Mean Corpuscular HGB Conc 34.9 g/dL (30.0-36.0); Mean Corpuscular Hemoglobin 37.7 pg (28.0-34.0); Monocytes # 0.7 10^3/uL (0.2-0.9); Monocytes % 13.3 %; Neutrophils # 4.15 10^3/uL (1.8-7.7); Neutrophils % 75.8 %; Nucleated Red Blood Cells % 0.4 %; Platelet Count 70 10^3/cmm (130-400); Red Cell Distribution Width 14.6 % (12.1-15.1); White Blood Count 5.5 10^3/uL (4.0-10.0)
[2022-06-11 10:40] VITALS: BP 143/88; PULSE 73; RESP 18; TEMP 36.8; O2SAT 99
[2022-06-11] MEDS: romiplostim 250 mcg SDV 950 MCG SUBCUT (10:42)
[2022-06-16 13:18] LABS: Basophils % 0.7 %; Eosinophils # 0.1 10^3/uL (0.0-0.8); Eosinophils % 1.9 %; Hematocrit 32.7 % (42.0-52.0); Hemoglobin 11.4 g/dL (11.7-16.6); Lymphocytes # 0.3 10^3/uL (0.8-4.8); Lymphocytes % 5.8 %; Mean Corpuscular HGB Conc 34.9 g/dL (30.0-36.0); Mean Corpuscular Hemoglobin 37.4 pg (28.0-34.0); Mean Corpuscular Volume 107.2 fl (80-94); Mean Platelet Volume 10.6 fL (7.4-10.4); Monocytes # 0.8 10^3/uL (0.2-0.9); Monocytes % 14.9 %; Neutrophils # 4.03 10^3/uL (1.8-7.7); Neutrophils % 75.2 %; Nucleated Red Blood Cells % 0 %; Platelet Count 63 10^3/cmm (130-400); Red Blood Count 3.05 10^6/uL (4.1-5.3); Red Cell Distribution Width 14.7 % (12.1-15.1); White Blood Count 5.4 10^3/uL (4.0-10.0)
[2022-06-16 13:38] LABS: Alanine Aminotransferase 45 U/L (0-41); Albumin Level 4.3 g/dL (3.5-5.2); Alkaline Phosphatase 116 U/L (40-130); Aspartate Amino Transferase 32 U/L (0-40); Blood Urea Nitrogen 32 mg/dL (8-23); Calcium 8.9 mg/dL (8.5-10.5); Carbon Dioxide 23 mmol/L (22-29); Chloride 101 mmol/L (98-107); Globulin 2.5 g/dL (1.3-4.6); Glomerular Filtration Rate 38.4 mL/min (90-130); Glucose 115 mg/dL (65-115); Osmolality Calculated 288 mOsm/kg (285-295); Sodium 135 mmol/L (136-145); Total Bilirubin 1.5 mg/dL (0.15-1.2); Total Protein 6.8 g/dL (6.6-8.7)
[2022-06-16 13:40] LABS: Anion Gap 15.9 (5-19); Potassium 4.9 mmol/L (3.5-5.1)
[2022-06-18] MEDS: romiplostim 250 mcg SDV 950 MCG SUBCUT (13:05)
== END 2022-06-19 08:37 | disposition home or self-care (01) ==
PROVIDERS: Visit Provider Internal Medicine Medical Oncology
DX: C82.08 Follicular lymphoma grade I, lymph nodes of multiple sites (principal); Z79.899 Other long term (current) drug therapy; D69.59 Other secondary thrombocytopenia
CPT/HCPCS: 36591; 80053; 85025; 96372; 96401; J2796

== ENCOUNTER 2022-06-30 14:00 | Oncology outpatient (recurring) (ONCR) | payer MEDICARE, MEDICAID, SELFPAY ==
[2022-06-23 14:04] LABS: Basophils % 0.9 %; Eosinophils # 0.1 10^3/uL (0.0-0.8); Eosinophils % 2.5 %; Hematocrit 29.8 % (42.0-52.0); Hemoglobin 10.4 g/dL (11.7-16.6); Lymphocytes # 0.2 10^3/uL (0.8-4.8); Mean Corpuscular HGB Conc 34.9 g/dL (30.0-36.0); Mean Corpuscular Hemoglobin 37.7 pg (28.0-34.0); Mean Platelet Volume 10.8 fL (7.4-10.4); Monocytes # 0.8 10^3/uL (0.2-0.9); Monocytes % 18.3 %; Neutrophils # 3.12 10^3/uL (1.8-7.7); Neutrophils % 71.7 %; Nucleated Red Blood Cells % 0 %; Platelet Count 64 10^3/cmm (130-400); Red Blood Count 2.76 10^6/uL (4.1-5.3); Red Cell Distribution Width 15.2 % (12.1-15.1); White Blood Count 4.4 10^3/uL (4.0-10.0)
[2022-06-23 14:28] LABS: Alanine Aminotransferase 37 U/L (0-41); Alkaline Phosphatase 120 U/L (40-130); Anion Gap 14.6 (5-19); Aspartate Amino Transferase 32 U/L (0-40); Blood Urea Nitrogen 31 mg/dL (8-23); Calcium 8.8 mg/dL (8.5-10.5); Carbon Dioxide 24 mmol/L (22-29); Chloride 101 mmol/L (98-107); Globulin 2.4 g/dL (1.3-4.6); Glucose 99 mg/dL (65-115); Osmolality Calculated 287 mOsm/kg (285-295); Potassium 4.6 mmol/L (3.5-5.1); Sodium 135 mmol/L (136-145); Total Bilirubin 1.8 mg/dL (0.15-1.2); Total Protein 6.4 g/dL (6.6-8.7)
[2022-06-25] MEDS: romiplostim 250 mcg SDV 950 MCG SUBCUT (13:59)
[2022-06-30 13:15] LABS: Basophils # 0.1 10^3/uL (0.0-0.1); Basophils % 1.2 %; Eosinophils # 0.1 10^3/uL (0.0-0.8); Eosinophils % 1.8 %; Hematocrit 30.1 % (42.0-52.0); Hemoglobin 10.4 g/dL (11.7-16.6); Lymphocytes # 0.2 10^3/uL (0.8-4.8); Lymphocytes % 4.5 %; Mean Corpuscular HGB Conc 34.6 g/dL (30.0-36.0); Mean Corpuscular Volume 107.1 fl (80-94); Mean Platelet Volume 10.9 fL (7.4-10.4); Monocytes % 20.1 %; Neutrophils # 3.49 10^3/uL (1.8-7.7); Neutrophils % 68.7 %; Nucleated Red Blood Cells % 0 %; Platelet Count 84 10^3/cmm (130-400); Red Blood Count 2.81 10^6/uL (4.1-5.3); Red Cell Distribution Width 15.2 % (12.1-15.1); White Blood Count 5.1 10^3/uL (4.0-10.0)
[2022-06-30 13:44] LABS: Alanine Aminotransferase 27 U/L (0-41); Albumin Level 4.4 g/dL (3.5-5.2); Alkaline Phosphatase 120 U/L (40-130); Anion Gap 14.6 (5-19); Aspartate Amino Transferase 24 U/L (0-40); Blood Urea Nitrogen 29 mg/dL (8-23); Calcium 9.2 mg/dL (8.5-10.5); Carbon Dioxide 23 mmol/L (22-29); Chloride 101 mmol/L (98-107); Globulin 2.3 g/dL (1.3-4.6); Glomerular Filtration Rate 36.1 mL/min (90-130); Glucose 99 mg/dL (65-115); Osmolality Calculated 284 mOsm/kg (285-295); Potassium 4.6 mmol/L (3.5-5.1); Sodium 134 mmol/L (136-145); Total Bilirubin 1.5 mg/dL (0.15-1.2); Total Protein 6.7 g/dL (6.6-8.7)
== END 2022-07-04 23:59 | disposition home or self-care (01) ==
PROVIDERS: Visit Provider Internal Medicine Medical Oncology
DX: C82.08 Follicular lymphoma grade I, lymph nodes of multiple sites (principal)
CPT/HCPCS: 36591; 80053; 85025; 96372; J2796

== ENCOUNTER 2022-08-04 13:30 | Oncology outpatient (recurring) (ONCR) | payer MEDICARE, MEDICAID, SELFPAY ==
[2022-07-15] VITALS (8 sets, daily range): BP systolic 99–126; BP diastolic 64–82; PULSE 78–97; RESP 16–18; TEMP 36.8–37.3; O2SAT 98
[2022-07-15] MEDS: acetaminophen 325 mg Tablet 650 MG PO (11:59)
[2022-07-15] MEDS: diphenhydrAMINE 25 mg Capsule PO (11:59)
[2022-07-15] MEDS: sodium chloride 0.9% 250 ML 100 ML IV (12:00)
[2022-07-15 12:16] LABS: Alanine Aminotransferase 16 U/L (0-41); Albumin Level 3.9 g/dL (3.5-5.2); Alkaline Phosphatase 110 U/L (40-130); Anion Gap 16.9 (5-19); Aspartate Amino Transferase 17 U/L (0-40); Blood Urea Nitrogen 29 mg/dL (8-23); Calcium 9.5 mg/dL (8.5-10.5); Carbon Dioxide 23 mmol/L (22-29); Chloride 102 mmol/L (98-107); Globulin 3.1 g/dL (1.3-4.6); Glucose 110 mg/dL (65-115); Immunoglobulin IGA 50 mg/dL (70-400); Immunoglobulin IGG 597 mg/dL (700-1600); Immunoglobulin IGM 25 mg/dL (40-230); Osmolality Calculated 290 mOsm/kg (285-295); Potassium 4.9 mmol/L (3.5-5.1); Sodium 137 mmol/L (136-145)
[2022-07-15 13:11] LABS: Eosinophils # 0.1 10^3/uL (0.0-0.8); Eosinophils % 2.8 %; Hematocrit 28.4 % (42.0-52.0); Hemoglobin 9.7 g/dL (11.7-16.6); Lymphocytes # 0.4 10^3/uL (0.8-4.8); Lymphocytes % 11.1 %; Mean Corpuscular HGB Conc 34.2 g/dL (30.0-36.0); Mean Corpuscular Hemoglobin 35.5 pg (28.0-34.0); Mean Platelet Volume 11.6 fL (7.4-10.4); Monocytes # 0.7 10^3/uL (0.2-0.9); Monocytes % 18.7 %; Neutrophils # 2.48 10^3/uL (1.8-7.7); Neutrophils % 62.6 %; Nucleated Red Blood Cells % 0 %; Platelet Count 102 10^3/cmm (130-400); Red Blood Count 2.73 10^6/uL (4.1-5.3); Red Cell Distribution Width 15.4 % (12.1-15.1)
[2022-07-31 13:39] LABS: Basophils # 0.1 10^3/uL (0.0-0.1); Basophils % 1.3 %; Eosinophils # 0.2 10^3/uL (0.0-0.8); Hematocrit 30.6 % (42.0-52.0); Hemoglobin 10.3 g/dL (11.7-16.6); Lymphocytes # 0.6 10^3/uL (0.8-4.8); Lymphocytes % 16.1 %; Mean Corpuscular HGB Conc 33.7 g/dL (30.0-36.0); Mean Corpuscular Hemoglobin 35.4 pg (28.0-34.0); Mean Corpuscular Volume 105.2 fl (80-94); Mean Platelet Volume 11.1 fL (7.4-10.4); Monocytes # 0.8 10^3/uL (0.2-0.9); Monocytes % 19.8 %; Neutrophils # 2.15 10^3/uL (1.8-7.7); Neutrophils % 56.7 %; Nucleated Red Blood Cells % 0 %; Platelet Count 97 10^3/cmm (130-400); Red Blood Count 2.91 10^6/uL (4.1-5.3); Red Cell Distribution Width 17.5 % (12.1-15.1); White Blood Count 3.8 10^3/uL (4.0-10.0)
[2022-07-31 13:50] LABS: Alanine Aminotransferase 13 U/L (0-41); Alkaline Phosphatase 131 U/L (40-130); Anion Gap 14.4 (5-19); Aspartate Amino Transferase 15 U/L (0-40); Blood Urea Nitrogen 27 mg/dL (8-23); Calcium 9.3 mg/dL (8.5-10.5); Carbon Dioxide 24 mmol/L (22-29); Chloride 100 mmol/L (98-107); Globulin 2.6 g/dL (1.3-4.6); Glomerular Filtration Rate 38.4 mL/min (90-130); Glucose 102 mg/dL (65-115); Osmolality Calculated 283 mOsm/kg (285-295); Potassium 4.4 mmol/L (3.5-5.1); Sodium 134 mmol/L (136-145); Total Bilirubin 0.9 mg/dL (0.15-1.2); Total Protein 6.6 g/dL (6.6-8.7)
== END 2022-08-04 23:59 | disposition home or self-care (01) ==
PROVIDERS: Visit Provider Internal Medicine Medical Oncology
DX: C82.08 Follicular lymphoma grade I, lymph nodes of multiple sites (principal)
CPT/HCPCS: 36591; 80053; 82784; 85025; 96365; 96366; J1568; J7050

== ENCOUNTER 2022-08-14 08:02 | Oncology outpatient (recurring) (ONCR) | payer MEDICARE, MEDICAID, SELFPAY ==
[2022-08-07 13:38] LABS: Basophils # 0.1 10^3/uL (0.0-0.1); Basophils % 1.4 %; Eosinophils # 0.2 10^3/uL (0.0-0.8); Eosinophils % 4.1 %; Hemoglobin 10.6 g/dL (11.7-16.6); Lymphocytes # 0.5 10^3/uL (0.8-4.8); Mean Corpuscular HGB Conc 33.1 g/dL (30.0-36.0); Mean Corpuscular Volume 105.6 fl (80-94); Monocytes # 0.6 10^3/uL (0.2-0.9); Monocytes % 14.7 %; Neutrophils % 64.9 %; Nucleated Red Blood Cells % 0 %; Platelet Count 85 10^3/cmm (130-400); Red Blood Count 3.03 10^6/uL (4.1-5.3); Red Cell Distribution Width 17.5 % (12.1-15.1); White Blood Count 4.2 10^3/uL (4.0-10.0)
[2022-08-07 14:00] LABS: Alanine Aminotransferase 17 U/L (0-41); Albumin Level 4.3 g/dL (3.5-5.2); Alkaline Phosphatase 130 U/L (40-130); Anion Gap 14.6 (5-19); Aspartate Amino Transferase 18 U/L (0-40); Blood Urea Nitrogen 19 mg/dL (8-23); Calcium 8.9 mg/dL (8.5-10.5); Carbon Dioxide 23 mmol/L (22-29); Chloride 102 mmol/L (98-107); Globulin 2.3 g/dL (1.3-4.6); Glucose 124 mg/dL (65-115); Osmolality Calculated 284 mOsm/kg (285-295); Potassium 4.6 mmol/L (3.5-5.1); Sodium 135 mmol/L (136-145); Total Bilirubin 1.3 mg/dL (0.15-1.2); Total Protein 6.6 g/dL (6.6-8.7)
[2022-08-14] VITALS (8 sets, daily range): BP systolic 120–137; BP diastolic 78–87; PULSE 65–73; RESP 16–18; TEMP 36.1–36.3; O2SAT 96–97; BMI 30.2
[2022-08-14 08:29] LABS: Basophils % 1.1 %; Eosinophils # 0.1 10^3/uL (0.0-0.8); Eosinophils % 3.6 %; Hematocrit 31.5 % (42.0-52.0); Hemoglobin 10.6 g/dL (11.7-16.6); Lymphocytes # 0.4 10^3/uL (0.8-4.8); Lymphocytes % 10.8 %; Mean Corpuscular HGB Conc 33.7 g/dL (30.0-36.0); Mean Corpuscular Hemoglobin 35.8 pg (28.0-34.0); Mean Corpuscular Volume 106.4 fl (80-94); Monocytes # 0.6 10^3/uL (0.2-0.9); Monocytes % 17.7 %; Neutrophils # 2.35 10^3/uL (1.8-7.7); Neutrophils % 65.1 %; Nucleated Red Blood Cells % 0 %; Platelet Count 69 10^3/cmm (130-400); Red Blood Count 2.96 10^6/uL (4.1-5.3); White Blood Count 3.6 10^3/uL (4.0-10.0)
[2022-08-14 08:45] LABS: Alanine Aminotransferase 14 U/L (0-41); Albumin Level 3.9 g/dL (3.5-5.2); Alkaline Phosphatase 119 U/L (40-130); Anion Gap 14.4 (5-19); Aspartate Amino Transferase 17 U/L (0-40); Blood Urea Nitrogen 24 mg/dL (8-23); Calcium 9.1 mg/dL (8.5-10.5); Carbon Dioxide 23 mmol/L (22-29); Chloride 101 mmol/L (98-107); Chol HDL Ratio 2.98 mg/dL (1.0-5.00); Cholesterol 119 mg/dL (0-200); Globulin 2.5 g/dL (1.3-4.6); Glomerular Filtration Rate 47.4 mL/min (90-130); Glucose 110 mg/dL (65-115); HDL Cholesterol 40 mg/dL (60-100); LDL Cholesterol Calculated 48 mg/dL (50-129); Osmolality Calculated 283 mOsm/kg (285-295); Potassium 4.4 mmol/L (3.5-5.1); Sodium 134 mmol/L (136-145); Total Bilirubin 0.8 mg/dL (0.15-1.2); Total Protein 6.4 g/dL (6.6-8.7); Triglycerides 156 mg/dL (0-150)
[2022-08-14] MEDS: acetaminophen 325 mg Tablet 650 MG PO (10:04)
[2022-08-14] MEDS: diphenhydrAMINE 25 mg Capsule PO (10:05)
[2022-08-14] MEDS: sodium chloride 0.9% 250 ML 50 ML IV (10:06)
[2022-08-14] MEDS: romiplostim 250 mcg SDV 950 MCG SUBCUT (12:05)
== END 2022-08-15 09:25 | disposition home or self-care (01) ==
PROVIDERS: Visit Provider Internal Medicine Medical Oncology
DX: C82.08 Follicular lymphoma grade I, lymph nodes of multiple sites (principal); D80.1 Nonfamilial hypogammaglobulinemia; E78.5 Hyperlipidemia, unspecified; Z79.899 Other long term (current) drug therapy
CPT/HCPCS: 36415; 36591; 80053; 80061; 85025; 96365; 96366; 96372; J1459; J2796; J7050

== ENCOUNTER 2022-09-03 12:30 | Oncology outpatient (recurring) (ONCR) | payer MEDICARE, MEDICAID, SELFPAY ==
[2022-08-21 13:27] LABS: Basophils # 0.1 10^3/uL (0.0-0.1); Basophils % 1.2 %; Eosinophils # 0.1 10^3/uL (0.0-0.8); Hematocrit 31.7 % (42.0-52.0); Hemoglobin 10.9 g/dL (11.7-16.6); Lymphocytes # 0.5 10^3/uL (0.8-4.8); Lymphocytes % 12.7 %; Mean Corpuscular HGB Conc 34.4 g/dL (30.0-36.0); Mean Corpuscular Hemoglobin 35.6 pg (28.0-34.0); Mean Corpuscular Volume 103.6 fl (80-94); Mean Platelet Volume 10.4 fL (7.4-10.4); Monocytes # 0.5 10^3/uL (0.2-0.9); Monocytes % 13.4 %; Neutrophils # 2.75 10^3/uL (1.8-7.7); Neutrophils % 68.5 %; Nucleated Red Blood Cells % 0 %; Platelet Count 64 10^3/cmm (130-400); Red Blood Count 3.06 10^6/uL (4.1-5.3); Red Cell Distribution Width 16.7 % (12.1-15.1)
[2022-08-25 12:10] VITALS: BP 128/79; PULSE 95; RESP 18; TEMP 37.2; O2SAT 98
[2022-08-25 12:14] LABS: Basophils % 0.5 %; Eosinophils % 0.6 %; Hematocrit 33.8 % (42.0-52.0); Hemoglobin 11.6 g/dL (11.7-16.6); Lymphocytes # 0.4 10^3/uL (0.8-4.8); Lymphocytes % 6.6 %; Mean Corpuscular HGB Conc 34.3 g/dL (30.0-36.0); Mean Corpuscular Hemoglobin 35.4 pg (28.0-34.0); Mean Platelet Volume 11.2 fL (7.4-10.4); Monocytes % 16.6 %; Neutrophils # 4.61 10^3/uL (1.8-7.7); Neutrophils % 73.8 %; Nucleated Red Blood Cells % 0 %; Platelet Count 61 10^3/cmm (130-400); Red Blood Count 3.28 10^6/uL (4.1-5.3); Red Cell Distribution Width 16.9 % (12.1-15.1); White Blood Count 6.3 10^3/uL (4.0-10.0)
[2022-08-25 12:30] LABS: Alanine Aminotransferase 17 U/L (0-41); Alkaline Phosphatase 125 U/L (40-130); Anion Gap 18.9 (5-19); Aspartate Amino Transferase 18 U/L (0-40); Blood Urea Nitrogen 28 mg/dL (8-23); Calcium 9.5 mg/dL (8.5-10.5); Carbon Dioxide 22 mmol/L (22-29); Chloride 99 mmol/L (98-107); Glomerular Filtration Rate 38.4 mL/min (90-130); Glucose 102 mg/dL (65-115); Osmolality Calculated 286 mOsm/kg (285-295); Potassium 4.9 mmol/L (3.5-5.1); Sodium 135 mmol/L (136-145); Total Bilirubin 1.3 mg/dL (0.15-1.2)
[2022-08-27] MEDS: romiplostim 250 mcg SDV 950 MCG SUBCUT (13:35)
[2022-09-01 13:16] LABS: Basophils % 0.9 %; Eosinophils # 0.1 10^3/uL (0.0-0.8); Eosinophils % 2.1 %; Hematocrit 33.4 % (42.0-52.0); Hemoglobin 11.1 g/dL (11.7-16.6); Lymphocytes # 0.6 10^3/uL (0.8-4.8); Mean Corpuscular HGB Conc 33.2 g/dL (30.0-36.0); Mean Corpuscular Hemoglobin 34.7 pg (28.0-34.0); Mean Corpuscular Volume 104.4 fl (80-94); Mean Platelet Volume 10.6 fL (7.4-10.4); Monocytes # 0.7 10^3/uL (0.2-0.9); Monocytes % 17.2 %; Neutrophils # 2.79 10^3/uL (1.8-7.7); Neutrophils % 64.7 %; Nucleated Red Blood Cells % 0 %; Platelet Count 67 10^3/cmm (130-400); Red Cell Distribution Width 16.7 % (12.1-15.1); White Blood Count 4.3 10^3/uL (4.0-10.0)
[2022-09-01 13:40] LABS: Alanine Aminotransferase 22 U/L (0-41); Alkaline Phosphatase 124 U/L (40-130); Anion Gap 13.6 (5-19); Aspartate Amino Transferase 24 U/L (0-40); Blood Urea Nitrogen 28 mg/dL (8-23); Calcium 8.8 mg/dL (8.5-10.5); Carbon Dioxide 23 mmol/L (22-29); Chloride 104 mmol/L (98-107); Globulin 2.3 g/dL (1.3-4.6); Glucose 104 mg/dL (65-115); Osmolality Calculated 288 mOsm/kg (285-295); Potassium 4.6 mmol/L (3.5-5.1); Sodium 136 mmol/L (136-145); Total Bilirubin 0.9 mg/dL (0.15-1.2); Total Protein 6.3 g/dL (6.6-8.7)
[2022-09-03] MEDS: romiplostim 250 mcg SDV 950 MCG SUBCUT (13:17)
== END 2022-09-03 23:59 | disposition home or self-care (01) ==
PROVIDERS: Internal Medicine Hematology & Oncology; Visit Provider Internal Medicine Medical Oncology
DX: D69.59 Other secondary thrombocytopenia; T45.1X5A Adverse effect of antineoplastic and immunosuppressive drugs, initial encounter
CPT/HCPCS: 36591; 80053; 85025; 96372; J2796

== ENCOUNTER 2022-09-24 13:45 | Oncology outpatient (recurring) (ONCR) | payer MEDICARE, MEDICAID, SELFPAY ==
[2022-09-15 14:01] LABS: Basophils # 0.1 10^3/uL (0.0-0.1); Basophils % 0.8 %; Eosinophils # 0.1 10^3/uL (0.0-0.8); Eosinophils % 1.3 %; Hematocrit 31.1 % (42.0-52.0); Hemoglobin 10.9 g/dL (11.7-16.6); Lymphocytes # 0.5 10^3/uL (0.8-4.8); Lymphocytes % 8.2 %; Mean Corpuscular Volume 102.6 fl (80-94); Monocytes # 0.8 10^3/uL (0.2-0.9); Monocytes % 13.2 %; Neutrophils # 4.73 10^3/uL (1.8-7.7); Neutrophils % 75.9 %; Nucleated Red Blood Cells % 0 %; Platelet Count 70 10^3/cmm (130-400); Red Blood Count 3.03 10^6/uL (4.1-5.3); Red Cell Distribution Width 18.1 % (12.1-15.1); White Blood Count 6.2 10^3/uL (4.0-10.0)
[2022-09-15 14:17] LABS: Alanine Aminotransferase 22 U/L (0-41); Albumin Level 4.2 g/dL (3.5-5.2); Alkaline Phosphatase 126 U/L (40-130); Anion Gap 12.8 (5-19); Aspartate Amino Transferase 22 U/L (0-40); Blood Urea Nitrogen 23 mg/dL (8-23); Calcium 8.6 mg/dL (8.5-10.5); Carbon Dioxide 24 mmol/L (22-29); Chloride 102 mmol/L (98-107); Globulin 1.7 g/dL (1.3-4.6); Glomerular Filtration Rate 51.4 mL/min (90-130); Glucose 91 mg/dL (65-115); Osmolality Calculated 281 mOsm/kg (285-295); Potassium 4.8 mmol/L (3.5-5.1); Sodium 134 mmol/L (136-145); Total Bilirubin 1.5 mg/dL (0.15-1.2); Total Protein 5.9 g/dL (6.6-8.7)
--- NOTE | 2022-09-15 15:28 | PC.NURSE ---
Showed Dr. Suarez patient's lab results. Patient is to return on Thursday for N-Plate as his plt is 70. This nurse called the patient and left a VM of what his Plt count was. I let the patient know that if he has any questions to give us a call if not we will see him on Thursday.
[2022-09-17] VITALS (7 sets, daily range): BP systolic 113–126; BP diastolic 73–81; PULSE 55–74; RESP 16–18; TEMP 36.4–36.9; O2SAT 95–98
[2022-09-17] MEDS: romiplostim 250 mcg SDV 950 MCG SUBCUT (10:32)
[2022-09-17] MEDS: diphenhydrAMINE 25 mg Capsule PO (10:36)
[2022-09-17] MEDS: acetaminophen 325 mg Tablet 650 MG PO (10:37)
[2022-09-17] MEDS: sodium chloride 0.9% 250 ML 75 ML IV (10:38)
== END 2022-10-04 23:59 | disposition home or self-care (01) ==
PROVIDERS: Visit Provider Internal Medicine Medical Oncology
DX: C82.08 Follicular lymphoma grade I, lymph nodes of multiple sites
CPT/HCPCS: 36591; 80053; 85025; 96365; 96366; 96372; J1459; J2796; J7050

== ENCOUNTER 2022-10-28 12:22 | Oncology outpatient (recurring) (ONCR) | payer MEDICARE, MEDICAID, SELFPAY ==
[2022-10-28] MEDS: alteplase 1 mg/mL SDV 2 mL 2 MG INTRACATH (13:03)
[2022-10-28 13:10] LABS: Basophils # 0.1 10^3/uL (0.0-0.1); Basophils % 0.9 %; Eosinophils # 0.1 10^3/uL (0.0-0.8); Eosinophils % 1.2 %; Hematocrit 37.2 % (42.0-52.0); Hemoglobin 12.8 g/dL (11.7-16.6); Lymphocytes # 0.5 10^3/uL (0.8-4.8); Lymphocytes % 7.8 %; Mean Corpuscular HGB Conc 34.4 g/dL (30.0-36.0); Mean Corpuscular Hemoglobin 36.3 pg (28.0-34.0); Mean Corpuscular Volume 105.4 fl (80-94); Mean Platelet Volume 9.8 fL (7.4-10.4); Monocytes # 0.7 10^3/uL (0.2-0.9); Neutrophils # 5.16 10^3/uL (1.8-7.7); Neutrophils % 77.7 %; Nucleated Red Blood Cells % 0 %; Platelet Count 85 10^3/cmm (130-400); Red Blood Count 3.53 10^6/uL (4.1-5.3); Red Cell Distribution Width 15.5 % (12.1-15.1); White Blood Count 6.6 10^3/uL (4.0-10.0)
[2022-10-28 13:29] LABS: Alanine Aminotransferase 36 U/L (0-41); Albumin Level 4.6 g/dL (3.5-5.2); Alkaline Phosphatase 123 U/L (40-130); Anion Gap 15.2 (5-19); Aspartate Amino Transferase 28 U/L (0-40); Blood Urea Nitrogen 32 mg/dL (8-23); Carbon Dioxide 24 mmol/L (22-29); Chloride 104 mmol/L (98-107); Globulin 2.1 g/dL (1.3-4.6); Glucose 91 mg/dL (65-115); Osmolality Calculated 292 mOsm/kg (285-295); Potassium 5.2 mmol/L (3.5-5.1); Sodium 138 mmol/L (136-145); Total Bilirubin 1.4 mg/dL (0.15-1.2); Total Protein 6.7 g/dL (6.6-8.7)
== END 2022-11-04 23:59 | disposition home or self-care (01) ==
PROVIDERS: Visit Provider Internal Medicine Medical Oncology
DX: C82.08 Follicular lymphoma grade I, lymph nodes of multiple sites (principal); Z79.899 Other long term (current) drug therapy
CPT/HCPCS: 36591; 80053; 85025; J2997

== ENCOUNTER 2022-11-27 12:30 | Oncology outpatient (recurring) (ONCR) | payer MEDICARE, MEDICAID, SELFPAY ==
[2022-11-24 11:15] LABS: Basophils # 0.1 10^3/uL (0.0-0.1); Basophils % 0.9 %; Eosinophils # 0.1 10^3/uL (0.0-0.8); Eosinophils % 1.6 %; Hematocrit 38.2 % (42.0-52.0); Hemoglobin 13.2 g/dL (11.7-16.6); Lymphocytes # 0.6 10^3/uL (0.8-4.8); Lymphocytes % 10.5 %; Mean Corpuscular HGB Conc 34.6 g/dL (30.0-36.0); Mean Corpuscular Hemoglobin 36.7 pg (28.0-34.0); Mean Corpuscular Volume 106.1 fl (80-94); Mean Platelet Volume 10.1 fL (7.4-10.4); Monocytes # 0.7 10^3/uL (0.2-0.9); Monocytes % 12.7 %; Neutrophils # 4.06 10^3/uL (1.8-7.7); Neutrophils % 73.6 %; Nucleated Red Blood Cells % 0 %; Platelet Count 62 10^3/cmm (130-400); White Blood Count 5.5 10^3/uL (4.0-10.0)
[2022-11-24 11:33] LABS: Alanine Aminotransferase 33 U/L (0-41); Albumin Level 4.3 g/dL (3.5-5.2); Alkaline Phosphatase 110 U/L (40-130); Anion Gap 14.9 (5-19); Aspartate Amino Transferase 23 U/L (0-40); Blood Urea Nitrogen 26 mg/dL (8-23); Calcium 9.3 mg/dL (8.5-10.5); Carbon Dioxide 24 mmol/L (22-29); Chloride 102 mmol/L (98-107); Globulin 2.1 g/dL (1.3-4.6); Glomerular Filtration Rate 43.9 mL/min (90-130); Glucose 103 mg/dL (65-115); Osmolality Calculated 287 mOsm/kg (285-295); Potassium 4.9 mmol/L (3.5-5.1); Sodium 136 mmol/L (136-145); Total Bilirubin 1.3 mg/dL (0.15-1.2); Total Protein 6.4 g/dL (6.6-8.7)
[2022-11-26] MEDS: romiplostim 250 mcg SDV 950 MCG SUBCUT (14:05)
[2022-11-26 14:08] VITALS: BP 159/88; PULSE 66; RESP 16; TEMP 36.4; O2SAT 98
== END 2022-12-02 23:59 | disposition home or self-care (01) ==
PROVIDERS: Visit Provider Internal Medicine Medical Oncology
DX: C82.08 Follicular lymphoma grade I, lymph nodes of multiple sites
CPT/HCPCS: 36415; 80053; 85025; 96372; J2796

== ENCOUNTER 2023-01-20 12:53 | Oncology outpatient (recurring) (ONCR) | payer MEDICARE, MEDICAID, SELFPAY ==
[2023-01-20 13:23] VITALS: BP 136/93; PULSE 73; TEMP 36.9; O2SAT 97
[2023-01-20 13:40] LABS: Basophils % 0.6 %; Eosinophils # 0.1 10^3/uL (0.0-0.8); Eosinophils % 1.4 %; Hematocrit 33.3 % (42.0-52.0); Hemoglobin 11.5 g/dL (11.7-16.6); Lymphocytes # 0.6 10^3/uL (0.8-4.8); Lymphocytes % 11.9 %; Mean Corpuscular HGB Conc 34.5 g/dL (30.0-36.0); Mean Corpuscular Hemoglobin 36.9 pg (28.0-34.0); Mean Corpuscular Volume 106.7 fl (80-94); Mean Platelet Volume 10.8 fL (7.4-10.4); Monocytes # 0.8 10^3/uL (0.2-0.9); Monocytes % 16.4 %; Neutrophils # 3.47 10^3/uL (1.8-7.7); Neutrophils % 68.7 %; Nucleated Red Blood Cells % 0.4 %; Platelet Count 63 10^3/cmm (130-400); Red Blood Count 3.12 10^6/uL (4.1-5.3); Red Cell Distribution Width 15.5 % (12.1-15.1); White Blood Count 5.1 10^3/uL (4.0-10.0)
[2023-01-20 13:57] LABS: Alanine Aminotransferase 31 U/L (0-41); Albumin Level 4.1 g/dL (3.5-5.2); Alkaline Phosphatase 114 U/L (40-130); Anion Gap 14.4 (5-19); Aspartate Amino Transferase 24 U/L (0-40); Blood Urea Nitrogen 36 mg/dL (8-23); Calcium 8.6 mg/dL (8.5-10.5); Carbon Dioxide 22 mmol/L (22-29); Chloride 100 mmol/L (98-107); Glucose 89 mg/dL (65-115); Lactate Dehydrogenase 205 U/L (135-225); Osmolality Calculated 282 mOsm/kg (285-295); Potassium 4.4 mmol/L (3.5-5.1); Sodium 132 mmol/L (136-145); Total Bilirubin 1.9 mg/dL (0.15-1.2); Total Protein 6.1 g/dL (6.6-8.7)
== END 2023-02-01 23:59 | disposition home or self-care (01) ==
PROVIDERS: Internal Medicine Medical Oncology; Visit Provider Internal Medicine Medical Oncology
DX: C82.08 Follicular lymphoma grade I, lymph nodes of multiple sites (principal)
CPT/HCPCS: 36591; 80053; 83615; 85025

== ENCOUNTER 2023-02-08 22:17 | Emergency (ER) | payer MEDICARE, MEDICAID, SELFPAY ==
[2023-02-08 22:17] VITALS: BP 111/52; PULSE 93; RESP 16; TEMP 37.1; O2SAT 92; BMI 34.8
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
[2023-02-09 02:02] VITALS: PULSE 80; RESP 18; O2SAT 96
--- NOTE | 2023-02-19 13:13 | DCPLANNER ---
corporate recycling manager called patient due to no primary care physician - unable to speak with patient at this time.
== END 2023-02-09 02:04 | disposition home or self-care (01) ==
PROVIDERS: Emergency Provider Emergency Medicine
DX: S00.31XA Abrasion of nose, initial encounter (principal); Y35.813A Legal intervention involving manhandling, suspect injured, initial encounter; F10.129 Alcohol abuse with intoxication, unspecified; Y90.9 Presence of alcohol in blood, level not specified; Z92.21 Personal history of antineoplastic chemotherapy; F17.210 Nicotine dependence, cigarettes, uncomplicated
CPT/HCPCS: 99282

== ENCOUNTER 2023-02-27 08:19 | Oncology outpatient (recurring) (ONCR) | payer MEDICARE, MEDICAID, SELFPAY ==
[2023-02-27 08:32] VITALS: BP 127/79; PULSE 67; RESP 18; TEMP 36.4; O2SAT 96
[2023-02-27 09:03] LABS: Basophils % 0.6 %; Eosinophils # 0.1 10^3/uL (0.0-0.8); Eosinophils % 1.2 %; Hematocrit 33.6 % (42.0-52.0); Hemoglobin 11.8 g/dL (11.7-16.6); Lymphocytes # 0.6 10^3/uL (0.8-4.8); Lymphocytes % 12.2 %; Mean Corpuscular HGB Conc 35.1 g/dL (30.0-36.0); Mean Corpuscular Hemoglobin 37.9 pg (28.0-34.0); Mean Platelet Volume 10.5 fL (7.4-10.4); Monocytes # 0.5 10^3/uL (0.2-0.9); Monocytes % 11.2 %; Neutrophils # 3.57 10^3/uL (1.8-7.7); Nucleated Red Blood Cells % 0 %; Platelet Count 58 10^3/cmm (130-400); Red Blood Count 3.11 10^6/uL (4.1-5.3); White Blood Count 4.8 10^3/uL (4.0-10.0)
[2023-02-27 09:29] LABS: Alanine Aminotransferase 25 U/L (0-41); Albumin Level 4.2 g/dL (3.5-5.2); Alkaline Phosphatase 124 U/L (40-130); Anion Gap 15.6 (5-19); Aspartate Amino Transferase 18 U/L (0-40); Blood Urea Nitrogen 29 mg/dL (8-23); Calcium 8.7 mg/dL (8.5-10.5); Carbon Dioxide 23 mmol/L (22-29); Chloride 106 mmol/L (98-107); Globulin 1.7 g/dL (1.3-4.6); Glomerular Filtration Rate 38.3 mL/min (90-130); Glucose 116 mg/dL (65-115); Lactate Dehydrogenase 197 U/L (135-225); Osmolality Calculated 297 mOsm/kg (285-295); Potassium 4.6 mmol/L (3.5-5.1); Sodium 140 mmol/L (136-145); Total Bilirubin 1.2 mg/dL (0.15-1.2); Total Protein 5.9 g/dL (6.6-8.7)
--- NOTE | 2023-02-27 09:37 | PC.NURSE ---
Called patient with lab results, left results on voicemail per patient request.
== END 2023-03-04 23:59 | disposition home or self-care (01) ==
PROVIDERS: Internal Medicine Medical Oncology; Visit Provider Internal Medicine Medical Oncology
DX: C82.08 Follicular lymphoma grade I, lymph nodes of multiple sites (principal)
CPT/HCPCS: 36591; 80053; 83615; 85025; J1642

== ENCOUNTER 2023-04-27 13:13 | Oncology outpatient (recurring) (ONCR) | payer MEDICARE, MEDICAID, SELFPAY ==
[2023-04-27 13:14] VITALS: BMI 33.2
[2023-04-27 13:15] VITALS: BP 156/94; PULSE 84; RESP 18; TEMP 36.2; O2SAT 98
[2023-04-27 13:32] LABS: Basophils % 0.7 %; Eosinophils % 0.7 %; Hematocrit 31.4 % (42.0-52.0); Lymphocytes # 0.8 10^3/uL (0.8-4.8); Lymphocytes % 13.8 %; Mean Corpuscular Hemoglobin 38.1 pg (28.0-34.0); Mean Corpuscular Volume 108.7 fl (80-94); Mean Platelet Volume 10.8 fL (7.4-10.4); Monocytes # 0.6 10^3/uL (0.2-0.9); Monocytes % 11.6 %; Neutrophils # 4.01 10^3/uL (1.8-7.7); Neutrophils % 72.7 %; Nucleated Red Blood Cells % 0 %; Platelet Count 61 10^3/cmm (130-400); Red Blood Count 2.89 10^6/uL (4.1-5.3); Red Cell Distribution Width 16.3 % (12.1-15.1); White Blood Count 5.5 10^3/uL (4.0-10.0)
[2023-04-27 13:55] LABS: Alanine Aminotransferase 24 U/L (0-41); Albumin Level 4.6 g/dL (3.5-5.2); Alkaline Phosphatase 117 U/L (40-130); Anion Gap 14.6 (5-19); Aspartate Amino Transferase 16 U/L (0-40); Blood Urea Nitrogen 24 mg/dL (8-23); Calcium 8.7 mg/dL (8.5-10.5); Carbon Dioxide 22 mmol/L (22-29); Chloride 105 mmol/L (98-107); Globulin 1.2 g/dL (1.3-4.6); Glomerular Filtration Rate 33.9 mL/min (90-130); Glucose 105 mg/dL (65-115); Osmolality Calculated 288 mOsm/kg (285-295); Potassium 4.6 mmol/L (3.5-5.1); Sodium 137 mmol/L (136-145); Total Bilirubin 1.9 mg/dL (0.15-1.2); Total Protein 5.8 g/dL (6.6-8.7)
== END 2023-05-04 23:59 | disposition home or self-care (01) ==
PROVIDERS: Internal Medicine Medical Oncology; Visit Provider Internal Medicine Medical Oncology
DX: C82.08 Follicular lymphoma grade I, lymph nodes of multiple sites (principal)
CPT/HCPCS: 36591; 80053; 85025; J1642

== ENCOUNTER 2023-07-09 08:25 | Oncology outpatient (recurring) (ONCR) | payer MEDICARE, MEDICAID, SELFPAY ==
[2023-07-09 09:19] VITALS: BMI 32.5
[2023-07-09 09:59] LABS: Basophils % 0.6 %; Eosinophils % 0.8 %; Lymphocytes # 0.4 10^3/uL (0.8-4.8); Lymphocytes % 8.2 %; Mean Corpuscular HGB Conc 35.8 g/dL (30-55); Mean Corpuscular Hemoglobin 38.3 pg (27-33); Mean Corpuscular Volume 107.1 fl (82-101); Mean Platelet Volume 10.5 fL (7.4-10.4); Monocytes # 0.6 10^3/uL (0.2-0.9); Monocytes % 10.9 %; Neutrophils # 4.11 10^3/uL (1.8-7.7); Neutrophils % 78.5 %; Nucleated Red Blood Cells % 0.4 %; Platelet Count 62 10^3/cmm (157-399); Red Blood Count 3.08 10^6/uL (3.85-5.65); Red Cell Distribution Width 14.9 % (12.1-15.1); White Blood Count 5.23 10^3/uL (3.29-11.43)
[2023-07-09 10:12] LABS: Alanine Aminotransferase 40 U/L (0-41); Albumin Level 4.5 g/dL (3.5-5.2); Alkaline Phosphatase 123 U/L (40-130); Anion Gap 15.6 (5-19); Aspartate Amino Transferase 28 U/L (0-40); Blood Urea Nitrogen 24 mg/dL (8-23); Calcium 9.3 mg/dL (8.5-10.5); Carbon Dioxide 23 mmol/L (22-29); Chloride 106 mmol/L (98-107); Globulin 1.6 g/dL (1.3-4.6); Glomerular Filtration Rate 38.3 mL/min (90-130); Glucose 103 mg/dL (65-115); Osmolality Calculated 294 mOsm/kg (285-295); Potassium 4.6 mmol/L (3.5-5.1); Sodium 140 mmol/L (136-145); Total Bilirubin 1.4 mg/dL (0.15-1.2); Total Protein 6.1 g/dL (6.6-8.7)
[2023-07-09] MEDS: sodium chloride 0.9% 250 ML 75 ML IV (10:52)
[2023-07-09] MEDS: acetaminophen 325 mg Tablet 650 MG PO (10:52)
[2023-07-09] MEDS: diphenhydrAMINE 25 mg Capsule PO (10:52)
[2023-07-09 11:45] VITALS: BP 140/76; PULSE 71; RESP 18; TEMP 36.9; O2SAT 94
[2023-07-09] MEDS: IMMUNE GLOBULIN IV (11:45)
[2023-07-09] MEDS: FLEXIBLE CONTAINER IV (11:45)
[2023-07-09 12:00] VITALS: BP 143/77; PULSE 71; RESP 17; TEMP 36.9; O2SAT 98
[2023-07-09 12:15] VITALS: BP 124/67; PULSE 70; RESP 18; TEMP 36.7; O2SAT 98
[2023-07-09 12:45] VITALS: BP 118/60; PULSE 76; RESP 16; TEMP 36.8; O2SAT 96
[2023-07-09 14:00] VITALS: BP 109/69; PULSE 78; RESP 18; TEMP 36.8; O2SAT 96
== END 2023-08-04 23:59 | disposition home or self-care (01) ==
PROVIDERS: Internal Medicine Medical Oncology; Visit Provider Internal Medicine Medical Oncology
DX: D80.1 Nonfamilial hypogammaglobulinemia (principal); C82.08 Follicular lymphoma grade I, lymph nodes of multiple sites
CPT/HCPCS: 80053; 85025; 96365; 96366; J1561; J1642; J7050

== ENCOUNTER 2023-09-03 08:30 | Oncology outpatient (recurring) (ONCR) | payer MEDICARE, MEDICAID, SELFPAY ==
[2023-08-06] VITALS (11 sets, daily range): BP systolic 102–121; BP diastolic 68–81; PULSE 46–59; TEMP 36.1–36.6; O2SAT 98–99
[2023-08-06] MEDS: diphenhydrAMINE 25 mg Capsule PO (09:11)
[2023-08-06] MEDS: sodium chloride 0.9% 250 ML 75 ML IV (09:11)
[2023-08-06] MEDS: acetaminophen 325 mg Tablet 650 MG PO (09:11)
[2023-08-06] MEDS: IMMUNE GLOBULIN IV (09:29)
[2023-08-06] MEDS: FLEXIBLE CONTAINER IV (09:29)
[2023-08-06 09:32] LABS: Basophils % 0.4 %; Eosinophils # 0.1 10^3/uL (0.0-0.8); Eosinophils % 1.7 %; Hematocrit 32.9 % (37-53); Lymphocytes # 0.6 10^3/uL (0.8-4.8); Lymphocytes % 10.7 %; Mean Corpuscular HGB Conc 36.2 g/dL (30-55); Mean Corpuscular Hemoglobin 39.5 pg (27-33); Mean Corpuscular Volume 109.3 fl (82-101); Mean Platelet Volume 10.8 fL (7.4-10.4); Monocytes # 0.8 10^3/uL (0.2-0.9); Monocytes % 14.6 %; Neutrophils # 3.89 10^3/uL (1.8-7.7); Neutrophils % 71.9 %; Nucleated Red Blood Cells % 0 %; Platelet Count 63 10^3/cmm (157-399); Red Blood Count 3.01 10^6/uL (3.85-5.65); Red Cell Distribution Width 15.4 % (12.1-15.1); White Blood Count 5.41 10^3/uL (3.29-11.43)
[2023-08-06 09:43] LABS: Alanine Aminotransferase 23 U/L (0-41); Albumin Level 4.4 g/dL (3.5-5.2); Alkaline Phosphatase 107 U/L (40-130); Anion Gap 13.5 (5-19); Aspartate Amino Transferase 17 U/L (0-40); Blood Urea Nitrogen 29 mg/dL (8-23); Calcium 9.4 mg/dL (8.5-10.5); Carbon Dioxide 24 mmol/L (22-29); Chloride 102 mmol/L (98-107); Globulin 1.8 g/dL (1.3-4.6); Glomerular Filtration Rate 32.1 mL/min (90-130); Glucose 100 mg/dL (65-115); Osmolality Calculated 286 mOsm/kg (285-295); Potassium 4.5 mmol/L (3.5-5.1); Sodium 135 mmol/L (136-145); Total Bilirubin 1.7 mg/dL (0.15-1.2); Total Protein 6.2 g/dL (6.6-8.7)
[2023-09-03] VITALS (10 sets, daily range): BP systolic 107–178; BP diastolic 74–94; PULSE 56–77; RESP 16–18; TEMP 36.3–37.1; O2SAT 95–99
[2023-09-03 09:22] LABS: Basophils % 0.5 %; Eosinophils # 0.1 10^3/uL (0.0-0.8); Eosinophils % 1.7 %; Hematocrit 32.4 % (37-53); Lymphocytes # 0.4 10^3/uL (0.8-4.8); Lymphocytes % 10.5 %; Mean Corpuscular HGB Conc 35.5 g/dL (30-55); Mean Corpuscular Volume 109.8 fl (82-101); Mean Platelet Volume 10.9 fL (7.4-10.4); Monocytes # 0.6 10^3/uL (0.2-0.9); Monocytes % 13.2 %; Neutrophils # 3.08 10^3/uL (1.8-7.7); Neutrophils % 73.6 %; Nucleated Red Blood Cells % 0.5 %; Platelet Count 62 10^3/cmm (157-399); Red Blood Count 2.95 10^6/uL (3.85-5.65); Red Cell Distribution Width 15.3 % (12.1-15.1); White Blood Count 4.18 10^3/uL (3.29-11.43)
[2023-09-03 09:39] LABS: Alanine Aminotransferase 26 U/L (0-41); Albumin Level 4.5 g/dL (3.5-5.2); Alkaline Phosphatase 120 U/L (40-130); Anion Gap 16.6 (5-19); Aspartate Amino Transferase 23 U/L (0-40); Blood Urea Nitrogen 35 mg/dL (8-23); Calcium 9.2 mg/dL (8.5-10.5); Carbon Dioxide 22 mmol/L (22-29); Chloride 105 mmol/L (98-107); Glomerular Filtration Rate 40.9 mL/min (90-130); Glucose 107 mg/dL (65-115); Osmolality Calculated 296 mOsm/kg (285-295); Potassium 4.6 mmol/L (3.5-5.1); Sodium 139 mmol/L (136-145); Total Bilirubin 1.4 mg/dL (0.15-1.2); Total Protein 6.5 g/dL (6.6-8.7)
[2023-09-03] MEDS: diphenhydrAMINE 25 mg Capsule PO (10:02)
[2023-09-03] MEDS: acetaminophen 325 mg Tablet 650 MG PO (10:02)
[2023-09-03] MEDS: sodium chloride 0.9% 250 ML 75 ML IV (10:03)
[2023-09-03] MEDS: FLEXIBLE CONTAINER IV (10:23)
[2023-09-03] MEDS: IMMUNE GLOBULIN IV (10:23)
== END 2023-09-03 23:59 | disposition home or self-care (01) ==
PROVIDERS: Nurse Practitioner Family; Visit Provider Internal Medicine Medical Oncology
DX: D80.1 Nonfamilial hypogammaglobulinemia (principal)
CPT/HCPCS: 80053; 85025; 96365; 96366; J1561; J1642; J7050

== ENCOUNTER 2023-10-29 08:30 | Oncology outpatient (recurring) (ONCR) | payer MEDICARE, MEDICAID, SELFPAY ==
[2023-10-29 08:50] VITALS: BP 127/84; PULSE 71; RESP 18; TEMP 36.4; O2SAT 97
[2023-10-29 09:11] LABS: Basophils % 0.7 %; Eosinophils # 0.1 10^3/uL (0.0-0.8); Eosinophils % 1.2 %; Hematocrit 29.5 % (37-53); Lymphocytes # 0.5 10^3/uL (0.8-4.8); Lymphocytes % 11.4 %; Mean Corpuscular HGB Conc 35.9 g/dL (30-55); Mean Corpuscular Hemoglobin 39.7 pg (27-33); Mean Corpuscular Volume 110.5 fl (82-101); Monocytes # 0.5 10^3/uL (0.2-0.9); Monocytes % 12.9 %; Neutrophils # 2.93 10^3/uL (1.8-7.7); Neutrophils % 72.8 %; Platelet Count 54 10^3/cmm (157-399); Red Blood Count 2.67 10^6/uL (3.85-5.65); Red Cell Distribution Width 16.3 % (12.1-15.1); White Blood Count 4.03 10^3/uL (3.29-11.43)
[2023-10-29 09:28] LABS: Alanine Aminotransferase 44 U/L (0-41); Albumin Level 4.2 g/dL (3.5-5.2); Alkaline Phosphatase 114 U/L (40-130); Anion Gap 15.5 (5-19); Aspartate Amino Transferase 31 U/L (0-40); Blood Urea Nitrogen 24 mg/dL (8-23); Calcium 9.1 mg/dL (8.5-10.5); Carbon Dioxide 22 mmol/L (22-29); Chloride 105 mmol/L (98-107); Globulin 1.9 g/dL (1.3-4.6); Glomerular Filtration Rate 40.9 mL/min (90-130); Glucose 109 mg/dL (65-115); Lactate Dehydrogenase 251 U/L (135-225); Osmolality Calculated 291 mOsm/kg (285-295); Potassium 4.5 mmol/L (3.5-5.1); Sodium 138 mmol/L (136-145); Total Bilirubin 1.8 mg/dL (0.15-1.2); Total Protein 6.1 g/dL (6.6-8.7)
[2023-10-29] MEDS: acetaminophen 325 mg Tablet 650 MG PO (09:33)
[2023-10-29] MEDS: diphenhydrAMINE 25 mg Capsule PO (09:35)
[2023-10-29] MEDS: sodium chloride 0.9% 250 ML 75 ML IV (09:36)
[2023-10-29] MEDS: FLEXIBLE CONTAINER IV (10:56)
[2023-10-29] MEDS: IMMUNE GLOBULIN IV (10:56)
[2023-10-29 11:05] VITALS: BP 100/65; PULSE 97; RESP 18; TEMP 36.6; O2SAT 97
[2023-10-29 11:20] VITALS: BP 99/64; PULSE 95; RESP 18; TEMP 36.8; O2SAT 95
--- NOTE | 2023-10-29 11:29 | PC.PHAR ---
verbal order from Dr. Suarez to restart nplate and neupogen as previously ordered. also, give ivig x 2 more doses starting today.
[2023-10-29 11:35] VITALS: BP 113/69; PULSE 94; RESP 18; TEMP 36.6; O2SAT 94
[2023-10-29 11:50] VITALS: BP 114/72; PULSE 71; RESP 17; TEMP 36.6; O2SAT 94
[2023-10-29 13:00] VITALS: BP 115/75; PULSE 69; RESP 17; TEMP 36.6; O2SAT 94
[2023-10-29 17:12] VITALS: BMI 32.8
== END 2023-11-04 23:59 | disposition home or self-care (01) ==
PROVIDERS: Internal Medicine Medical Oncology; Visit Provider Internal Medicine Medical Oncology
DX: D80.1 Nonfamilial hypogammaglobulinemia (principal); D70.1 Agranulocytosis secondary to cancer chemotherapy
CPT/HCPCS: 80053; 83615; 85025; 96365; 96366; 96374; 96375; J1561; J1642; J7050

== ENCOUNTER 2023-11-26 08:30 | Oncology outpatient (recurring) (ONCR) | payer MEDICARE, MEDICAID, SELFPAY ==
[2023-11-10 10:46] LABS: Basophils % 0.8 %; Eosinophils # 0.1 10^3/uL (0.0-0.8); Eosinophils % 1.7 %; Hematocrit 30.8 % (37-53); Lymphocytes # 0.5 10^3/uL (0.8-4.8); Lymphocytes % 14.9 %; Mean Corpuscular HGB Conc 35.1 g/dL (30-55); Mean Corpuscular Volume 111.2 fl (82-101); Mean Platelet Volume 11.5 fL (7.4-10.4); Monocytes # 0.6 10^3/uL (0.2-0.9); Monocytes % 15.5 %; Neutrophils % 66.3 %; Nucleated Red Blood Cells % 0.8 %; Platelet Count 50 10^3/cmm (157-399); Red Blood Count 2.77 10^6/uL (3.85-5.65); Red Cell Distribution Width 16.5 % (12.1-15.1); White Blood Count 3.62 10^3/uL (3.29-11.43)
[2023-11-10 11:05] LABS: Alanine Aminotransferase 91 U/L (0-41); Albumin Level 4.2 g/dL (3.5-5.2); Alkaline Phosphatase 114 U/L (40-130); Anion Gap 13.8 (5-19); Aspartate Amino Transferase 53 U/L (0-40); Blood Urea Nitrogen 30 mg/dL (8-23); Calcium 8.5 mg/dL (8.5-10.5); Carbon Dioxide 23 mmol/L (22-29); Chloride 104 mmol/L (98-107); Globulin 2.2 g/dL (1.3-4.6); Glomerular Filtration Rate 35.9 mL/min (90-130); Glucose 107 mg/dL (65-115); Osmolality Calculated 289 mOsm/kg (285-295); Potassium 4.8 mmol/L (3.5-5.1); Sodium 136 mmol/L (136-145); Total Bilirubin 1.8 mg/dL (0.15-1.2); Total Protein 6.4 g/dL (6.6-8.7)
[2023-11-10 11:07] LABS: Creatinine Clr Calc Pharmacy 49.2916
[2023-11-26] VITALS (9 sets, daily range): BP systolic 101–135; BP diastolic 70–84; PULSE 51–73; RESP 16; TEMP 36.2–36.8; O2SAT 93–100
[2023-11-26] MEDS: diphenhydrAMINE 25 mg Capsule PO (09:03)
[2023-11-26] MEDS: acetaminophen 325 mg Tablet 650 MG PO (09:03)
[2023-11-26] MEDS: FLEXIBLE CONTAINER IV (09:35)
[2023-11-26] MEDS: IMMUNE GLOBULIN IV (09:35)
[2023-11-26] MEDS: romiplostim 250 mcg SDV 1000 MCG SUBCUT (12:05)
== END 2023-11-26 23:59 | disposition home or self-care (01) ==
PROVIDERS: Visit Provider Internal Medicine Medical Oncology
DX: D80.1 Nonfamilial hypogammaglobulinemia (principal); Z53.9 Procedure and treatment not carried out, unspecified reason; D69.59 Other secondary thrombocytopenia; T45.1X5A Adverse effect of antineoplastic and immunosuppressive drugs, initial encounter
CPT/HCPCS: 36591; 80053; 85025; 96365; 96366; 96372; J1561; J1642; J2796

== ENCOUNTER 2023-12-24 09:39 | Oncology outpatient (recurring) (ONCR) | payer MEDICARE, MEDICAID, SELFPAY ==
[2023-12-24] VITALS (9 sets, daily range): BP systolic 115–135; BP diastolic 61–84; PULSE 71–95; RESP 16–18; TEMP 35.9–37.2; O2SAT 93–97; BMI 32.1
[2023-12-24] MEDS: acetaminophen 325 mg Tablet 650 MG PO (10:31)
[2023-12-24] MEDS: diphenhydrAMINE 25 mg Capsule PO (10:31)
[2023-12-24 10:37] LABS: Basophils % 0.8 %; Eosinophils % 0.8 %; Hematocrit 37.7 % (37-53); Lymphocytes # 0.5 10^3/uL (0.8-4.8); Lymphocytes % 12.2 %; Mean Corpuscular Hemoglobin 39.1 pg (27-33); Mean Corpuscular Volume 111.5 fl (82-101); Mean Platelet Volume 10.7 fL (7.4-10.4); Monocytes # 0.5 10^3/uL (0.2-0.9); Monocytes % 13.3 %; Neutrophils # 2.71 10^3/uL (1.8-7.7); Neutrophils % 72.1 %; Nucleated Red Blood Cells % 0 %; Platelet Count 114 10^3/cmm (157-399); Red Blood Count 3.38 10^6/uL (3.85-5.65); Red Cell Distribution Width 14.7 % (12.1-15.1); White Blood Count 3.76 10^3/uL (3.29-11.43)
[2023-12-24] MEDS: FLEXIBLE CONTAINER IV (10:46)
[2023-12-24] MEDS: IMMUNE GLOBULIN IV (10:46)
[2023-12-24 11:00] LABS: Alanine Aminotransferase 30 U/L (0-41); Albumin Level 4.3 g/dL (3.5-5.2); Alkaline Phosphatase 116 U/L (40-130); Aspartate Amino Transferase 22 U/L (0-40); Blood Urea Nitrogen 25 mg/dL (8-23); Calcium 8.5 mg/dL (8.5-10.5); Carbon Dioxide 19 mmol/L (22-29); Chloride 103 mmol/L (98-107); Globulin 2.1 g/dL (1.3-4.6); Glomerular Filtration Rate 40.8 mL/min (90-130); Glucose 86 mg/dL (65-115); Osmolality Calculated 290 mOsm/kg (285-295); Sodium 138 mmol/L (136-145); Total Bilirubin 1.2 mg/dL (0.15-1.2); Total Protein 6.4 g/dL (6.6-8.7)
--- NOTE | 2023-12-24 11:03 | PC.NURSE ---
PLT 114 NO MPLATE NEEDED.
== END 2024-01-03 23:59 | disposition home or self-care (01) ==
PROVIDERS: Visit Provider Internal Medicine Medical Oncology
DX: D80.1 Nonfamilial hypogammaglobulinemia (principal); D69.59 Other secondary thrombocytopenia; T45.1X5A Adverse effect of antineoplastic and immunosuppressive drugs, initial encounter
CPT/HCPCS: 80053; 85025; 96365; 96366; J1561; J1642

== ENCOUNTER 2024-01-21 08:38 | Oncology outpatient (recurring) (ONCR) | payer MEDICARE, MEDICAID, SELFPAY ==
[2024-01-21 09:06] LABS: Basophils % 0.7 %; Eosinophils # 0.1 10^3/uL (0.0-0.8); Eosinophils % 1.5 %; Hematocrit 36.8 % (37-53); Lymphocytes # 0.6 10^3/uL (0.8-4.8); Lymphocytes % 10.6 %; Mean Corpuscular HGB Conc 35.1 g/dL (30-55); Mean Corpuscular Hemoglobin 38.5 pg (27-33); Mean Corpuscular Volume 109.9 fl (82-101); Mean Platelet Volume 10.8 fL (7.4-10.4); Monocytes # 0.7 10^3/uL (0.2-0.9); Monocytes % 12.3 %; Neutrophils # 3.98 10^3/uL (1.8-7.7); Neutrophils % 74.3 %; Nucleated Red Blood Cells % 0 %; Platelet Count 84 10^3/cmm (157-399); Red Blood Count 3.35 10^6/uL (3.85-5.65); Red Cell Distribution Width 14.5 % (12.1-15.1); White Blood Count 5.36 10^3/uL (3.29-11.43)
[2024-01-21 09:28] LABS: Alanine Aminotransferase 36 U/L (0-41); Albumin Level 4.2 g/dL (3.5-5.2); Alkaline Phosphatase 109 U/L (40-130); Anion Gap 16.4 (5-19); Aspartate Amino Transferase 22 U/L (0-40); Blood Urea Nitrogen 29 mg/dL (8-23); Calcium 8.6 mg/dL (8.5-10.5); Carbon Dioxide 23 mmol/L (22-29); Chloride 101 mmol/L (98-107); Globulin 2.1 g/dL (1.3-4.6); Glomerular Filtration Rate 38.2 mL/min (90-130); Glucose 133 mg/dL (65-115); Osmolality Calculated 290 mOsm/kg (285-295); Potassium 4.4 mmol/L (3.5-5.1); Sodium 136 mmol/L (136-145); Total Bilirubin 2.2 mg/dL (0.15-1.2); Total Protein 6.3 g/dL (6.6-8.7)
== END 2024-02-02 23:59 | disposition home or self-care (01) ==
LOC: ONCMED 08:38
PROVIDERS: Visit Provider Internal Medicine Medical Oncology
DX: D80.1 Nonfamilial hypogammaglobulinemia (principal)
CPT/HCPCS: 80053; 85025

== ENCOUNTER 2024-03-03 12:24 | Oncology outpatient (recurring) (ONCR) | payer MEDICARE, MEDICAID, SELFPAY ==
[2024-03-03 13:51] LABS: Basophils % 0.7 %; Eosinophils # 0.1 10^3/uL (0.0-0.8); Eosinophils % 1.1 %; Lymphocytes # 0.6 10^3/uL (0.8-4.8); Lymphocytes % 12.3 %; Mean Corpuscular HGB Conc 36.1 g/dL (30-55); Mean Corpuscular Hemoglobin 38.1 pg (27-33); Mean Corpuscular Volume 105.6 fl (82-101); Mean Platelet Volume 11.4 fL (7.4-10.4); Monocytes # 0.7 10^3/uL (0.2-0.9); Monocytes % 15.7 %; Neutrophils # 3.11 10^3/uL (1.8-7.7); Neutrophils % 69.5 %; Nucleated Red Blood Cells % 0.4 %; Platelet Count 53 10^3/cmm (157-399); Red Blood Count 3.41 10^6/uL (3.85-5.65); Red Cell Distribution Width 15.6 % (12.1-15.1); White Blood Count 4.47 10^3/uL (3.29-11.43)
[2024-03-03 14:27] LABS: Alanine Aminotransferase 47 U/L (0-41); Albumin Level 4.4 g/dL (3.5-5.2); Alkaline Phosphatase 113 U/L (40-130); Anion Gap 13.5 (5-19); Aspartate Amino Transferase 30 U/L (0-40); Blood Urea Nitrogen 27 mg/dL (8-23); Calcium 8.5 mg/dL (8.5-10.5); Carbon Dioxide 24 mmol/L (22-29); Chloride 103 mmol/L (98-107); Creatinine Clr Calc Pharmacy 54.4428; Globulin 2.1 g/dL (1.3-4.6); Glomerular Filtration Rate 40.8 mL/min (90-130); Glucose 95 mg/dL (65-115); Immunoglobulin IGG 519 mg/dL (700-1600); Lactate Dehydrogenase 278 U/L (135-225); Osmolality Calculated 287 mOsm/kg (285-295); Potassium 4.5 mmol/L (3.5-5.1); Sodium 136 mmol/L (136-145); Thyroid Stimulating Hormone 5.97 uIU/mL (0.27-4.20); Total Bilirubin 4.3 mg/dL (0.15-1.2); Total Protein 6.5 g/dL (6.6-8.7)
[2024-03-03 14:28] LABS: Immunoglobulin IGA < 50 mg/dL (70-400); Immunoglobulin IGM < 25 mg/dL (40-230)
== END 2024-03-04 23:59 | disposition home or self-care (01) ==
PROVIDERS: Visit Provider Internal Medicine Medical Oncology
DX: D80.1 Nonfamilial hypogammaglobulinemia (principal); D69.59 Other secondary thrombocytopenia; T45.1X5A Adverse effect of antineoplastic and immunosuppressive drugs, initial encounter; C82.08 Follicular lymphoma grade I, lymph nodes of multiple sites; R53.1 Weakness; R53.83 Other fatigue; Z87.891 Personal history of nicotine dependence
CPT/HCPCS: 36591; 80053; 82784; 83615; 84443; 85025; 99214

== ENCOUNTER 2024-04-25 09:42 | Oncology outpatient (recurring) (ONCR) | payer MEDICARE, SELFPAY ==
[2024-04-25] MEDS: alteplase 1 mg/mL SDV 2 mL 2 MG INTRACATH (10:38)
[2024-04-25 11:44] LABS: Basophils % 0.7 %; Eosinophils # 0.1 10^3/uL (0.0-0.8); Eosinophils % 1.5 %; Hematocrit 33.2 % (37-53); Lymphocytes # 0.5 10^3/uL (0.8-4.8); Lymphocytes % 12.2 %; Mean Corpuscular HGB Conc 35.2 g/dL (30-55); Mean Corpuscular Hemoglobin 38.9 pg (27-33); Mean Corpuscular Volume 110.3 fl (82-101); Mean Platelet Volume 10.4 fL (7.4-10.4); Monocytes # 0.7 10^3/uL (0.2-0.9); Monocytes % 16.1 %; Neutrophils # 2.81 10^3/uL (1.8-7.7); Neutrophils % 68.5 %; Nucleated Red Blood Cells % 0.5 %; Platelet Count 64 10^3/cmm (157-399); Red Blood Count 3.01 10^6/uL (3.85-5.65); Red Cell Distribution Width 15.5 % (12.1-15.1)
[2024-04-25 12:03] LABS: Alanine Aminotransferase 48 U/L (0-41); Albumin Level 4.4 g/dL (3.5-5.2); Alkaline Phosphatase 92 U/L (40-130); Anion Gap 14.5 (5-19); Aspartate Amino Transferase 31 U/L (0-40); Blood Urea Nitrogen 25 mg/dL (8-23); Calcium 8.5 mg/dL (8.5-10.5); Carbon Dioxide 22 mmol/L (22-29); Chloride 107 mmol/L (98-107); Globulin 1.8 g/dL (1.3-4.6); Glucose 103 mg/dL (65-115); Lactate Dehydrogenase 207 U/L (135-225); Osmolality Calculated 293 mOsm/kg (285-295); Potassium 4.5 mmol/L (3.5-5.1); Sodium 139 mmol/L (136-145); Total Bilirubin 1.4 mg/dL (0.15-1.2); Total Protein 6.2 g/dL (6.6-8.7)
[2024-04-25 12:10] LABS: Testosterone Total 440.7 ng/dL (193-740)
== END 2024-05-04 23:59 | disposition home or self-care (01) ==
PROVIDERS: Visit Provider Internal Medicine Medical Oncology
DX: D80.1 Nonfamilial hypogammaglobulinemia (principal); C82.08 Follicular lymphoma grade I, lymph nodes of multiple sites; R53.1 Weakness; R53.83 Other fatigue; Z79.899 Other long term (current) drug therapy
CPT/HCPCS: 36591; 36593; 80053; 83615; 84403; 85025; J2997

== ENCOUNTER 2024-05-26 08:03 | Oncology outpatient (recurring) (ONCR) | payer MEDICARE, SELFPAY ==
[2024-05-26 08:48] LABS: Basophils % 0.7 %; Eosinophils # 0.2 10^3/uL (0.0-0.8); Eosinophils % 3.5 %; Hematocrit 35.3 % (37-53); Lymphocytes # 0.4 10^3/uL (0.8-4.8); Lymphocytes % 9.1 %; Mean Corpuscular HGB Conc 35.4 g/dL (30-55); Mean Corpuscular Hemoglobin 39.6 pg (27-33); Mean Corpuscular Volume 111.7 fl (82-101); Mean Platelet Volume 10.7 fL (7.4-10.4); Monocytes # 0.6 10^3/uL (0.2-0.9); Monocytes % 13.5 %; Neutrophils # 3.29 10^3/uL (1.8-7.7); Neutrophils % 72.5 %; Nucleated Red Blood Cells % 0 %; Platelet Count 66 10^3/cmm (157-399); Red Blood Count 3.16 10^6/uL (3.85-5.65); Red Cell Distribution Width 15.8 % (12.1-15.1); White Blood Count 4.53 10^3/uL (3.29-11.43)
[2024-05-26 09:04] LABS: Alanine Aminotransferase 91 U/L (0-41); Albumin Level 4.3 g/dL (3.5-5.2); Alkaline Phosphatase 104 U/L (40-130); Anion Gap 15.5 (5-19); Aspartate Amino Transferase 48 U/L (0-40); Blood Urea Nitrogen 23 mg/dL (8-23); Calcium 8.7 mg/dL (8.5-10.5); Carbon Dioxide 23 mmol/L (22-29); Chloride 107 mmol/L (98-107); Globulin 1.6 g/dL (1.3-4.6); Glomerular Filtration Rate 40.8 mL/min (90-130); Glucose 116 mg/dL (65-115); Lactate Dehydrogenase 230 U/L (135-225); Osmolality Calculated 297 mOsm/kg (285-295); Potassium 4.5 mmol/L (3.5-5.1); Sodium 141 mmol/L (136-145); Total Bilirubin 1.6 mg/dL (0.15-1.2); Total Protein 5.9 g/dL (6.6-8.7)
== END 2024-06-04 23:55 | disposition home or self-care (01) ==
PROVIDERS: Visit Provider Internal Medicine Medical Oncology
DX: C82.08 Follicular lymphoma grade I, lymph nodes of multiple sites (principal)
CPT/HCPCS: 36591; 80053; 83615; 85025

== ENCOUNTER 2024-06-27 08:11 | Oncology outpatient (recurring) (ONCR) | payer MEDICARE, SELFPAY ==
[2024-06-27 08:47] LABS: Basophils % 0.9 %; Eosinophils # 0.4 10^3/uL (0.0-0.8); Hematocrit 35.8 % (37-53); Lymphocytes # 0.6 10^3/uL (0.8-4.8); Lymphocytes % 12.7 %; Mean Corpuscular HGB Conc 34.9 g/dL (30-55); Mean Corpuscular Hemoglobin 39.3 pg (27-33); Mean Corpuscular Volume 112.6 fl (82-101); Mean Platelet Volume 11.4 fL (7.4-10.4); Monocytes # 0.7 10^3/uL (0.2-0.9); Monocytes % 15.1 %; Neutrophils # 2.91 10^3/uL (1.8-7.7); Neutrophils % 62.4 %; Nucleated Red Blood Cells % 0 %; Platelet Count 69 10^3/cmm (157-399); Red Blood Count 3.18 10^6/uL (3.85-5.65); Red Cell Distribution Width 15.2 % (12.1-15.1); White Blood Count 4.65 10^3/uL (3.29-11.43)
== END 2024-07-04 23:59 | disposition home or self-care (01) ==
PROVIDERS: Visit Provider Internal Medicine Medical Oncology
DX: D80.1 Nonfamilial hypogammaglobulinemia (principal)
CPT/HCPCS: 36591; 85025

== ENCOUNTER 2024-07-25 08:03 | Oncology outpatient (recurring) (ONCR) | payer MEDICARE, SELFPAY ==
[2024-07-25 08:32] LABS: Basophils % 0.9 %; Eosinophils # 0.3 10^3/uL (0.0-0.8); Eosinophils % 5.5 %; Hematocrit 34.1 % (37-53); Lymphocytes # 0.6 10^3/uL (0.8-4.8); Lymphocytes % 13.2 %; Mean Corpuscular HGB Conc 34.6 g/dL (30-55); Mean Corpuscular Hemoglobin 39.1 pg (27-33); Mean Corpuscular Volume 112.9 fl (82-101); Mean Platelet Volume 11.6 fL (7.4-10.4); Monocytes # 0.7 10^3/uL (0.2-0.9); Monocytes % 14.5 %; Neutrophils # 2.98 10^3/uL (1.8-7.7); Neutrophils % 65.2 %; Nucleated Red Blood Cells % 0 %; Platelet Count 66 10^3/cmm (157-399); Red Blood Count 3.02 10^6/uL (3.85-5.65); Red Cell Distribution Width 15.2 % (12.1-15.1); White Blood Count 4.56 10^3/uL (3.29-11.43)
[2024-07-25 09:05] LABS: Alanine Aminotransferase 59 U/L (0-41); Albumin Level 4.3 g/dL (3.5-5.2); Alkaline Phosphatase 95 U/L (40-130); Anion Gap 13.3 (5-19); Aspartate Amino Transferase 33 U/L (0-40); Blood Urea Nitrogen 23 mg/dL (8-23); Calcium 8.6 mg/dL (8.5-10.5); Carbon Dioxide 25 mmol/L (22-29); Chloride 102 mmol/L (98-107); Globulin 1.6 g/dL (1.3-4.6); Glomerular Filtration Rate 43.7 mL/min (90-130); Glucose 120 mg/dL (65-115); Lactate Dehydrogenase 219 U/L (135-225); Osmolality Calculated 287 mOsm/kg (285-295); Potassium 4.3 mmol/L (3.5-5.1); Sodium 136 mmol/L (136-145); Testosterone Total 398.6 ng/dL (193-740); Thyroid Stimulating Hormone 4.87 uIU/mL (0.27-4.20); Total Bilirubin 1.9 mg/dL (0.15-1.2); Total Protein 5.9 g/dL (6.6-8.7)
== END 2024-08-04 23:59 | disposition home or self-care (01) ==
PROVIDERS: Internal Medicine Hematology & Oncology; Visit Provider Internal Medicine Medical Oncology
DX: D80.1 Nonfamilial hypogammaglobulinemia (principal); D69.59 Other secondary thrombocytopenia; T45.1X5A Adverse effect of antineoplastic and immunosuppressive drugs, initial encounter
CPT/HCPCS: 36591; 80053; 83615; 84403; 84443; 85025

== ENCOUNTER 2024-09-12 08:06 | Oncology outpatient (recurring) (ONCR) | payer MEDICARE, SELFPAY ==
[2024-09-12] MEDS: alteplase 1 mg/mL SDV 2 mL 2 MG INTRACATH (08:45)
[2024-09-12 08:50] LABS: Eosinophils # 0.3 10^3/uL (0.0-0.8); Eosinophils % 7.7 %; Hematocrit 38.1 % (37-53); Lymphocytes # 0.4 10^3/uL (0.8-4.8); Mean Corpuscular HGB Conc 35.4 g/dL (30-55); Mean Corpuscular Hemoglobin 38.4 pg (27-33); Mean Corpuscular Volume 108.2 fl (82-101); Mean Platelet Volume 9.7 fL (7.4-10.4); Monocytes # 0.5 10^3/uL (0.2-0.9); Monocytes % 12.4 %; Neutrophils # 2.84 10^3/uL (1.8-7.7); Neutrophils % 67.9 %; Nucleated Red Blood Cells % 0.5 %; Platelet Count 68 10^3/cmm (157-399); Red Blood Count 3.52 10^6/uL (3.85-5.65); Red Cell Distribution Width 13.7 % (12.1-15.1); White Blood Count 4.18 10^3/uL (3.29-11.43)
[2024-09-12 09:05] LABS: Alanine Aminotransferase 33 U/L (0-41); Albumin Level 4.5 g/dL (3.5-5.2); Alkaline Phosphatase 94 U/L (40-130); Anion Gap 14.3 (5-19); Aspartate Amino Transferase 26 U/L (0-40); Blood Urea Nitrogen 28 mg/dL (8-23); Calcium 9.2 mg/dL (8.5-10.5); Carbon Dioxide 26 mmol/L (22-29); Chloride 106 mmol/L (98-107); Globulin 1.9 g/dL (1.3-4.6); Glomerular Filtration Rate 47.1 mL/min (90-130); Glucose 98 mg/dL (65-115); Lactate Dehydrogenase 267 U/L (135-225); Osmolality Calculated 299 mOsm/kg (285-295); Potassium 4.3 mmol/L (3.5-5.1); Sodium 142 mmol/L (136-145); Total Bilirubin 1.7 mg/dL (0.15-1.2); Total Protein 6.4 g/dL (6.6-8.7)
== END 2024-10-04 23:59 | disposition home or self-care (01) ==
PROVIDERS: Internal Medicine Medical Oncology; Visit Provider Internal Medicine Medical Oncology
DX: C82.08 Follicular lymphoma grade I, lymph nodes of multiple sites (principal); Z79.899 Other long term (current) drug therapy
CPT/HCPCS: 36415; 36593; 80053; 83615; 85025; J2997